=== PATIENT | female | born 1935 | race Caucasian/White ===

== ENCOUNTER 2018-07-12 10:00 | Outpatient (RCR) | payer OTHER, SELFPAY ==
--- NOTE | 2018-06-22 08:02 | IE_ITS ---
Date: 06/22/18 Referring: Dr. Jaclyn Clark Diagnosis: S/P (L) knee arthroscopic, scar tissue debridement on 06/09/18. S/P (L) TKR 1 year prior. P.T. Diagnosis: Same with decreased strength (L) LE. SUBJECTIVE: History of Present Illness: Moira presenting to PT for rehab of (L) knee following arthroscopic surgery as noted above. Pt explains that she had progressive pain 1 year following a total knee replacement, with provocation of pain thought to be scar tissue, growth production based on Jaclyn's assessment on 06/09/18. She went under arthroscopic debridement, and since that time she does appreciate remarkable improvement and articulation and mobility of the (L) knee. Has not yet changed but she realizes that this is due to her acute s/p surgical condition. She has had no PT as of yet. She was compliantly involved in a wellness program here in this clinic prior to this surgery and her main hope is to return to this as soon as possible, which is primarily why she is seeking this evaluation today to see if she is physically capable. She has a follow with Jaclyn in 6 weeks. Pain Rating: Unable to state but she does report moderate pain level Pain Location: Medial knee and lateral joint compartment Prior Level of Function: Difficulty with any movements where she was twisting as well as stairs, and squatting activities. She is ambulating without assistive device only utilizing a cane on uneven terrain or lengthy duration. Involved in our PT wellness program 2x per week with Melvin supervision here at our clinic. Current Level of Function: 1 step at a time with stair climbing, she isn't able to perform any bending or squatting due to pain and she has sleep disruption and discomfort when getting in and out of her tub an din and out of her vehicle. Previous Treatment: None post operatively. Social: Lives (I) Comorbidities: Insomnia, S/P (L) TKR 1 year ago, s/p (L) total shoulder, gluten allergy, Hypolipidemia, Osteoarthritis, Chronic (L) shoulder pain, limited (L) shoulder mobility Falls in the last year: __X__ No ____Yes - How many? ____ - (if over 2, balance SM needs to be completed) Reported hospitalizations in the last year - __X__ No ____ Yes - Dates of admission/reason: Medications: Tramadol, Acetaminophen, Baby Aspirin x 2 weeks Quality of Life: __X__ Good Standardized Measures: LEFS score: __52% Disability__ OBJECTIVE: Posture: Mild genu valgus (R) > (L), mild increase in forward head thoracic kyphosis consistent with age related deficits but no other structural deformities noted aside from (L) shoulder hiking and protrusion greater than the (R) side likely related to her chronic (L) shoulder issues. Observation: Mild swelling along the arthroscopic surgical incision but well healed skin. Mild increase in swelling (L) verus (R) but nothing remarkable. Gait: Minimally antalgic utilizing good heel to toe mechanics and not favoring 1 LE over the other. She can toe and heel walk without holding on and with good form. Palpation: Mild tenderness over surgical incisions but otherwise non tender along the (L) knee. Edema: Mild visual increase in swelling (L) knee versus (R) ROM: (L) knee is 0-150* without pain at end range, both at the (R) side. Joint Accessory Motion: WNL through the patella femoral and tibial femoral joints without discomfort. Strength: 5/5 (L) quad and (L) hamstring Hip flexion, dorsiflexion and plantarflexion Neuro: Intact to light touch (B) LE Balance: Complete a 10 second SLS but requires finger tip hold, (R) 10 seconds but without hold. Demonstrating more instability (L) versus (R). Special Tests: Not applicable. Treatment: IE: [id number] Patient Education: Develop and review HEP please see skin document for details. KX applied to all codes ____ Yes __X__ No Therapeutic procedures (03565e4). _ X_ HEP review Direct treatment time: 45 minutes Total treatment time: 45 minutes ASSESSMENT: Patient is a 83-year-old female, referred for PT services with the diagnosis of s/p (L) knee meniscectomy, scar tissue debridement following TKR 1 year ago. Patient presents with clinical signs and symptoms consistent with post op dx, as demonstrated by the following impairment level findings: poor proprioception of (L) knee, mild degree of swelling, poor endurance with pain exacerbation with weightbearing tasks. Impairments are contributing to the following functional limitations: Poor tolerance to lengthy weightbearing, unable to reciprocally ascend and descend stairs, pain with getting in and out of her tub and in and out of her vehicle, unable to bend or squat. Also unable to carry out her wellness program fully as she did prior to surgery. Patient is assessed as: __X__ Low 84067 ____ Moderate 93435 ____ High 89817 complexity, based on the following: History: X See comorbidities and social history. Examination: X See above for functional limitations and impairments. Presentation: X Stable Decision-Making: X Low complexity 52 % Disability based on LEFS __X__ Patient requires skilled PT intervention to remediate the above functional limitations to return to: __X__ Return to full functional mobility Prognosis: __X__ Excellent G-Codes: Patient's primary functional limitation is in the category of: __X__ Mobility - walking and moving around : [id number] based on LEFS Projected goal: __X__ Mobility - walking and moving around: [id number] STG: __4__ weeks. 1. Ascending and descending stair reciprocally. 2. Reporting no pain and getting into and out of her vehicle or tub. 3. Sleep pattern return to premorbid level. 4. Squatting and bending with 50% improvement. LTG: __8__ weeks. __X__ Return to premorbid level of function. __X__ Return to full, pain-free, functional mobility. __X__ Independent with self-maintenance program. PLAN: Patient to be seen 2 x per week, for 8 weeks, consistently for the first 4 weeks as we transition her back into her wellness program as that is her ultimate goal compared to when she has a good understanding of her therapeutic exercise and I anticipate that she will likely be able to carry out most of her rehabilitation via wellness program within frequent re-checks. Treatment to include: X Therapeutic exercise - [id number]- For (L) LE strengthening and proprioceptive activities. Thank you for this referral. Please do not hesitate to contact me with any questions or concerns regarding this patient's plan of care. Dr. Anaya please sign below if you are in agreement with this patients plan of care,
--- NOTE | 2018-06-24 15:44 | PTTR_ITS ---
DATE: 06/24/18 SUBJECTIVE: Moira reports that her knee was sore yesterday after running a lot of errands. She states that she is still having difficulty descending stairs. OBJECTIVE: Therapeutic procedures ([id number]). * [X] See flow sheet: Patient completed an open and closed-chain LE strengthening and stabilization program, as per flow sheet. Incorporated stair descent training as well as static proprioceptive balance activities, with good tolerance. * [X] Provided skilled instruction in proper exercise performance. * [X] Provided skilled manual cues to facilitate proper muscle recruitment and/or movement pattern. * [X] Other: Patient completes the remainder of her ther ex program, via Wellness Program. Direct treatment time: 45 minutes Total treatment time: 65 minutes
--- NOTE | 2018-06-27 10:39 | PTTR_ITS ---
DATE: 06/27/18 SUBJECTIVE: Moira states that she felt tired after her last PT session, and reports that she continues to have pain in her R knee. OBJECTIVE: Therapeutic procedures ([id number]). * [X] See flow sheet: Patient completed a LE strengthening and stabilization program including proprioceptive balance activities, as per flow sheet. Added lateral walks with light Theraband resistance to program today with good tolerance. Patient tolerated a slight progression in her program today, modifications made to reps are noted on flow sheet. * [X] Provided skilled manual cues to facilitate proper muscle recruitment and/or movement pattern * [X] Other: Patient completed selected exercises from her independent program, via Wellness Program. Direct treatment time: 45 minutes Total treatment time: 65 minutes
--- NOTE | 2018-06-29 10:28 | PTTR_ITS ---
DATE: 06/29/18 OBJECTIVE: Co-treatment with KLEVER Davenport. See her note for specifics. Therapeutic procedures (24013c6). * X See flow sheet: Open and closed chain LE strengthening as noted on flow sheet with some increases in reps and intensity of her program. Less discomfort noted throughout her program and she thinks that this is due to the Rock tape. * X Provided skilled instruction in proper exercise performance: * X Provided skilled manual cues to facilitate proper muscle recruitment and/ or movement pattern: * X Other: Ends with select independent exercises and cardiovascular activity via wellness program. Direct treatment time: 25 minutes Total treatment time: 25 minutes Micki Lewis, ACCOUNTING CLERK
--- NOTE | 2018-06-29 11:18 | PTTR_ITS ---
DATE: 06/29/18 SUBJECTIVE: Moira reports her knee is really unchanged since pre-surgcal status. She is frustrated by her chronic pain. OBJECTIVE: Observation: Visual low grade swelling R knee, well healed arthroscopic incisions. Manual therapy: (49594t9). R TF and PF mobilization for desensitization Extension overpressure in supine and long sitting, grade 4 STM desensitization surrounding R knee Rock tape application for desensitization Flexion end range oscillations in 90/90 position ROM:2-130* She was then seen by Micki Lewis PTA for ther ex per my direction - see her note. Direct treatment time: 30 minutes Total treatment time: 30 minutes Assessment: Moira is frustrated with lack of change in pain, as that was her ultimate goal with surgery. It is early in rehab process, and I remind her of this. Her age, chronic pain, and TKR history are likely to slow the healing process down. Despite her pain, her mobility is great, and extension is gaining. I anticipate with time, she will continue to improve, but slowly when considering above factors. She had report of pain decreased with donning of Rock taping. Plan: Per POC
--- NOTE | 2018-07-04 09:46 | PTTR_ITS ---
DATE: 07/04/18 SUBJECTIVE: Pt reports that she feels as though the Rock Taping was helpful. OBJECTIVE: Manual therapy: (97178o7). Todays session consisted of pt receiving tibiofemoral and patella femoral joint mobilization to the involved LE as well as stretching into knee flexion and extension. Pt was able to achieve 0* of knee extension and approximately looking 120-125* of knee flexion in the seated position. Pt then received Rock Taping as per previous session around the knee and completed a Therapeutic exercise (04665m5) Program consisting of proprioceptive activities on the airex, glute strengthening, LE strengthening activities and then completed a portion (I) with the Wellness program. Direct treatment time: 30 minutes Total treatment time: 30 minutes
--- NOTE | 2018-07-06 10:03 | PTTR_ITS ---
DATE: 07/05/18 SUBJECTIVE: Moira states that she is still having some discomfort in her L knee , although she feels functional tasks like ascending and descending stairs, are getting easier. OBJECTIVE: Therapeutic procedures ([id number]). * [X] See flow sheet: Patient completed a LE strengthening program with proprioceptive activities for improved balance and stability, as per flow sheet. Patient tolerated a slight progression in her program today, modifications made to reps, times, and weights are noted on flow sheet. * [X] Provided skilled manual cues to facilitate proper muscle recruitment and/or movement pattern. * [X] Other: Patient completed NuStep biking x10 minutes via Wellness Program, and several approved exercises, independently, under rehab trainer supervision. Direct treatment time: 40 minutes Total treatment time: 50 minutes (with additional time spent on independent exercise program)
--- NOTE | 2018-07-12 10:00 | PTTR_ITS ---
DATE: 07/12/18 SUBJECTIVE: Moira stating that she is having reduced pain when ascending, descending stairs. Now doing this reciprocally. She continues to suffer from chronic pain in the L knee. Her insomnia has really been bothering her lately which she feels only adds to her L knee discomfort. OBJECTIVE: ROM: L knee 0 to 130 degrees without discomfort. Accessory Motion: WNL patellofemoral and tibiofemoral joint. Strength: Grossly 4+/5, quad,hamstring. Gait: Non-antalgic. Toe and heel walk WNL. Observation: Mild swelling of the L knee, but nothing remarkable. Patient Education: Encourage her to do cardiovascular activity increasing her heart rate to about 130 to 140, 3-4x a week to see if this allows for some central nervous system stimulation in regards to endorphin release and/or serotonin in hopes of reducing her insomnia and managing her chronic L knee pain , otherwise she is appropriate to progress more onto an independent program as I anticipate time itself is going to manage her knee if she has a good oval or circular glass cutter outcome. Therapeutic procedures ([id number]). Direct treatment time: 25 mins Total treatment time: 25 mins A: At this point Moira is plateauing, she has reached good impairment level gains in regards to motion, strength, gait, etc . . . She continues to deal with chronic pain, this is likely related to the amount of pain she had prior to her surgery, her insomnia, and other unknown reasons. Hopefully some of my suggestions above may be of some help, otherwise we are going to have to see how time plays out and she is compliant with her HEP we can only hope that she will get some relief. At this point, I do not think there is any impairment related contribution to her pain. P: Continue MSP for 1 month, follow up with her in one months time to see how she is doing. She understands to contact me sooner if she needs assist or has concerns. KESHAV/dl
--- NOTE | 2018-07-12 10:48 | PTTR_ITS ---
DATE: 07/12/18 OBJECTIVE: Co-treatment with primary therapist, KLEVER Davenport. Please see her note for specifics. Therapeutic procedures (No Charge). Patient to transition to [facility] for ther ex. Per primary therapist, reviewed patient's open and closed chain LE strengthening and stabilization exercise program as well as set up and documentation. Patient demonstrates knowledge and understanding of program, documentation, safety with equipment use and set-up, and appropriate exercise execution. Patient completed the remainder of her program via Wellness Program under [facility].
== END 2018-07-22 23:59 | disposition home or self-care (01) ==
LOC: PT 10:00
PROVIDERS: PCP Family Medicine; Referring Provider Student in an Organized Health Care Education/Training Program; Visit Provider Student in an Organized Health Care Education/Training Program
DX: Z47.89 Encounter for other orthopedic aftercare (principal); M24.662 Ankylosis, left knee
CPT/HCPCS: 97110; 97140; 97161; G8978

== ENCOUNTER → 2018-07-22 02:52 | Outpatient (RCR) | payer OTHER, SELFPAY ==
[2018-07-01 09:17] VITALS: BP 106/55; PULSE 66; RESP 18; TEMP 36.8
[2018-07-01] MEDS: Normal Saline Flush 10 ML SYR IVP (09:27)
[2018-07-01] MEDS: IMMUNE GLOBULIN 20 GM/200 ML BTL IVPB (09:27)
[2018-07-01 10:03] VITALS: BP 120/61; PULSE 60; TEMP 36
[2018-07-01 10:15] VITALS: BP 118/61; PULSE 58; RESP 18; TEMP 36.8
[2018-07-01 10:45] VITALS: BP 118/60; PULSE 60; RESP 17; TEMP 36.5
[2018-07-01 11:19] VITALS: BP 136/63; PULSE 61; RESP 18; TEMP 36.8
[2018-07-22] MEDS: Normal Saline Flush 10 ML SYR IVP ×2 (08:30→11:25)
[2018-07-22] MEDS: IMMUNE GLOBULIN 20 GM/200 ML BTL IVPB (09:33)
[2018-07-22 09:45] VITALS: BP 121/59; PULSE 61; RESP 18; TEMP 36; O2SAT 100
[2018-07-22 10:00] VITALS: BP 120/46; PULSE 62; RESP 18; TEMP 36.2; O2SAT 100
[2018-07-22 10:30] VITALS: BP 131/57; PULSE 61; RESP 18; TEMP 36.6
[2018-07-22 11:24] VITALS: BP 142/61; PULSE 61; RESP 18; TEMP 36.6
== END ==
LOC: INF 07-01 01:19
PROVIDERS: PCP Family Medicine; Visit Provider Family Medicine
DX: D80.1 Nonfamilial hypogammaglobulinemia (principal)
CPT/HCPCS: 96365; 96366; J1459; J1561

== ENCOUNTER → 2018-07-22 08:00 | Outpatient (CLI) | payer OTHER, SELFPAY ==
[2018-07-22 08:12] LABS: Abs Immature Grans 0.01 k/cumm (0.0-0.09); Absolute Basophil Count 0.05 k/cumm (0.0-0.2); Absolute Eosinophil Count 0.31 k/cumm (0.0-0.7); Absolute Lymphocyte Count 1.67 k/cumm (1.2-3.4); Absolute Monocyte Count 0.89 k/cumm (0.11-0.7); Absolute Neutrophil Count 3.38 k/cumm (1.2-6.7); Basophils % 0.8; Eosinophils % 4.9; HCT 40.7 % (36.0-46.0); HGB 13.1 g/dL (12.0-15.5); Immature Grans % 0.2; Lymphocytes % 26.5; Mean Corp. HGB Concentration 32.2 g/dL (32.0-36.0); Mean Corpuscular Hemoglobin 30.5 pg (27.0-33.0); Mean Corpuscular Volume 94.7 fL (80-95); Mean Platelet Volume 10.4 fL (8.0-11.0); Monocytes % 14.1; Neutrophils % 53.5; Platelet Count 308 x1000/uL (130-400); RBC Distribution Width 14.9 % (11.7-14.6); White Blood Cell Count 6.31 k/cumm (4.4-10.8)
[2018-07-22 08:39] LABS: ALT 19 U/L (12-78); AST 23 U/L (15-37); Albumin 3.8 g/dL (3.4-5.0); Alkaline Phosphatase 65 U/L (46-116); Anion Gap 7.8 mmol/L (3-11); BUN 14 mg/dL (7-18); Bilirubin, Total 0.5 mg/dL (0.2-1.0); CO2 27.2 mmol/L (21.0-32.0); CREATININE 0.84 mg/dL (0.55-1.02); Calcium 9.2 mg/dL (8.5-10.1); Chloride 106 mmol/L (98-107); Glucose 100 mg/dL (70-100); Sodium 141 mmol/L (136-145); Total Protein 6.7 g/dL (6.4-8.2)
[2018-07-26 11:03] LABS: IgG 776 mg/dL (610-1616)
== END ==
PROVIDERS: PCP Family Medicine; Visit Provider Internal Medicine
DX: D80.1 Nonfamilial hypogammaglobulinemia (principal); D83.8 Other common variable immunodeficiencies
CPT/HCPCS: 36415; 80053; 82784; 85025

== ENCOUNTER 2018-08-12 00:49 | Outpatient (RCR) | payer OTHER, SELFPAY ==
[2018-08-12 09:12] VITALS: BP 134/58; PULSE 63; RESP 18; TEMP 36.3; O2SAT 99
[2018-08-12] MEDS: IMMUNE GLOBULIN 20 GM/200 ML BTL IVPB (09:38)
[2018-08-12] MEDS: Normal Saline Flush 10 ML SYR IVP (09:39)
[2018-08-12 09:40] VITALS: BP 115/96; PULSE 63; RESP 18; TEMP 36.4
[2018-08-12 09:55] VITALS: BP 125/54; PULSE 64; RESP 18; TEMP 36; O2SAT 99
[2018-08-12 10:09] VITALS: BP 123/48; PULSE 66; RESP 18; TEMP 36.5
== END 2018-08-21 23:59 | disposition home or self-care (01) ==
LOC: INF 00:49
PROVIDERS: PCP Family Medicine; Visit Provider Family Medicine
DX: D80.1 Nonfamilial hypogammaglobulinemia (principal)
CPT/HCPCS: 96365; 96366; J1459

== ENCOUNTER 2018-09-07 10:00 | Outpatient (CLI) | payer OTHER, SELFPAY | END 2018-09-07 10:20 | PROVIDERS: PCP Family Medicine; Visit Provider Student in an Organized Health Care Education/Training Program | DX: T84.84XA Pain due to internal orthopedic prosthetic devices, implants and grafts, initial encounter (principal); Z96.652 Presence of left artificial knee joint ==

== ENCOUNTER → 2018-09-07 10:37 | Outpatient (BNVA) | payer OTHER, SELFPAY | PROVIDERS: PCP Family Medicine; Referring Provider Family Medicine; Visit Provider Student in an Organized Health Care Education/Training Program | DX: Z47.89 Encounter for other orthopedic aftercare (principal); M25.562 Pain in left knee; Z96.652 Presence of left artificial knee joint | CPT/HCPCS: 99213 ==

== ENCOUNTER → 2018-09-19 12:45 | Outpatient (BNVA) | payer OTHER, SELFPAY | PROVIDERS: PCP Family Medicine; Referring Provider Family Medicine; Visit Provider Student in an Organized Health Care Education/Training Program | DX: M70.52 Other bursitis of knee, left knee (principal); M25.562 Pain in left knee; Z96.652 Presence of left artificial knee joint | CPT/HCPCS: 99213 ==

== ENCOUNTER → 2018-10-19 10:34 | Outpatient (BNVA) | payer OTHER, SELFPAY | PROVIDERS: PCP Family Medicine; Referring Provider Family Medicine; Visit Provider Student in an Organized Health Care Education/Training Program | DX: M76.52 Patellar tendinitis, left knee (principal); T84.84XA Pain due to internal orthopedic prosthetic devices, implants and grafts, initial encounter; Z96.652 Presence of left artificial knee joint; R22.9 Localized swelling, mass and lump, unspecified | CPT/HCPCS: 99214 ==

== ENCOUNTER 2018-11-01 01:03 | Outpatient (CLI) | payer OTHER, SELFPAY ==
--- NOTE | 2018-11-01 09:37 | DI.NM_ITS ---
SYMPTOMS/DIAGNOSIS: PAINFUL LEFT TOTAL KNEE REPLACEMENT, T84.84XA, Z96.652, ? LOOSE TKA THREE-PHASE BONE SCAN OF THE KNEES AND WHOLE BODY IMAGES: 24.8 mCi of technetium 99m MDP were administered IV. Comparison is made with plain films dated December, and CT dated April,. The flow images are unremarkable. The immediate images show mildly increased activity around the left knee prosthesis. The delayed images show slightly increased, symmetric activity around the left knee prosthesis, which may be within normal limits. A few tiny foci of increased activity are seen anteriorly in the right knee, likely corresponding to the patella. The remainder of the skeletal labelling is unremarkable. IMPRESSION: No findings to suggest loosening of the left knee prosthesis or infection.
== END 2018-11-01 01:23 ==
PROVIDERS: PCP Family Medicine; Visit Provider Student in an Organized Health Care Education/Training Program
DX: T84.84XA Pain due to internal orthopedic prosthetic devices, implants and grafts, initial encounter (principal); Z96.652 Presence of left artificial knee joint
CPT/HCPCS: 78315

== ENCOUNTER 2018-11-16 11:24 | Day surgery (SDC) | payer OTHER, SELFPAY ==
[2018-11-16 11:34] VITALS: BP 133/65; PULSE 64; RESP 20; TEMP 36.1; O2SAT 100
[2018-11-16 11:53] VITALS: BP 133/65; PULSE 64; RESP 20; TEMP 36.1; O2SAT 100
[2018-11-16] MEDS: Lactated Ringers 1,000 ML 80 ML IV (12:10)
[2018-11-16] MEDS: Bupivacaine 0.25% Pres-Free 30 ML VIAL (12:46)
[2018-11-16] MEDS: Lidocaine 1% Pres-Free 5 ML VIAL (12:46)
--- NOTE | 2018-11-16 12:55 | FORBOD_PTH ---
PATIENT: Moira Copeland LOC: YRN U#:[id number] AGE/SX: 83/F ROOM: RE11/16/[address]: El Anaya MD : [id number] BED: DIS: 11/16/2018 SPEC #: [id number] RECD: 11/16/18 17:05 STATUS: THIERNO REQ #: [id number] JORGE: 11/16/18 12:[address]: El Anaya DEPT: Surgical Specimen RECD BY: Diane Gardner ENTERED: 11/16/18 17:06 SP TYPE: For Body OTHR DR: Jarrod Becerra Tissues: 1 - FOREIGN BODY Procedures: GROSS LEVEL 1 Comments: [id number]
--- NOTE | 2018-11-16 13:05 | PDOC.DSDIS_ITS ---
Discharge Plan Disposition Patient Disposition: HOME Condition: Good Discharge Details Reason For Visit: Left knee foreign body Attending Provider: El Anaya Primary Care Provider: Jarrod Becerra Discharge Instructions Additional Instructions: Activity: You may bear weight as tolerated. No supported devices are required. You may move the knee as tolerated but should avoid any aggressive motions or exercises. Do NOT submerge. Dressings: Keep the dressing clean and dry. You may remove after 3 days. You may get wet after 3 days. Keep covered with a bandaid. Follow-up: 7-10 days. Medications: - You should use Tylenol and Ibuprofen for baseline pain control. Referrals: El Anaya MD [ [facility] STAFF PHYSICIAN] - Activity:: Elevate Remove Dressings/Wound Care:: 72 hours Shower/Bathe:: 72 hours Diet:: As Tolerated Discharge Orders Discharge Orders: Discharge Order (Routine); Ordered 11/16/18 Ordered By: El Anaya DS: Diagnosis Discharge Diagnosis (1) Superficial foreign body, left knee, sequela: Status: Acute
--- NOTE | 2018-11-18 07:01 | ROE_ITS ---
REPORT OF OPERATIVE PROCEDURE DATE OF SURGERY November 16, 2018 PREOPERATIVE DIAGNOSES Left knee foreign body. POSTOPERATIVE DIAGNOSES Left knee foreign body. SURGERY Excisional biopsy of left knee foreign body. SURGEON lE Anaya M.D. ANESTHESIA Local. ESTIMATED BLOOD LOSS Minimal. FINDINGS There as a dense and glossy white mass found just superficial to the anterolateral knee capsule. It was approximately 2 mm in diameter. It was sent to the lab for pathology. COMPLICATIONS None. DISPOSITION The patient was taken back to the Same Day Surgery area in stable condition. INDICATION FOR PROCEDURE Moira is an 83-year-old female who I know quite well from her left knee. She underwent a left knee arthroplasty a little over a year ago and has had some persistent pain and issues with the left knee. She was otherwise mobile and has done well, except for some chronic, low-grade pain. She has also noticed this prominence over the anterolateral aspect of the left knee. She feels like it only came about after surgery. It was unclear exactly what it is, but it presents a problem with any direct pressure where it causes exquisite pain. I discussed the role excisional biopsy. Given its superficial and small nature, I thought this was the best next step. I reviewed the possible risks to include bleeding, infection, pain, stiffness, recurrence, need to repeat procedures. Despite these risks, she elected to proceed. PROCEDURE DESCRIPTION Moira was greeted in the preoperative holding area, her identity was confirmed and the correct site was identified and marked. The consent was reviewed with the patient and signs. The patient was taken back to the Operating Room, placed in supine position. The left knee was identified as the correct site. It was prepped with ChloraPrep and draped in a standard fashion. Prophylactic antibiotics in the form of cefazolin were given. A time-out was performed for safe surgery. The mass was easily palpable. It was marked on the skin. The surgical site was then anesthetized with 1% lidocaine. Once anesthesia had been reached, the skin was incised. A 1-cm incision was made superficially. This was carried slightly deeper until we encountered this hard mass. A tenotomy scissor was used to bluntly debride the tissue around this area and this 2-mm dense object was removed. It was glossy white on its surface and again, it was about 2 millimeters in diameter. It was sent off to Pathology. This appeared to be just lateral to the patellar tendon and over the surface of the anterolateral capsule. There were no other concerning findings in this area. The area was irrigated. This wound was closed with a single #3-0 Nylon stitch. The wound was dressed with a Mepilex dressing. At the end of the case, all counts were correct. She was transferred back to the Same Day Surgery in stable condition.
== END 2018-11-16 13:45 | disposition home or self-care (01) ==
PROVIDERS: PCP Family Medicine; Visit Provider Student in an Organized Health Care Education/Training Program
PROC: (CPT 20525; principal; 2018-11-16 13:15)
DX: M79.5 Residual foreign body in soft tissue (principal); Z96.651 Presence of right artificial knee joint
CPT/HCPCS: 20525; 88300; 99211; J0690

== ENCOUNTER → 2018-11-28 13:54 | Outpatient (BNVA) | payer OTHER, SELFPAY | PROVIDERS: PCP Family Medicine; Referring Provider Family Medicine; Visit Provider Student in an Organized Health Care Education/Training Program | DX: S80.252D Superficial foreign body, left knee, subsequent encounter (principal); X58.XXXD Exposure to other specified factors, subsequent encounter ==

== ENCOUNTER 2018-12-26 00:39 | Outpatient (CLI) | payer OTHER, SELFPAY ==
[2018-12-26] MEDS: Omnipaque 350 MG/ML 100 ML BTL IJ (12:58)
--- NOTE | 2018-12-26 13:00 | DI.CT_ITS ---
SYMPTOM/DIAGNOSIS: ABD PAIN, RECURRENCE OF SOME RT EPIGASTRIC PAIN, H/O RECENT ACUTE PANCREATITIS, R10.[address]: There are no prior comparison exams. Images were performed from the lung bases through the ischial tuberosities after IV and oral contrast. The lung bases are clear. The patient is status post cholecystectomy. The liver, spleen, pancreas and adrenals are unremarkable. There is a mass measuring 3.2 cm. in greatest dimension in the mid portion of the right kidney. It deviates the renal pelvis but does not appear invasive. There is no hydronephrosis. The left kidney is unremarkable. Diverticulosis is noted of the descending and sigmoid colon. There is no evidence of diverticulitis. The appendix appears normal. There is no small bowel dilatation. No adenopathy is seen. There is no free air or free fluid. There is mild compression fracture of the superior endplate of L 2. No underlying mass is identified. The patient is status post hysterectomy. There is a simple appearing cyst on the right ovary measuring 3.2 cm. The left ovary is unremarkable. IMPRESSION: 3.2 cm., circumscribed mass in the mid right kidney. The mass appears homogeneous and does not appear invasive but does not measure water density. An MRI could be considered for further evaluation.
== END 2018-12-26 00:59 ==
PROVIDERS: PCP Family Medicine; Visit Provider Family Medicine
DX: R10.9 Unspecified abdominal pain (principal); R10.13 Epigastric pain; N28.9 Disorder of kidney and ureter, unspecified; K57.90 Diverticulosis of intestine, part unspecified, without perforation or abscess without bleeding; T84.84XA Pain due to internal orthopedic prosthetic devices, implants and grafts, initial encounter; Z96.652 Presence of left artificial knee joint
CPT/HCPCS: 99213; 74177; J3490

== ENCOUNTER 2019-01-03 01:13 | Outpatient (CLI) | payer OTHER, SELFPAY ==
[2019-01-03 13:23] LABS: Abs Immature Grans 0.01 k/cumm (0.0-0.09); Absolute Basophil Count 0.04 k/cumm (0.0-0.2); Absolute Eosinophil Count 0.18 k/cumm (0.0-0.7); Absolute Lymphocyte Count 1.39 k/cumm (1.2-3.4); Absolute Monocyte Count 0.68 k/cumm (0.11-0.7); Absolute Neutrophil Count 3.57 k/cumm (1.2-6.7); Basophils % 0.7; Eosinophils % 3.1; HCT 39.9 % (36.0-46.0); HGB 12.8 g/dL (12.0-15.5); Immature Grans % 0.2; Lymphocytes % 23.7; Mean Corp. HGB Concentration 32.1 g/dL (32.0-36.0); Mean Corpuscular Volume 93.7 fL (80-95); Mean Platelet Volume 10.4 fL (8.0-11.0); Monocytes % 11.6; Neutrophils % 60.7; Platelet Count 305 x1000/uL (130-400); RBC 4.26 m/cumm (4.00-5.20); RBC Distribution Width 14.8 % (11.7-14.6); White Blood Cell Count 5.87 k/cumm (4.4-10.8)
[2019-01-03 13:35] LABS: ALT 19 U/L (12-78); AST 21 U/L (15-37); Albumin 3.5 g/dL (3.4-5.0); Alkaline Phosphatase 66 U/L (46-116); Anion Gap 8.5 mmol/L (3-11); BUN 22 mg/dL (7-18); Bilirubin, Total 0.2 mg/dL (0.2-1.0); CO2 28.5 mmol/L (21.0-32.0); CREATININE 0.91 mg/dL (0.55-1.02); Calcium 9.1 mg/dL (8.5-10.1); Chloride 104 mmol/L (98-107); Estimated GFR 59.33 (mL/min/1.73m2); Glucose 82 mg/dL (70-100); Potassium 4.1 mmol/L (3.5-5.1); Sodium 141 mmol/L (136-145); Total Protein 6.8 g/dL (6.4-8.2)
[2019-01-03 13:37] LABS: Creatine Kinase 67 U/L (26-192)
[2019-01-03] MEDS: Gadoterate meglumine 20 ML VIAL 11 ML IVP (14:34)
--- NOTE | 2019-01-03 14:48 | DI.MRI_ITS ---
SYMPTOMS/DIAGNOSIS: 3.2 CM RENAL MASS, N29.89, H/O PANCREATITIS AND RECURRENCE OF ABDOMINAL PAIN, MORE RIGHT-SIDED MRI OF THE ABDOMEN: Pre and post contrast MRI of the kidneys was performed. Comparison CT scan is 12/26/18. There is again seen a soft tissue mass in the right renal pelvis. The mass measures 3.0 cm transverse x 2.6 cm AP x 3.1 cm craniocaudad. The mass appears to be centered in the renal collecting system. It appears to involve calyces from the mid pole with extension into the renal pelvis. It is similar in size and location compared to the CT scan from 12/26/18. The kidney shows otherwise normal enhancement. There does appear to be mild prominence of the other calyces in the right kidney. The left kidney shows normal and homogenous enhancement. No evidence of a mass is appreciated. There is no evidence of an adrenal mass. The visualized portions of the liver, pancreas and spleen are unremarkable. The patient is status post cholecystectomy. No significant adenopathy is seen in the abdomen. No ascites is present. IMPRESSION: A 3.1 cm mass in the right kidney as described above. Primary diagnostic consideration is for a renal neoplasm. A urothelial neoplasm should be considered. Renal cell carcinoma cannot be excluded. Infection or hemorrhage may also be considered in this patient. Biopsy should be considered for further evaluation.
[2019-01-04 11:27] LABS: IgG 427 mg/dL (610-1616)
== END 2019-01-03 01:33 ==
PROVIDERS: Internal Medicine; PCP Family Medicine; Visit Provider Family Medicine
DX: N28.89 Other specified disorders of kidney and ureter (principal); R10.31 Right lower quadrant pain; D80.1 Nonfamilial hypogammaglobulinemia; D83.8 Other common variable immunodeficiencies
CPT/HCPCS: 36415; 74183; 80053; 82550; 82784; 85025

== ENCOUNTER 2019-01-26 01:18 | Inpatient (IN) | payer OTHER, SELFPAY ==
[2019-01-26] VITALS (22 sets, daily range): BP systolic 114–170; BP diastolic 55–76; PULSE 64–77; RESP 16–20; TEMP 35.7–37.5; O2SAT 94–99
--- NOTE | 2019-01-26 01:20 | W.ED.GENAD ---
Discharge Plan Disposition Patient Disposition: [facility] INPATIENT Condition: Stable Discharge Details Chief Complaint: Urinary Clinical Impression: Acute pancreatitis Primary Care Provider: Jarrod Becerra ED Provider: Daniel Gurrola Home Meds and New Rx's Prescriptions: No Action acetaminophen [Acetaminophen Extra Strength] 500 mg Tablet 1,000 mg PO PRN PRNRF: 0 Medical Decision Making 83 yo female comes in with right sided abdominal pain since yesterday. She had a CT guided core needle biopsy of the right kidney yesterday [place] [facility] [place] and had right sided pain in recovery. They monitored her per the pt and d/c'd her home, continued to have pain so came here for an evaluation. She has not had vomit, fevers or chills. She has pain on palpation to the right oblique, ruq and rlq. She does appear uncomfortable. The site where the needle was insterted is not red or tender and has no drainage. She has also had hematuria since the procedure. Will obtain lab work and imaging to further evaluate cause of her pain and eval for entities such as pancreatitis, appendicitis, kidney stone. labs show mild lucinda, nitrite positive urine but she denies any urinary symptoms so do not feel abx indicated. Lipase is 1800, awaiting imaging imaging shows severe hydro likely from acute on chronic obstruction and also evidence of possible urine extravasation. I spoke with Dr. Hackett who states he can take her to the OR later today for further evaluation of renal collceting system injury. Spoke with Dr. Painting who will admit for pain control and IVF Differential Diagnosis pancreatitis, kidney stone, appendicitis Imaging Data Radiologic Study: Attestation: I personally reviewed and interpreted this imaging study as follows: Imaging: CT Scan Radiologist's impression: Severe right hydronephrosis. 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 There is some perinephric stranding and fluid which is lower density than blood products and could represent some urine extravasation. Patient has a known right renal mass. HPI General Mode of arrival: ambulatory. Date/Time Provider Initiated Documentation: 01/26/19 01:20. Limitations to Documentation: no limitations. Information obtained by: patient. History of Present Illness 83 year old F presents to the emergency department with the chief complaint of abdominal pain, described as moderate, Quality is described as sharp, Patient reports no radiation. Patient started experiencing this hour(s) (5) No relieving factors improve symptom(s), No exacerbating factors reported . Patient did receive the following treatments prior to arrival, none Related Data Home Medications Medication Instructions Recorded Confirmed acetaminophen [Acetaminophen Extra 1,000 mg PO PRN PRN 01/26/19 01/26/19 Strength] Allergies Allergy/AdvReac Type Severity Reaction Status Date / Time ropinirole Allergy Severe blacked out Unverified 01/26/19 01:30 mometasone furoate Allergy Intermediate Swelling/Ed Unverified 01/26/19 01:30 [From Nasonex] cinda gluten AdvReac Intermediate Abdominal Unverified 01/26/19 01:30 pain, diarrhea Review of Systems Review of Systems All systems reviewed & are unremarkable except as noted in HPI and below Constitutional Denies chills and Denies fever(s) Cardiovascular Denies chest pain and Denies dyspnea Respiratory Denies cough and Denies dyspnea Gastrointestinal Denies vomiting Genitourinary Denies dysuria Musculoskeletal Denies joint swelling Integumentary/Breasts Denies rash Endocrine Denies heat intolerance Allergic/Immunologic Denies urticaria PFSH Medical History Hyperlipidemia Osteoarthritis Other chronic pain Overactive bladder Surgical History Abdominal hysterectomy Appendectomy Arthroscopy, Shoulder Cholecystectomy Colonoscopy - IV Sedation Extraction of cataract Open Carpal Tunnel release Tonsillectomy Family History Mother No problems noted. Father No problems noted. Social History Smoking and Tabacco status: Former Tobacco Use Exam Const General: no acute distress Orientation: alert HENMT Head: normal to inspection Ears: external ears normal General nose exam: external nose normal Mouth: moist mucous membranes Eyes General: appearance normal, both eyes and all related structures Neck Neck: normal visual inspection Resp Effort & Inspection: normal respiratory effort and able to speak in complete sentences Cardio Rate: regular rate GI Palpation: soft Skin General skin exam: no rashes or lesions noted Neuro General: alert and oriented x3 Extrem General: normal to inspection Psych Mental Status: mental status grossly normal
[2019-01-26] MEDS: Normal Saline 1,000 ML 1000 ML IV (01:36)
[2019-01-26] MEDS: Ondansetron 4 MG/2 ML VIAL IVP (01:37)
--- NOTE | 2019-01-26 01:39 | ED.GENADUL_ITS ---
Discharge Plan Disposition Patient Disposition: [facility] INPATIENT Condition: Stable Discharge Details Chief Complaint: Urinary Clinical Impression: Acute pancreatitis Primary Care Provider: Jarrod Becerra ED Provider: Daniel Gurrola Home Meds and New Rx's Prescriptions: No Action acetaminophen [Acetaminophen Extra Strength] 500 mg Tablet 1,000 mg PO PRN PRNRF: 0 Medical Decision Making 83 yo female comes in with right sided abdominal pain since yesterday. She had a CT guided core needle biopsy of the right kidney yesterday at [facility] [place] for a [place] and had right sided pain in recovery. They monitored her per the pt and d/c'd her home, continued to have pain so came here for an evaluation. She has not had vomit, fevers or chills. She has pain on palpation to the right oblique, ruq and rlq. She does appear uncomfortable. The site where the needle was insterted is not red or tender and has no drainage. She has also had hematuria since the procedure. Will obtain lab work and imaging to further evaluate cause of her pain and eval for entities such as pancreatitis, appendicitis, kidney stone. labs show mild lucinda, nitrite positive urine but she denies any urinary symptoms so do not feel abx indicated. Lipase is 1800, awaiting imaging imaging shows severe hydro likely from acute on chronic obstruction and also evidence of possible urine extravasation. I spoke with Dr. Hackett who states he can take her to the OR later today for further evaluation of renal collceting system injury. Spoke with Dr. Painting who will admit for pain control and IVF Differential Diagnosis pancreatitis, kidney stone, appendicitis Imaging Data Radiologic Study: Attestation: I personally reviewed and interpreted this imaging study as follows: Imaging: CT Scan Radiologist's impression: Severe right hydronephrosis. 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 There is some perinephric stranding and fluid which is lower density than blood products and could represent some urine extravasation. Patient has a known right renal mass. HPI General Mode of arrival: ambulatory . Date/Time Provider Initiated Documentation: 01/26/19 01:20 . Limitations to Documentation: no limitations . Information obtained by: patient . History of Present Illness 83 year old F presents to the emergency department with the chief complaint of abdominal pain, described as moderate, Quality is described as sharp, Patient reports no radiation. Patient started experiencing this hour(s) (5) No relieving factors improve symptom(s), No exacerbating factors reported . Patient did receive the following treatments prior to arrival, none Related Data Home Medications Medication Instructions Recorded Confirmed acetaminophen [Acetaminophen Extra 1,000 mg PO PRN PRN 01/26/19 01/26/19 Strength] Allergies Allergy/AdvReac Type Severity Reaction Status Date / Time ropinirole Allergy Severe blacked out Unverified 01/26/19 01:30 mometasone furoate Allergy Intermediate Swelling/Ed Unverified 01/26/19 01:30 [From Nasonex] cinda gluten AdvReac Intermediate Abdominal Unverified 01/26/19 01:30 pain, diarrhea Review of Systems Review of Systems All systems reviewed & are unremarkable except as noted in HPI and below Constitutional Denies chills and Denies fever(s) Cardiovascular Denies chest pain and Denies dyspnea Respiratory Denies cough and Denies dyspnea Gastrointestinal Denies vomiting Genitourinary Denies dysuria Musculoskeletal Denies joint swelling Integumentary/Breasts Denies rash Endocrine Denies heat intolerance Allergic/Immunologic Denies urticaria PFSH Medical History Hyperlipidemia Osteoarthritis Other chronic pain Overactive bladder Surgical History Abdominal hysterectomy Appendectomy Arthroscopy, Shoulder Cholecystectomy Colonoscopy - IV Sedation Extraction of cataract Open Carpal Tunnel release Tonsillectomy Family History Mother No problems noted. Father No problems noted. Social History Smoking and Tabacco status: Former Tobacco Use Exam Const General: no acute distress Orientation: alert HENMT Head: normal to inspection Ears: external ears normal General nose exam: external nose normal Mouth: moist mucous membranes Eyes General: appearance normal, both eyes and all related structures Neck Neck: normal visual inspection Resp Effort & Inspection: normal respiratory effort and able to speak in complete sentences Cardio Rate: regular rate GI Palpation: soft Skin General skin exam: no rashes or lesions noted Neuro General: alert and oriented x3 Extrem General: normal to inspection Psych Mental Status: mental status grossly normal
[2019-01-26] MEDS: fentaNYL 100 MCG/2 ML VIAL 50 MCG IVP ×2 (01:40→02:24)
[2019-01-26 01:47] LABS: Bilirubin Moderate (Negative); Blood Large (Negative); Clarity Cloudy; Glucose Negative (Negative); Ketones 80 mg/dL (Negative); Leukocyte Esterase Negative (Negative); Nitrite Positive (Negative); pH 5.5 (5-8)
[2019-01-26 01:52] LABS: Bacteria Few HPF (Negative); C & S Indicated? Yes; Casts Negative LPF (Negative); Crystals Negative HPF (Negative); Epithelial Cells Rare HPF (Negative); Mucus Negative (Negative); Other Cells Moderate Yeast (Negative); RBC >50 (0-2); WBC 0-2 HPF (0-5)
[2019-01-26 01:58] LABS: ETHANOL BLOOD < 3.0 mg/dL (<3)
[2019-01-26 02:01] LABS: ALT 18 U/L (12-78); AST 22 U/L (15-37); Albumin 3.6 g/dL (3.4-5.0); Alkaline Phosphatase 61 U/L (46-116); Anion Gap 13.4 mmol/L (3-11); BUN 19 mg/dL (7-18); Bilirubin, Direct 0.09 mg/dL (0.00-0.20); Bilirubin, Total 0.3 mg/dL (0.2-1.0); CO2 23.6 mmol/L (21.0-32.0); CREATININE 1.25 mg/dL (0.55-1.02); Chloride 101 mmol/L (98-107); Estimated GFR 41.13 (mL/min/1.73m2); Glucose 114 mg/dL (70-100); Lipase 1864 U/L (73-393); Magnesium 1.9 mg/dL (1.8-2.4); Potassium 3.8 mmol/L (3.5-5.1); Sodium 138 mmol/L (136-145); Total Protein 6.5 g/dL (6.4-8.2)
[2019-01-26] MEDS: Omnipaque 350 MG/ML 100 ML BTL IJ (02:14)
--- NOTE | 2019-01-26 02:15 | DI.CT_ITS ---
SYMPTOM/DIAGNOSIS: RT SIDED ABD PAIN, S/P KIDNEY BIOPSY YESTERDAY ABDOMEN AND PELVIC CT: CT scan of the abdomen and pelvis was performed following the uneventful administration of intravenous contrast material. Comparison is made with 12/26/18. Dependent atelectatic changes are seen in the lung bases. The liver is normal in size. No suspicious hepatic mass is seen. The patient is status post cholecystectomy. No biliary ductal dilatation is present. The portal, superior mesenteric and splenic veins are patent. The pancreas, spleen and adrenal glands are unremarkable. The left kidney shows normal enhancement. No solid renal mass or obstruction is identified. The right kidney shows delayed enhancement with marked enlargement of the renal collecting system to the level of the ureteropelvic junction. There is again seen a filling defect in the right renal collecting system measuring approximately 3.5 cm. consistent with the patient's known renal mass. Air is seen within the collecting system likely reflecting the patient's recent biopsy. Dilatation of the collecting system may reflect worsening of the dilatation of the right renal collecting system due to hemorrhage from the patient's recent biopsy. There is fluid seen in the perinephric soft tissues. This is predominantly low attenuation. The possibility of extravasation of urine should be considered. The urinary bladder is intact. There is a 3 cm. right adnexal cystic lesion again seen, likely ovarian in origin. The abdominal aorta is of normal caliber with atherosclerosis. No abdominal or pelvic adenopathy or pneumoperitoneum is present. There is diverticulosis of the colon but no evidence of acute diverticulitis. No findings to suggest an acute appendicitis are present. The bones appear stable. IMPRESSION: 1. Exacerbation and worsening of the right hydronephrosis. 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 Perinephric stranding and fluid is seen around the right kidney. It is of lower density than blood products and may represent urine extravasation. 2. Stable right 2.3 cm. renal mass. 3. Stable 3 cm. cystic lesion in the right adnexa, likely ovarian in origin.
[2019-01-26 02:18] LABS: Triglyceride 109 mg/dL (30-150)
[2019-01-26 02:24] LABS: PTT Activated 22.7 sec (21.0-31.4); Prothrombin Time 9.6 sec (9.3-11.0)
--- NOTE | 2019-01-26 02:49 | DI.VRAD_ITS ---
EXAM: CT Abdomen and Pelvis With Contrast EXAM DATE/TIME: 01/26/2019 1:30 AM CLINICAL HISTORY: 83 years old, female; Pain; Abdominal pain; Localized; Right; Prior surgery; Surgery date: Post-operative (0-2 days); Surgery type: Right renal biopsy TECHNIQUE: Axial computed tomography images of the abdomen and pelvis with intravenous contrast. All CT scans at this facility use at least one of these dose optimization techniques: automated exposure control; mA and/or kV adjustment per patient size (includes targeted exams where dose is matched to clinical indication); or iterative reconstruction. Coronal and sagittal reformatted images were created and reviewed. CONTRAST: Contrast Material: 79 ml of [id number]; Contrast Route: iv COMPARISON: CT Abdomen^ROUTINE ABDOMEN PELVIS WITH CONTRAST (Adult) 12/26/2018 12:42 PM FINDINGS: Lower thorax: Unremarkable. ABDOMEN: Liver: No suspicious lesions. Gallbladder and bile ducts: No acute or concerning findings. Pancreas: Unremarkable. No ductal dilation. Spleen: No suspicious lesions. Adrenals: Unremarkalbe. No suspicious mass. Kidneys and ureters: Severe right hydronephrosis. 3.5 cm right renal mass unchanged in the short-term. Right-sided perinephric stranding and fluid measuring 15-20 Hounsfield units. Stomach and bowel: Unremarkable. No obstruction or inflammatory changes. Appendix: No evidence of appendicitis. PELVIS: Bladder: Unremarkable as visualized. Reproductive: Unremarkable as visualized. ABDOMEN and PELVIS: Intraperitoneal space: No free air. No significant fluid collection. Bones/joints: Old compression deformity superior endplate of L2. Soft tissues: Unremarkable. Vasculature: Unremarkable. No acute findings Lymph nodes: Unremarkable. IMPRESSION: Severe right hydronephrosis. 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 There is some perinephric stranding and fluid which is lower density than blood products and could represent some urine extravasation. Patient has a known right renal mass. Dictated and Authenticated by: Pj Whelan MD. Ordering:PEDRO Sanchez MD
[2019-01-26 03:32] LABS: Abs Immature Grans 0.03 k/cumm (0.0-0.09); Absolute Basophil Count 0.04 k/cumm (0.0-0.2); Absolute Eosinophil Count 0.13 k/cumm (0.0-0.7); Absolute Lymphocyte Count 1.18 k/cumm (1.2-3.4); Absolute Monocyte Count 1.07 k/cumm (0.11-0.7); Absolute Neutrophil Count 10.82 k/cumm (1.2-6.7); Basophils % 0.3; HGB 12.3 g/dL (12.0-15.5); Immature Grans % 0.2; Lymphocytes % 8.9; Mean Corp. HGB Concentration 32.4 g/dL (32.0-36.0); Mean Corpuscular Hemoglobin 29.9 pg (27.0-33.0); Mean Corpuscular Volume 92.2 fL (80-95); Mean Platelet Volume 10.8 fL (8.0-11.0); Monocytes % 8.1; Neutrophils % 81.5; Platelet Count 327 x1000/uL (130-400); RBC 4.12 m/cumm (4.00-5.20); RBC Distribution Width 14.5 % (11.7-14.6); White Blood Cell Count 13.27 k/cumm (4.4-10.8)
--- NOTE | 2019-01-26 04:10 | NUR.NOTE ---
Nursing Note: Patient arrived to unit in stable condition, she is awake, alert and oriented, daughter at the bedside.
[2019-01-26] MEDS: Normal Saline 1,000 ML 150 ML IV ×2 (05:35→17:48)
--- NOTE | 2019-01-26 06:00 | W.PM.HP.N ---
Date of service: 01/26/19 Time of Service: 06:01 Assessment and Plan (1) Pancreatitis: Current visit: Yes Status: Chronic Apparent recurrent bout of pancreatitis, initial occurring in 07/2018. Per review of prior records, the patient was traveling in [facility] when she had onset of abdominal discomfort necessitating a stop at a local gas station. She had a bowel movement there that was loose, and following she became dizzy and weak, feeling unsafe to drive. She was transported by EMS to a local hospital, where she was found to have a elevated lipase. The patient verbally reports that she was hospitalized for 2 days. Current abdominal pain is not epigastric in nature, and the patient denies any nausea at this time. The CT of her abdomen does not show any abnormality within the pancreas. Repeat lipase this morning, continue IV fluids and pain control. The patient is s/p cholecystectomy. Will check a.m. triglycerides. Denies any alcohol use. (2) Right renal mass: Current visit: Yes Status: Acute S/p guided biopsy on 01/25 at [facility] [place]. Imaging with evidence of severe right sided hydronephrosis, with likely acute on chronic UPJ obstruction which she is exacerbated by some blood in the collecting system post biopsy. Also with mention of perinephric stranding and potential urine extravasation around the site of the biopsy. This was discussed with urology by ED attending, and plans for potential OR today with ureteroscopy for further evaluation. 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 (4) DVT prophylaxis: Current visit: Yes Status: Acute Hold off on chemical DVT prophylaxis as patient is potentially heading to the OR today. SCDs and TEDs initiated. (5) Advance directive discussed with patient: Current visit: Yes Status: Acute Full code. History of Present Illness Chief Complaint: Abdominal Pain Narrative: 83 year old woman with a past medical history significant for a right renal mass s/p Biopsy yesterday, and prior history of acute pancreatitis in July of 2018, being admitted from [facility] Emergency Department with a diagnosis of Pancreatitis. Mrs. Copeland has a prior history of OA, POLINA, RLS, and IBS. 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 Of note, she also had an episode of pancreatitis in 07/2018, manifested by abdominal pain and loose stools, for which she was reportedly hospitalized at an outside institution. The patient was noted to have a right sided renal mass on CT Scan obtained in early December due to abdominal pain. She was seen at [facility] [place] yesterday and underwent a CT Guided Biopsy. She reports some degree of RLQ pain prior to the procedure, and this has intensified since then. She also reports hematuria since the biopsy. Work-up in the ED was significant for mild elevation in creatinine, and a mildly elevated Lipase. Imaging was significant for acute on chronic right UPJ Obstruction, post-biopsy blood in the collecting system, and possible fluid (Urine) extravasation and perinephric stranding. The pancrease appeared normal. Patient was referred for admission for further evaluation and management, and Urology was consulted as well. Review of Systems Review of Systems All systems reviewed & are unremarkable except as noted in HPI and below PFSH Medical History Hyperlipidemia Osteoarthritis Other chronic pain Overactive bladder Surgical History Abdominal hysterectomy Appendectomy Arthroscopy, Shoulder Cholecystectomy Colonoscopy - IV Sedation Extraction of cataract Open Carpal Tunnel release Tonsillectomy Family History Mother No problems noted. Father No problems noted. Social History Smoking and Tabacco status: Former Tobacco Use additional social history: . 4 children. No current alcohol use, and remote history of tobacco use. Meds Home Medications Medication Instructions Recorded Confirmed Type acetaminophen [Acetaminophen Extra 1,000 mg PO PRN PRN 01/26/19 01/26/19 History Strength] Allergies Allergy/AdvReac Type Severity Reaction Status Date / Time ropinirole Allergy Severe blacked out Unverified 01/26/19 01:30 mometasone furoate Allergy Intermediate Swelling/Ed Unverified 01/26/19 01:30 [From Nasonex] cinda gluten AdvReac Intermediate Abdominal Unverified 01/26/19 01:30 pain, diarrhea Exam Narrative Exam Narrative: General: Patient appears comfortable, AAOX3, NAD Neck: Supple CV: Regular, nontachycardic, S1S2, No rubs, murmurs, or gallops. Pulmonary: Clear to auscultation bilaterally, no crackles, wheezing, or rhonchi Abdomen: + Bowel Sounds, soft, nondistended. Tenderness to palpation of RLQ, right flank, and right CVA at site of biopsy. No rebound. Vascular: No lower extremity edema Psych: Normal mood and affect. Results Imaging Abdomen CT scan report/results: report reviewed Additional studies: EXAM: CT Abdomen and Pelvis With Contrast EXAM DATE/TIME: 01/26/2019 1:30 AM CLINICAL HISTORY: 83 years old, female; Pain; Abdominal pain; Localized; Right; Prior surgery; Surgery date: Post-operative (0-2 days); Surgery type: Right renal biopsy TECHNIQUE: Axial computed tomography images of the abdomen and pelvis with intravenous contrast. All CT scans at this facility use at least one of these dose optimization techniques: automated exposure control; mA and/or kV adjustment per patient size (includes targeted exams where dose is matched to clinical indication); or iterative reconstruction. Coronal and sagittal reformatted images were created and reviewed. CONTRAST: Contrast Material: 79 ml of [id number]; Contrast Route: iv COMPARISON: CT Abdomen^ROUTINE ABDOMEN PELVIS WITH CONTRAST (Adult) 12/26/2018 12:42 PM FINDINGS: Lower thorax: Unremarkable. ABDOMEN: Liver: No suspicious lesions. Gallbladder and bile ducts: No acute or concerning findings. Pancreas: Unremarkable. No ductal dilation. Spleen: No suspicious lesions. Adrenals: Unremarkalbe. No suspicious mass. Kidneys and ureters: Severe right hydronephrosis. 3.5 cm right renal mass unchanged in the short-term. Right-sided perinephric stranding and fluid measuring 15-20 Hounsfield units. Stomach and bowel: Unremarkable. No obstruction or inflammatory changes. Appendix: No evidence of appendicitis. PELVIS: Bladder: Unremarkable as visualized. Reproductive: Unremarkable as visualized. ABDOMEN and PELVIS: Intraperitoneal space: No free air. No significant fluid collection. Bones/joints: Old compression deformity superior endplate of L2. Soft tissues: Unremarkable. Vasculature: Unremarkable. No acute findings Lymph nodes: Unremarkable. IMPRESSION: Severe right hydronephrosis. 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 There is some perinephric stranding and fluid which is lower density than blood products and could represent some urine extravasation. Patient has a known right renal mass. Dictated and Authenticated by: Pj Whelan MD. Labs : 01/26/19 01:30 01/26/19 01:30 Laboratory Results - last 24 hr 01/26/19 01/26/19 01/26/19 01:30 01:30 01:30 WBC RBC Hgb Hct MCV MCH MCHC RDW Plt Count MPV Immature Gran % Neutrophils % Lymphocytes % Monocytes % Eosinophils % Basophils % Absolute Neutrophils Absolute Lymphocytes Absolute Monocytes Absolute Eosinophils Absolute Basophils PT 9.6 INR 1.0 APTT 22.7 Sodium 138 Potassium 3.8 Chloride 101 Carbon Dioxide 23.6 Anion Gap 13.4 H BUN 19 H Creatinine 1.25 H Estimated GFR/1.73 m2 41.13 Glucose 114 H Calcium 9.0 Magnesium 1.9 Total Bilirubin 0.3 Conjugated Bilirubin 0.09 AST 22 ALT 18 Alkaline Phosphatase 61 Total Protein 6.5 Albumin 3.6 Triglycerides Lipase 1864 H Urine Color Urine Clarity Urine pH Ur Specific [place] Urine Protein Urine Ketones Urine Blood Urine Nitrite Urine Bilirubin Urine Urobilinogen Ur Leukocyte Esterase Urine RBC Urine WBC Ur Epithelial Cells Urine Crystals Urine Bacteria Urine Casts Urine Mucus Urine Other Ur Culture Indicated? Urine Glucose Ethyl Alcohol < 3.0 01/26/19 01/26/19 01/26/19 01:30 01:30 01:35 WBC 13.27 H RBC 4.12 Hgb 12.3 Hct 38.0 MCV 92.2 MCH 29.9 MCHC 32.4 RDW 14.5 Plt Count 327 MPV 10.8 Immature Gran % 0.2 Neutrophils % 81.5 Lymphocytes % 8.9 Monocytes % 8.1 Eosinophils % 1.0 Basophils % 0.3 Absolute Neutrophils 10.82 H Absolute Lymphocytes 1.18 L Absolute Monocytes 1.07 H Absolute Eosinophils 0.13 Absolute Basophils 0.04 PT INR APTT Sodium Potassium Chloride Carbon Dioxide Anion Gap BUN Creatinine Estimated GFR/1.73 m2 Glucose Calcium Magnesium Total Bilirubin Conjugated Bilirubin AST ALT Alkaline Phosphatase Total Protein Albumin Triglycerides 109 Lipase Urine Color Red Urine Clarity Cloudy Urine pH 5.5 Ur Specific [place] 1.020 Urine Protein >=300 H Urine Ketones 80 H Urine Blood Large H Urine Nitrite Positive H Urine Bilirubin Moderate H Urine Urobilinogen 1.0 H Ur Leukocyte Esterase Negative Urine RBC >50 H Urine WBC 0-2 Ur Epithelial Cells Rare Urine Crystals Negative Urine Bacteria Few Urine Casts Negative Urine Mucus Negative Urine Other Moderate yeast Ur Culture Indicated? Yes Urine Glucose Negative Ethyl Alcohol Last Vital Signs Temp 36.8 C 01/26/19 04:18 Pulse 65 01/26/19 04:18 Resp 16 01/26/19 04:18 BP 135/72 01/26/19 04:18 Pulse Ox 96 01/26/19 04:18
[2019-01-26] MEDS: Normal Saline Flush 10 ML SYR IVP (08:00)
--- NOTE | 2019-01-26 09:11 | W.UROLOGYCON ---
Date of service: 01/26/19 Time of Service: 09:11 History of Present Illness Chief Complaint: Right hydronephrosis Narrative: This is an 83 year old woman who was being evaluated for abdominal pain. She had a CT abdomen and pelvis which showed a right renal mass. An MRI was then recommended and accomplished. These films suggested a solid renal mass which seemed to involve the collecting system raising the suspicion for urothelial cell carcinoma. She underwent a percutaneous biopsy of the lesion yesterday at [facility]. She has had gross hematuria, abdominal pain, nausea and vomiting, so she presented to our emergency room this AM. She was evaluated with a CT scan which shows hydronephrosis and a suggestion of perinephric blood and urine. She was admitted for pain control and ureteral stenting. She has a remote history of smoking. She had no gross hematuria prior to her biopsy. She has no previous renal surgery. Review of Systems Review of Systems No fevers or chills No vision change or dysphasia No diabetes or thyroid Hx sleep apnea No chest pain or palpitations Hx pancreatitis and IBS No seizures, strokes or peripheral neuropathy No bleeding disorders or anemia No gout. Hx carpal tunnel disorder PFSH Medical History Hyperlipidemia Osteoarthritis Other chronic pain Overactive bladder Surgical History Abdominal hysterectomy Appendectomy Arthroscopy, Shoulder Cholecystectomy Colonoscopy - IV Sedation Extraction of cataract Open Carpal Tunnel release Tonsillectomy Family History Mother No problems noted. Father No problems noted. Social History Smoking and Tabacco status: Former Tobacco Use additional social history: . 4 children. No current alcohol use, and remote history of tobacco use. Exam Const General: cooperative and comfortable Neck Neck: supple Resp Effort & Inspection: normal respiratory effort Auscultation: clear to auscultation bilaterally Cardio Rate: regular rate Rhythm: regular rhythm GI Palpation: soft and not rigid Neuro General: alert, awake and oriented x3 Results Last Vital Signs Temp 37.5 C 01/26/19 07:30 Pulse 69 01/26/19 07:30 Resp 18 01/26/19 07:30 BP 134/76 01/26/19 07:30 Pulse Ox 99 03/07/19 07:30 Labs : 01/26/19 01:30 01/26/19 01:30 Laboratory Results - last 24 hr 01/26/19 01/26/19 01/26/19 01:30 01:30 01:30 WBC RBC Hgb Hct MCV MCH MCHC RDW Plt Count MPV Immature Gran % Neutrophils % Lymphocytes % Monocytes % Eosinophils % Basophils % Absolute Neutrophils Absolute Lymphocytes Absolute Monocytes Absolute Eosinophils Absolute Basophils PT 9.6 INR 1.0 APTT 22.7 Sodium 138 Potassium 3.8 Chloride 101 Carbon Dioxide 23.6 Anion Gap 13.4 H BUN 19 H Creatinine 1.25 H Estimated GFR/1.73 m2 41.13 Glucose 114 H Calcium 9.0 Magnesium 1.9 Total Bilirubin 0.3 Conjugated Bilirubin 0.09 AST 22 ALT 18 Alkaline Phosphatase 61 Total Protein 6.5 Albumin 3.6 Triglycerides Lipase 1864 H Urine Color Urine Clarity Urine pH Ur Specific [place] Urine Protein Urine Ketones Urine Blood Urine Nitrite Urine Bilirubin Urine Urobilinogen Ur Leukocyte Esterase Urine RBC Urine WBC Ur Epithelial Cells Urine Crystals Urine Bacteria Urine Casts Urine Mucus Urine Other Ur Culture Indicated? Urine Glucose Ethyl Alcohol < 3.0 01/26/19 01/26/19 01/26/19 01:30 01:30 01:35 WBC 13.27 H RBC 4.12 Hgb 12.3 Hct 38.0 MCV 92.2 MCH 29.9 MCHC 32.4 RDW 14.5 Plt Count 327 MPV 10.8 Immature Gran % 0.2 Neutrophils % 81.5 Lymphocytes % 8.9 Monocytes % 8.1 Eosinophils % 1.0 Basophils % 0.3 Absolute Neutrophils 10.82 H Absolute Lymphocytes 1.18 L Absolute Monocytes 1.07 H Absolute Eosinophils 0.13 Absolute Basophils 0.04 PT INR APTT Sodium Potassium Chloride Carbon Dioxide Anion Gap BUN Creatinine Estimated GFR/1.73 m2 Glucose Calcium Magnesium Total Bilirubin Conjugated Bilirubin AST ALT Alkaline Phosphatase Total Protein Albumin Triglycerides 109 Lipase Urine Color Red Urine Clarity Cloudy Urine pH 5.5 Ur Specific [place] 1.020 Urine Protein >=300 H Urine Ketones 80 H Urine Blood Large H Urine Nitrite Positive H Urine Bilirubin Moderate H Urine Urobilinogen 1.0 H Ur Leukocyte Esterase Negative Urine RBC >50 H Urine WBC 0-2 Ur Epithelial Cells Rare Urine Crystals Negative Urine Bacteria Few Urine Casts Negative Urine Mucus Negative Urine Other Moderate yeast Ur Culture Indicated? Yes Urine Glucose Negative Ethyl Alcohol Assessment and Plan (1) Right renal mass: Current visit: Yes Status: Acute Will place right ureteral stent to allow urine to drain to bladder rather than through biopsy site. The hematuria and urine leak are generally self limited and will not need specific repair. Her final treatment recommendations will depend on her biopsy results.
--- NOTE | 2019-01-26 10:06 | PDOC.CMIN ---
- If Service Date Differs Date of service: 01/26/19 Time of Service: 10:06 Care Management Initial Assess REASON FOR HOSPITALIZATION:: Pancreatitis, (R) Renal mass PAST MEDICAL HISTORY/PAST SURGICAL HISTORY:: Hyperlipidemia. Osteoarthritis. Other chronic pain. Overactive bladder. Abdominal hysterectomy. Appendectomy. Arthroscopy, Shoulder. Cholecystectomy. Colonoscopy - IV Sedation. Extraction of cataract. Open Carpal Tunnel release. Tonsillectomy PREVIOUS FUNCTIONAL STATUS/SOCIAL/FAMILY SUPPORTS:: Moira resides alone in [facility]. She is independent at baseline and able to manage ADL's. CURRENT FUNCTIONAL STATUS:: Currently Moira is sitting up in her chair. ADVANCE DIRECTIVES:: None on file Has patient been provided with information about the portal?: Yes Did the patient sign up for the portal?: No (already signed up) CODE STATUS:: Full Code INSURANCE COVERAGE / FINANCIAL ISSUES:: [facility] [employer] CURRENT HOME/COMMUNITY SERVICES/EQUIPMENT:: Currently Moira has no services or medical equipment in the community. PRIMARY CARE PHYSICIAN:: Dr. Becerra POTENTIAL DISCHARGE NEEDS:: F/U appointment with PCP PATIENT/FAMILY EDUCATION NEEDS:: Review DC instructions, any limitations, and ongoing DC planning discussion. Discuss 'Ask Me Three' ANTICIPATED BARRIERS TO DISCHARGE:: None identified at this time. TRANSPORTATION:: Via private vehicle PLAN:: Moira will return home with no anticipated services once medically cleared. She will f/U with PCP, Dr. Hackett, and plan of care as prescribed.
--- NOTE | 2019-01-26 10:12 | INITIAL_ITS ---
- If Service Date Differs Date of service: 01/26/19 Time of Service: 10:06 Care Management Initial Assess REASON FOR HOSPITALIZATION:: Pancreatitis, (R) Renal mass PAST MEDICAL HISTORY/PAST SURGICAL HISTORY:: Hyperlipidemia. Osteoarthritis. Other chronic pain. Overactive bladder. Abdominal hysterectomy. Appendectomy. Arthroscopy, Shoulder. Cholecystectomy. Colonoscopy - IV Sedation. Extraction of cataract. Open Carpal Tunnel release. Tonsillectomy PREVIOUS FUNCTIONAL STATUS/SOCIAL/FAMILY SUPPORTS:: Moira resides alone in [facility]. She is independent at baseline and able to manage ADL's. CURRENT FUNCTIONAL STATUS:: Currently Moira is sitting up in her chair. ADVANCE DIRECTIVES:: None on file Has patient been provided with information about the portal?: Yes Did the patient sign up for the portal?: No (already signed up) CODE STATUS:: Full Code INSURANCE COVERAGE / FINANCIAL ISSUES:: [employer] CURRENT HOME/COMMUNITY SERVICES/EQUIPMENT:: Currently Moira has no services or medical equipment in the community. PRIMARY CARE PHYSICIAN:: Dr. Becerra POTENTIAL DISCHARGE NEEDS:: F/U appointment with PCP PATIENT/FAMILY EDUCATION NEEDS:: Review DC instructions, any limitations, and ongoing DC planning discussion. Discuss 'Ask Me Three' ANTICIPATED BARRIERS TO DISCHARGE:: None identified at this time. TRANSPORTATION:: Via private vehicle PLAN:: Moira will return home with no anticipated services once medically cleared. She will f/U with PCP, Dr. Hackett, and plan of care as prescribed.
--- NOTE | 2019-01-26 10:28 | DI.RAD_ITS ---
SYMPTOMS/DIAGNOSIS: RT RENAL MASS RETROGRADE IN OR: Fluoroscopy Time: 20.55 sec Fluoroscopy was utilized by Dr. Hackett during retrograde evaluation of the right renal collecting system. A filling defect is seen in the right renal pelvis consistent with the patient's known right renal mass. Please refer to the procedure report for complete details.
[2019-01-26] MEDS: Lidocaine 2% Jelly 6 ML SYR (11:00)
--- NOTE | 2019-01-26 11:02 | PAPNONF_PTH ---
PATIENT: Moira Copeland LOC: U#:[id number] AGE/SX: 83/F ROOM: RE01/26/[address]: Bibi Sanchez : 1935 BED: A DIS: 01/27/2019 SPEC #: [id number] RECD: 01/26/19 13:15 STATUS: THIERNO REHoward #: [id number] JORGE: 01/26/19 11:[address]: Bill Painting DEPT: [facility] Cytology RECD BY: Marta Lowe ENTERED: 01/26/19 13:16 SP TYPE: CHRIS GUEVARA DR: MD Hernan Alcantara John Tissues: 1 - BODY FLUID CYTO(SPUTUM/URINE)[facility] Procedures: BODY FLUID CYTO(URINE/SPUTUM) Comments: [id number] (TOTAL VOLUME = 80 ml's) (40 ml's URINE & 40 ml's CYTOLYT ADDED IN 2 CONTAINERS)
[2019-01-26] MEDS: Omnipaque 300 MG/ML 50 ML BTL (11:03)
--- NOTE | 2019-01-26 12:35 | PHARADMIT ---
Admission Pharmacy Clinical Review PANCREATITIS, POSSIBLE RENAL COLLECTING SYSTEM Code Status Full Code Current Weight Wgt-58.7 kg Renally Cleared and Narrow Therapeutic Index Meds CrCl~ 32.7mL/min Meds-OK QTc Value / Action Taken none current BP Control, Fever BP- 170/66 Tmax- 35.7C Electrolytes reviewed Na-138 K+3.8 Mag-1.9 DVT Prophylaxis No, went to OR Opiate Usage / Scheduled Bowel Regimen Ordered Yes Yes Plt/SCr for Heparin / Enoxaparin Plts-327 SCr-1.25 INR for Warfarin inr-1.0 H/H stable, WBC/Bands H&H- 12.3/38.0 WBC- 13.27 Antibiotic appropriateness Levaquin, Ancef pre-Op Cultures and Sensitivities Urine-Pending Surgical ABX d/c within 24 hr na DM control / Insulin Dosing BG- 114 Heart Failure (Check EF%) (KRISTOFER's, B-Block, Diuretics) None IV to PO Switch No Home Meds Reviewed Yes Home Meds Not Ordered NONE Comments Lipase- 186
[2019-01-26 13:19] LABS: Abs Immature Grans 0.02 k/cumm (0.0-0.09); Absolute Basophil Count 0.03 k/cumm (0.0-0.2); Absolute Lymphocyte Count 0.72 k/cumm (1.2-3.4); Absolute Monocyte Count 1.49 k/cumm (0.11-0.7); Absolute Neutrophil Count 10.54 k/cumm (1.2-6.7); Basophils % 0.2; Eosinophils % 0.5; HCT 34.5 % (36.0-46.0); HGB 11.1 g/dL (12.0-15.5); Immature Grans % 0.2; Lymphocytes % 5.6; Mean Corp. HGB Concentration 32.2 g/dL (32.0-36.0); Mean Corpuscular Volume 93.2 fL (80-95); Mean Platelet Volume 10.2 fL (8.0-11.0); Monocytes % 11.6; Neutrophils % 81.9; Platelet Count 258 x1000/uL (130-400); RBC Distribution Width 14.5 % (11.7-14.6); White Blood Cell Count 12.87 k/cumm (4.4-10.8)
[2019-01-26 13:23] LABS: Absolute Eosinophil Count 0.06 k/cumm (0.0-0.7)
[2019-01-26 13:25] LABS: Anion Gap 8.7 mmol/L (3-11); BUN 14 mg/dL (7-18); CO2 25.3 mmol/L (21.0-32.0); CREATININE 1.22 mg/dL (0.55-1.02); Calcium 8.2 mg/dL (8.5-10.1); Chloride 105 mmol/L (98-107); Glucose 111 mg/dL (70-100); Potassium 3.9 mmol/L (3.5-5.1); Sodium 139 mmol/L (136-145)
[2019-01-26 13:27] LABS: Lipase 246 U/L (73-393)
[2019-01-26 13:38] LABS: Triglyceride 103 mg/dL (30-150)
[2019-01-26] MEDS: LEVOFLOXACIN 500 MG/100 ML BAG 100 MG IVPB (13:42)
--- NOTE | 2019-01-26 15:45 | ROE_ITS ---
DATE OF OPERATION: January 26, 2019 PREOPERATIVE DIAGNOSIS: Right hydronephrosis. POSTOPERATIVE DIAGNOSIS: Right hydronephrosis. PROCEDURE: Cystoscopy, right retrograde pyelogram, insert right ureteral stent. SURGEON: Reynaldo Hackett M.D. ANESTHESIA: MAC with local. COMPLICATIONS: None. HISTORY: This is an 83-year-old woman who was identified as having a right renal mass. The mass pascual eared solid and was impinging on the collecting system. She underwent a percutaneous biopsy by [facility] at [facility] yesterday. Following the procedure, she had pain which did not improve with time so she presented to our Emergen cy Room. She was evaluated with a CT scan which showed right hydronephrosis and what appeared to be blood within the collecting system. There was also stranding and fluid around the right kidney which may have suggested a perinephric urinoma. She presents for stent placement to drain her right kidne y. OPERATIVE REPORT: The patient was brought to the Operating Room on 01/26/19. She was given a dose of IV Ancef. After successful induction of monitored anesthesia care, she was placed in the dorsal lithotomy posit ion. Her genitalia was prepped and draped. Two percent xylocaine jelly was instilled into the ureth ra to act as a local anesthetic. A 22 [place] rigid cystoscope was passed through the urethra into the bladder. The bladder was draine d. The urine was collected and sent to Pathology to cytology examination. The cytology exam will be compared to her percutaneous biopsy results. The bladder was then inspected with a 30-degree lens. It was difficult to visualize the entire bladder with the blood products present. The right ureteral orifice was identified and was cannulated with a 6 [place] access catheter. A retrograde film was ob tained by injecting Omnipaque through the access catheter under fluoroscopic guidance. 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 I did not see any extravasation of the contrast from the ureter. A Glidewire was then advanced through the access catheter and maneuvered until the tip of the wire wa s up in the renal pelvis. Once the wire was positioned, a large amount of dark bloody drainage was seen coming from the right u reteral orifice. A 6 [place] variable-length stent was the advanced over the wire. The proximal end of the stent was c urled in the renal pelvis and the distal end was curled within the bladder. The positioning of the s tent was confirmed both fluoroscopically and cystoscopically. Because of the blood that was now draining down into the bladder, I went ahead and placed a [place] cat heter. The catheter balloon was inflated with 10 cc of sterile water and the catheter was hooked to gravity drainage. cc: Jarrod Becerra M.D.
--- NOTE | 2019-01-26 19:26 | PGE_ITS ---
Date of Service Date of service: 01/26/19 Time of Service: 15:00 Subjective Interval history since last seen: Patient is s/p cystoscopy and ureteral stent placement today. Post-operatively, she feels a lot less pain in her R groin and flank. She has a ashley catheter with dark red urine in it. She denies any dizziness, chest pain, shortness of breath, nausea. Case discussed with Dr Hackett - it is felt that the patient should not need a nephrostomy tube. She could benefit from antibiotics, so levofloxacin was initiated. Her pain control is adequate. She might be able to be discharged in the next 24- 48 hours. Objective Objective Clinical Data: Abnormal lab results 01/26/19 01/26/19 01/26/19 Range/Units 01:30 01:30 01:35 WBC 13.27 H (4.4-10.8) k/cumm RBC (4.00-5.20) m/cumm Hgb (12.0-15.5) g/dL Hct (36.0-46.0) % Absolute Neutrophils 10.82 H (1.2-6.7) k/cumm Absolute Lymphocytes 1.18 L (1.2-3.4) k/cumm Absolute Monocytes 1.07 H (0.11-0.7) k/cumm Anion Gap 13.4 H (3-11) mmol/L BUN 19 H (7-18) mg/dL Creatinine 1.25 H (0.55-1.02) mg/dL Glucose 114 H (70-100) mg/dL Calcium (8.5-10.1) mg/dL Lipase 1864 H (73-393) U/L Urine Protein >=300 H (Negative) mg/dL Urine Ketones 80 H (Negative) mg/dL Urine Blood Large H (Negative) Urine Nitrite Positive H (Negative) Urine Bilirubin Moderate H (Negative) Urine Urobilinogen 1.0 H (Up TO 0.2) EU/dL Urine RBC >50 H (0-2) 01/26/19 01/26/19 Range/Units 13:05 13:05 WBC 12.87 H (4.4-10.8) k/cumm RBC 3.70 L (4.00-5.20) m/cumm Hgb 11.1 L (12.0-15.5) g/dL Hct 34.5 L (36.0-46.0) % Absolute Neutrophils 10.54 H (1.2-6.7) k/cumm Absolute Lymphocytes 0.72 L (1.2-3.4) k/cumm Absolute Monocytes 1.49 H (0.11-0.7) k/cumm Anion Gap (3-11) mmol/L BUN (7-18) mg/dL Creatinine 1.22 H (0.55-1.02) mg/dL Glucose 111 H (70-100) mg/dL Calcium 8.2 L (8.5-10.1) mg/dL Lipase (73-393) U/L Urine Protein (Negative) mg/dL Urine Ketones (Negative) mg/dL Urine Blood (Negative) Urine Nitrite (Negative) Urine Bilirubin (Negative) Urine Urobilinogen (Up TO 0.2) EU/dL Urine RBC (0-2) Vital Signs Temperature 36.9 C 01/26/19 15:56 Temperature Source Tympanic 01/26/19 15:56 Pulse 77 01/26/19 15:56 Pulse Rhythm Regular 01/26/19 09:32 Respiratory Rate 18 01/26/19 15:56 Respiratory Effort 01/26/19 09:32 Respiratory Depth Normal 01/26/19 09:32 Respiratory Pattern Normal 01/26/19 09:32 Blood Pressure 114/66 01/26/19 15:56 Blood Pressure Mean 76 01/26/19 03:01 Blood Pressure Position Sitting 01/26/19 01:22 Pulse Oximetry 98 01/26/19 15:56 Oxygen Delivery Method Room Air 01/26/19 15:56 Oxygen Flow Rate 0 01/26/19 15:56 Pain Level 0 01/26/19 11:40 Comment 01/26/19 01:22 Intake & Output 01/25/19 01/26/19 01/26/19 23:59 11:59 23:59 Intake Total 1250.000 / 1490.000 240 / 1490.000 Output Total 1025 / 1025 Balance 225.000 / 465.000 240 / 465.000 Weight 58.7 kg Intake: IV 1250.000 / 1250.000 Oral 240 / 240 Output: Urine 1025 / 1025 Other: Urine Color [place] Urine Appearance Clear Urine Odor Strong Voiding Methods Toilet Laboratory Results WBC 12.87 k/cumm (4.4-10.8) H 01/26/19 13:05 RBC 3.70 m/cumm (4.00-5.20) L 01/26/19 13:05 Hgb 11.1 g/dL (12.0-15.5) L 01/26/19 13:05 Hct 34.5 % (36.0-46.0) L 01/26/19 13:05 MCV 93.2 fL (80-95) 01/26/19 13:05 MCH 30.0 pg (27.0-33.0) 01/26/19 13:05 MCHC 32.2 g/dL (32.0-36.0) 01/26/19 13:05 RDW 14.5 % (11.7-14.6) 01/26/19 13:05 Plt Count 258 x1000/uL (130-400) 01/26/19 13:05 MPV 10.2 fL (8.0-11.0) 01/26/19 13:05 Immature Gran % 0.2 01/26/19 13:05 Neutrophils % 81.9 01/26/19 13:05 Lymphocytes % 5.6 01/26/19 13:05 Monocytes % 11.6 01/26/19 13:05 Eosinophils % 0.5 01/26/19 13:05 Basophils % 0.2 01/26/19 13:05 Absolute Neutrophils 10.54 k/cumm (1.2-6.7) H 01/26/19 13:05 Absolute Lymphocytes 0.72 k/cumm (1.2-3.4) L 01/26/19 13:05 Absolute Monocytes 1.49 k/cumm (0.11-0.7) H 01/26/19 13:05 Absolute Eosinophils 0.06 k/cumm (0.0-0.7) 01/26/19 13:05 Absolute Basophils 0.03 k/cumm (0.0-0.2) 01/26/19 13:05 PT 9.6 sec (9.3-11.0) 01/26/19 01:30 INR 1.0 (0.9-1.1) 01/26/19 01:30 APTT 22.7 sec (21.0-31.4) 01/26/19 01:30 Sodium 139 mmol/L (136-145) 01/26/19 13:05 Potassium 3.9 mmol/L (3.5-5.1) 01/26/19 13:05 Chloride 105 mmol/L (98-107) 01/26/19 13:05 Carbon Dioxide 25.3 mmol/L (21.0-32.0) 01/26/19 13:05 Anion Gap 8.7 mmol/L (3-11) 01/26/19 13:05 BUN 14 mg/dL (7-18) 01/26/19 13:05 Creatinine 1.22 mg/dL (0.55-1.02) H 01/26/19 13:05 Estimated GFR/1.73 m2 42.30 (mL/min/1.73m2) 01/26/19 13:05 Glucose 111 mg/dL (70-100) H 01/26/19 13:05 Calcium 8.2 mg/dL (8.5-10.1) L 01/26/19 13:05 Magnesium 1.9 mg/dL (1.8-2.4) 01/26/19 01:30 Total Bilirubin 0.3 mg/dL (0.2-1.0) 01/26/19 01:30 Conjugated Bilirubin 0.09 mg/dL (0.00-0.20) 01/26/19 01:30 AST 22 U/L (15-37) 01/26/19 01:30 ALT 18 U/L (12-78) 01/26/19 01:30 Alkaline Phosphatase 61 U/L (46-116) 01/26/19 01:30 Total Protein 6.5 g/dL (6.4-8.2) 01/26/19 01:30 Albumin 3.6 g/dL (3.4-5.0) 01/26/19 01:30 Triglycerides 103 mg/dL (30-150) 01/26/19 13:05 Lipase 246 U/L (73-393) 01/26/19 13:05 Urine Color Red (Yellow) 01/26/19 01:35 Urine Clarity Cloudy 01/26/19 01:35 Urine pH 5.5 (5-8) 01/26/19 01:35 Ur Specific [place] 1.020 (1.005-1.025) 01/26/19 01:35 Urine Protein >=300 mg/dL (Negative) H 01/26/19 01:35 Urine Ketones 80 mg/dL (Negative) H 01/26/19 01:35 Urine Blood Large (Negative) H 01/26/19 01:35 Urine Nitrite Positive (Negative) H 01/26/19 01:35 Urine Bilirubin Moderate (Negative) H 01/26/19 01:35 Urine Urobilinogen 1.0 EU/dL (Up TO 0.2) H 01/26/19 01:35 Ur Leukocyte Esterase Negative (Negative) 01/26/19 01:35 Urine RBC >50 (0-2) H 01/26/19 01:35 Urine WBC 0-2 HPF (0-5) 01/26/19 01:35 Ur Epithelial Cells Rare HPF (Negative) 01/26/19 01:35 Urine Crystals Negative HPF (Negative) 01/26/19 01:35 Urine Bacteria Few HPF (Negative) 01/26/19 01:35 Urine Casts Negative LPF (Negative) 01/26/19 01:35 Urine Mucus Negative (Negative) 01/26/19 01:35 Urine Other Moderate yeast (Negative) 01/26/19 01:35 Ur Culture Indicated? Yes 01/26/19 01:35 Urine Glucose Negative mg/dL (Negative) 01/26/19 01:35 Ethyl Alcohol < 3.0 mg/dL (<3) 01/26/19 01:30
[2019-01-27] MEDS: Normal Saline 1,000 ML 150 ML IV ×2 (00:33→06:59)
[2019-01-27 08:38] LABS: Abs Immature Grans 0.02 k/cumm (0.0-0.09); Absolute Basophil Count 0.02 k/cumm (0.0-0.2); Absolute Eosinophil Count 0.11 k/cumm (0.0-0.7); Absolute Lymphocyte Count 0.82 k/cumm (1.2-3.4); Absolute Monocyte Count 1.18 k/cumm (0.11-0.7); Basophils % 0.2; Eosinophils % 1.3; HCT 32.5 % (36.0-46.0); HGB 10.2 g/dL (12.0-15.5); Immature Grans % 0.2; Lymphocytes % 9.4; Mean Corp. HGB Concentration 31.4 g/dL (32.0-36.0); Mean Corpuscular Hemoglobin 29.5 pg (27.0-33.0); Mean Corpuscular Volume 93.9 fL (80-95); Mean Platelet Volume 10.6 fL (8.0-11.0); Monocytes % 13.5; Neutrophils % 75.4; Platelet Count 235 x1000/uL (130-400); RBC 3.46 m/cumm (4.00-5.20); RBC Distribution Width 14.8 % (11.7-14.6); White Blood Cell Count 8.71 k/cumm (4.4-10.8)
[2019-01-27 08:41] LABS: Absolute Neutrophil Count 6.57 k/cumm (1.2-6.7)
--- NOTE | 2019-01-27 08:42 | DI.RAD_ITS ---
SYMPTOM/DIAGNOSIS: ? METS, NEW DIAGNOSIS OF UROTHELIAL CELL CA RT KIDNEY FRONTAL AND LATERAL CHEST: Comparison is made with 05/29/15. Heart size and pulmonary vasculature are within normal limits. There is a scoliotic curvature of the spine again noted. There is a small right pleural effusion and a small left pleural effusion. No pulmonary nodules are identified. There are calcified granulomas seen in the lungs which appear unchanged compared to 2015. Findings of a left shoulder replacement are again noted. Degenerative changes are seen in the spine. IMPRESSION: 1. No evidence of a pulmonary mass or infiltrate. 2. Findings of prior granulomatous disease. 3. Small bilateral pleural effusions.
--- NOTE | 2019-01-27 08:48 | W.PM.PROGNOT ---
Date of Service Date of service: 01/27/19 Time of Service: 06:48 Assessment and Plan (1) Right renal mass: Current visit: Yes Status: Acute I shared the biopsy report with the patient. She has already had a number of abdominal imaging studies, but she has not had a chest x-ray in several years. Since urothelial cell carcinoma can spread to the lungs, I have asked for a PA and lateral chest x-ray. We will remove her Costa catheter today. As long as she is tolerating oral medications and voiding, she certainly could be discharged today. I would need to see her next week to discuss potential treatment options. These options will include a repeat nephro ureterectomy versus endoscopic treatment with biopsy/tumor destruction. Given the size of the tumor (at least based on CT scan) the nephro ureterectomy might be her best option (as long as her left kidney functions normally). Since her tumor is low-grade, the endoscopic approach can at least be considered. When I see her back in the office next week, I would expect to have her urine cytology back. I can then arrange a referral to 1 of the urologic oncology providers at [facility]. Subjective Interval history since last seen: She has some lower abdominal discomfort, but no real flank pain. She has had gross hematuria as expected, but no clots. She has been able to tolerate oral medications. Exam Narrative Exam Narrative: She looks fairly comfortable. She does not appear septic or toxic. Her vital signs are documented elsewhere in the chart. Her abdomen is soft with no peritoneal signs. She does have some mild tenderness on palpation in the right lower quadrant. Her urine is dark tinged, but there are no clots She is awake, alert and oriented. I was able to pull her biopsy results from the [facility] EMR system. 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 Objective Objective Clinical Data: Abnormal lab results 01/26/19 01/26/19 01/27/19 Range/Units 13:05 13:05 07:25 WBC 12.87 H (4.4-10.8) k/cumm RBC 3.70 L 3.46 L (4.00-5.20) m/cumm Hgb 11.1 L 10.2 L (12.0-15.5) g/dL Hct 34.5 L 32.5 L (36.0-46.0) % MCHC 31.4 L (32.0-36.0) g/dL RDW 14.8 H (11.7-14.6) % Absolute Neutrophils 10.54 H (1.2-6.7) k/cumm Absolute Lymphocytes 0.72 L 0.82 L (1.2-3.4) k/cumm Absolute Monocytes 1.49 H 1.18 H (0.11-0.7) k/cumm Creatinine 1.22 H (0.55-1.02) mg/dL Glucose 111 H (70-100) mg/dL Calcium 8.2 L (8.5-10.1) mg/dL Vital Signs Temperature 36.8 C 01/26/19 23:20 Temperature Source Tympanic 01/26/19 23:20 Pulse 71 01/26/19 23:20 Pulse Rhythm Regular 01/26/19 20:46 Respiratory Rate 18 01/26/19 23:20 Respiratory Effort Non-Labored 01/26/19 20:46 Respiratory Depth Normal 01/26/19 20:46 Respiratory Pattern Normal 01/26/19 20:46 Blood Pressure 131/73 01/26/19 23:20 Blood Pressure Mean 76 01/26/19 03:01 Blood Pressure Position Sitting 01/26/19 01:22 Pulse Oximetry 96 01/26/19 23:20 Oxygen Delivery Method Room Air 01/26/19 23:20 Oxygen Flow Rate 0 01/26/19 23:20 Pain Level 0 01/26/19 11:40 Comment 01/26/19 01:22 Intake & Output 01/26/19 01/26/19 01/27/19 11:59 23:59 11:59 Intake Total 1250.000 / 3090.000 1840 / 3090.000 1000 / 1000 Output Total 1025 / 1525 500 / 1525 725 / 725 Balance 225.000 / 7536.263 6746 / 1565.000 275 / 275 Weight 58.7 kg Intake: IV 1250.000 / 2850.000 1600 / 2850.000 1000 / 1000 Oral 240 / 240 Output: Urine 1025 / 1525 500 / 1525 725 / 725 Other: Urine Color Jellico Dark Red Dark Red Urine Appearance Clear Hematuria Hematuria Urine Odor Strong None None Voiding Methods Toilet Indwelling Catheter Indwelling Catheter Laboratory Results WBC 8.71 k/cumm (4.4-10.8) D 01/27/19 07:25 RBC 3.46 m/cumm (4.00-5.20) L 01/27/19 07:25 Hgb 10.2 g/dL (12.0-15.5) L 01/27/19 07:25 Hct 32.5 % (36.0-46.0) L 01/27/19 07:25 MCV 93.9 fL (80-95) 01/27/19 07:25 MCH 29.5 pg (27.0-33.0) 01/27/19 07:25 MCHC 31.4 g/dL (32.0-36.0) L 01/27/19 07:25 RDW 14.8 % (11.7-14.6) H 01/27/19 07:25 Plt Count 235 x1000/uL (130-400) 01/27/19 07:25 MPV 10.6 fL (8.0-11.0) 01/27/19 07:25 Immature Gran % 0.2 01/27/19 07:25 Neutrophils % 75.4 01/27/19 07:25 Lymphocytes % 9.4 01/27/19 07:25 Monocytes % 13.5 01/27/19 07:25 Eosinophils % 1.3 01/27/19 07:25 Basophils % 0.2 01/27/19 07:25 Absolute Neutrophils 6.57 k/cumm (1.2-6.7) 01/27/19 07:25 Absolute Lymphocytes 0.82 k/cumm (1.2-3.4) L 01/27/19 07:25 Absolute Monocytes 1.18 k/cumm (0.11-0.7) H 01/27/19 07:25 Absolute Eosinophils 0.11 k/cumm (0.0-0.7) 01/27/19 07:25 Absolute Basophils 0.02 k/cumm (0.0-0.2) 01/27/19 07:25 PT 9.6 sec (9.3-11.0) 01/26/19 01:30 INR 1.0 (0.9-1.1) 01/26/19 01:30 APTT 22.7 sec (21.0-31.4) 01/26/19 01:30 Sodium 139 mmol/L (136-145) 01/26/19 13:05 Potassium 3.9 mmol/L (3.5-5.1) 01/26/19 13:05 Chloride 105 mmol/L (98-107) 01/26/19 13:05 Carbon Dioxide 25.3 mmol/L (21.0-32.0) 01/26/19 13:05 Anion Gap 8.7 mmol/L (3-11) 01/26/19 13:05 BUN 14 mg/dL (7-18) 01/26/19 13:05 Creatinine 1.22 mg/dL (0.55-1.02) H 01/26/19 13:05 Estimated GFR/1.73 m2 42.30 (mL/min/1.73m2) 01/26/19 13:05 Glucose 111 mg/dL (70-100) H 01/26/19 13:05 Calcium 8.2 mg/dL (8.5-10.1) L 01/26/19 13:05 Magnesium 1.9 mg/dL (1.8-2.4) 01/26/19 01:30 Total Bilirubin 0.3 mg/dL (0.2-1.0) 01/26/19 01:30 Conjugated Bilirubin 0.09 mg/dL (0.00-0.20) 01/26/19 01:30 AST 22 U/L (15-37) 01/26/19 01:30 ALT 18 U/L (12-78) 01/26/19 01:30 Alkaline Phosphatase 61 U/L (46-116) 01/26/19 01:30 Total Protein 6.5 g/dL (6.4-8.2) 01/26/19 01:30 Albumin 3.6 g/dL (3.4-5.0) 01/26/19 01:30 Triglycerides 103 mg/dL (30-150) 01/26/19 13:05 Lipase 246 U/L (73-393) 01/26/19 13:05 Urine Color Red (Yellow) 01/26/19 01:35 Urine Clarity Cloudy 01/26/19 01:35 Urine pH 5.5 (5-8) 01/26/19 01:35 Ur Specific [place]oup 1.020 (1.005-1.025) 01/26/19 01:35 Urine Protein >=300 mg/dL (Negative) H 01/26/19 01:35 Urine Ketones 80 mg/dL (Negative) H 01/26/19 01:35 Urine Blood Large (Negative) H 01/26/19 01:35 Urine Nitrite Positive (Negative) H 01/26/19 01:35 Urine Bilirubin Moderate (Negative) H 01/26/19 01:35 Urine Urobilinogen 1.0 EU/dL (Up TO 0.2) H 01/26/19 01:35 Ur Leukocyte Esterase Negative (Negative) 01/26/19 01:35 Urine RBC >50 (0-2) H 01/26/19 01:35 Urine WBC 0-2 HPF (0-5) 01/26/19 01:35 Ur Epithelial Cells Rare HPF (Negative) 01/26/19 01:35 Urine Crystals Negative HPF (Negative) 01/26/19 01:35 Urine Bacteria Few HPF (Negative) 01/26/19 01:35 Urine Casts Negative LPF (Negative) 01/26/19 01:35 Urine Mucus Negative (Negative) 01/26/19 01:35 Urine Other Moderate yeast (Negative) 01/26/19 01:35 Ur Culture Indicated? Yes 01/26/19 01:35 Urine Glucose Negative mg/dL (Negative) 01/26/19 01:35 Ethyl Alcohol < 3.0 mg/dL (<3) 01/26/19 01:30
[2019-01-27 08:52] VITALS: BP 114/62; PULSE 69; RESP 22; TEMP 37.2; O2SAT 98
[2019-01-27 09:04] LABS: Anion Gap 7.8 mmol/L (3-11); BUN 11 mg/dL (7-18); CO2 25.2 mmol/L (21.0-32.0); CREATININE 0.73 mg/dL (0.55-1.02); Calcium 8.2 mg/dL (8.5-10.1); Chloride 108 mmol/L (98-107); Glucose 89 mg/dL (70-100); Magnesium 1.7 mg/dL (1.8-2.4); Potassium 3.5 mmol/L (3.5-5.1); Sodium 141 mmol/L (136-145)
[2019-01-27] MEDS: Magnesium Oxide 400 MG TAB PO (10:14)
--- NOTE | 2019-01-27 10:50 | NUR.NOTE ---
Nursing Note: Student nurse Olga removed patients ashley catheter under my supervision. This was done using clean technique, patient was advised of what we were going to do, how we were going to do it. Ashley was removed with no difficulty, patient ambulated to the bathroom after. she was given pullups to wear. she was left with call maldonado in reach
--- NOTE | 2019-01-27 12:33 | DSE_ITS ---
Date of service: 01/27/19 Time of Service: 12:31 DS: Diagnosis Discharge Diagnosis (1) Right renal mass: Status: Acute Discharge Plan Disposition Patient Disposition: HOME Condition: Stable Discharge Details Reason For Visit: PANCREATITIS, POSSIBLE RENAL COLLECTING SYSTEM Admit Date/Time: 01/26/19 03:05 Admit Provider: Bill Painting Attending Provider: Bill Painting Primary Care Provider: Jarrod Becerra [facility] Hospital Course: Eran Copeland is a very pleasant 83-year-old female with a past medical history significant for osteoarthritis, obstructive sleep apnea, restless leg syndrome and irritable bowel syndrome as well as 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 She presented to the emergency department on 01/26/2019 with reports of abdominal pain. She does have a right renal mass and was [address]- guided biopsy at [facility] when she presented to the emergency department. 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 Perinephric stranding and fluid was seen around the right kidney, it was of lower density than blood products and may represent urine extravasation. There was also a stable right 2.3 cm. renal mass and a stable 3 cm. cystic lesion in the right adnexa, likely ovarian in origin. She was also found to have mild elevation in creatinine, and a mildly elevated Lipase. There was concern that the elevated lipase may represent pancreatitis in a patient with an apparent history of pancreatitis. She was admitted to [facility] floor for further evaluation and management. A urology consult was placed. Dr. Hackett saw her and took her to the operating room on 01/26/2019 for cystoscopy and stent placement. By the following morning, her pain was tolerable. Ashley catheter was discontinued, she was able to void. Dr. Hackett discussed the biopsy results which show urothelial cell carcinoma. Urine cytology pending. Dr. Hackett will see her in follow-up in 1 week's time. Due to the instrumentation and concern for infection, she was started on Levaquin. She will be discharged home to complete a full 7-day course of Levaquin. Her pain is tolerable at this time, she will receive a prescription for tramadol to ensure she has proper pain control as an outpatient. Her mageniesum was low, she received supplementation. She will remain on Magnesium after discharge with follow up Mag level next week. She has a history of anemia, she was mildly anemic while hospitalized, exacerbated by IV fluids. She will have follow up blood counts next week. She will follow-up with her primary care provider as scheduled. She will follow-up with Dr. Hackett in 1 week. Home Meds and New Rx's Prescriptions: New magnesium oxide 400 mg (241.3 mg magnesium) Tablet 400 mg PO DAILY Qty: 7 RF: 0 levofloxacin [Levaquin] 500 mg tablet 500 mg PO DAILY Qty: 6 RF: 0 tramadol 50 mg tablet 25 mg PO Q6H PRN (Reason: pain) Qty: 5 RF: 0 Continued acetaminophen [Acetaminophen Extra Strength] 500 mg Tablet 1,000 mg PO PRN PRNRF: 0 Discharge Instructions Instructions: Pancreatitis (DC) Additional Instructions: Take the antibiotics until they are gone. Your magnesium was mildly low. You will need to take supplements (or increase magnesium in your diet). You will have blood work to reassess your magnesium ne xt week. You are mildly anemic (not new), you will have blood counts drawn at the same time. You may take tylenol/ibuprofen for pain. Tramadol for more intense pain (take 1/2-1 tablet as needed). Follow up with Dr. Hackett as scheduled. Follow up with your PCP as scheduled. Stand Alone Forms: Nursing Discharge Form Referrals: Reynaldo Hackett MD [ [facility]] - 02/14/19 10:00 am Jarrod Becerra [Primary Care Provider] - 02/10/19 1:30 pm Activity:: Activity as Tolerated Equipment/Supplies:: No Equipment Needed Diet:: As Tolerated Discharge Orders Discharge Orders: Discharge Order (Routine); Ordered 01/27/19 Ordered By: Risa Deluna Other Ambulatory Orders: Complete Blood Count No Diff (Routine) Timeframe: 20190201 Facility: [facility] - Location: Laboratory Outpatient Ordered By: Risa Deluna Magnesium (Routine) Timeframe: 20190201 Location: Determined by Patient Ordered By: Risa Deluna Exam Narrative Exam Narrative: General: Patient appears comfortable, sitting up in bed, AAOX3, NAD Neck: Supple, no JVD. Pulmonary: Respirations even and unlabored. Abdomen: + Bowel Sounds, soft, nondistended. Mild discomfort on palpation. Vascular: No lower extremity edema Psych: Normal mood and affect. DS: Data Vitals/I&O Vitals and I&O: Vital Signs Temperature 37.2 C 01/27/19 08:52 Temperature Source Tympanic 01/27/19 08:52 Pulse 69 01/27/19 08:52 Pulse Rhythm Regular 01/27/19 10:54 Respiratory Rate 22 01/27/19 08:52 Respiratory Effort 01/27/19 10:54 Respiratory Depth Normal 01/27/19 10:54 Respiratory Pattern Normal 01/27/19 10:54 Blood Pressure 114/62 01/27/19 08:52 Blood Pressure Mean 76 01/26/19 03:01 Blood Pressure Position Sitting 01/26/19 01:22 Pulse Oximetry 98 01/27/19 08:52 Oxygen Delivery Method Room Air 01/27/19 08:52 Oxygen Flow Rate 0 01/27/19 08:52 Pain Level 0 01/26/19 11:40 Comment 01/26/19 01:22 Intake & Output 01/26/19 01/27/19 01/27/19 23:59 11:59 23:59 Intake Total 1840 / 3090.000 1427.5 / 1427.5 Output Total 500 / 1525 1725 / 1725 Balance 1340 / 1565.000 -297.5 / -297.5 Weight 59.4 kg Intake: IV 1600 / 2850.000 1427.5 / 1427.5 Oral 240 / 240 Output: Urine 500 / 1525 1725 / 1725 Other: Urine Color Dark Red Dark Red Urine Appearance Hematuria Hematuria Urine Odor None Strong Comment this was the amount in the bag post ashley removal Voiding Methods Indwelling Catheter Indwelling Catheter Completed studies during hospitalization [Text1]: 01/26/19: ABDOMEN AND PELVIC CT: CT scan of the abdomen and pelvis was performed following the uneventful administration of intravenous contrast material. Comparison is made with 12/26/18. Dependent atelectatic changes are seen in the lung bases. The liver is normal in size. No suspicious hepatic mass is seen. The patient is status post cholecystectomy. No biliary ductal dilatation is present. The portal, superior mesenteric and splenic veins are patent. The pancreas, spleen and adrenal glands are unremarkable. The left kidney shows normal enhancement. No solid renal mass or obstruction is identified. The right kidney shows delayed enhancement with marked enlargement of the renal collecting system to the level of the ureteropelvic junction. There is again seen a filling defect in the right renal collecting system measuring approximately 3.5 cm. consistent with the patient's known renal mass. Air is seen within the collecting system likely reflecting the patient's recent biopsy. Dilatation of the collecting system may reflect worsening of the dilatation of the right renal collecting system due to hemorrhage from the patient's recent biopsy. There is fluid seen in the perinephric soft tissues. This is predominantly low attenuation. The possibility of extravasation of urine should be considered. The urinary bladder is intact. There is a 3 cm. right adnexal cystic lesion again seen, likely ovarian in origin. The abdominal aorta is of normal caliber with atherosclerosis. No abdominal or pelvic adenopathy or pneumoperitoneum is present. There is diverticulosis of the colon but no evidence of acute diverticulitis. No findings to suggest an acute appendicitis are present. The bones appear stable. IMPRESSION: 1. Exacerbation and worsening of the right hydronephrosis. 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 Perinephric stranding and fluid is seen around the right kidney. It is of lower density than blood products and may represent urine extravasation. 2. Stable right 2.3 cm. renal mass. 3. Stable 3 cm. cystic lesion in the right adnexa, likely ovarian in origin. 01/27/19: FRONTAL AND LATERAL CHEST: Comparison is made with 05/29/15. Heart size and pulmonary vasculature are within normal limits. There is a scoliotic curvature of the spine again noted. There is a small right pleural effusion and a small left pleural effusion. No pulmonary nodules are identified. There are calcified granulomas seen in the lungs which appear unchanged compared to 2015. Findings of a left shoulder replacement are again noted. Degenerative changes are seen in the spine. IMPRESSION: 1. No evidence of a pulmonary mass or infiltrate. 2. Findings of prior granulomatous disease. 3. Small bilateral pleural effusions. Labs on day of discharge: Labs from last 24 hours 01/27/19 01/27/19 01/26/19 07:25 07:25 13:05 WBC 8.71 D 12.87 H RBC 3.46 L 3.70 L Hgb 10.2 L 11.1 L Hct 32.5 L 34.5 L MCV 93.9 93.2 MCH 29.5 30.0 MCHC 31.4 L 32.2 RDW 14.8 H 14.5 Plt Count 235 258 MPV 10.6 10.2 Immature Gran % 0.2 0.2 Neutrophils % 75.4 81.9 Lymphocytes % 9.4 5.6 Monocytes % 13.5 11.6 Eosinophils % 1.3 0.5 Basophils % 0.2 0.2 Absolute Neutrophils 6.57 10.54 H Absolute Lymphocytes 0.82 L 0.72 L Absolute Monocytes 1.18 H 1.49 H Absolute Eosinophils 0.11 0.06 Absolute Basophils 0.02 0.03 Sodium 141 Potassium 3.5 Chloride 108 H Carbon Dioxide 25.2 Anion Gap 7.8 BUN 11 Creatinine 0.73 Estimated GFR/1.73 m2 >= 60.00 Glucose 89 Calcium 8.2 L Magnesium 1.7 L Triglycerides Lipase 01/26/19 01/26/19 13:05 13:05 WBC RBC Hgb Hct MCV MCH MCHC RDW Plt Count MPV Immature Gran % Neutrophils % Lymphocytes % Monocytes % Eosinophils % Basophils % Absolute Neutrophils Absolute Lymphocytes Absolute Monocytes Absolute Eosinophils Absolute Basophils Sodium 139 Potassium 3.9 Chloride 105 Carbon Dioxide 25.3 Anion Gap 8.7 BUN 14 Creatinine 1.22 H Estimated GFR/1.73 m2 42.30 Glucose 111 H Calcium 8.2 L Magnesium Triglycerides 103 Lipase 246 Preliminary micro results at discharge 01/26/19 01:35 Urine Culture - Preliminary Urine - Reflex from Ua Gram Positive [facility] Medical History Hyperlipidemia Osteoarthritis Other chronic pain Overactive bladder Surgical History Abdominal hysterectomy Appendectomy Arthroscopy, Shoulder Cholecystectomy Colonoscopy - IV Sedation Extraction of cataract Open Carpal Tunnel release Tonsillectomy Family History Mother No problems noted. Father No problems noted. Social History Smoking and Tabacco status: Former Tobacco Use additional social history: . 4 children. No current alcohol use, and remote history of tobacco use.
[2019-01-27] MEDS: LEVOFLOXACIN 500 MG/100 ML BAG 100 MG IVPB (12:51)
--- NOTE | 2019-01-27 14:13 | PDOC.CMDIS ---
- If Service Date Differs Date of service: 01/27/19 Time of Service: 14:13 LACE Index Scoring Tool - Questions: Length of Stay (in days): 2 Acuity (Admit via E.D.?): Yes E.D. Visits: 1 - Answers: Total Score: 6 Risk of Readmission: Low Risk Care Management Discharge Reason for Hospitalization: Pancreatitis, (R) Renal mass Discharge Plan: Moira will return home today with no services. SHe will F/U with PCP, Dr. Hackett, and plan of care as prescirbed. Moira's family to transport her home. Patient/Family Education Needs: Review DC instructions, any limitations, and discuss 'Ask ME Three'
== END 2019-01-27 15:02 | disposition home or self-care (01) | DRG 656 ==
LOC: ER 03:12 → MS 03:38
PROVIDERS: Urology; Admitting Provider Internal Medicine; Emergency Provider Emergency Medicine; PCP Family Medicine; Visit Provider Internal Medicine
PROC: 0T768DZ Dilation of Right Ureter with Intraluminal Device, Via Natural or Artificial Opening Endoscopic (ICD-10-PCS; CPT 52332; principal; 2019-01-26 10:30)
DX: C64.1 Malignant neoplasm of right kidney, except renal pelvis (principal); K85.90 Acute pancreatitis without necrosis or infection, unspecified; N13.0 Hydronephrosis with ureteropelvic junction obstruction; K86.1 Other chronic pancreatitis; D83.9 Common variable immunodeficiency, unspecified; D64.9 Anemia, unspecified; E83.42 Hypomagnesemia; Z98.890 Other specified postprocedural states; N32.81 Overactive bladder
CPT/HCPCS: 52332; 52005; 36415; 80048; 80053; 80076; 83690; 96361; 96374; 96375; 96376; 99222; 99232; 99239; 99252; 99285; NC; 71046; 74177; 74420; 80320; 81003; 81015; 83735; 84478; 85025; 85610; 85730; 87086; 88104; J1956; J2405; J3010; J3490; Q9967

== ENCOUNTER → 2019-01-31 12:20 | Outpatient (BNVA) | payer OTHER, SELFPAY | PROVIDERS: PCP Family Medicine; Visit Provider Urology | DX: C64.1 Malignant neoplasm of right kidney, except renal pelvis (principal) | CPT/HCPCS: 99213 ==

== ENCOUNTER 2019-02-01 03:01 | Outpatient (CLI) | payer OTHER, SELFPAY ==
[2019-02-01 11:35] LABS: HCT 36.2 % (36.0-46.0); HGB 11.5 g/dL (12.0-15.5); Mean Corp. HGB Concentration 31.8 g/dL (32.0-36.0); Mean Corpuscular Hemoglobin 29.9 pg (27.0-33.0); Mean Corpuscular Volume 94.3 fL (80-95); Mean Platelet Volume 9.6 fL (8.0-11.0); Platelet Count 373 x1000/uL (130-400); RBC 3.84 m/cumm (4.00-5.20); RBC Distribution Width 14.2 % (11.7-14.6); White Blood Cell Count 5.43 k/cumm (4.4-10.8)
[2019-02-01 11:42] LABS: Magnesium 2.1 mg/dL (1.8-2.4)
== END 2019-02-01 03:21 ==
PROVIDERS: Nurse Practitioner; PCP Family Medicine; Visit Provider Urology
DX: D64.9 Anemia, unspecified (principal); E83.42 Hypomagnesemia
CPT/HCPCS: 36415; 85027; 83735

== ENCOUNTER → 2019-02-02 10:29 | Outpatient (BNVA) | payer OTHER, SELFPAY | PROVIDERS: PCP Family Medicine; Visit Provider Urology | DX: N28.89 Other specified disorders of kidney and ureter (principal) | CPT/HCPCS: 51798; 81003; 99213 ==

== ENCOUNTER 2019-03-16 11:50 | Outpatient (CLI) | payer OTHER, SELFPAY ==
[2019-03-16 12:41] LABS: Abs Immature Grans 0.01 k/cumm (0.0-0.09); Absolute Basophil Count 0.11 k/cumm (0.0-0.2); Absolute Eosinophil Count 1.14 k/cumm (0.0-0.7); Absolute Lymphocyte Count 1.25 k/cumm (1.2-3.4); Absolute Monocyte Count 0.71 k/cumm (0.11-0.7); Absolute Neutrophil Count 6.61 k/cumm (1.2-6.7); Basophils % 1.1; Eosinophils % 11.6; HCT 36.2 % (36.0-46.0); HGB 11.3 g/dL (12.0-15.5); Immature Grans % 0.1; Lymphocytes % 12.7; Mean Corp. HGB Concentration 31.2 g/dL (32.0-36.0); Mean Corpuscular Hemoglobin 29.4 pg (27.0-33.0); Mean Corpuscular Volume 94.3 fL (80-95); Mean Platelet Volume 9.4 fL (8.0-11.0); Monocytes % 7.2; Neutrophils % 67.3; Platelet Count 692 x1000/uL (130-400); RBC 3.84 m/cumm (4.00-5.20); RBC Distribution Width 13.9 % (11.7-14.6); White Blood Cell Count 9.83 k/cumm (4.4-10.8)
[2019-03-16 13:01] LABS: Diff Comment Diff Reviewed; RBC Morphology Normal
[2019-03-16 13:26] LABS: ALT 33 U/L (12-78); AST 21 U/L (15-37); Albumin 3.3 g/dL (3.4-5.0); Alkaline Phosphatase 80 U/L (46-116); Anion Gap 10.1 mmol/L (3-11); BUN 28 mg/dL (7-18); Bilirubin, Total 0.3 mg/dL (0.2-1.0); CO2 26.9 mmol/L (21.0-32.0); CREATININE 1.33 mg/dL (0.55-1.02); Calcium 9.5 mg/dL (8.5-10.1); Chloride 104 mmol/L (98-107); Glucose 98 mg/dL (70-100); Potassium 5.1 mmol/L (3.5-5.1); Sodium 141 mmol/L (136-145); Total Protein 6.8 g/dL (6.4-8.2)
[2019-03-17 11:10] LABS: IgG 593 mg/dL (610-1616)
== END 2019-03-16 12:10 ==
PROVIDERS: PCP Family Medicine; Visit Provider Internal Medicine
DX: D83.9 Common variable immunodeficiency, unspecified (principal); Z51.81 Encounter for therapeutic drug level monitoring
CPT/HCPCS: 36415; 80053; 82784; 85025

== ENCOUNTER 2019-03-20 01:48 | Outpatient (RCR) | payer OTHER, SELFPAY ==
[2019-03-20] MEDS: Normal Saline 1,000 ML 150 ML IV (08:50)
[2019-03-20] MEDS: Normal Saline Flush 10 ML SYR IVP (09:17)
[2019-03-20] MEDS: IMMUNE GLOBULIN 20 GM/200 ML BTL IVPB (09:19)
[2019-03-20] MEDS: Acetaminophen 500 MG TAB 1000 MG PO (09:37)
[2019-03-20 10:16] VITALS: BP 124/59; PULSE 62; RESP 16; TEMP 36.6; O2SAT 100
[2019-03-20 10:33] VITALS: BP 109/67; PULSE 60; RESP 16; TEMP 36.3; O2SAT 100
[2019-03-20 11:30] VITALS: BP 117/74; PULSE 65; RESP 18; TEMP 36.5
== END 2019-03-21 23:59 | disposition home or self-care (01) ==
LOC: INF 01:48
PROVIDERS: PCP Family Medicine; Visit Provider Internal Medicine
DX: D80.1 Nonfamilial hypogammaglobulinemia (principal)
CPT/HCPCS: 96365; 96366; 99212; J1561

== ENCOUNTER 2019-03-20 14:00 | Outpatient (CLI) | payer OTHER, SELFPAY ==
--- NOTE | 2019-03-20 13:30 | DI.RAD_ITS ---
SYMPTOMS/DIAGNOSIS: UROTHELIAL CARCINOMA OF KIDNEY, C64.9, ? EXTRAVASATION POSTOPERATIVELY CYSTOGRAM: Fluoroscopy Time: 1 min 55 sec Fluoroscopy was utilized during the performance of a cystogram. Isovue 300 was placed in the urinary bladder via the patient's Costa catheter. There is some deformity involving the posterior and lateral aspect of the urinary bladder, likely reflecting the patient's recent surgery. No evidence of extravasation of contrast is seen. No filling defects are seen in the urinary bladder. The post evacuation films show no extravasation of contrast material. IMPRESSION: Postsurgical changes involving the urinary bladder. No evidence of contrast extravasation. The findings were discussed with Dr. Hackett on the date of the examination.
== END 2019-03-20 14:20 ==
PROVIDERS: PCP Family Medicine; Visit Provider Urology
DX: C64.9 Malignant neoplasm of unspecified kidney, except renal pelvis (principal); Z98.890 Other specified postprocedural states
CPT/HCPCS: 99213; 74430

== ENCOUNTER 2019-03-24 02:02 | Outpatient (CLI) | payer OTHER, SELFPAY ==
[2019-03-24 13:00] LABS: Absolute Eosinophil Count 1.03 k/cumm (0.0-0.7); Absolute Monocyte Count 0.51 k/cumm (0.11-0.7); Absolute Neutrophil Count 2.58 k/cumm (1.2-6.7); Basophils % 1.9; Eosinophils % 19.4; HCT 35.5 % (36.0-46.0); HGB 11.1 g/dL (12.0-15.5); Lymphocytes % 20.7; Mean Corp. HGB Concentration 31.3 g/dL (32.0-36.0); Mean Corpuscular Hemoglobin 29.2 pg (27.0-33.0); Mean Corpuscular Volume 93.4 fL (80-95); Mean Platelet Volume 9.9 fL (8.0-11.0); Monocytes % 9.6; Neutrophils % 48.4; Platelet Count 578 x1000/uL (130-400); RBC Distribution Width 14.1 % (11.7-14.6); White Blood Cell Count 5.32 k/cumm (4.4-10.8)
[2019-03-24 13:23] LABS: Diff Comment Agrees w/ Instrument
[2019-03-24 13:34] LABS: ALT 26 U/L (12-78); AST 19 U/L (15-37); Albumin 3.4 g/dL (3.4-5.0); Alkaline Phosphatase 67 U/L (46-116); Anion Gap 9.9 mmol/L (3-11); BUN 28 mg/dL (7-18); Bilirubin, Total 0.2 mg/dL (0.2-1.0); CO2 25.1 mmol/L (21.0-32.0); CREATININE 1.26 mg/dL (0.55-1.02); Calcium 9.5 mg/dL (8.5-10.1); Chloride 107 mmol/L (98-107); Estimated GFR 40.66 (mL/min/1.73m2); Glucose 94 mg/dL (70-100); Potassium 5.4 mmol/L (3.5-5.1); Sodium 142 mmol/L (136-145); Total Protein 6.9 g/dL (6.4-8.2)
[2019-03-27 09:54] LABS: IgG 920 mg/dL (610-1616)
== END 2019-03-24 02:22 ==
PROVIDERS: PCP Family Medicine; Visit Provider Internal Medicine
DX: D80.1 Nonfamilial hypogammaglobulinemia (principal); D83.8 Other common variable immunodeficiencies
CPT/HCPCS: 36415; 80053; 82784; 85025

== ENCOUNTER 2019-04-06 18:29 | Emergency (ER) | payer OTHER, SELFPAY ==
[2019-04-06] VITALS (18 sets, daily range): BP systolic 121–161; BP diastolic 53–121; PULSE 61–102; RESP 11–28; TEMP 36.4–37.1; O2SAT 98–100
--- NOTE | 2019-04-06 19:03 | W.ED.GENAD ---
Discharge Plan Disposition Patient Disposition: HOME Condition: Improving Discharge Details Chief Complaint: Chest Pain Clinical Impression: Gastritis Primary Care Provider: Jarrod Becerra ED Provider: Chad Rausch Home Meds and New Rx's Prescriptions: New Prilosec OTC 20 mg tablet,delayed release (DR/EC) 20 mg PO DAILY Qty: 14 RF: 0 Continued ascorbic acid (vitamin C) 500 mg capsule, extended release 500 mg PO DAILY RF: 0 acetaminophen [Acetaminophen Extra Strength] 500 mg Tablet 1,000 mg PO PRN PRNRF: 0 magnesium oxide 400 mg (241.3 mg magnesium) Tablet 400 mg PO DAILY Qty: 7 RF: 0 Discharge Instructions Instructions: Gastritis (ED) Additional Instructions: Home to rest this evening. As we discussed, we will place you on 2 weeks of omeprazole. Avoids fatty, spicy, fried foods. May resume bland diet as tolerated. Return if you have recurrent discomfort, develop shortness of breath, fever, or any other acute concerns. Medical Decision Making 84-year-old female is approximately 5-1/2 weeks status post right nephrectomy at the [facility]. She presents with hours of epigastric burning discomfort that is associated with some anorexia today. She does have a history of pancreatitis. She has not had a fever or vomiting, notes that she had a normal bowel movement today. She arrives and is afebrile with unremarkable pulse and blood pressure. She is tender in epigastrium. Differential diagnosis must include ACS, but also gastritis or pancreatitis. IV access established, screening EKG obtained, patient referred for laboratory testing, chest x-ray, given antiemetic and GI cocktail. Diagnostics reveal unremarkable CBC with white count 8, hemoglobin 30.6, platelets 286. Sodium 136, potassium 4.7, chloride 102, bicarb 22, BUN 27, creatinine 1.1, LFTs unremarkable. Troponin negative, lipase 335 Chest x-ray without acute findings. Patient improved following above medications. I do feel she is high risk for stress induced gastritis given her recent hospitalizations and surgery and will trial omeprazole 20 mg daily for 2 weeks time. She is stable and improved, appropriate for discharge to home Lab Data Lab results reviewed: Yes I reviewed the patient's lab results. Laboratory Results - last 24 hr 04/06/19 04/06/19 19:35 19:35 WBC 8.26 RBC 3.89 L Hgb 11.6 L Hct 35.8 L MCV 92.0 MCH 29.8 MCHC 32.4 RDW 14.0 Plt Count 286 D MPV 10.2 Immature Gran % 0.1 Neutrophils % 68.3 Lymphocytes % 15.7 Monocytes % 7.5 Eosinophils % 7.3 Basophils % 1.1 Absolute Neutrophils 5.64 Absolute Lymphocytes 1.30 Absolute Monocytes 0.62 Absolute Eosinophils 0.60 Absolute Basophils 0.09 Sodium 136 Potassium 4.7 Chloride 102 Carbon Dioxide 22.6 Anion Gap 11.4 H BUN 27 H Creatinine 1.14 H Estimated GFR/1.73 m2 45.63 Glucose 93 Calcium 9.5 Magnesium 2.4 Total Bilirubin 0.3 AST 34 ALT 23 Alkaline Phosphatase 76 Troponin I < 0.02 Total Protein 7.5 Albumin 3.9 ECG Data Attestation: I personally reviewed and interpreted this ECG (s) as follows: Interpretation: Normal sinus rhythm with a rate of 66, the QRS is narrow, there is no ST segment elevation HPI General Mode of arrival: ambulatory. Date/Time Provider Initiated Documentation: 04/06/19 18:42. Limitations to Documentation: no limitations. Information obtained by: patient and family. History of Present Illness 84 year old F presents to the emergency department with the chief complaint of Epigastric pain for hours time, described as moderate and similar to prior episodes, Quality is described as dull and constant, and is localized to the abdomen. Patient proximal and distal. Patient started experiencing this hour(s) and it has been intermittent. No relieving factors improve symptom(s), No exacerbating factors reported . Patient notes other (Nauseated, no emesis ); denies cough, shortness of breath and syncope. Patient did receive the following treatments prior to arrival, none Related Data Home Medications Medication Instructions Recorded Confirmed acetaminophen [Acetaminophen Extra 1,000 mg PO PRN PRN 01/26/19 04/06/19 Strength] magnesium oxide 400 mg PO DAILY #7 tab 01/27/19 04/06/19 ascorbic acid (vitamin C) ER 500 500 mg PO DAILY 03/20/19 04/06/19 mg capsule,extended release omeprazole magnesium [Prilosec OTC] 20 mg PO DAILY #14 tab 04/06/19 Previous Rx's Medication Instructions Recorded magnesium oxide 400 mg PO DAILY #7 tab 01/27/19 omeprazole magnesium [Prilosec OTC] 20 mg PO DAILY #14 tab 04/06/19 Allergies Allergy/AdvReac Type Severity Reaction Status Date / Time ropinirole Allergy Severe blacked out Unverified 04/06/19 19:10 mometasone furoate Allergy Intermediate Swelling/Ed Unverified 04/06/19 19:10 [From Nasonex] cinda gluten AdvReac Intermediate Abdominal Unverified 04/06/19 19:10 pain, diarrhea General JONA: 3 Review of Systems Review of Systems 6 systems reviewed and otherwise negative [facility] Medical History Hyperlipidemia Osteoarthritis Other chronic pain Overactive bladder Surgical History Abdominal hysterectomy Appendectomy Arthroscopy, Shoulder Cholecystectomy Colonoscopy - IV Sedation Extraction of cataract Open Carpal Tunnel release Tonsillectomy Family History Mother No problems noted. Father No problems noted. Social History Smoking/Tobacco Use Status: Former Tobacco Use Drug use: Never Do you feel safe at home: Yes Do you feel safe in your relationship?: Yes Additional Social history: . 4 children. No current alcohol use, and remote history of tobacco use. Exam Narrative Exam Narrative: GEN: awake, alert, oriented 3. Pleasant, well groomed, interactive. HEAD: Normocephalic, atraumatic ENT: Mucous membranes moist, oropharynx unremarkable, External ear exam unremarkable EYES: PERRL, EOMI NECK: Full ROM, no REESE, no menigismus CHEST/RESP: Nontender, clear to auscultation bilateral, no wheeze/rhonchi/rales CARDIOVASCULAR: RRR, no murmur, rub fabian. 2+ Rad pulse bilateral ABDOMEN: Soft, epigastric tenderness to palpation without rebound or guarding, no mass. +Bowel sounds EXT: Full ROM, no edema, no rash Neuro: Grossly normal neurologic exam, conversant, interactive. Psych: Speech fluent, thoughts congruent, affect normal
[2019-04-06 19:41] LABS: Abs Immature Grans 0.01 k/cumm (0.0-0.09); Absolute Basophil Count 0.09 k/cumm (0.0-0.2); Absolute Monocyte Count 0.62 k/cumm (0.11-0.7); Absolute Neutrophil Count 5.64 k/cumm (1.2-6.7); Basophils % 1.1; Eosinophils % 7.3; HCT 35.8 % (36.0-46.0); HGB 11.6 g/dL (12.0-15.5); Immature Grans % 0.1; Lymphocytes % 15.7; Mean Corp. HGB Concentration 32.4 g/dL (32.0-36.0); Mean Corpuscular Hemoglobin 29.8 pg (27.0-33.0); Mean Platelet Volume 10.2 fL (8.0-11.0); Monocytes % 7.5; Neutrophils % 68.3; Platelet Count 286 x1000/uL (130-400); RBC 3.89 m/cumm (4.00-5.20); White Blood Cell Count 8.26 k/cumm (4.4-10.8)
[2019-04-06] MEDS: Normal Saline 1,000 ML 125 ML IV (19:45)
[2019-04-06] MEDS: Ondansetron 4 MG/2 ML VIAL IVP (19:47)
[2019-04-06 20:00] LABS: ALT 23 U/L (12-78); AST 34 U/L (15-37); Albumin 3.9 g/dL (3.4-5.0); Alkaline Phosphatase 76 U/L (46-116); Anion Gap 11.4 mmol/L (3-11); BUN 27 mg/dL (7-18); Bilirubin, Total 0.3 mg/dL (0.2-1.0); CO2 22.6 mmol/L (21.0-32.0); CREATININE 1.14 mg/dL (0.55-1.02); Calcium 9.5 mg/dL (8.5-10.1); Chloride 102 mmol/L (98-107); Estimated GFR 45.63 (mL/min/1.73m2); Glucose 93 mg/dL (70-100); Magnesium 2.4 mg/dL (1.8-2.4); Potassium 4.7 mmol/L (3.5-5.1); Sodium 136 mmol/L (136-145); Total Protein 7.5 g/dL (6.4-8.2)
--- NOTE | 2019-04-06 20:06 | DI.RAD_ITS ---
SYMPTOM/DIAGNOSIS: EPIGASTRIC PAIN PA AND LATERAL CHEST: Comparison is made with 01/27/19. The heart size is normal. The aorta is mildly tortuous. The lungs appear clear. There are old right rib fractures seen laterally. A left shoulder prosthesis is noted. There is mild compression of a mid thoracic vertebral body which appears stable. IMPRESSION: No acute abnormality.
[2019-04-06 20:08] LABS: Troponin I < 0.02 ng/mL (0.00-0.06)
[2019-04-06 20:24] LABS: Lipase 335 U/L (73-393)
--- NOTE | 2019-04-06 20:37 | DI.VRAD_ITS ---
EXAM: XR Chest, 2 Views EXAM DATE/TIME: 04/06/2019 7:23 PM CLINICAL HISTORY: 84 years old, female; Prior surgery; Surgery date: 1-6 months; Surgery type: RT kidney, ureter, and partial bladder removal approx 5 weeks ago; Patient HX: Feeling faint and short of breath today, epigastric pain/discomfort TECHNIQUE: Imaging protocol: XR of the chest, 2 views. COMPARISON: CR XR CHEST 2V PA LATERAL 01/27/2019 8:42 AM FINDINGS: Lungs: Unremarkable. No consolidation. Pleural space: Unremarkable. No pleural effusion. No pneumothorax. Heart/Mediastinum: Unremarkable. No cardiomegaly. Bones/joints: No acute skeletal abnormality. Old/healed right sixth rib fracture. Patient status post prior left shoulder arthroplasty. IMPRESSION: Negative for acute thoracic pathology. Dictated and Authenticated by: Sea Gonzalez MD. Ordering:PATRICIA Bonilla MD
[2019-04-06] MEDS: Omeprazole 20 MG CAPCR PO (20:46)
== END 2019-04-06 21:44 | disposition home or self-care (01) ==
PROVIDERS: Emergency Provider Emergency Medicine; PCP Family Medicine
DX: K29.70 Gastritis, unspecified, without bleeding (principal); Z90.5 Acquired absence of kidney
CPT/HCPCS: 36415; 80053; 83690; 93005; 96361; 96374; 99285; 71046; 83735; 84484; 85025; 93010; J2405

== ENCOUNTER 2019-04-11 00:59 | Outpatient (RCR) | payer OTHER, SELFPAY ==
[2019-04-11] MEDS: Acetaminophen 500 MG TAB 1000 MG PO (09:04)
[2019-04-11] MEDS: Normal Saline Flush 10 ML SYR IVP (09:18)
[2019-04-11] MEDS: Normal Saline 1,000 ML 150 ML IV (09:26)
[2019-04-11 09:27] VITALS: BP 126/74; PULSE 63; RESP 18; TEMP 36.2; O2SAT 100
[2019-04-11 10:13] VITALS: BP 109/63; PULSE 59; RESP 18; TEMP 36.1; O2SAT 100
[2019-04-11] MEDS: IMMUNE GLOBULIN 20 GM/200 ML BTL IVPB (10:28)
[2019-04-11 10:37] VITALS: BP 110/64; PULSE 65; RESP 18; TEMP 36.1; O2SAT 99
== END 2019-04-21 23:59 | disposition home or self-care (01) ==
LOC: INF 00:59
PROVIDERS: PCP Family Medicine; Visit Provider Internal Medicine
DX: D80.1 Nonfamilial hypogammaglobulinemia (principal)
CPT/HCPCS: 96365; 96366; J1561

== ENCOUNTER 2019-05-02 01:36 | Outpatient (RCR) | payer OTHER, SELFPAY ==
[2019-05-02 09:35] VITALS: BP 109/60; PULSE 82; RESP 18; TEMP 36.3; O2SAT 98
[2019-05-02] MEDS: Normal Saline Flush 10 ML SYR IVP (09:48)
[2019-05-02] MEDS: Acetaminophen 500 MG TAB 1000 MG PO (09:50)
[2019-05-02 09:51] LABS: Abs Immature Grans 0.01 k/cumm (0.0-0.09); Absolute Basophil Count 0.06 k/cumm (0.0-0.2); Absolute Eosinophil Count 0.46 k/cumm (0.0-0.7); Absolute Lymphocyte Count 1.39 k/cumm (1.2-3.4); Absolute Monocyte Count 0.66 k/cumm (0.11-0.7); Absolute Neutrophil Count 2.84 k/cumm (1.2-6.7); Basophils % 1.1; Eosinophils % 8.5; HCT 35.3 % (36.0-46.0); Immature Grans % 0.2; Lymphocytes % 25.6; Mean Corp. HGB Concentration 31.2 g/dL (32.0-36.0); Mean Corpuscular Hemoglobin 28.5 pg (27.0-33.0); Mean Corpuscular Volume 91.5 fL (80-95); Mean Platelet Volume 10.3 fL (8.0-11.0); Monocytes % 12.2; Neutrophils % 52.4; Platelet Count 376 x1000/uL (130-400); RBC 3.86 m/cumm (4.00-5.20); RBC Distribution Width 14.2 % (11.7-14.6); White Blood Cell Count 5.42 k/cumm (4.4-10.8)
[2019-05-02 09:59] LABS: ALT 22 U/L (12-78); AST 22 U/L (15-37); Albumin 3.4 g/dL (3.4-5.0); Alkaline Phosphatase 70 U/L (46-116); Anion Gap 10.3 mmol/L (3-11); BUN 29 mg/dL (7-18); Bilirubin, Total 0.2 mg/dL (0.2-1.0); CO2 25.7 mmol/L (21.0-32.0); CREATININE 1.26 mg/dL (0.55-1.02); Calcium 9.2 mg/dL (8.5-10.1); Chloride 106 mmol/L (98-107); Estimated GFR 40.66 (mL/min/1.73m2); Glucose 90 mg/dL (70-100); Potassium 4.2 mmol/L (3.5-5.1); Sodium 142 mmol/L (136-145); Total Protein 6.8 g/dL (6.4-8.2)
[2019-05-02] MEDS: IMMUNE GLOBULIN 20 GM/200 ML BTL IVPB (10:51)
[2019-05-02 11:02] VITALS: BP 103/63; PULSE 64; RESP 18; TEMP 36.4; O2SAT 99
[2019-05-02 11:26] VITALS: BP 109/65; PULSE 61; RESP 18; TEMP 36; O2SAT 100
[2019-05-02 11:53] VITALS: BP 111/71; PULSE 61; RESP 18; TEMP 36.2; O2SAT 99
== END 2019-05-21 23:59 | disposition home or self-care (01) ==
LOC: INF 01:36
PROVIDERS: Internal Medicine; PCP Family Medicine; Visit Provider Internal Medicine
DX: D80.1 Nonfamilial hypogammaglobulinemia (principal)
CPT/HCPCS: 36415; 80053; 96365; 96366; 85025; J1561

== ENCOUNTER → 2019-06-05 13:09 | Outpatient (BNVA) | payer OTHER, SELFPAY | PROVIDERS: PCP Family Medicine; Referring Provider Family Medicine; Visit Provider Student in an Organized Health Care Education/Training Program | DX: M76.31 Iliotibial band syndrome, right leg (principal); M25.561 Pain in right knee | CPT/HCPCS: 99213; 99214; L1820 ==

== ENCOUNTER 2019-06-13 01:09 | Outpatient (RCR) | payer OTHER, SELFPAY ==
[2019-05-23] MEDS: Normal Saline 1,000 ML 150 ML IV (09:00)
[2019-05-23 09:18] VITALS: BP 119/74; PULSE 69; RESP 18; TEMP 36; O2SAT 100
[2019-05-23] MEDS: Acetaminophen 500 MG TAB 1000 MG PO (09:23)
[2019-05-23] MEDS: Normal Saline Flush 10 ML SYR IVP (09:25)
[2019-05-23 10:30] VITALS: BP 121/61; PULSE 63; RESP 18; TEMP 36.3; O2SAT 90
[2019-05-23] MEDS: IMMUNE GLOBULIN 20 GM/200 ML BTL IVPB (10:37)
[2019-05-23 10:49] VITALS: BP 120/61; PULSE 60; RESP 18; TEMP 36.5; O2SAT 98
[2019-05-23 11:25] VITALS: BP 117/71; PULSE 56; RESP 18; TEMP 36; O2SAT 98
[2019-06-13] MEDS: Acetaminophen 500 MG TAB 1000 MG PO (09:06)
[2019-06-13] MEDS: Normal Saline 1,000 ML 250 ML IV (09:20)
[2019-06-13 09:33] VITALS: BP 116/68; PULSE 66; RESP 18; TEMP 36.3; O2SAT 98
[2019-06-13] MEDS: IMMUNE GLOBULIN 20 GM/200 ML BTL IVPB (09:56)
[2019-06-13] MEDS: Normal Saline Flush 10 ML SYR IVP (10:14)
[2019-06-13 10:15] VITALS: BP 111/62; PULSE 58; RESP 18; TEMP 36.6; O2SAT 98
[2019-06-13 10:40] VITALS: BP 110/60; PULSE 57; RESP 18; TEMP 36.6; O2SAT 98
[2019-06-13 11:10] VITALS: BP 120/67; PULSE 56; RESP 18; TEMP 36; O2SAT 100
[2019-06-13 11:40] VITALS: BP 122/68; PULSE 58; RESP 18; TEMP 36; O2SAT 100
== END 2019-06-21 23:59 | disposition home or self-care (01) ==
LOC: INF 01:09
PROVIDERS: PCP Family Medicine; Visit Provider Internal Medicine
DX: D80.1 Nonfamilial hypogammaglobulinemia (principal)
CPT/HCPCS: 96365; 96366; J1561

== ENCOUNTER 2019-07-04 02:00 | Outpatient (RCR) | payer OTHER, SELFPAY ==
[2019-07-04] MEDS: Normal Saline 1,000 ML 250 ML IV (09:15)
[2019-07-04] MEDS: Acetaminophen 500 MG TAB 1000 MG PO (09:21)
[2019-07-04] MEDS: Normal Saline Flush 10 ML SYR IVP (09:22)
[2019-07-04 09:50] VITALS: BP 109/57; PULSE 58; RESP 18; TEMP 36.4; O2SAT 98
[2019-07-04] MEDS: IMMUNE GLOBULIN 20 GM/200 ML BTL IVPB (10:35)
[2019-07-04 10:36] VITALS: BP 126/58; PULSE 64; RESP 18; TEMP 36; O2SAT 99
[2019-07-04 10:48] VITALS: BP 111/60; PULSE 63; RESP 18; TEMP 36.1; O2SAT 99
[2019-07-04 11:16] VITALS: BP 104/55; PULSE 64; RESP 18; TEMP 36.5; O2SAT 99
[2019-07-05 09:32] LABS: IgG 767 mg/dL (610-1616)
== END 2019-07-22 23:59 | disposition home or self-care (01) ==
LOC: INF 02:00
PROVIDERS: PCP Family Medicine; Visit Provider Internal Medicine
DX: D80.1 Nonfamilial hypogammaglobulinemia (principal); D83.9 Common variable immunodeficiency, unspecified
CPT/HCPCS: 36415; 82784; 96365; 96366; J1561

== ENCOUNTER 2019-08-02 00:24 | Outpatient (CLI) | payer OTHER, SELFPAY ==
--- NOTE | 2019-08-02 08:30 | ETT_ITS ---
*[facility]* *[facility]* [address] [place] [address] Stress Electrocardiography Nilton protocol Date of study: 08/02/2019 *PATIENT PRESENTATION* Height: 167.6cm (66in) Blood Pressure: Weight: 56.8kg (125lb) BSA: 1.62m^2 Ordering physician: Jarrod Becerra Impressions: Negative stress test after maximal exercise with reproduction of symptoms. Summary: 1. Stress ECG conclusions: The stress ECG is negative. Perez treadmill score: -4. This score predicts a moderate risk of cardiac events. 2. Stress: The target heart rate was achieved. The heart rate response to stress is normal. There is a normal resting blood pressure with an appropriate response to stress. Stress-induced chest pain. Exercise capacity is normal for age. 3. Treadmill exercise testing was performed using the Nilton protocol. The patient exercised for 4 min 25 sec, to protocol stage 2, to a maximal work rate of 6.3mets. Exercise was terminated due to chest pain and fatigue. Recommendations: Stress myocardial perfusion imaging should be performed for further risk assessment. Indication: R07.89, Appropriate Use Criteria: A (Appropriate). History: REASON FOR TESTING: FOR APPROXIMATELY 5 MONTHS NOW PATIENT HAS BEEN EXPERIENCING MODERATE SUBSTERNAL/EPIGASTRIC CHEST PAIN WITH ACTIVITY, ALSO ASSOCIATED WITH SOB, THAT IS RELEIVED WITH REST. PATIENT DENIES CHEST PAIN UPON ARRIVAL TO TESTING TODAY. SIGNIFICANT PAST MEDICAL HISTORY: APPROXIMATELY 5 MONTHS AGO PATIENT HAD RIGHT NEPHRECTOMY AT THE [facility]. SMOKING STATUS: QUIT 1963. SMOKED FOR 5 YEARS 1 PPD. EXERCISE ROUTINE: DAILY ADL'S Risk factors: Dyslipidemia. Cholesterol: 241mg/dl. HDL: 93mg/dl. LDL: 123mg/dl. Triglycerides: 103mg/dl. ALLERGIES: ROPINIROLE, NASONEX, GLUTEN, BROCCOLI FAMILY, HONEY. MEDICATIONS: ACETAMINOPHEN 1000 MG PRN, MAGNESIUM OXIDE 400 MG DAILY, VITAMIN C 500 MG DAILY, OMEPRAZOLE 20 MG RARELY. Protocol: Nilton protocol. Baseline ECG: SINUS RHYTHM. HR 71 BPM. Normal ECG. Stress protocol: + +---+ + !Stage !HR !BP (mmHg) ! + +---+ + !Baseline supine !71 !128/62 (84)! + +---+ + !Baseline standing !79 !114/62 (79)! + +---+ + !Stage I; 1.7mph, 10degrees; 3 min!119!124/68 (87)! + +---+ + !Peak stress !130! ! + +---+ + !Recovery; 1 min !111!146/58 (87)! + +---+ + !Recovery; 3 min !78 !122/60 (81)! + +---+ + !Recovery; 6 min !73 !112/62 (79)! + +---+ + * Stress results: STRESS TEST ENDED IN 4 MINUTES 25 SECONDS DUE TO FATIGUE AND CHEST PAIN. NORMAL HEART RATE AND BLOOD PRESSURE RESPONSE TO EXERCISE. MAX HEART RATE: 130. 94 % OF TARGET HEART RATE ACHIEVED. MET'S: 6.33 RARE PVC'S. EPIGASTRIC MODERATE CHEST PAIN AT 1 MINUTE 51 SECONDS OF EXERCISE. EPIGASTRIC CHEST PAIN IS LESSENED AT 2 MINUTES 55 SECONDS OF RECOVERY. EPIGASTRIC CHEST PAIN SUBSIDED AT 4 MINUTES 5 SECONDS OF RECOVERY. NO SIGNIFICANCT ST SEGMENT CHANGES. AVERAGE FUNCTIONAL CAPACITY. The target heart rate was achieved. The heart rate response to stress is normal. There is a normal resting blood pressure with an appropriate response to stress. The rate-pressure product for the peak heart rate and blood pressure was 16937ar Hg/min. Stress-induced chest pain. Exercise capacity is normal for age. Stress ECG: The stress ECG is negative. Perez treadmill score: -4. This score predicts a moderate risk of cardiac events. Study data: Zaid Wiggins MD supervised and was readily available during the procedure. This study was interpreted by [facility]. Study status: Routine. Consent: The risks, benefits, and alternatives to the procedure were explained to the patient and informed consent was obtained. Procedure: Initial setup. A baseline ECG was recorded. Surface ECG leads and manual cuff blood pressure measurements were monitored. Heart sounds: Normal. Lung sounds: Normal. Treadmill exercise testing was performed using the Nilton protocol. The patient exercised for 4 min 25 sec, to protocol stage 2, to a maximal work rate of 6.3mets. Exercise was terminated due to chest pain and fatigue. Study completion: The patient tolerated the procedure well and was discharged from the lab. Discharge: The patient left the laboratory in stable condition. Birthdate: Patient birthdate: 1935. Sex: Gender: female. Study date: Study date: 08/02/2019. Study time: 00:01 AM. Signature Documentation: The Stress ECG portion of this study was interpreted by Zaid Wiggins MD. Electronically signed by Zaid Wiggins 08/02/2019 10:13
== END 2019-08-02 00:44 ==
PROVIDERS: PCP Family Medicine; Visit Provider Family Medicine
DX: R07.89 Other chest pain (principal); R10.13 Epigastric pain; R06.02 Shortness of breath; E78.5 Hyperlipidemia, unspecified; Z87.891 Personal history of nicotine dependence
CPT/HCPCS: 93016; 93018; 93017

== ENCOUNTER 2019-08-15 01:44 | Outpatient (RCR) | payer OTHER, SELFPAY ==
[2019-07-25] MEDS: Normal Saline 1,000 ML 250 ML IV (09:20)
[2019-07-25 09:32] VITALS: BP 119/75; PULSE 67; RESP 18; TEMP 36.1; O2SAT 100
[2019-07-25 09:39] LABS: Abs Immature Grans 0.01 k/cumm (0.0-0.09); Absolute Basophil Count 0.08 k/cumm (0.0-0.2); Absolute Eosinophil Count 0.32 k/cumm (0.0-0.7); Absolute Lymphocyte Count 1.55 k/cumm (1.2-3.4); Absolute Monocyte Count 0.56 k/cumm (0.11-0.7); Absolute Neutrophil Count 2.94 k/cumm (1.2-6.7); Basophils % 1.5; Eosinophils % 5.9; HCT 39.8 % (36.0-46.0); HGB 12.5 g/dL (12.0-15.5); Immature Grans % 0.2; Lymphocytes % 28.4; Mean Corp. HGB Concentration 31.4 g/dL (32.0-36.0); Mean Corpuscular Hemoglobin 28.5 pg (27.0-33.0); Mean Corpuscular Volume 90.9 fL (80-95); Mean Platelet Volume 10.4 fL (8.0-11.0); Monocytes % 10.3; Neutrophils % 53.7; Platelet Count 369 x1000/uL (130-400); RBC 4.38 m/cumm (4.00-5.20); RBC Distribution Width 15.1 % (11.7-14.6); White Blood Cell Count 5.46 k/cumm (4.4-10.8)
[2019-07-25 10:13] LABS: ALT 19 U/L (14-59); AST 19 U/L (15-37); Albumin 3.6 g/dL (3.4-5.0); Alkaline Phosphatase 67 U/L (46-116); Anion Gap 9.8 mmol/L (3-11); BUN 26 mg/dL (7-18); Bilirubin, Total 0.3 mg/dL (0.2-1.0); CO2 26.2 mmol/L (21.0-32.0); CREATININE 1.23 mg/dL (0.55-1.02); Chloride 107 mmol/L (98-107); Glucose 91 mg/dL (70-100); Potassium 3.9 mmol/L (3.5-5.1); Sodium 143 mmol/L (136-145); Total Protein 7.4 g/dL (6.4-8.2)
[2019-07-25] MEDS: IMMUNE GLOBULIN 20 GM/200 ML BTL IVPB (10:43)
[2019-07-25] MEDS: Normal Saline Flush 10 ML SYR IVP (10:44)
[2019-07-25 10:45] VITALS: BP 126/58; PULSE 58; RESP 18; TEMP 36.4; O2SAT 100
[2019-07-25 11:05] VITALS: BP 115/68; PULSE 67; RESP 18; TEMP 35.9; O2SAT 99
[2019-07-25 11:40] VITALS: BP 138/60; PULSE 60; RESP 18; TEMP 35.9; O2SAT 100
[2019-07-26 09:26] LABS: IgG 777 mg/dL (610-1616)
[2019-08-15 09:00] VITALS: BP 126/71; PULSE 82; RESP 19; TEMP 37.1; O2SAT 97
[2019-08-15] MEDS: Normal Saline Flush 10 ML SYR IVP (09:18)
[2019-08-15] MEDS: Normal Saline 1,000 ML 450 ML IV (09:18)
[2019-08-15] MEDS: Acetaminophen 500 MG TAB 1000 MG PO (10:28)
[2019-08-15] MEDS: IMMUNE GLOBULIN 20 GM/200 ML BTL IVPB (10:29)
[2019-08-15 10:39] VITALS: BP 114/71; PULSE 62; RESP 18; TEMP 37; O2SAT 100
[2019-08-15 10:54] VITALS: BP 109/67; PULSE 64; RESP 19; TEMP 36.7; O2SAT 100
[2019-08-15 11:24] VITALS: BP 106/67; PULSE 63; RESP 18; TEMP 36.8; O2SAT 99
[2019-08-15 11:54] VITALS: BP 103/65; PULSE 63; RESP 18; TEMP 37.1; O2SAT 100
== END 2019-08-21 23:59 | disposition home or self-care (01) ==
LOC: INF 01:44
PROVIDERS: PCP Family Medicine; Visit Provider Internal Medicine
DX: D80.1 Nonfamilial hypogammaglobulinemia (principal); D83.9 Common variable immunodeficiency, unspecified
CPT/HCPCS: 36415; 80053; 82784; 96365; 96366; 85025; J1561

== ENCOUNTER 2019-08-21 00:40 | Outpatient (CLI) | payer OTHER, SELFPAY ==
--- NOTE | 2019-08-21 08:15 | MERGEMPI_ITS ---
*[facility]* *[facility]* [address] [place] [address] Myocardial Perfusion Imaging - SPECT Nilton protocol Date of study: 08/21/2019 *PATIENT PRESENTATION* Height: 167.6cm (66in) Blood Pressure: Weight: 55.5kg (122lb) BSA: 1.6m^2 Referring physician: Daniel Voss MD Ordering physician: Jarrod Becerra Impressions: Normal perfusion by Tc99m Sestamibi Imaging. Summary: 1. Myocardial perfusion imaging: No myocardial perfusion defects noted. 2. The calculated left ventricular ejection fraction after stress: 65%. Indication: ++++. History: REASON FOR TESTING: PREVIOUS ETT ON 08/02/19- SEE REPORT. PT HAS BEEN EXPERIENCING MODERATE SUBSTERNAL/EPIGASTRIC CHEST PAIN WITH ACTIVITY ALONG WITH ASSOCIATED SHORTNESS OF BREATH. THESE SYMPTOMS ARE RELIEVED WITH REST. PMH: RIGHT NEPHRECTOMY IN FEBRUARY 2019. IMMUNE DEFICIENCY . FAMILY HX:NON-CONTRIBITORY. SMOKING: SMOKED FOR 5 YEARS 1PPD, QUIT 1963. EXCERCISE: WORKS OUT AT [employer], BUT NOT IN THE PAST SEVERAL MONTHS DUE TO CHEST PAIN. Risk factors: Dyslipidemia. Cholesterol: 241mg/dl. HDL: 93mg/dl. LDL: 123mg/dl. Triglycerides: 103mg/dl. ALLERGIES: ROPINROLE, MOMETASONE FUROATE, GLUTEN. MEDICATIONS: MAGNESIUM OXIDE 400 MG DAILY, ASCORBIC ACID 500 MG DAILY, ACEATMINOPHEN 1000 MG PRN. EYE DROPS FOR ITCHY EYES( UNKNOWN NAME) Imaging Technique: Protocol: Nilton protocol. Acquisition: Gated SPECT; 1 day - rest/stress. The patient was imaged in the supine position. Attenuation correction used. Isotope administration: - Rest. Tc[99m]-sestamibi. Dose: 10.5mCi. Injection time: 08:15 AM. Injection to stress time: 00:45. - Stress. Tc[99m]-sestamibi. Dose: 32mCi. Injection time: 10:00 AM. 1-2 min before end of exercise Baseline ECG: LAST EKG1- SINUS RHYTHM, HR 67. TODAY'S EKG-SINUS RHYTHM, LAFB. HR 62. Stress protocol: + +---+ +----+ !Stage !HR !BP (mmHg) !Sat ! + +---+ +----+ !Baseline supine !62 !140/64 (89) !----! + +---+ +----+ !Baseline standing !77 !134/86 (102)!100%! + +---+ +----+ !Stage I; 1.7mph, 10degrees; 3 min!112!144/78 (100)!----! + +---+ +----+ !Recovery; 1 min !107!168/60 (96) !----! + +---+ +----+ !Recovery; 3 min !71 !142/60 (87) !----! + +---+ +----+ !Recovery; 6 min !65 !134/58 (83) !----! + +---+ +----+ * Stress results: The rate-pressure product for the peak heart rate and blood pressure was 68421hs Hg/min. Stress ECG: EXCERCISE TESTING ENDED IN 5 MINS, 08 SECS DUE TO FATIGUE. MAX HR WAS 125, 90% OF TARGET. SLIGHTLY HYPERTENSIVE BLOOD PRESSURE RESPONSE. METS: 7.05. ECTOPY: RARE PVC SEEN IN RECOVERY. ANGINA: CHEST PAIN REPORTED 2/10 IN STAGE 1, AND 4/10 IN STAGE 2. THIS WAS MIDSTERNAL, WITHOUT ANY RADIATION, DIAPHORESIS, OR NAUSEA. NO CHEST PAIN REPORTED AT THE END OF TESTING. PT DID REPORT BEING QUITE ANXIOUS ABOUT THE TESTING PROCEDURES. ISCHEMIA: NO ISCHEMIC CHANGES NOTED. FUNCTIONAL CAPACITY: ABOVE AVERAGE CAPCITY. Myocardial perfusion: Imaging information: gated. No myocardial perfusion defects noted. Ventricular Function (Wall Motion): The calculated left ventricular ejection fraction after stress: 65%. Study data: Daniel Voss MD supervised and was readily available during the procedure. This study was interpreted by [facility]. Study status: Routine. Consent: The risks, benefits, and alternatives to the procedure were explained to the patient and informed consent was obtained. Procedure: Initial setup. A baseline ECG was recorded. Surface ECG leads and manual cuff blood pressure measurements were monitored. Heart sounds: Normal. Lung sounds: Normal. Treadmill exercise testing was performed using the Nilton protocol. Study completion: All catheters inserted during the procedure were removed. The patient tolerated the procedure well and was discharged from the lab. Discharge: The patient left the laboratory in stable condition. Birthdate: Patient birthdate: 1935. Sex: Gender: female. Study date: Study date: 08/21/2019. Study time: 00:01 AM. Electronically signed by Daniel Voss MD 08/21/2019 17:03
== END 2019-08-21 01:00 ==
PROVIDERS: PCP Family Medicine; Visit Provider Family Medicine
DX: R07.89 Other chest pain (principal); R10.13 Epigastric pain; R06.02 Shortness of breath; E78.5 Hyperlipidemia, unspecified; Z87.891 Personal history of nicotine dependence
CPT/HCPCS: 78452; 93016; 93018; 93017

== ENCOUNTER 2019-09-05 01:55 | Outpatient (RCR) | payer OTHER, SELFPAY ==
[2019-09-05] MEDS: Normal Saline Flush 10 ML SYR IVP (09:20)
[2019-09-05 09:30] VITALS: BP 114/60; PULSE 60; RESP 18; TEMP 37; O2SAT 96
[2019-09-05] MEDS: Normal Saline 1,000 ML 999 ML IV (09:30)
[2019-09-05] MEDS: IMMUNE GLOBULIN 20 GM/200 ML BTL IVPB (10:53)
[2019-09-05 10:58] VITALS: BP 122/71; PULSE 58; RESP 18; TEMP 36.7; O2SAT 100
[2019-09-05 11:12] VITALS: BP 102/63; PULSE 58; RESP 18; TEMP 36.7; O2SAT 100
[2019-09-05 11:42] VITALS: BP 134/62; PULSE 60; RESP 19; TEMP 36.6; O2SAT 99
[2019-09-05 12:07] VITALS: BP 127/65; PULSE 55; RESP 19; TEMP 36.5; O2SAT 100
[2019-09-05 12:37] VITALS: BP 127/65; PULSE 55; RESP 19; TEMP 36.4; O2SAT 100
== END 2019-09-21 23:59 | disposition home or self-care (01) ==
LOC: INF 01:55
PROVIDERS: PCP Family Medicine; Visit Provider Internal Medicine
DX: D50.1 Sideropenic dysphagia (principal); D83.9 Common variable immunodeficiency, unspecified
CPT/HCPCS: 96360; 96365; 96366; J1561

== ENCOUNTER → 2019-09-14 10:50 | Outpatient (BNVA) | payer OTHER, SELFPAY | PROVIDERS: PCP Family Medicine; Referring Provider Family Medicine; Visit Provider Urology | DX: C68.9 Malignant neoplasm of urinary organ, unspecified (principal); N28.89 Other specified disorders of kidney and ureter | CPT/HCPCS: 52000; 81003; 99213 ==

== ENCOUNTER 2019-09-14 12:26 | Outpatient (REF) | payer OTHER, SELFPAY ==
--- NOTE | 2019-09-14 11:00 | PAPNONF_PTH ---
PATIENT: Moira Copeland LOC: [facility] U#:[id number] AGE/SX: 84/F ROOM: RE09/14/[address]: Reynaldo Hackett MD : 1935 BED: DIS: 09/14/2019 SPEC #: [id number] RECD: 09/14/19 13:18 STATUS: THIERNO REQ #: [id number] JORGE: 09/14/19 11:[address]: Reynaldo Hackett DEPT: [facility] Cytology RECD BY: Marta Lowe ENTERED: 09/14/19 13:19 SP TYPE: CHRIS GUEVARA DR: Jarrod Becerra Tissues: 1 - BODY FLUID CYTO(SPUTUM/URINE)[facility] Procedures: BODY FLUID CYTO(URINE/SPUTUM) Comments: [id number] (TOTAL VOLUME = 20 Ml's) (20 ml's URINE & 20 ml's CYTOLYT ADDED)
== END 2019-09-14 12:46 ==
LOC: LBN 12:26
PROVIDERS: PCP Family Medicine; Visit Provider Urology
DX: C64.1 Malignant neoplasm of right kidney, except renal pelvis (principal)
CPT/HCPCS: 88104

== ENCOUNTER 2019-10-16 02:52 | Outpatient (RCR) | payer OTHER, SELFPAY ==
[2019-09-26] MEDS: Normal Saline Flush 10 ML SYR IVP (09:36)
[2019-09-26] MEDS: Normal Saline 1,000 ML 250 ML IV (09:37)
[2019-09-26 10:44] VITALS: BP 123/70; PULSE 59; RESP 18; TEMP 36.5; O2SAT 100
[2019-09-26] MEDS: IMMUNE GLOBULIN 20 GM/200 ML BTL IVPB (10:47)
[2019-09-26 10:53] VITALS: BP 122/68; PULSE 61; RESP 18; TEMP 36.6; O2SAT 99
[2019-09-26 11:08] VITALS: BP 124/63; PULSE 58; RESP 17; TEMP 36.7; O2SAT 100
[2019-09-26 11:24] VITALS: BP 128/69; PULSE 59; RESP 19; TEMP 36.7; O2SAT 100
[2019-09-26 11:46] LABS: TSH (W/Ref FT4) 1.66 uIU/mL (0.36-3.74); Vitamin B12 394 pg/mL (193-986)
[2019-09-26 12:14] LABS: Vitamin D 25 Total 30.5 ng/ml (30-100)
[2019-09-26 12:24] VITALS: BP 131/71; PULSE 58; RESP 19; TEMP 36.7; O2SAT 100
[2019-10-16] MEDS: Normal Saline 1,000 ML 999 ML IV (09:07)
[2019-10-16] MEDS: Normal Saline Flush 10 ML SYR IVP (09:08)
[2019-10-16] MEDS: Acetaminophen 500 MG TAB 1000 MG PO (09:14)
[2019-10-16] MEDS: IMMUNE GLOBULIN 20 GM/200 ML BTL IVPB (10:25)
[2019-10-16 10:29] VITALS: BP 113/64; PULSE 63; RESP 18; TEMP 37.2; O2SAT 100
[2019-10-16 10:44] VITALS: BP 105/63; PULSE 76; RESP 19; TEMP 37.1; O2SAT 99
[2019-10-16 11:14] VITALS: BP 117/67; PULSE 65; RESP 18; TEMP 37.1; O2SAT 98
== END 2019-10-21 23:59 | disposition home or self-care (01) ==
LOC: INF 02:52
PROVIDERS: PCP Family Medicine; Visit Provider Internal Medicine
DX: D80.1 Nonfamilial hypogammaglobulinemia (principal); D83.9 Common variable immunodeficiency, unspecified; R41.3 Other amnesia; R21 Rash and other nonspecific skin eruption; R29.898 Other symptoms and signs involving the musculoskeletal system; M19.90 Unspecified osteoarthritis, unspecified site; E83.50 Unspecified disorder of calcium metabolism
CPT/HCPCS: 36415; 82306; 96360; 96365; 96366; 82607; 84443; J1561

== ENCOUNTER 2019-10-24 13:44 | Emergency (ER) | payer OTHER, SELFPAY ==
[2019-10-24 13:51] VITALS: BP 176/65; PULSE 75; RESP 18; TEMP 37.2; O2SAT 100
--- NOTE | 2019-10-24 13:51 | ED.GENADUL_ITS ---
Discharge Plan Disposition Patient Disposition: HOME Condition: Stable Discharge Details Chief Complaint: Laceration Clinical Impression: Laceration of left hand, Contusion of left hand, Fall at home Primary Care Provider: Jarrod Becerra ED Provider: Ping Alves Home Meds and New Rx's Prescriptions: Continued ascorbic acid (vitamin C) 500 mg capsule, extended release 500 mg PO DAILY RF: 0 acetaminophen [Acetaminophen Extra Strength] 500 mg Tablet 1,000 mg PO PRN PRNRF: 0 magnesium oxide 400 mg (241.3 mg magnesium) Tablet 400 mg PO DAILY Qty: 7 RF: 0 Discharge Instructions Instructions: Laceration (ED), Contusion in Adults (ED) Additional Instructions: Keep wound clean and dry. Do not remove the Steri-Strips. Let them fall off naturally as the wound heals underneath. If your outer dressing becomes wet or dirty, you can replace it. If you notice any redness, worsening pain or swelling, apply topical antibiotic ointment. Follow-up with the primary care doctor within the next week for reevaluation. Return to the emergency department if you develop any worsening or new nancy rning symptoms. Discharge Data Discharge Physician: Ping Alves Medical Decision Making 84-year-old female presents with left hand lacerations after mechanical fall at home prior to arrival. Tetanus up-to-date. There is a 3 cm flap laceration as well as 1 cm skin avulsion to the left hand. No obvious deformities noted. Neurovascular intact. Full range of motion of remainder of extremities without pain or deformity. Left hand x-ray obtained and negative. Wounds were irrigated. Flap laceration closed with Steri-Strips and Tegaderm. Antibiotic ointment placed. Patient was advised on the importance of rest, ice, elevation, alternate Tylenol and Motrin. She was advised to follow-up with the primary care doctor for reevaluation and to return here with any concerns. Medical Records Medical records reviewed: Yes I reviewed the patient's medical records. Imaging Data Radiologic Study: Radiologist's impression: XR HAND LT COMPLETE INDICATION: s/p fall onto L hand, r/o acute fracture. COMPARISON: No exams were available for comparison TECHNIQUE: 2D digital imaging was performed. FINDINGS: No acute fracture or dislocation is present. Mild to moderate degenerative changes are seen in the hand and wrist. The findings are most marked at the 1st carpometacarpal joint. Bones appear mildly osteopenic. The soft tissues are unremarkable. IMPRESSION: No acute fracture or dislocation. HPI General Mode of arrival: ambulatory . Date/Time Provider Initiated Documentation: 10/24/19 13:51 . Limitations to Documentation: no limitations . Information obtained by: patient . HPI Narrative: Patient is an 84-year-old female who presents with left hand laceration after she fell in the garage when she tripped on a garden tool. She denies head injury, neck pain, chest pain, abdominal pain, back pain or other extremity injury. She has not taken any medication for pain. She states her tetanus is up-to-date. Related Data Home Medications Medication Instructions Recorded Confirmed acetaminophen [Acetaminophen Extra 1,000 mg PO PRN PRN 01/26/19 10/24/19 Strength] magnesium oxide 400 mg PO DAILY #7 tab 01/27/19 10/24/19 ascorbic acid (vitamin C) 500 mg 500 mg PO DAILY 03/20/19 10/24/19 capsule,extended release Previous Rx's Medication Instructions Recorded magnesium oxide 400 mg PO DAILY #7 tab 01/27/19 Allergies Allergy/AdvReac Type Severity Reaction Status Date / Time ropinirole Allergy Severe blacked out Unverified 10/24/19 13:57 mometasone furoate Allergy Intermediate Swelling/Ed Unverified 10/24/19 13:57 [From Nasonex] cinda gluten AdvReac Intermediate Abdominal Unverified 10/24/19 13:57 pain, diarrhea General JONA: 2 Review of Systems All systems reviewed & are unremarkable except as noted in HPI and below Constitutional Constitutional: Reports as per HPI, Denies chills and Denies fever(s) Eyes Eyes: Denies blurry vision ENT Ears, Nose, Mouth, and Throat: Denies dizziness, Denies sore throat and Denies throat swelling Cardiovascular Cardiovascular: Denies chest pain and Denies dyspnea Respiratory Respiratory: Denies cough and Denies dyspnea Gastrointestinal Gastrointestinal: Denies abdominal pain, Denies diarrhea and Denies vomiting Genitourinary Genitourinary: Denies hematuria and Denies dysuria Musculoskeletal Musculoskeletal: Denies back pain and Denies numbness Integumentary/Breasts Skin/Breast: Denies lesions and Denies rash Neurologic Neurologic: Denies dizziness, Denies focal weakness and Denies numbness Allergic/Immunologic Allergic/Immunologic: Denies throat swelling COUNT INCLUDES THE [facility] Medical History Hyperlipidemia Osteoarthritis Other chronic pain Left shoulder Overactive bladder Urothelial carcinoma (Acute) Surgical History Abdominal hysterectomy Appendectomy Arthroscopy, Shoulder Cholecystectomy Colonoscopy - IV Sedation Extraction of cataract Bilateral Open Carpal Tunnel release Tonsillectomy Family History Mother No problems noted. Father No problems noted. Social History Smoking/Tobacco Use Status: Former Tobacco Use Alcohol Intake: former Drug use: Never Do you feel safe at home: Yes Do you feel safe in your relationship?: Yes Additional Social history: . 4 children. No current alcohol use, and remote history of tobacco use. Exam Const General: cooperative, healthy appearing and no acute distress HENMT Head: normal to inspection Mouth: oral mucosae normal Eyes General: appearance normal, both eyes and all related structures Neck Neck: normal visual inspection Resp Effort & Inspection: normal respiratory effort and able to speak in complete sentences Cardio Rate: regular rate Skin General skin exam: no rashes or lesions noted Neuro General: alert, awake and oriented x3 Motor: muscle tone normal throughout Extrem Hand/finger images: 1. 3cm C-shaped flap laceration/skin tear located on dorsal L hand. No active bleeding. 2. 1cm x 3mm skin avulsion located overlying L 3rd MCP joint. No bony deformity. Other: Full range of motion of left shoulder, elbow without pain with range of motion or tenderness. No evidence of trauma to left shoulder extending down to left forearm. Left radial and ulnar pulses intact. No L snuff box tenderness. No pain in left wrist with range of motion. Psych Appearance: grossly normal Affect: normal affect
[2019-10-24] MEDS: Acetaminophen 500 MG TAB 1000 MG PO (14:19)
--- NOTE | 2019-10-24 14:34 | DI.RAD_ITS ---
EXAM: XR HAND LT COMPLETE INDICATION: s/p fall onto L hand, r/o acute fracture. COMPARISON: No exams were available for comparison TECHNIQUE: 2D digital imaging was performed. FINDINGS: No acute fracture or dislocation is present. Mild to moderate degenerative changes are seen in the h and and wrist. The findings are most marked at the 1st carpometacarpal joint. Bones appear mildly o steopenic. The soft tissues are unremarkable. IMPRESSION: No acute fracture or dislocation.
== END 2019-10-24 15:35 | disposition home or self-care (01) ==
PROVIDERS: Emergency Provider Physician Assistant; PCP Family Medicine
DX: S61.412A Laceration without foreign body of left hand, initial encounter (principal); W18.09XA Striking against other object with subsequent fall, initial encounter
CPT/HCPCS: 99283; 73130

== ENCOUNTER 2019-11-02 10:12 | Emergency (ER) | payer OTHER, SELFPAY ==
[2019-11-02 10:14] VITALS: BP 126/58; PULSE 79; RESP 16; TEMP 36.7; O2SAT 100
--- NOTE | 2019-11-02 10:19 | ED.GENADUL_ITS ---
Discharge Plan Disposition Patient Disposition: HOME Condition: Good Discharge Details Chief Complaint: Laceration Clinical Impression: Skin tear of left upper extremity, Cellulitis Primary Care Provider: Jarrod Becerra ED Provider: Suzi Acevedo Home Meds and New Rx's Prescriptions: New cephalexin [Keflex] 500 mg capsule 500 mg PO BID Qty: 10 RF: 0 Continued ascorbic acid (vitamin C) 500 mg capsule, extended release 500 mg PO DAILY RF: 0 acetaminophen [Acetaminophen Extra Strength] 500 mg Tablet 1,000 mg PO PRN PRNRF: 0 magnesium oxide 400 mg (241.3 mg magnesium) Tablet 400 mg PO DAILY Qty: 7 RF: 0 Discharge Instructions Instructions: Cellulitis (ED) Additional Instructions: Encourage hydration. Tylenol and/or ibuprofen as needed for discomfort. Please allow the bandages to come off naturally. Please begin the Keflex as pres cribed, even if symptoms improve please take the entire course. Please follow- up with primary care beginning of next week for reevaluation. If you develop fever/chills, increased pain, swelling or other new/worsening symptoms please seek care urgently once again. Referrals: Jarrod Becerra [Primary Care Provider] - Medical Decision Making Patient is an 84-year-old [id number] female presents today for evaluation of left hand wound. Patient was seen here 9 days ago at which time she was diagnosed with left hand skin tear after fall. Wound was cleansed and closed with Steri-Strips and Tegaderm. Patient has been caring for wound as was advised by physician at that time. States that over the past 2 days she has noted increased pain and yesterday noted a foul odor to the wound after she removed the Tegaderm. She has not gotten the wound wet. Denies any fevers or chills. Pain does not radiate. Has not noted any pain with movement of the digits but does have pain with palpation or pressure applied over the wound. On exam, the patient has ecchymosis surrounding the dressing. Dressing appears in place with the edges still firmly tacked down. No fluctuance. No erythema. No notable warmth. No active drainage. Full range of all of her digits with no pain, both passively and actively. Has good extension against resistance. I do not see any evidence of flexor or extensor tendon involvement. She did have imaging last time which revealed no fracture. I did discuss this case briefly with Dr. Smith who also looked at the wound. The question was whether to remove the Steri-Strips. However, as they seem well adhered still, I am concerned that removing these may cause recurrence of her skin tear or the new skin injury. Patient prefers to leave these in place at this time. I did encourage close follow-up with primary care. Patient will be begun on Keflex for presumed infection. She will allow the adhesives strips to come off naturally. She was given strict return precautions. All of her questions and concerns were addressed and she is in agreement this plan. HPI General Mode of arrival: ambulatory . Date/Time Provider Initiated Documentation: 11/02/19 10:18 . Limitations to Documentation: no limitations . Information obtained by: patient, family (daughter) and RN notes reviewed . History of Present Illness 84 year old F presents to the emergency department with the chief complaint of painful left hand laceration, described as moderate, Quality is described as burning, and is localized to the left and upper extremity. Patient reports no radiation. Patient started experiencing this day(s) and it has been constant. Immobilization improves symptom(s), Movement worsens symptoms . Patient notes no other symptoms.; denies diaphoresis, fever/chills and rash. Patient did receive the following treatments prior to arrival, none Related Data Home Medications Medication Instructions Recorded Confirmed acetaminophen [Acetaminophen Extra 1,000 mg PO PRN PRN 01/26/19 11/02/19 Strength] magnesium oxide 400 mg PO DAILY #7 tab 01/27/19 11/02/19 ascorbic acid (vitamin C) 500 mg 500 mg PO DAILY 03/20/19 11/02/19 capsule,extended release cephalexin [Keflex] 500 mg PO BID #10 cap 11/02/19 Previous Rx's Medication Instructions Recorded magnesium oxide 400 mg PO DAILY #7 tab 01/27/19 cephalexin [Keflex] 500 mg PO BID #10 cap 11/02/19 Allergies Allergy/AdvReac Type Severity Reaction Status Date / Time ropinirole Allergy Severe blacked out Unverified 11/02/19 10:18 mometasone furoate Allergy Intermediate Swelling/Ed Unverified 11/02/19 10:18 [From Nasonex] cinda gluten AdvReac Intermediate Abdominal Unverified 11/02/19 10:18 pain, diarrhea General JONA: 4 Review of Systems Constitutional Constitutional: Reports as per HPI, Denies chills and Denies fever(s) Musculoskeletal Musculoskeletal: Reports as per HPI Integumentary/Breasts Skin/Breast: Reports as per HPI Neurologic Neurologic: Reports as per HPI, Denies sensory deficit and Denies paresthesias [facility] Medical History Hyperlipidemia Osteoarthritis Other chronic pain Left shoulder Overactive bladder Urothelial carcinoma (Acute) Social History Smoking/Tobacco Use Status: Former Tobacco Use Alcohol Intake: former Drug use: Never Do you feel safe at home: Yes Do you feel safe in your relationship?: Yes Additional Social history: . 4 children. No current alcohol use, and remote history of tobacco use. Exam Const General: cooperative, healthy appearing, comfortable, no acute distress and well developed Nutritional Appearance: average body habitus and well nourished Orientation: alert and awake Resp Effort & Inspection: normal respiratory effort, able to speak in complete sentences and no respiratory distress Cardio Rate: regular rate Rhythm: regular rhythm Skin General skin exam: ecchymosis (surrounding steri strips) Trauma: laceration (patient has a steristrip covered wound to left dorsal hand) Neuro General: alert and awake Cognition: normal cognition Speech: speech normal Gait: normal gait Sensory Exam: no sensory deficits noted Extrem Hand/finger images: 1. area covered in steri strips. No palpable area of fluctuance. No notable discharge. Pain with palpation over this area. Full, painless ROM both actively and passively of all digits, full painless ROM of wrist 2. surrounding ecchymosis. Psych Appearance: grossly normal and well kempt Mental Status: mental status grossly normal Speech and Movement: speech and movement normal
== END 2019-11-02 10:48 | disposition home or self-care (01) ==
LOC: ER 10:45
PROVIDERS: Emergency Provider Physician Assistant; PCP Family Medicine
DX: S61.419A Laceration without foreign body of unspecified hand, initial encounter (principal); L03.114 Cellulitis of left upper limb
CPT/HCPCS: 99283

== ENCOUNTER 2019-11-07 02:54 | Outpatient (RCR) | payer OTHER, SELFPAY ==
[2019-11-07 09:57] LABS: Abs Immature Grans 0.01 k/cumm (0.0-0.09); Absolute Basophil Count 0.06 k/cumm (0.0-0.2); Absolute Eosinophil Count 0.18 k/cumm (0.0-0.7); Absolute Lymphocyte Count 1.18 k/cumm (1.2-3.4); Absolute Monocyte Count 0.58 k/cumm (0.11-0.7); Absolute Neutrophil Count 2.62 k/cumm (1.2-6.7); Basophils % 1.3; Eosinophils % 3.9; HCT 36.3 % (36.0-46.0); HGB 11.3 g/dL (12.0-15.5); Immature Grans % 0.2; Lymphocytes % 25.5; Mean Corp. HGB Concentration 31.1 g/dL (32.0-36.0); Mean Corpuscular Hemoglobin 28.3 pg (27.0-33.0); Mean Platelet Volume 9.9 fL (8.0-11.0); Monocytes % 12.5; Neutrophils % 56.6; Platelet Count 376 x1000/uL (130-400); RBC 3.99 m/cumm (4.00-5.20); RBC Distribution Width 14.8 % (11.7-14.6); White Blood Cell Count 4.63 k/cumm (4.4-10.8)
[2019-11-07 10:16] LABS: ALT 14 U/L (14-59); AST 20 U/L (15-37); Albumin 3.4 g/dL (3.4-5.0); Alkaline Phosphatase 56 U/L (46-116); Anion Gap 8.2 mmol/L (3-11); BUN 20 mg/dL (7-18); Bilirubin, Total 0.2 mg/dL (0.2-1.0); CO2 25.8 mmol/L (21.0-32.0); Chloride 109 mmol/L (98-107); Estimated GFR 39.21 (mL/min/1.73m2); Glucose 86 mg/dL (74-106); Potassium 4.2 mmol/L (3.5-5.1); Sodium 143 mmol/L (136-145); Total Protein 6.9 g/dL (6.4-8.2)
[2019-11-07] MEDS: Acetaminophen 500 MG TAB 1000 MG PO (10:40)
[2019-11-07] MEDS: Normal Saline Flush 10 ML SYR IVP (10:42)
[2019-11-07] MEDS: Normal Saline 1,000 ML 200 ML IV (10:43)
[2019-11-07 10:50] VITALS: BP 125/72; PULSE 66; RESP 18; TEMP 36.7; O2SAT 95
[2019-11-07] MEDS: IMMUNE GLOBULIN 20 GM/200 ML BTL IVPB (10:50)
[2019-11-07 10:57] VITALS: BP 131/60; PULSE 63; RESP 18; TEMP 36.7; O2SAT 100
[2019-11-07 11:12] VITALS: BP 136/74; PULSE 64; RESP 18; TEMP 36.5; O2SAT 100
[2019-11-07 11:27] VITALS: BP 123/71; PULSE 65; RESP 18; TEMP 36.6; O2SAT 100
[2019-11-07 11:57] VITALS: BP 114/82; PULSE 36; RESP 18; TEMP 36.6; O2SAT 100
[2019-11-07 12:27] VITALS: BP 123/74; PULSE 69; RESP 19; TEMP 36.6; O2SAT 100
[2019-11-08 11:30] LABS: IgG 785 mg/dL (610-1,616)
== END 2019-11-21 23:59 | disposition home or self-care (01) ==
LOC: INF 02:54
PROVIDERS: PCP Family Medicine; Visit Provider Internal Medicine
DX: D80.1 Nonfamilial hypogammaglobulinemia (principal); D83.9 Common variable immunodeficiency, unspecified
CPT/HCPCS: 36415; 80053; 82784; 96360; 96365; 96366; 85025; J1561

== ENCOUNTER 2019-11-10 02:16 | Outpatient (CLI) | payer OTHER, SELFPAY ==
[2019-11-10] MEDS: Omnipaque 350 MG/ML 50 ML BTL PO (07:05)
--- NOTE | 2019-11-10 08:23 | DI.CT_ITS ---
EXAM: CT ABDOMEN PELVIS WO CLINICAL HISTORY: RT FLANK AND ABD PAIN,R10.9,RT UROTHELIAL CA,C66.1 TECHNIQUE: CT examination of the abdomen and pelvis was performed with oral contrast administration only. COMPARISON: CT ABDOMEN PELVIS W from 01/26/2019 FINDINGS: Note is made of a prior cholecystectomy and right nephrectomy. Images obtained through the lung ba ses show some tiny calcified nodules and nonspecific reticular changes. Liver and spleen are unremar kable by noncontrast criteria as is the pancreas. No biliary dilatation. Abdominal aorta is of norm al diameter. No abdominal or pelvic adenopathy. No significant abdominal wall hernia. Appendix is normal. No evidence of diverticulitis or bowel obstruction. Adrenals and left kidney appear normal. No evidence of urinary tract calcification or obstruction. There is a fairly low attenuation right ovarian mass measuring about 3.2 cm in diameter. This is unc hanged in size from examination of 01/26/2019. No other focal pediatrician abnormality seen. IMPRESSION: No evidence of acute intra-abdominal process. Prior right nephrectomy and cholecystectomy.
== END 2019-11-10 02:36 ==
PROVIDERS: PCP Family Medicine; Visit Provider Family Medicine
DX: R10.31 Right lower quadrant pain (principal); C66.1 Malignant neoplasm of right ureter; Z90.5 Acquired absence of kidney; Z90.49 Acquired absence of other specified parts of digestive tract; J98.4 Other disorders of lung
CPT/HCPCS: 74176; Q9967

== ENCOUNTER → 2019-12-01 11:26 | Outpatient (BNVA) | payer OTHER, SELFPAY | PROVIDERS: PCP Family Medicine; Referring Provider Family Medicine; Visit Provider Urology | DX: C68.9 Malignant neoplasm of urinary organ, unspecified (principal); Z90.5 Acquired absence of kidney | CPT/HCPCS: 52000; 81003; 99213 ==

== ENCOUNTER 2019-12-01 12:18 | Outpatient (REF) | payer OTHER, SELFPAY ==
--- NOTE | 2019-12-01 11:45 | PAPNONF_PTH ---
PATIENT: Moira Copeland LOC: [facility] U#:[id number] AGE/SX: 84/F ROOM: RE12/01/[address]: Reynaldo Hackett MD : 1935 BED: DIS: 12/01/2019 SPEC #: [id number] RECD: 12/01/19 13:18 STATUS: THIERNO REQ #: [id number] JORGE: 12/01/19 11:[address]: Reynaldo Hackett DEPT: [facility] Cytology RECD BY: Marta Lowe ENTERED: 12/01/19 13:18 SP TYPE: PAPGENO GUEVARA DR: Jarrod Becerra Tissues: 1 - BODY FLUID CYTO(SPUTUM/URINE)[facility] Procedures: BODY FLUID CYTO(URINE/SPUTUM) Comments: [id number] (TOTAL VOLUME = 30 ml's) (30 ml's URINE & 30 ml's CYTOLYT ADDED)
== END 2019-12-01 12:38 ==
LOC: LBN 12:18
PROVIDERS: PCP Family Medicine; Visit Provider Urology
DX: C66.1 Malignant neoplasm of right ureter (principal)
CPT/HCPCS: 88104

== ENCOUNTER 2019-12-19 01:06 | Outpatient (RCR) | payer OTHER, SELFPAY ==
[2019-11-28] MEDS: Normal Saline 1,000 ML 999 ML IV (09:08)
[2019-11-28] MEDS: Normal Saline Flush 10 ML SYR IVP (09:08)
[2019-11-28 10:20] VITALS: BP 127/76; PULSE 63; RESP 18; TEMP 36.4; O2SAT 99
[2019-11-28 10:28] VITALS: BP 131/64; PULSE 66; RESP 19; TEMP 36.6; O2SAT 100
[2019-11-28] MEDS: IMMUNE GLOBULIN 20 GM/200 ML BTL IVPB (10:28)
[2019-11-28 10:43] VITALS: BP 118/60; PULSE 64; RESP 18; TEMP 36.6; O2SAT 99
[2019-11-28 11:13] VITALS: BP 126/62; PULSE 58; RESP 19; TEMP 36.2; O2SAT 100
[2019-11-28 11:43] VITALS: BP 131/64; PULSE 58; RESP 18; TEMP 36.2; O2SAT 100
[2019-11-28 12:10] VITALS: BP 129/77; PULSE 71; RESP 18; TEMP 36.6; O2SAT 100
[2019-12-19] MEDS: Normal Saline 1,000 ML 500 ML IV (09:05)
[2019-12-19] MEDS: Normal Saline Flush 10 ML SYR IVP (09:15)
[2019-12-19 10:40] VITALS: BP 121/68; PULSE 62; RESP 18; TEMP 36; O2SAT 98
[2019-12-19] MEDS: IMMUNE GLOBULIN 20 GM/200 ML BTL IVPB (10:43)
[2019-12-19 11:00] VITALS: BP 102/64; PULSE 61; RESP 18; TEMP 36.2; O2SAT 100
[2019-12-19 11:15] VITALS: BP 117/61; PULSE 61; RESP 18; TEMP 36.6; O2SAT 100
[2019-12-19 11:45] VITALS: BP 116/70; PULSE 63; RESP 18; TEMP 36.6; O2SAT 100
[2019-12-19 12:20] VITALS: BP 127/73; PULSE 63; RESP 18; TEMP 36.4; O2SAT 100
== END 2019-12-22 23:59 | disposition home or self-care (01) ==
LOC: INF 01:06
PROVIDERS: PCP Family Medicine; Visit Provider Internal Medicine
DX: D80.1 Nonfamilial hypogammaglobulinemia (principal); D83.9 Common variable immunodeficiency, unspecified
CPT/HCPCS: 96360; 96361; 96365; 96366; J1561

== ENCOUNTER 2020-01-09 02:17 | Outpatient (RCR) | payer OTHER, SELFPAY ==
[2020-01-09] MEDS: Normal Saline 1,000 ML 999 ML IV (09:10)
[2020-01-09 10:13] VITALS: BP 122/69; PULSE 65; RESP 19; TEMP 36.6; O2SAT 99
[2020-01-09 10:32] VITALS: BP 137/71; PULSE 62; RESP 18; TEMP 36.5; O2SAT 100
[2020-01-09] MEDS: Normal Saline Flush 10 ML SYR IVP (10:33)
[2020-01-09] MEDS: IMMUNE GLOBULIN 20 GM/200 ML BTL IVPB (10:33)
[2020-01-09 10:47] VITALS: BP 132/71; PULSE 62; RESP 19; TEMP 36.7; O2SAT 100
[2020-01-09 11:02] VITALS: BP 122/74; PULSE 63; RESP 18; TEMP 37.5; O2SAT 100
[2020-01-09 11:32] VITALS: BP 127/75; PULSE 65; RESP 18; TEMP 36.7; O2SAT 100
[2020-01-09 12:02] VITALS: BP 126/65; PULSE 62; RESP 18; TEMP 36.5; O2SAT 100
== END 2020-01-20 23:59 | disposition home or self-care (01) ==
LOC: INF 02:17
PROVIDERS: PCP Family Medicine; Visit Provider Internal Medicine
DX: D80.1 Nonfamilial hypogammaglobulinemia (principal); D83.9 Common variable immunodeficiency, unspecified
CPT/HCPCS: 96360; 96361; 96365; 96366; J1561

== ENCOUNTER 2020-02-20 04:02 | Outpatient (RCR) | payer OTHER, SELFPAY ==
[2020-01-30 09:07] VITALS: BP 130/81; PULSE 80; RESP 18; TEMP 36.7; O2SAT 100
[2020-01-30 09:44] LABS: Abs Immature Grans 0.01 k/cumm (0.0-0.09); Absolute Basophil Count 0.06 k/cumm (0.0-0.2); Absolute Eosinophil Count 0.07 k/cumm (0.0-0.7); Absolute Lymphocyte Count 1.59 k/cumm (1.2-3.4); Absolute Monocyte Count 0.56 k/cumm (0.11-0.7); Absolute Neutrophil Count 2.88 k/cumm (1.2-6.7); Basophils % 1.2; Eosinophils % 1.4; HCT 36.6 % (36.0-46.0); HGB 11.5 g/dL (12.0-15.5); Immature Grans % 0.2 %; Lymphocytes % 30.8; Mean Corp. HGB Concentration 31.4 g/dL (32.0-36.0); Mean Corpuscular Hemoglobin 28.5 pg (27.0-33.0); Mean Corpuscular Volume 90.6 fL (80-95); Mean Platelet Volume 10.2 fL (8.0-11.0); Monocytes % 10.8; Neutrophils % 55.6; Platelet Count 346 x1000/uL (130-400); RBC 4.04 m/cumm (4.00-5.20); RBC Distribution Width 14.5 % (11.7-14.6); White Blood Cell Count 5.17 k/cumm (4.4-10.8)
[2020-01-30 10:03] LABS: ALT 16 U/L (14-59); AST 23 U/L (15-37); Albumin 3.6 g/dL (3.4-5.0); Alkaline Phosphatase 55 U/L (46-116); Anion Gap 8.5 mmol/L (3-11); BUN 22 mg/dL (7-18); Bilirubin, Total 0.3 mg/dL (0.2-1.0); CO2 28.5 mmol/L (21.0-32.0); CREATININE 1.31 mg/dL (0.55-1.02); Chloride 106 mmol/L (98-107); Estimated GFR 38.87 (mL/min/1.73m2); Glucose 88 mg/dL (74-106); Potassium 4.1 mmol/L (3.5-5.1); Sodium 143 mmol/L (136-145); Total Protein 6.9 g/dL (6.4-8.2)
[2020-01-30] MEDS: IMMUNE GLOBULIN 20 GM/200 ML BTL IVPB (10:40)
[2020-01-30 10:43] VITALS: BP 127/73; PULSE 63; RESP 18; TEMP 37; O2SAT 100
[2020-01-30] MEDS: Normal Saline Flush 10 ML SYR IVP (10:48)
[2020-01-30 10:58] VITALS: BP 119/63; PULSE 62; RESP 19; TEMP 37; O2SAT 100
[2020-01-30 11:13] VITALS: BP 120/70; PULSE 60; RESP 18; TEMP 37.1; O2SAT 100
[2020-01-30 11:43] VITALS: BP 125/8; PULSE 65; RESP 19; TEMP 37; O2SAT 100
[2020-01-31 10:52] LABS: IgG 811 mg/dL (610-1,616)
[2020-02-20] MEDS: Normal Saline 1,000 ML 250 ML IV (09:25)
[2020-02-20] MEDS: Normal Saline Flush 10 ML SYR IVP (09:30)
[2020-02-20] MEDS: IMMUNE GLOBULIN 20 GM/200 ML BTL IVPB (09:31)
[2020-02-20 10:23] VITALS: BP 124/60; PULSE 59; RESP 18; TEMP 36.3; O2SAT 100
[2020-02-20 10:30] VITALS: BP 122/69; PULSE 55; RESP 16; TEMP 35.2; O2SAT 100
[2020-02-20 10:45] VITALS: BP 124/73; PULSE 53; RESP 16; TEMP 35.3; O2SAT 95
[2020-02-20 11:15] VITALS: BP 127/61; PULSE 55; RESP 16; TEMP 35.4; O2SAT 99
== END 2020-02-20 23:59 | disposition home or self-care (01) ==
LOC: INF 04:02
PROVIDERS: PCP Family Medicine; Visit Provider Internal Medicine
DX: D83.9 Common variable immunodeficiency, unspecified (principal)
CPT/HCPCS: 36415; 36430; 80053; 82784; 96360; 96361; 96365; 96366; 85025; J1561

== ENCOUNTER 2020-03-12 00:55 | Outpatient (RCR) | payer OTHER, SELFPAY ==
[2020-03-12 09:15] VITALS: BP 149/84; PULSE 84; RESP 19; TEMP 36.5; O2SAT 100
[2020-03-12] MEDS: Normal Saline 1,000 ML 999 ML IV (09:15)
[2020-03-12] MEDS: Normal Saline Flush 10 ML SYR IVP (09:24)
[2020-03-12 10:35] VITALS: BP 133/55; PULSE 61; RESP 14; TEMP 36.4; O2SAT 100
[2020-03-12] MEDS: IMMUNE GLOBULIN 20 GM/200 ML BTL IVPB (10:37)
[2020-03-12 10:50] VITALS: BP 107/67; PULSE 63; RESP 18; TEMP 36.8; O2SAT 99
[2020-03-12 11:20] VITALS: BP 105/64; PULSE 60; RESP 18; TEMP 37; O2SAT 100
== END 2020-03-21 23:59 | disposition home or self-care (01) ==
LOC: INF 00:55
PROVIDERS: PCP Family Medicine; Visit Provider Internal Medicine
DX: D80.1 Nonfamilial hypogammaglobulinemia (principal); D83.9 Common variable immunodeficiency, unspecified
CPT/HCPCS: 52000; 96360; 96361; 96365; 96366; 99213; J1561

== ENCOUNTER 2020-03-12 13:24 | Outpatient (REF) | payer OTHER, SELFPAY ==
--- NOTE | 2020-03-12 13:00 | PAPNONF_PTH ---
PATIENT: Moira Copeland LOC: [facility] U#:[id number] AGE/SX: 85/F ROOM: RE03/12/[address]: Reynaldo Hackett MD : 1935 BED: DIS: 03/12/2020 SPEC #: [id number] RECD: 03/12/20 15:01 STATUS: THIERNO REHoward #: [id number] JORGE: 03/12/20 13:[address]: Reynaldo Hackett DEPT: [facility] Cytology RECD BY: Martín Huerta ENTERED: 03/12/20 15:02 SP TYPE: CHRIS GUEVARA DR: Jarrod Becerra Tissues: 1 - BODY FLUID CYTO(SPUTUM/URINE)[facility] Procedures: BODY FLUID CYTO(URINE/SPUTUM) Comments: [id number] (Total Volume = 55mls)
== END 2020-03-12 13:44 ==
LOC: LBN 13:24
PROVIDERS: PCP Family Medicine; Visit Provider Urology
DX: C66.1 Malignant neoplasm of right ureter (principal)
CPT/HCPCS: 88104

== ENCOUNTER 2020-04-02 00:56 | Outpatient (RCR) | payer OTHER, SELFPAY ==
[2020-04-02] MEDS: Normal Saline 1,000 ML 250 ML IV (09:30)
[2020-04-02] MEDS: Normal Saline Flush 10 ML SYR IVP (09:31)
[2020-04-02] MEDS: Acetaminophen 500 MG TAB 1000 MG PO (10:44)
[2020-04-02] MEDS: IMMUNE GLOBULIN 20 GM/200 ML BTL IVPB (10:46)
[2020-04-02 10:51] VITALS: BP 122/71; PULSE 60; RESP 19; TEMP 36.5; O2SAT 100
[2020-04-02 11:06] VITALS: BP 114/62; PULSE 62; RESP 18; TEMP 36; O2SAT 96
[2020-04-02 11:21] VITALS: BP 113/63; PULSE 66; RESP 19; TEMP 36; O2SAT 98
[2020-04-02 11:51] VITALS: BP 113/67; PULSE 65; RESP 18; TEMP 36; O2SAT 98
[2020-04-02 12:21] VITALS: BP 121/59; PULSE 61; RESP 19; TEMP 36; O2SAT 98
[2020-06-04] MEDS: Normal Saline 1,000 ML 250 ML IV (09:20)
[2020-06-04] MEDS: Acetaminophen 500 MG TAB 1000 MG PO (09:27)
[2020-06-04] MEDS: Normal Saline Flush 10 ML SYR IVP (09:53)
[2020-06-04] MEDS: IMMUNE GLOBULIN 20 GM/200 ML BTL IVPB (11:24)
== END 2020-04-20 23:00 | disposition home or self-care (01) ==
LOC: INF 00:56
PROVIDERS: PCP Family Medicine; Visit Provider Internal Medicine
DX: D80.1 Nonfamilial hypogammaglobulinemia (principal); D83.9 Common variable immunodeficiency, unspecified
CPT/HCPCS: 96360; 96361; 96365; 96366; J1561

== ENCOUNTER 2020-05-14 00:47 | Outpatient (RCR) | payer OTHER, SELFPAY ==
[2020-04-23] MEDS: Normal Saline 1,000 ML 250 ML IV (09:12)
[2020-04-23] MEDS: Normal Saline Flush 10 ML SYR IVP (09:25)
[2020-04-23 09:39] LABS: Abs Immature Grans 0.01 k/cumm (0.0-0.09); Absolute Basophil Count 0.04 k/cumm (0.0-0.2); Absolute Lymphocyte Count 1.44 k/cumm (1.2-3.4); Absolute Monocyte Count 0.58 k/cumm (0.11-0.7); Absolute Neutrophil Count 2.93 k/cumm (1.2-6.7); Basophils % 0.8; Eosinophils % 3.8; HCT 37.1 % (36.0-46.0); HGB 11.7 g/dL (12.0-15.5); Immature Grans % 0.2 %; Lymphocytes % 27.7; Mean Corp. HGB Concentration 31.5 g/dL (32.0-36.0); Mean Corpuscular Hemoglobin 28.7 pg (27.0-33.0); Mean Corpuscular Volume 90.9 fL (80-95); Mean Platelet Volume 10.1 fL (8.0-11.0); Monocytes % 11.2; Neutrophils % 56.3; Platelet Count 303 x1000/uL (130-400); RBC 4.08 m/cumm (4.00-5.20); RBC Distribution Width 14.9 % (11.7-14.6)
[2020-04-23 09:53] LABS: ALT 21 U/L (14-59); AST 21 U/L (15-37); Albumin 3.4 g/dL (3.4-5.0); Alkaline Phosphatase 50 U/L (46-116); Anion Gap 2.3 mmol/L (3-11); BUN 21 mg/dL (7-18); Bilirubin, Total 0.3 mg/dL (0.2-1.0); CO2 28.7 mmol/L (21.0-32.0); CREATININE 1.35 mg/dL (0.55-1.02); Calcium 8.9 mg/dL (8.5-10.1); Chloride 107 mmol/L (98-107); Estimated GFR 37.45 (mL/min/1.73m2); Glucose 87 mg/dL (74-106); Potassium 4.1 mmol/L (3.5-5.1); Sodium 138 mmol/L (136-145); Total Protein 6.8 g/dL (6.4-8.2)
[2020-04-23 10:12] VITALS: BP 119/65; PULSE 57; RESP 18; TEMP 36; O2SAT 99
[2020-04-23] MEDS: IMMUNE GLOBULIN 20 GM/200 ML BTL IVPB (10:53)
[2020-04-23 10:57] VITALS: BP 125/69; PULSE 61; RESP 18; TEMP 36; O2SAT 100
[2020-04-23 11:12] VITALS: BP 127/71; PULSE 58; RESP 18; TEMP 36; O2SAT 100
[2020-04-23 11:27] VITALS: BP 122/69; PULSE 58; RESP 18; TEMP 36.3; O2SAT 100
[2020-04-23 11:57] VITALS: BP 123/63; PULSE 58; RESP 18; TEMP 36.3; O2SAT 100
[2020-04-23 12:27] VITALS: BP 147/73; PULSE 58; RESP 18; TEMP 36; O2SAT 100
[2020-04-24 09:46] LABS: IgG 793 mg/dL (610-1,616)
[2020-05-14] MEDS: Normal Saline 1,000 ML 250 ML IV (09:14)
[2020-05-14] MEDS: IMMUNE GLOBULIN 20 GM/200 ML BTL IVPB (11:20)
[2020-05-14 12:06] VITALS: BP 113/67; PULSE 63; RESP 16; O2SAT 100
[2020-05-14 12:36] VITALS: BP 122/60; PULSE 59; RESP 18; TEMP 36.3; O2SAT 92
== END 2020-05-21 23:59 | disposition home or self-care (01) ==
LOC: INF 00:47
PROVIDERS: Internal Medicine; PCP Family Medicine; Visit Provider Internal Medicine
DX: D83.9 Common variable immunodeficiency, unspecified (principal)
CPT/HCPCS: 36415; 80053; 82784; 96360; 96361; 96365; 96366; 85025; J1561

== ENCOUNTER 2020-06-03 11:14 | Emergency (ER) | payer OTHER, SELFPAY ==
[2020-06-03] VITALS (35 sets, daily range): BP systolic 142–184; BP diastolic 48–67; PULSE 56–83; RESP 10–19; TEMP 36.6; O2SAT 97–100
--- NOTE | 2020-06-03 11:15 | RT.EKG_ITS ---
APPROVED REPORT Exam: Resting ECG Patient Location: E HR:73 bpm ECG Measurements Heart Rate 73 AXIS NE 152 P 51 QRSd 95 QRS -66 QT 360 T 53 QTc 398 <Conclusion> Sinus rhythm...normal P axis, V-rate 60- 99 Left anterior fascicular block...axis(240,-40), init forces inf I have reviewed and interpreted ECG and agree with software generated interpretation.
--- NOTE | 2020-06-03 11:30 | DI.CT_ITS ---
EXAM: CT THORAX ABDOMEN CTA CLINICAL HISTORY: pain in central chest radiating to back. TECHNIQUE: Imaging Protocol: Axial CT angiography was performed with multi-slice acquisition and m ulti-planar and/or 3D reconstructions. CONTRAST MATERIAL: Intravenous: Omnipaque 350 Contrast volume:100 mL Oral: No COMPARISON: CR XR CHEST 2V PA LATERAL from 04/06/[address] ABDOMEN PELVIS WO from 11/10/2019 FINDINGS: CHEST: Pulmonary Arteries: No evidence of filling defect to suggest pulmonary emboli. Tracheobronchial tree: Patent where visualized. Mediastinum and Ashley: No dominant adenopathy or fluid collection. Pulmonary parenchyma: No consolidation or dominant measurable mass. No architectural distortion. Calc ified granuloma are seen in the lungs. Dependent atelectasis is seen in the lung bases. Pleura: No effusion or pneumothorax. Heart: The heart is not dilated. No coronary artery calcifications are seen. No pericardial effusion. Aorta: Thoracic aorta non-dilated. Atherosclerosis. No dissection or aneurysm. Bones: Degenerative changes in the spine. There is a stable compression deformity of the T9 vertebra l body. No acute fracture or subluxation is seen in the thoracic spine. Patient has a left shoulder replacement. ABDOMEN AND PELVIS: Abdomen: Celiac axis/mesenteric arteries: No evidence of occlusion or significant stenosis. Renal Arteries: No evidence of occlusion or significant stenosis. There is a single renal artery per fusing the left kidney. The patient is status post right nephrectomy. Aorta: No evidence of occlusion or significant stenosis. No aneurysm or dissection. Atherosclerosi s. ABDOMEN: Liver: Normal density. No measurable mass. Portal, Superior Mesenteric, and Splenic Veins: Unremarkable. Gallbladder and Biliary Tract: Status post cholecystectomy. Pancreas: Normal density, no abnormal calcifications or inflammatory process. Spleen: Normal. Adrenals: No masses seen. Kidneys: Normal size, contour and axis of the left kidney. The patient is status post right nephrect ngoc. No radiodense stones or obstructive uropathy. No masses seen. Bowel: No obstruction or bowel wall thickening. Peritoneal Cavity: No ascites, collection or mesenteric inflammatory response. Lymph Nodes: Within normal limits. Bones: There is an old compression deformity of L2. Degenerative changes are seen in the lumbar spin e. Soft Tissues: Unremarkable. IMPRESSION: 1. No evidence of aneurysm or dissection in the chest or abdomen. 2. No acute pulmonary process. 3. Status post right nephrectomy. 4. Old compression deformities of the T9 and L2 vertebral bodies. No acute fracture. 5. The findings were discussed with the emergency department on the date of the examination. RADIATION DOSE DELIVERED: Total DLP DATA REPOSITORY: All CT scans at this facility are submitted to the National Radiology Data Registry (NRDR) Dose Index Registry (DIR) with the [employer] (ACR). RADIATION OPTIMIZATION: All CT scans at this facility use at least one of these dose optimization te chniques: automated exposure control; mA and/or kV adjustment per patient size (includes targeted exa ms where dose is matched to clinical indication); or iterative reconstruction.
[2020-06-03 11:51] LABS: Abs Immature Grans 0.01 k/cumm (0.0-0.09); Absolute Basophil Count 0.08 k/cumm (0.0-0.2); Absolute Eosinophil Count 0.19 k/cumm (0.0-0.7); Absolute Lymphocyte Count 2.08 k/cumm (1.2-3.4); Absolute Monocyte Count 0.69 k/cumm (0.11-0.7); Absolute Neutrophil Count 2.86 k/cumm (1.2-6.7); Basophils % 1.4; Eosinophils % 3.2; HCT 40.6 % (36.0-46.0); Immature Grans % 0.2 %; Lymphocytes % 35.2; Mean Corpuscular Hemoglobin 29.1 pg (27.0-33.0); Mean Corpuscular Volume 90.8 fL (80-95); Mean Platelet Volume 10.3 fL (8.0-11.0); Monocytes % 11.7; Neutrophils % 48.3; Platelet Count 373 x1000/uL (130-400); RBC 4.47 m/cumm (4.00-5.20); RBC Distribution Width 15.1 % (11.7-14.6); White Blood Cell Count 5.91 k/cumm (4.4-10.8)
[2020-06-03] MEDS: Lactated Ringers 1,000 ML 125 ML IV (11:56)
--- NOTE | 2020-06-03 11:57 | ED.GENADUL_ITS ---
Discharge Plan Disposition Patient Disposition: HOME Condition: Stable Discharge Details Chief Complaint: Chest Pain Clinical Impression: Chest pain Primary Care Provider: Jarrod Becerra ED Provider: Shubham Bolivar Home Meds and New Rx's Prescriptions: New aspirin 81 mg tablet,delayed release (DR/EC) 81 mg PO DAILY Qty: 30 RF: 0 Continued ascorbic acid (vitamin C) 500 mg capsule, extended release 500 mg PO DAILY RF: 0 acetaminophen [Acetaminophen Extra Strength] 500 mg Tablet 1,000 mg PO PRN PRNRF: 0 magnesium oxide 400 mg (241.3 mg magnesium) Tablet 400 mg PO DAILY Qty: 7 RF: 0 No Action ketoconazole 2 % cream 1 applic TP BID RF: 0 Discharge Instructions Instructions: Chest Pain (ED) Additional Instructions: Please follow-up with your primary care physician. You should have a stress test performed within the next 72 hours. Please arrange this with diagnostic imaging department. You had a CAT scan today with IV contrast. Please have your creatinine checked in the next couple days. Discuss this with your doctor. Please contact your primary care physician to arrange follow-up. Return to the ER for any worsening or new concerning symptoms. Referrals: Jarrod Becerra [Primary Care Provider] - Discharge Data Discharge Date/Time-TO BE ENTERED AT DEPARTURE: 06/03/20 15:18 Medical Decision Making 12:00??85-year-old female with history of urothelial carcinoma, status post nephrectomy, here with sharp central chest pain radiating to her back since 1030 this morning. Patient is hypertensive. Saturating well in no respiratory distress. I am concerned about potential aortic dissection. Discussed risk benefits of advanced imaging CTA given single kidney and potential contrast related injury. Patient has decisional making capacity, verbalized understanding of risk benefit, and provided informed consent to proceed with CTA. I did speak with this plan with the patient's daughter at the patient's request as well. Patient does have a history of pancreatitis. Abdominal exam is benign. Lipase is only mildly elevated at 432. --CTA of the chest was interpreted by radiology: No dissection, no acute pathology noted. Labs reviewed and normal initial troponin. Creatinine is 1.33 with a GFR of 38. I will give a 500 mL bolus of crystalloid and continue maintenance fluids. I spoke with the patient and her daughter about results. Patient notes now pain very positional and also worse with deep inspiration. She feels possibly musculoskeletal etiology. I will give a dose of Tylenol. Plan will be for delta troponin with repeat ECG. --Repeat ECG nondiagnostic, no change from prior. Second troponin at 3 hours negative and unchanged from prior. Disposition decision was made weighing the risks and benefits of hospitalization versus outpatient treatment, the risk for further decompensation, and the patient's wishes. The patient was stable and requested discharge. Prior to discharge, my usual and customary return precautions were reviewed with the patient - this included follow-up instructions and reason to return to the emergency department if condition worsens, does not improve as expected, or other new concerns arise. HPI General Mode of arrival: ambulatory . Date/Time Provider Initiated Documentation: 06/03/20 11:34 . Limitations to Documentation: no limitations . Information obtained by: patient and family . HPI Narrative: 85-year-old female with prior history of urothelial carcinoma, status post nephrectomy, here with chief complaint of chest pain. Patient notes pain started around 1030 this morning. Pain started when she was walking upstairs. Pain feels sharp and radiates to her back. Pain is currently moderate to severe. Pain worse with certain positions. No associated leg swelling. No associated shortness of breath. Related Data Home Medications Medication Instructions Recorded Confirmed acetaminophen [Acetaminophen Extra 1,000 mg PO PRN PRN 01/26/19 06/17/20 Strength] magnesium oxide 400 mg PO DAILY #7 tab 01/27/19 06/17/20 ascorbic acid (vitamin C) 500 mg 500 mg PO DAILY 03/20/19 06/17/20 capsule,extended release aspirin 81 mg PO DAILY #30 tab 06/03/20 06/17/20 ketoconazole 2 % topical cream 1 applic TP BID 06/12/20 06/12/20 Previous Rx's Medication Instructions Recorded magnesium oxide 400 mg PO DAILY #7 tab 01/27/19 aspirin 81 mg PO DAILY #30 tab 06/03/20 Allergies Allergy/AdvReac Type Severity Reaction Status Date / Time ropinirole Allergy Severe blacked out Verified 06/17/20 10:23 mometasone furoate Allergy Intermediate Swelling/Ed Verified 06/17/20 10:23 [From Nasonex] cinda gluten AdvReac Intermediate Abdominal Verified 06/17/20 10:23 pain, diarrhea General Stated Complaint: Chest Pain JONA: 3 Review of Systems All systems reviewed & are unremarkable except as noted in HPI and below Cardiovascular Cardiovascular: Reports chest pain and Denies lightheadedness Respiratory Respiratory: Denies cough [facility] Medical History Hyperlipidemia Osteoarthritis Other chronic pain Left shoulder Overactive bladder Urothelial carcinoma (Acute) Surgical History Abdominal hysterectomy Appendectomy Arthroscopy, Shoulder Cholecystectomy Colonoscopy - IV Sedation Extraction of cataract Bilateral Open Carpal Tunnel release Tonsillectomy Family History Mother No problems noted. Father No problems noted. Social History Smoking/Tobacco Use Status: Former Tobacco Use Alcohol Intake: former Drug use: Never Substance use type: does not use Current gender identity: female Do you feel safe at home: Yes Do you feel safe in your relationship?: Yes Additional Social history: . 4 children. No current alcohol use, and remote history of tobacco use. Exam Const General: cooperative, no acute distress and well groomed HENMT Head: atraumatic Mouth: moist mucous membranes Eyes Sclera: normal sclerae Neck Neck: trachea midline and supple Resp Auscultation: clear to auscultation bilaterally, no rales, no rhonchi and no wheezes Cardio Jugular venous pressure: no JVD Rate: regular rate and not tachycardic Rhythm: regular rhythm GI Palpation: soft, not firm, no guarding, no masses, not rigid and nontender Skin General skin exam: no rashes or lesions noted Neuro General: patient alert, patient awake, patient oriented x3 and tone normal Extrem General: no calf tenderness and no edema Psych Appearance: grossly normal Mental Status: mental status grossly normal Speech and Movement: speech and movement normal Course Vital Signs Vital signs: Vital Signs Temperature 36.6 C 06/03/20 11:18 Pulse 83 06/03/20 11:18 Respiratory Rate 18 06/03/20 11:18 Blood Pressure 184/67 H 06/03/20 11:18 Pulse Oximetry 97 06/03/20 11:18 Temperature 36.6 C 06/03/20 11:18 Temperature Source Temporal Artery Scan 06/03/20 11:18 Pulse 83 06/03/20 11:18 Respiratory Rate 18 06/03/20 11:25 Respiratory Effort Non-Labored 06/03/20 11:25 Respiratory Depth Normal 06/03/20 11:25 Respiratory Pattern Normal 06/03/20 11:25 Blood Pressure 184/67 H 06/03/20 11:18 Blood Pressure Position Sitting 06/03/20 11:18 Pulse Oximetry 97 06/03/20 11:18 Oxygen Delivery Method Room Air 06/03/20 11:18 Oxygen Flow Rate 0 06/03/20 11:18 Pain Level 7 06/03/20 11:18 Lab/Test Results Lab/Test Results: Laboratory Tests Range/Units 06/03/20 11:24 WBC (4.4-10.8) k/cumm 5.91 RBC (4.00-5.20) m/cumm 4.47 Hgb (12.0-15.5) g/dL 13.0 Hct (36.0-46.0) % 40.6 MCV (80-95) fL 90.8 MCH (27.0-33.0) pg 29.1 MCHC (32.0-36.0) g/dL 32.0 RDW (11.7-14.6) % 15.1 H Plt Count (130-400) x1000/uL 373 MPV (8.0-11.0) fL 10.3 Immature Gran % % 0.2 Neutrophils % 48.3 Lymphocytes % 35.2 Monocytes % 11.7 Eosinophils % 3.2 Basophils % 1.4 Absolute Neutrophils (1.2-6.7) k/cumm 2.86 Absolute Lymphocytes (1.2-3.4) k/cumm 2.08 Absolute Monocytes (0.11-0.7) k/cumm 0.69 Absolute Eosinophils (0.0-0.7) k/cumm 0.19 Absolute Basophils (0.0-0.2) k/cumm 0.08
[2020-06-03 12:00] LABS: Lipase 432 U/L (73-393)
[2020-06-03 12:08] LABS: ALT 19 U/L (14-59); AST 23 U/L (15-37); Albumin 3.8 g/dL (3.4-5.0); Alkaline Phosphatase 57 U/L (46-116); Anion Gap 10.3 mmol/L (3-11); BUN 23 mg/dL (7-18); Bilirubin, Total 0.4 mg/dL (0.2-1.0); CO2 26.7 mmol/L (21.0-32.0); CREATININE 1.33 mg/dL (0.55-1.02); Calcium 9.3 mg/dL (8.5-10.1); Chloride 104 mmol/L (98-107); Glucose 98 mg/dL (74-106); Magnesium 2.3 mg/dL (1.8-2.4); Sodium 141 mmol/L (136-145); Total Protein 7.7 g/dL (6.4-8.2); Troponin I < 0.05 ng/mL (<0.06)
[2020-06-03] MEDS: Omnipaque 350 MG/ML 100 ML BTL IJ (12:45)
[2020-06-03] MEDS: Normal Saline - Diluent 50 ML VIAL IV (12:45)
[2020-06-03] MEDS: Normal Saline Flush 10 ML SYR IVP (12:46)
[2020-06-03] MEDS: Lactated Ringers 500 ML IV (13:09)
--- NOTE | 2020-06-03 13:45 | RT.EKG_ITS ---
APPROVED REPORT Exam: Resting ECG Patient Location: E HR:55 bpm ECG Measurements Heart Rate 55 AXIS KS 185 P 44 QRSd 93 QRS -56 QT 420 T 46 QTc 402 <Conclusion> Sinus bradycardia...rate< 60 Left anterior fascicular block...axis(240,-40), init forces inf Low voltage, precordial leads...precordial leads <1.0mV
[2020-06-03] MEDS: Acetaminophen 325 MG TAB 650 MG PO (13:48)
[2020-06-03 14:42] LABS: Troponin I < 0.05 ng/mL (<0.06)
[2020-06-03] MEDS: Aspirin 81 MG CHEW PO (15:03)
== END 2020-06-03 15:18 | disposition home or self-care (01) ==
PROVIDERS: Emergency Provider Student in an Organized Health Care Education/Training Program; PCP Family Medicine
DX: R07.89 Other chest pain (principal); R03.0 Elevated blood-pressure reading, without diagnosis of hypertension; C68.9 Malignant neoplasm of urinary organ, unspecified; Z90.5 Acquired absence of kidney
CPT/HCPCS: 71275; 74175; 80053; 83690; 93005; 96360; 99285; 83735; 84484; 85025; 93010; 99284; J3490

== ENCOUNTER 2020-06-04 12:00 | Outpatient (RCR) | payer OTHER, SELFPAY ==
[2020-06-04 12:00] VITALS: BP 114/75; PULSE 85; RESP 19; TEMP 36.4; O2SAT 98
[2020-06-04] MEDS: IMMUNE GLOBULIN 20 GM/200 ML BTL IVPB (12:00)
[2020-06-04] MEDS: Normal Saline 1,000 ML 250 ML IV ×2 (12:00)
[2020-06-04] MEDS: Acetaminophen 500 MG TAB 1000 MG PO (12:00)
[2020-06-04] MEDS: Normal Saline Flush 10 ML SYR IVP (12:00)
[2020-06-04 12:15] VITALS: BP 149/68; PULSE 61; RESP 19; TEMP 36.2; O2SAT 100
[2020-06-04 12:28] VITALS: BP 127/67; PULSE 63; RESP 18; RESP 19; TEMP 36.7; O2SAT 100
[2020-06-04 12:30] VITALS: BP 129/68; PULSE 59; RESP 18; TEMP 36.5; O2SAT 100
[2020-06-04 12:45] VITALS: BP 132/66; PULSE 59; RESP 18; TEMP 36.5; O2SAT 100
[2020-06-04 12:58] VITALS: BP 155/69; PULSE 60; RESP 18; TEMP 36.8; O2SAT 100
== END 2020-06-19 16:18 ==
LOC: INF 12:00
PROVIDERS: PCP Family Medicine; Visit Provider Family Medicine
DX: D80.1 Nonfamilial hypogammaglobulinemia (principal); D83.9 Common variable immunodeficiency, unspecified
CPT/HCPCS: 96361; 96365; 96366; J1561

== ENCOUNTER 2020-06-05 13:57 | Outpatient (REF) | payer OTHER, SELFPAY ==
[2020-06-05 19:35] LABS: CREATININE 1.24 mg/dL (0.55-1.02); Estimated GFR 41.31 (mL/min/1.73m2)
== END 2020-06-05 14:17 ==
LOC: NCHCN 13:57
PROVIDERS: PCP Family Medicine; Visit Provider Family Medicine
DX: N18.3 Chronic kidney disease, stage 3 (moderate) (principal)
CPT/HCPCS: 82565

== ENCOUNTER 2020-06-17 10:49 | Outpatient (CLI) | payer OTHER, SELFPAY ==
--- NOTE | 2020-06-17 10:15 | DI.RAD_ITS ---
EXAM: XR SHOULDER LT COMPLETE 2+V CLINICAL HISTORY: eval L shoulder pain. TECHNIQUE: 2D digital imaging was performed. COMPARISON: None FINDINGS: There is a left shoulder prosthesis. The alignment appears satisfactory. There is mild spurring at the AC joint. No suspicious bony lucencies are seen. IMPRESSION: Left shoulder prosthesis. DATA REPOSITORY: RADIATION DOSE DELIVERED:
== END 2020-06-17 11:09 ==
PROVIDERS: PCP Family Medicine; Referring Provider Family Medicine; Visit Provider Student in an Organized Health Care Education/Training Program
DX: M25.512 Pain in left shoulder (principal); Z96.612 Presence of left artificial shoulder joint; M77.9 Enthesopathy, unspecified
CPT/HCPCS: 99203; 99214; 73030

== ENCOUNTER 2020-07-16 01:13 | Outpatient (RCR) | payer OTHER, SELFPAY ==
[2020-06-27 09:06] VITALS: BP 148/74; PULSE 69; RESP 18; TEMP 36.3; O2SAT 100
[2020-06-27] MEDS: Normal Saline Flush 10 ML SYR IVP (09:33)
[2020-06-27] MEDS: Normal Saline 1,000 ML 250 ML IV (09:33)
[2020-06-27] MEDS: IMMUNE GLOBULIN 20 GM/200 ML BTL IVPB (11:30)
[2020-06-27 11:35] VITALS: BP 112/54; PULSE 59; RESP 19; TEMP 36.2; O2SAT 98
[2020-06-27 11:50] VITALS: BP 113/59; PULSE 65; RESP 18; TEMP 36.3; O2SAT 99
[2020-06-27 12:19] VITALS: BP 121/57; PULSE 61; RESP 20; TEMP 36.6; O2SAT 96
[2020-07-16] MEDS: Normal Saline 1,000 ML 250 ML IV (09:15)
[2020-07-16] MEDS: Normal Saline Flush 10 ML SYR IVP (09:23)
[2020-07-16 09:53] VITALS: BP 114/65; PULSE 66; RESP 19; TEMP 36.6; O2SAT 99
[2020-07-16] MEDS: IMMUNE GLOBULIN 20 GM/200 ML BTL IVPB (11:20)
[2020-07-16 11:26] VITALS: BP 116/64; PULSE 62; RESP 18; TEMP 36.5; O2SAT 100
[2020-07-16 11:41] VITALS: BP 108/62; PULSE 67; RESP 18; TEMP 36.5; O2SAT 99
[2020-07-16 12:11] VITALS: BP 135/76; PULSE 69; RESP 18; TEMP 36.5; O2SAT 99
[2020-07-16 12:41] VITALS: BP 116/68; PULSE 64; RESP 19; TEMP 36.9; O2SAT 100
== END 2020-07-22 23:59 | disposition home or self-care (01) ==
LOC: INF 01:13
PROVIDERS: PCP Family Medicine; Visit Provider Internal Medicine
DX: D80.1 Nonfamilial hypogammaglobulinemia (principal); D83.9 Common variable immunodeficiency, unspecified
CPT/HCPCS: 96360; 96361; 96365; 96366; J1561

== ENCOUNTER 2020-08-06 09:00 | Outpatient (RCR) | payer OTHER, SELFPAY ==
[2020-08-06 08:55] VITALS: BP 133/67; PULSE 70; RESP 18; TEMP 36.5; O2SAT 100
[2020-08-06] MEDS: Normal Saline 1,000 ML 500 ML IV (09:10)
[2020-08-06] MEDS: Normal Saline Flush 10 ML SYR IVP (09:10)
[2020-08-06 09:25] LABS: Abs Immature Grans 0.01 10^3/uL (0.0-0.06); Absolute Basophil Count 0.08 10^3/uL (0.0-0.2); Absolute Eosinophil Count 0.45 10^3/uL (0.0-0.7); Absolute Lymphocyte Count 1.66 10^3/uL (1.2-3.4); Absolute Monocyte Count 0.57 10^3/uL (0.1-0.8); Basophils % 1.3; Eosinophils % 7.5; HCT 37.2 % (36.0-46.0); HGB 12.1 g/dL (11.2-15.7); Immature Grans % 0.2; Lymphocytes % 27.8; MCH 29.8 pg (27.0-33.0); MCHC 32.5 % (32.0-36.0); MCV 91.6 fL (80-95); MPV 10.1 fL (8.0-11.0); Monocytes % 9.5; Neutrophils % 53.7; Nucleated RBC 0 %; Platelet Count 315 10^3/uL (130-400); RBC 4.06 10^6/uL (3.93-5.22); RDW 14.6 % (11.7-14.6); RDW-SD 49.1 fL; WBC 5.97 10^3/uL (4.4-10.8)
[2020-08-06 09:38] LABS: ALT 18 U/L (14-59); AST 23 U/L (15-37); Albumin 3.5 g/dL (3.4-5.0); Alkaline Phosphatase 51 U/L (46-116); Anion Gap 7.5 mmol/L (3-11); BUN 21 mg/dL (7-18); Bilirubin, Total 0.4 mg/dL (0.2-1.0); CO2 27.5 mmol/L (21.0-32.0); CREATININE 1.44 mg/dL (0.55-1.02); Calcium 9.2 mg/dL (8.5-10.1); Chloride 105 mmol/L (98-107); Estimated GFR 34.76 (mL/min/1.73m2); Glucose 83 mg/dL (74-106); Sodium 140 mmol/L (136-145); Total Protein 6.9 g/dL (6.4-8.2)
[2020-08-06] MEDS: IMMUNE GLOBULIN 20 GM/200 ML BTL 2.28 GM IVPB (11:08)
[2020-08-06 11:11] VITALS: BP 124/64; PULSE 58; RESP 18; TEMP 36.1; O2SAT 100
[2020-08-06 11:26] VITALS: BP 129/70; PULSE 60; RESP 18; TEMP 36; O2SAT 99
[2020-08-06 11:56] VITALS: BP 127/69; PULSE 59; RESP 18; TEMP 36; O2SAT 99
[2020-08-06 12:26] VITALS: BP 127/68; PULSE 58; RESP 18; TEMP 36; O2SAT 99
[2020-08-07 10:02] LABS: IgG 845 mg/dL (610-1,616)
== END 2020-08-21 23:59 | disposition home or self-care (01) ==
LOC: INF 09:00
PROVIDERS: Internal Medicine; PCP Family Medicine; Visit Provider Internal Medicine
DX: D80.1 Nonfamilial hypogammaglobulinemia (principal); D83.9 Common variable immunodeficiency, unspecified; Z51.81 Encounter for therapeutic drug level monitoring; Z90.5 Acquired absence of kidney
CPT/HCPCS: 36415; 80053; 82784; 96360; 96361; 96365; 96366; 85025; J1561

== ENCOUNTER 2020-09-05 11:46 | Outpatient (REF) | payer OTHER, SELFPAY | END 2020-09-05 12:06 | LOC: LBN 11:46 | PROVIDERS: PCP Family Medicine; Visit Provider Internal Medicine | DX: D83.9 Common variable immunodeficiency, unspecified (principal); R19.7 Diarrhea, unspecified | CPT/HCPCS: 87177 ==

== ENCOUNTER 2020-09-10 13:55 | Outpatient (REF) | payer OTHER, SELFPAY ==
--- NOTE | 2020-09-10 14:30 | PAPNONF_PTH ---
PATIENT: Moira Copeland LOC: [facility] U#:[id number] AGE/SX: 85/F ROOM: RE09/10/[address]: Jarrod Becerra : 1935 BED: DIS: 09/10/2020 SPEC #: [id number] RECD: 09/10/20 18:07 STATUS: THIERNO REQ #: [id number] JORGE: 09/10/20 14:[address]: Pattie Ryan DEPT: [facility] Cytology RECD BY: Marta Lowe ENTERED: 09/10/20 18:07 SP TYPE: PAPNONF PAOLA DR: Jarrod Becerra Tissues: 1 - BODY FLUID CYTO(SPUTUM/URINE)[facility] Procedures: BODY FLUID CYTO(URINE/SPUTUM) Comments: [id number] (TOTAL VOLUME = 60 ml's) (30 ml's URINE & 30 ml's CYTOLYT ADDED IN 2 CONTAINERS)
== END 2020-09-10 14:15 ==
LOC: LBN 13:55
PROVIDERS: Internal Medicine; PCP Family Medicine; Visit Provider Family Medicine
DX: D83.9 Common variable immunodeficiency, unspecified (principal); R19.7 Diarrhea, unspecified; C66.1 Malignant neoplasm of right ureter
CPT/HCPCS: 87177; 88104

== ENCOUNTER 2020-09-17 01:23 | Outpatient (RCR) | payer OTHER, SELFPAY ==
[2020-08-27] MEDS: Normal Saline 1,000 ML 500 ML IV (09:15)
[2020-08-27] MEDS: Acetaminophen 500 MG TAB 1000 MG PO (09:18)
[2020-08-27] MEDS: Normal Saline Flush 10 ML SYR IVP (09:19)
[2020-08-27 09:39] VITALS: BP 107/65; PULSE 64; RESP 18; TEMP 36; O2SAT 100
[2020-08-27 10:11] VITALS: BP 122/72; PULSE 63; RESP 18; TEMP 36; O2SAT 100
[2020-08-27] MEDS: IMMUNE GLOBULIN 20 GM/200 ML BTL 2.28 GM IVPB (10:11)
[2020-08-27 10:26] VITALS: BP 101/55; PULSE 56; RESP 18; TEMP 36; O2SAT 100
[2020-08-27 10:56] VITALS: BP 112/67; PULSE 61; RESP 18; TEMP 36; O2SAT 99
[2020-08-27 11:26] VITALS: BP 103/63; PULSE 63; RESP 18; TEMP 36; O2SAT 100
[2020-09-17] MEDS: Acetaminophen 500 MG TAB 1000 MG PO (09:16)
[2020-09-17] MEDS: Normal Saline 1,000 ML 500 ML IV (09:17)
[2020-09-17 09:27] VITALS: BP 128/63; PULSE 63; RESP 18; TEMP 36.5; O2SAT 100
[2020-09-17] MEDS: Normal Saline Flush 10 ML SYR IVP (10:24)
[2020-09-17] MEDS: IMMUNE GLOBULIN 20 GM/200 ML BTL 2.28 GM IVPB (10:24)
[2020-09-17 10:29] VITALS: BP 127/54; PULSE 69; RESP 18; TEMP 36.2; O2SAT 100
[2020-09-17 10:44] VITALS: BP 114/67; PULSE 79; RESP 17; TEMP 36; O2SAT 99
[2020-09-17 11:14] VITALS: BP 109/67; PULSE 76; RESP 18; TEMP 36; O2SAT 99
[2020-09-17 11:44] VITALS: BP 126/63; PULSE 73; RESP 18; TEMP 36; O2SAT 99
== END 2020-09-21 23:59 | disposition home or self-care (01) ==
LOC: INF 01:23
PROVIDERS: PCP Family Medicine; Visit Provider Internal Medicine
DX: D80.1 Nonfamilial hypogammaglobulinemia (principal); D83.9 Common variable immunodeficiency, unspecified
CPT/HCPCS: 96360; 96365; 96366; J1561

== ENCOUNTER → 2020-09-19 12:31 | Outpatient (BNVA) | payer OTHER, SELFPAY | PROVIDERS: PCP Family Medicine; Referring Provider Family Medicine; Visit Provider Internal Medicine Cardiovascular Disease | DX: C68.9 Malignant neoplasm of urinary organ, unspecified; R07.89 Other chest pain; Z01.810 Encounter for preprocedural cardiovascular examination | CPT/HCPCS: 99203; 99214 ==

== ENCOUNTER 2020-10-08 09:00 | Outpatient (RCR) | payer OTHER, SELFPAY ==
[2020-10-08] MEDS: Normal Saline 1,000 ML 500 ML IV (09:15)
[2020-10-08] MEDS: Acetaminophen 500 MG TAB 1000 MG PO (09:23)
[2020-10-08 10:20] VITALS: BP 145/68; PULSE 75; RESP 18; TEMP 36.6; O2SAT 100
[2020-10-08] MEDS: IMMUNE GLOBULIN 20 GM/200 ML BTL 2.36 GM IVPB (10:21)
[2020-10-08] MEDS: Normal Saline Flush 10 ML SYR IVP (10:22)
[2020-10-08 10:35] VITALS: BP 120/70; PULSE 65; RESP 18; TEMP 36.6; O2SAT 100
[2020-10-08 11:05] VITALS: BP 106/66; PULSE 63; RESP 18; TEMP 36.6; O2SAT 100
[2020-10-08 11:35] VITALS: BP 126/73; PULSE 60; RESP 18; TEMP 36.6; O2SAT 100
[2020-10-08 12:02] VITALS: BP 114/63; PULSE 63; RESP 19; TEMP 36.6; O2SAT 100
== END 2020-10-21 23:59 | disposition home or self-care (01) ==
LOC: INF 09:00
PROVIDERS: PCP Family Medicine; Visit Provider Internal Medicine
DX: D83.9 Common variable immunodeficiency, unspecified (principal); D80.1 Nonfamilial hypogammaglobulinemia
CPT/HCPCS: 96360; 96361; 96365; 96366; J1561

== ENCOUNTER → 2020-10-11 08:16 | Outpatient (BNVA) | payer OTHER, SELFPAY | PROVIDERS: PCP Family Medicine; Referring Provider Family Medicine; Visit Provider Urology | DX: C66.1 Malignant neoplasm of right ureter (principal); Z90.5 Acquired absence of kidney | CPT/HCPCS: 52000; 99213 ==

== ENCOUNTER 2020-11-19 02:47 | Outpatient (RCR) | payer OTHER, SELFPAY ==
[2020-10-29 08:59] VITALS: BP 130/79; PULSE 75; RESP 18; TEMP 36.1; O2SAT 100
[2020-10-29] MEDS: Normal Saline 1,000 ML 500 ML IV (09:15)
[2020-10-29 10:25] VITALS: BP 145/56; PULSE 74; RESP 18; TEMP 36.1; O2SAT 99
[2020-10-29] MEDS: IMMUNE GLOBULIN 20 GM/200 ML BTL 2.28 GM IVPB (10:26)
[2020-10-29] MEDS: Normal Saline Flush 10 ML SYR IVP (10:27)
[2020-10-29 10:30] LABS: Abs Immature Grans 0.01 10^3/uL (0.0-0.06); Absolute Basophil Count 0.04 10^3/uL (0.0-0.2); Absolute Eosinophil Count 0.32 10^3/uL (0.0-0.7); Absolute Lymphocyte Count 1.15 10^3/uL (1.2-3.4); Absolute Monocyte Count 0.62 10^3/uL (0.1-0.8); Absolute Neutrophil Count 2.47 10^3/uL (1.2-6.7); Basophils % 0.9; Eosinophils % 6.9; HGB 11.2 g/dL (11.2-15.7); Immature Grans % 0.2; Lymphocytes % 24.9; MCH 28.9 pg (27.0-33.0); MCHC 31.1 % (32.0-36.0); MPV 10.3 fL (8.0-11.0); Monocytes % 13.4; Neutrophils % 53.7; Nucleated RBC 0 %; Platelet Count 289 10^3/uL (130-400); RBC 3.87 10^6/uL (3.93-5.22); RDW 14.3 % (11.7-14.6); RDW-SD 48.9 fL; WBC 4.61 10^3/uL (4.4-10.8)
[2020-10-29 10:40] VITALS: BP 129/73; PULSE 60; RESP 18; TEMP 36; O2SAT 99
[2020-10-29 10:42] LABS: ALT 15 U/L (14-59); AST 15 U/L (15-37); Albumin 3.3 g/dL (3.4-5.0); Alkaline Phosphatase 49 U/L (46-116); Anion Gap 5.3 mmol/L (3-11); BUN 21 mg/dL (7-18); Bilirubin, Total 0.3 mg/dL (0.2-1.0); CO2 26.7 mmol/L (21.0-32.0); CREATININE 1.19 mg/dL (0.55-1.02); Calcium 8.4 mg/dL (8.5-10.1); Chloride 107 mmol/L (98-107); Estimated GFR 43.32 (mL/min/1.73m2); Glucose 87 mg/dL (74-106); Sodium 139 mmol/L (136-145); Total Protein 6.3 g/dL (6.4-8.2)
[2020-10-29 11:10] VITALS: BP 123/70; PULSE 60; RESP 18; TEMP 36; O2SAT 100
[2020-10-29 11:40] VITALS: BP 123/72; PULSE 66; RESP 18; TEMP 36; O2SAT 100
[2020-10-30 10:37] LABS: IgG 716 mg/dL (610-1,616)
[2020-11-19] MEDS: Normal Saline 1,000 ML 500 ML IV (09:24)
[2020-11-19] MEDS: Normal Saline Flush 10 ML SYR IVP (09:25)
[2020-11-19 10:30] VITALS: BP 128/65; PULSE 66; RESP 18; TEMP 36.1; O2SAT 98
[2020-11-19] MEDS: IMMUNE GLOBULIN 20 GM/200 ML BTL 2.28 GM IVPB (10:30)
[2020-11-19 10:45] VITALS: BP 112/68; PULSE 60; RESP 18; TEMP 36.3; O2SAT 100
[2020-11-19 11:15] VITALS: BP 128/73; PULSE 66; RESP 18; TEMP 36.1; O2SAT 99
== END 2020-11-21 23:59 | disposition home or self-care (01) ==
LOC: INF 02:47
PROVIDERS: Internal Medicine; PCP Family Medicine; Visit Provider Internal Medicine
DX: D83.9 Common variable immunodeficiency, unspecified (principal); Z90.5 Acquired absence of kidney
CPT/HCPCS: 36415; 80053; 82784; 96360; 96361; 96365; 96366; 85025; J1561

== ENCOUNTER 2020-11-27 03:26 | Outpatient (CLI) | payer OTHER, SELFPAY ==
--- NOTE | 2020-11-27 | DI.CT_ITS ---
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 TECHNIQUE: Imaging Protocol: Axial computed tomography images with coronal and sagittal reformatted images were created and reviewed CONTRAST MATERIAL: Intravenous: Omnipaque 70cc Oral: None COMPARISON: CT CT ABDOMEN PELVIS WO from 11/10/[address] ABDOMEN PELVIS WO from 11/10/[address] THORAX ABDOMEN CTA from 06/03/2020 FINDINGS: VISUALIZED LUNG BASES: No nodules nor pleural effusions evident. ABDOMEN: There is no ascites. LIVER: There are no obvious focal hepatic lesions evident . GALLBLADDER/BILIARY: Gallbladder surgically absent. Mild prominence of intrahepatic ducts consistent with post cholecystectomy status and advanced age. CBD diameter is upper normal. PANCREAS: No evidence of pancreatic mass nor dilatation of the pancreatic duct. SPLEEN: Spleen is not enlarged. No obvious intrasplenic lesions. Splenic and portal veins are paten t. ADRENALS: There are no significant adrenal masses. KIDNEYS:The right kidney is surgically absent. Is no abnormal tissue evident in the right renal aurora a. The left kidney appears unremarkable. There is a solitary left ureter which exhibits normal diam eter. No significant filling defect therein.. No evidence of mass in the renal pelvis. No masses i n the infundibulum and calices. Urinary bladder unremarkable. ABDOMINAL AORTA: Abdominal aorta is not enlarged and there is no oyzqsitndhfitcu-pcfs-xefhyn adenopat hy. ABDOMINAL WALL/GI: No evidence of significant anterior abdominal wall hernia. No bowel obstruction. PELVIS: GI: No evidence of appendicitis.Sigmoid diverticulosis but no evidence of acute diverticulitis. LYMPH NODES: There is no intrapelvic nor inguinal adenopathy. REPRODUCTIVE: The uterus is atrophic or surgically absent. No abnormal findings in the left adnexa. There is a cyst in the right adnexa which measures 2.7 by 2.3 centimetres. Possibly ovarian. No fr ee fluid in the pelvis URINARY BLADDER: No calculi nor obvious masses evident OSSEOUS: No significant osseous lesions. IMPRESSION: 1. Again noted is evidence of previous right nephrectomy. There is no new abnormal tissue in the rig ht renal fossa. The right adrenal gland is present and unremarkable (left adrenal gland also unremar kable). 2. The remaining left kidney appears unremarkable with no evidence of cyst or mass nor calculi therei n. Solitary left ureter with no filling defect within the left collecting system nor within the urin seferino bladder. 3. There is a 2.7 x 2.3 centimeter cyst in the right adnexa, possibly ovarian. This has not increase d in size from CT scan of October 2019. There is no surrounding fluid at this level. Uterus is aga in noted be surgically absent. Correlation with surgical note from prior hysterectomy is recommended . 4. The gallbladder is again noted be surgically absent. Mildly dilated intrahepatic ducts which are consistent with post cholecystectomy status and advanced age of this patient. The CBD is not signifi cantly dilated. RADIATION DOSE DELIVERED: 1,869.56mGy.cm Total DLP DATA REPOSITORY: All CT scans at this facility are submitted to the National Radiology Data Registry (NRDR) Dose Index Registry (DIR) with the [employer] (ACR). RADIATION OPTIMIZATION: All CT scans at this facility use at least one of these dose optimization te chniques: automated exposure control; mA and/or kV adjustment per patient size (includes targeted exa ms where dose is matched to clinical indication); or iterative reconstruction.
[2020-11-27 09:02] LABS: CREATININE 1.21 mg/dL (0.55-1.02); Estimated GFR 42.49 (mL/min/1.73m2)
[2020-11-27] MEDS: Omnipaque 350 MG/ML 100 ML BTL 70 ML IJ (10:34)
== END 2020-11-27 03:46 ==
PROVIDERS: PCP Family Medicine; Visit Provider Family Medicine
DX: C66.1 Malignant neoplasm of right ureter (principal); R10.31 Right lower quadrant pain; Z90.5 Acquired absence of kidney; N83.8 Other noninflammatory disorders of ovary, fallopian tube and broad ligament; R19.5 Other fecal abnormalities; R79.89 Other specified abnormal findings of blood chemistry
CPT/HCPCS: 80053; 74178; 82565; J3490

== ENCOUNTER 2020-12-03 01:34 | Outpatient (CLI) | payer OTHER, SELFPAY ==
--- NOTE | 2020-12-03 | DI.US_ITS ---
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 Patient refused transvaginal imagi ng. COMPARISON: CT CT ABDOMEN PELVIS WO/W from 11/27/2020 FINDINGS: KIDNEYS: Status post right nephrectomy. No evidence of renal calculi. No evidence of hydronephrosis. No renal mass or cyst identified. UTERUS: Status post hysterectomy OVARIES: Right: Cyst or mass: 2.6 centimeter simple appearing cyst. Left: Not seen. DOPPLER: Color: Symmetric and uniform flow to the right. No hyperemia. Duplex: Normal ovarian arterial waveforms visualized. CUL-DE-SAC: Free fluid: None. IMPRESSION: 1. Status post hysterectomy. 2. 2.6 centimeter simple appearing cyst in the right adnexa. The left ovary was not seen. DATA REPOSITORY:
== END 2020-12-03 01:54 ==
PROVIDERS: PCP Family Medicine; Visit Provider Family Medicine
DX: N83.291 Other ovarian cyst, right side (principal); Z90.710 Acquired absence of both cervix and uterus
CPT/HCPCS: 76856

== ENCOUNTER 2020-12-10 09:00 | Outpatient (RCR) | payer OTHER, SELFPAY ==
[2020-11-22 00:13] VITALS: BP 128/73; PULSE 66; RESP 18; TEMP 36.1
[2020-12-10] MEDS: Acetaminophen 500 MG TAB 1000 MG PO (09:12)
[2020-12-10] MEDS: Normal Saline Flush 10 ML SYR IVP (09:12)
[2020-12-10] MEDS: Normal Saline 1,000 ML 500 ML IV (09:13)
[2020-12-10 09:35] VITALS: BP 133/78; PULSE 69; RESP 19; TEMP 37; O2SAT 100
[2020-12-10] MEDS: IMMUNE GLOBULIN 20 GM/200 ML BTL IVPB (10:25)
[2020-12-10 10:32] VITALS: BP 140/68; PULSE 61; RESP 18; TEMP 37; O2SAT 100
[2020-12-10 10:47] VITALS: BP 123/77; PULSE 62; RESP 18; TEMP 37; O2SAT 100
[2020-12-10 11:17] VITALS: BP 125/78; PULSE 57; RESP 18; TEMP 37; O2SAT 100
[2020-12-10 11:50] VITALS: BP 144/80; PULSE 62; RESP 16; TEMP 36; O2SAT 92
== END 2020-12-22 23:59 | disposition home or self-care (01) ==
LOC: INF 09:00
PROVIDERS: PCP Family Medicine; Visit Provider Internal Medicine
DX: D80.1 Nonfamilial hypogammaglobulinemia (principal); D83.9 Common variable immunodeficiency, unspecified; Z90.5 Acquired absence of kidney
CPT/HCPCS: 96360; 96361; 96365; 96366; J1561

== ENCOUNTER 2020-12-31 09:00 | Outpatient (RCR) | payer OTHER, SELFPAY ==
[2020-12-23 00:14] VITALS: BP 144/80; PULSE 62; RESP 16; TEMP 36
[2020-12-31 08:58] VITALS: BP 162/84; PULSE 98; RESP 19; TEMP 35.9; O2SAT 99
[2020-12-31] MEDS: Normal Saline 1,000 ML 500 ML IV (09:10)
[2020-12-31 10:10] VITALS: BP 127/75; PULSE 62; RESP 18; TEMP 36; O2SAT 100
[2020-12-31] MEDS: Normal Saline Flush 10 ML SYR IVP (10:11)
[2020-12-31] MEDS: IMMUNE GLOBULIN 20 GM/200 ML BTL 2.28 GM IVPB (10:11)
[2020-12-31 10:28] VITALS: BP 124/74; PULSE 62; RESP 18; TEMP 36; O2SAT 98
[2020-12-31 10:59] VITALS: BP 110/69; PULSE 66; RESP 18; TEMP 36; O2SAT 98
[2020-12-31 11:26] VITALS: BP 118/64; PULSE 61; RESP 18; TEMP 36; O2SAT 100
== END 2021-01-19 23:59 | disposition home or self-care (01) ==
LOC: INF 09:00
PROVIDERS: PCP Family Medicine; Visit Provider Internal Medicine
DX: D83.9 Common variable immunodeficiency, unspecified (principal); Z90.5 Acquired absence of kidney
CPT/HCPCS: 96360; 96361; 96365; 96366; J1561

== ENCOUNTER 2021-02-11 02:18 | Outpatient (RCR) | payer OTHER, SELFPAY ==
[2021-01-20 00:08] VITALS: BP 118/64; PULSE 61; RESP 18; TEMP 36
[2021-01-22] MEDS: Acetaminophen 500 MG TAB (08:59)
[2021-01-22] MEDS: Normal Saline Flush 10 ML SYR IVP (09:00)
[2021-01-22] MEDS: Normal Saline 1,000 ML 500 ML IV (09:00)
[2021-01-22 09:10] VITALS: BP 111/61; PULSE 69; RESP 18; TEMP 36; O2SAT 100
[2021-01-22 10:15] VITALS: BP 112/68; PULSE 60; RESP 19; TEMP 36.1; O2SAT 100
[2021-01-22] MEDS: IMMUNE GLOBULIN 20 GM/200 ML BTL 2.71 GM IVPB (10:16)
[2021-01-22 10:30] VITALS: BP 106/60; PULSE 63; RESP 18; TEMP 36; O2SAT 100
[2021-01-22 11:00] VITALS: BP 106/56; PULSE 59; RESP 16; TEMP 36.8; O2SAT 100
[2021-01-22 11:30] VITALS: BP 125/69; PULSE 61; RESP 16; TEMP 36.8; O2SAT 99
[2021-02-11] MEDS: Normal Saline 1,000 ML 500 ML IV (09:13)
[2021-02-11] MEDS: Normal Saline Flush 10 ML SYR IVP (09:13)
[2021-02-11 09:35] LABS: Abs Immature Grans 0.01 10^3/uL (0.0-0.06); Absolute Basophil Count 0.08 10^3/uL (0.0-0.2); Absolute Eosinophil Count 0.26 10^3/uL (0.0-0.7); Absolute Lymphocyte Count 1.88 10^3/uL (1.2-3.4); Absolute Neutrophil Count 2.91 10^3/uL (1.2-6.7); Basophils % 1.4; Eosinophils % 4.5; HCT 37.3 % (36.0-46.0); HGB 11.9 g/dL (11.2-15.7); Immature Grans % 0.2; Lymphocytes % 32.8; MCHC 31.9 % (32.0-36.0); MCV 90.8 fL (80-95); MPV 10.6 fL (8.0-11.0); Monocytes % 10.5; Neutrophils % 50.6; Nucleated RBC 0 %; Platelet Count 347 10^3/uL (130-400); RBC 4.11 10^6/uL (3.93-5.22); RDW 14.4 % (11.7-14.6); RDW-SD 48.1 fL; WBC 5.74 10^3/uL (4.4-10.8)
[2021-02-11 09:37] LABS: ALT 20 U/L (14-59); AST 21 U/L (15-37); Albumin 3.8 g/dL (3.4-5.0); Alkaline Phosphatase 63 U/L (46-116); Anion Gap 9.8 mmol/L (3-11); BUN 21 mg/dL (7-18); Bilirubin, Total 0.3 mg/dL (0.2-1.0); CO2 26.2 mmol/L (21.0-32.0); CREATININE 1.3 mg/dL (0.55-1.02); Calcium 9.2 mg/dL (8.5-10.1); Chloride 107 mmol/L (98-107); Estimated GFR 39.02 (mL/min/1.73m2); Glucose 87 mg/dL (74-106); Potassium 3.9 mmol/L (3.5-5.1); Sodium 143 mmol/L (136-145); Total Protein 7.6 g/dL (6.4-8.2)
[2021-02-11 10:15] VITALS: BP 117/53; PULSE 67; RESP 16; TEMP 35.9; O2SAT 96
[2021-02-11] MEDS: IMMUNE GLOBULIN 20 GM/200 ML BTL 2.28 GM IVPB (10:17)
[2021-02-11 10:30] VITALS: BP 124/55; PULSE 67; RESP 16; TEMP 36.8; O2SAT 98
[2021-02-11 11:00] VITALS: BP 115/61; PULSE 63; RESP 16; TEMP 35.9; O2SAT 100
[2021-02-11 11:30] VITALS: BP 115/62; PULSE 64; RESP 16; TEMP 36.7; O2SAT 99
[2021-02-11 12:00] VITALS: BP 131/57; PULSE 68; RESP 16; TEMP 36.9; O2SAT 98
[2021-02-12 11:10] LABS: IgG 928 mg/dL (610-1,616)
== END 2021-02-19 23:59 | disposition home or self-care (01) ==
LOC: INF 02:18
PROVIDERS: Internal Medicine; PCP Family Medicine; Visit Provider Internal Medicine
DX: D80.1 Nonfamilial hypogammaglobulinemia (principal); D83.9 Common variable immunodeficiency, unspecified; Z90.5 Acquired absence of kidney; Z51.81 Encounter for therapeutic drug level monitoring
CPT/HCPCS: 36415; 80053; 82784; 96360; 96361; 96365; 96366; 85025; J1561

== ENCOUNTER 2021-03-04 09:00 | Outpatient (RCR) | payer OTHER, SELFPAY ==
[2021-02-20 00:14] VITALS: BP 131/57; PULSE 68; RESP 16; TEMP 36.9
[2021-03-04] MEDS: Normal Saline Flush 10 ML SYR IVP (09:20)
[2021-03-04] MEDS: Normal Saline 1,000 ML 500 ML IV (09:20)
[2021-03-04 10:20] VITALS: BP 133/71; PULSE 58; RESP 16; TEMP 36.3; O2SAT 99
[2021-03-04] MEDS: IMMUNE GLOBULIN 20 GM/200 ML BTL 2.27 GM IVPB (10:23)
[2021-03-04 10:35] VITALS: BP 117/59; PULSE 58; RESP 16; TEMP 36.1; O2SAT 100
[2021-03-04 10:50] VITALS: BP 117/70; PULSE 56; RESP 16; TEMP 36.2; O2SAT 100
[2021-03-04 11:20] VITALS: BP 125/72; PULSE 59; RESP 16; TEMP 36.2; O2SAT 100
[2021-03-04 11:50] VITALS: BP 125/70; PULSE 60; RESP 16; TEMP 36.3; O2SAT 100
== END 2021-03-21 23:59 | disposition home or self-care (01) ==
LOC: INF 09:00
PROVIDERS: PCP Family Medicine; Visit Provider Internal Medicine
DX: D83.9 Common variable immunodeficiency, unspecified (principal); Z51.81 Encounter for therapeutic drug level monitoring; Z90.5 Acquired absence of kidney
CPT/HCPCS: 96361; 96365; 96366; J1561

== ENCOUNTER 2021-04-10 20:52 | Outpatient (REF) | payer OTHER, SELFPAY ==
[2021-04-10 15:49] LABS: CREATININE 1.3 mg/dL (0.55-1.02); Estimated GFR 39.02 (mL/min/1.73m2)
== END 2021-04-10 20:53 | disposition home or self-care (01) ==
LOC: NCHCN 20:52
PROVIDERS: PCP Family Medicine; Visit Provider Family Medicine
DX: N39.0 Urinary tract infection, site not specified (principal); N18.30 Chronic kidney disease, stage 3 unspecified
CPT/HCPCS: 87077; 82565; 87086; 87186

== ENCOUNTER 2021-04-14 01:17 | Outpatient (CLI) | payer OTHER, SELFPAY ==
[2021-04-14 10:34] LABS: Abs Immature Grans 0.01 10^3/uL (0.0-0.06); Absolute Basophil Count 0.06 10^3/uL (0.0-0.2); Absolute Monocyte Count 0.45 10^3/uL (0.1-0.8); Absolute Neutrophil Count 2.66 10^3/uL (1.2-6.7); Basophils % 1.3; Eosinophils % 6.7; HCT 36.8 % (36.0-46.0); HGB 11.7 g/dL (11.2-15.7); Immature Grans % 0.2; Lymphocytes % 22.3; MCH 28.7 pg (27.0-33.0); MCHC 31.8 % (32.0-36.0); MCV 90.2 fL (80-95); MPV 10.4 fL (8.0-11.0); Neutrophils % 59.5; Nucleated RBC 0 %; Platelet Count 331 10^3/uL (130-400); RBC 4.08 10^6/uL (3.93-5.22); RDW 14.2 % (11.7-14.6); RDW-SD 47.4 fL; WBC 4.48 10^3/uL (4.4-10.8)
[2021-04-14 10:50] LABS: ALT 17 U/L (14-59); AST 23 U/L (15-37); Albumin 3.4 g/dL (3.4-5.0); Alkaline Phosphatase 60 U/L (46-116); Anion Gap 10.1 mmol/L (3-11); BUN 29 mg/dL (7-18); Bilirubin, Total 0.3 mg/dL (0.2-1.0); CO2 25.9 mmol/L (21.0-32.0); CREATININE 1.3 mg/dL (0.55-1.02); Chloride 109 mmol/L (98-107); Estimated GFR 39.02 (mL/min/1.73m2); Glucose 92 mg/dL (74-106); Potassium 4.3 mmol/L (3.5-5.1); Sodium 145 mmol/L (136-145); Total Protein 7.1 g/dL (6.4-8.2)
--- NOTE | 2021-04-14 11:45 | DI.CT_ITS ---
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 TECHNIQUE: Imaging Protocol: Axial computed tomography images with coronal and sagittal reformatted images were created and reviewed CONTRAST MATERIAL: Intravenous: Omnipaque 50cc Oral: None COMPARISON: CT CT ABDOMEN PELVIS WO from 11/10/[address] ABDOMEN PELVIS WO/W from 11/27/2020 FINDINGS: VISUALIZED LUNG BASES: Tiny 2 millimeter nodule lateral basal segment left lower lobe is noted. This is unchanged from CT scan of October 2019 and probably a small granuloma. Also unchanged is a smal l pleural base nodular density in the lateral basal segment of the right lower lobe, also unchanged f rom October 2019. There are no pleural effusions ABDOMEN: There is no ascites. LIVER: There are no focal hepatic lesions evident . GALLBLADDER/BILIARY: Gallbladder is again noted be surgically absent. CBD is not dilated. Very mild prominence of intrahepatic ducts is unchanged. PANCREAS: No evidence of pancreatic mass nor dilatation of the pancreatic duct. SPLEEN: Spleen is not enlarged. No obvious intrasplenic lesions. Splenic and portal veins are paten t. ADRENALS: There are no significant adrenal masses. KIDNEYS:Right kidney is again noted be surgically absent. There is no new significant abnormal tissu e in the right renal fossa. The remaining left kidney appears unremarkable.. It exhibits an extrare nal pelvis but with no evidence of mass therein. ABDOMINAL AORTA: Calcified. Upper normal diameter. LYMPH NODES:There is no retroperitineal nor paraaortic adenopathy. ABDOMINAL WALL: No evidence of significant anterior abdominal wall hernia. GI: There is no evidence of bowel obstruction, free air, nor abscess. PELVIS: GI: No evidence of appendicitis.Sigmoid diverticulosis but no acute diverticulitis evident LYMPH NODES: There is no intrapelvic nor inguinal adenopathy. REPRODUCTIVE: Uterus is again noted be surgically absent. The previously described cystic cyst struc ture-probably ovarian in the right adnexal region presently measures 2.8 by 2.3 cm, slightly smaller than previous. This probably ovarian. No findings in the opposite-left adnexa. No free fluid. URINARY BLADDER: No calculi nor obvious masses evident OSSEOUS: No significant osseous lesions. IMPRESSION: 1. Right kidney is again noted be surgically absent and there is no new abnormal tissue in the right renal fossa. 2. The remaining left kidney remains unremarkable. It exhibits an extrarenal pelvis no evidence of i ntraluminal filling defect therein. 3. Right adnexal cyst is again noted, probably ovarian and has not increased in size. Indeed it pascual ears slightly smaller than on the previous study. There is no free fluid in the pelvis. 4. Gallbladder is again noted be surgically absent. No significant dilatation of the biliary tree ev ident. There are no significant osseous lesions evident RADIATION DOSE DELIVERED: 1,988.86mGy.cm Total DLP DATA REPOSITORY: All CT scans at this facility are submitted to the National Radiology Data Registry (NRDR) Dose Index Registry (DIR) with the [employer] (ACR). RADIATION OPTIMIZATION: All CT scans at this facility use at least one of these dose optimization te chniques: automated exposure control; mA and/or kV adjustment per patient size (includes targeted exa ms where dose is matched to clinical indication); or iterative reconstruction.
[2021-04-14] MEDS: Omnipaque 350 MG/ML 100 ML BTL 50 ML IJ (12:22)
[2021-04-14] MEDS: Normal Saline - Diluent 50 ML VIAL IV ×2 (12:24)
[2021-04-15 10:21] LABS: IgG 1105 mg/dL (610-1,616)
== END 2021-04-14 01:37 ==
PROVIDERS: Internal Medicine; PCP Family Medicine; Visit Provider Family Medicine
DX: C66.1 Malignant neoplasm of right ureter (principal); N83.8 Other noninflammatory disorders of ovary, fallopian tube and broad ligament; Z90.49 Acquired absence of other specified parts of digestive tract; Z90.5 Acquired absence of kidney; R91.1 Solitary pulmonary nodule
CPT/HCPCS: 80053; 82784; 74178; 85025; J3490

== ENCOUNTER 2021-04-15 02:47 | Outpatient (RCR) | payer OTHER, SELFPAY ==
[2021-03-22 00:23] VITALS: BP 125/70; PULSE 60; RESP 16; TEMP 36.3
[2021-03-28] MEDS: Normal Saline 1,000 ML 500 ML IV (09:22)
[2021-03-28] MEDS: Normal Saline Flush 10 ML SYR IVP (09:23)
[2021-03-28] MEDS: Acetaminophen 500 MG TAB 1000 MG PO (09:26)
[2021-03-28] MEDS: IMMUNE GLOBULIN 20 GM/200 ML BTL 2.27 GM IVPB (10:22)
[2021-03-28 10:23] VITALS: BP 126/61; PULSE 58; RESP 16; TEMP 36.1; O2SAT 100
[2021-03-28 10:35] VITALS: BP 114/64; PULSE 58; RESP 16; TEMP 36.1; O2SAT 100
[2021-03-28 10:50] VITALS: BP 107/64; PULSE 60; RESP 16; TEMP 36.1; O2SAT 100
[2021-03-28 11:25] VITALS: BP 119/74; PULSE 59; RESP 16; TEMP 36.1; O2SAT 100
[2021-03-28 11:55] VITALS: BP 129/53; PULSE 60; RESP 16; TEMP 35.9; O2SAT 100
[2021-04-15] MEDS: Normal Saline 1,000 ML 500 ML IV (10:59)
[2021-04-15] MEDS: Acetaminophen 500 MG TAB 1000 MG PO (11:02)
[2021-04-15] MEDS: Normal Saline Flush 10 ML SYR IVP (11:05)
[2021-04-15] MEDS: IMMUNE GLOBULIN 20 GM/200 ML BTL IVPB (12:03)
[2021-04-15 12:11] VITALS: BP 132/65; PULSE 69; RESP 16; TEMP 36.8; O2SAT 99
[2021-04-15 12:27] VITALS: BP 107/46; PULSE 64; RESP 16; TEMP 36.8; O2SAT 100
[2021-04-15 12:58] VITALS: BP 96/56; PULSE 63; RESP 16; TEMP 36.6; O2SAT 99
[2021-04-15 13:28] VITALS: BP 100/63; PULSE 64; RESP 16; TEMP 36.6; O2SAT 98
[2021-04-15 13:55] VITALS: BP 113/72; PULSE 64; RESP 16; TEMP 36.4; O2SAT 99
== END 2021-04-21 23:59 | disposition home or self-care (01) ==
LOC: INF 02:47
PROVIDERS: PCP Family Medicine; Visit Provider Internal Medicine
DX: D83.9 Common variable immunodeficiency, unspecified (principal); Z51.81 Encounter for therapeutic drug level monitoring; Z90.5 Acquired absence of kidney
CPT/HCPCS: 96360; 96361; 96365; 96366; J1561

== ENCOUNTER → 2021-04-18 10:46 | Outpatient (BNVA) | payer OTHER, SELFPAY | PROVIDERS: PCP Family Medicine; Referring Provider Family Medicine; Visit Provider Urology | DX: C64.1 Malignant neoplasm of right kidney, except renal pelvis (principal); Z90.5 Acquired absence of kidney | CPT/HCPCS: 52000; 81003; 99213 ==

== ENCOUNTER 2021-04-18 12:40 | Outpatient (REF) | payer OTHER, SELFPAY ==
--- NOTE | 2021-04-18 11:20 | PAPNONF_PTH ---
PATIENT: Moira Copeland LOC: [facility] U#:[id number] AGE/SX: 86/F ROOM: RE04/18/[address]: Reynaldo Hackett MD : 1935 BED: DIS: 04/18/2021 SPEC #: [id number] RECD: 04/18/21 13:05 STATUS: THIERNO REQ #: [id number] JORGE: 04/18/21 11:[address]: Live Hackett DEPT: [facility] Cytology RECD BY: Marta Lowe ENTERED: 04/18/21 13:06 SP TYPE: CHRIS GUEVARA DR: Jarrod Becerra Tissues: 1 - BODY FLUID CYTO(SPUTUM/URINE)[facility] Procedures: BODY FLUID CYTO(URINE/SPUTUM) Comments: (TOTAL VOLUME = 40 ml's) (40 ml's URINE & 40 ml's CYTOLYT ADDED)
== END 2021-04-18 12:41 | disposition home or self-care (01) ==
LOC: LBN 12:40
PROVIDERS: PCP Family Medicine; Visit Provider Urology
DX: R82.998 Other abnormal findings in urine (principal); Z85.528 Personal history of other malignant neoplasm of kidney; R82.89 Other abnormal findings on cytological and histological examination of urine
CPT/HCPCS: 88104

== ENCOUNTER 2021-05-07 09:00 | Outpatient (RCR) | payer OTHER, SELFPAY ==
[2021-04-22 00:19] VITALS: BP 113/72; PULSE 64; RESP 16; TEMP 36.4
[2021-05-07] MEDS: Normal Saline 1,000 ML 500 ML IV (09:21)
[2021-05-07] MEDS: Normal Saline Flush 10 ML SYR IVP (09:22)
[2021-05-07 09:31] LABS: Abs Immature Grans 0.01 10^3/uL (0.0-0.06); Absolute Basophil Count 0.08 10^3/uL (0.0-0.2); Absolute Eosinophil Count 0.36 10^3/uL (0.0-0.7); Absolute Lymphocyte Count 1.48 10^3/uL (1.2-3.4); Absolute Monocyte Count 0.59 10^3/uL (0.1-0.8); Absolute Neutrophil Count 2.85 10^3/uL (1.2-6.7); Basophils % 1.5; Eosinophils % 6.7; HCT 35.4 % (36.0-46.0); HGB 11.1 g/dL (11.2-15.7); Immature Grans % 0.2; Lymphocytes % 27.6; MCH 28.6 pg (27.0-33.0); MCHC 31.4 % (32.0-36.0); MCV 91.2 fL (80-95); MPV 10.4 fL (8.0-11.0); Nucleated RBC 0 %; Platelet Count 308 10^3/uL (130-400); RBC 3.88 10^6/uL (3.93-5.22); RDW 14.4 % (11.7-14.6); RDW-SD 47.9 fL; WBC 5.37 10^3/uL (4.4-10.8)
[2021-05-07] MEDS: IMMUNE GLOBULIN 20 GM/200 ML BTL IVPB (10:32)
[2021-05-07 10:39] VITALS: BP 128/73; PULSE 58; RESP 16; TEMP 36.7; O2SAT 100
[2021-05-07 10:55] VITALS: BP 112/73; PULSE 58; RESP 16; TEMP 37.2; O2SAT 98
[2021-05-07 11:01] LABS: ALT 19 U/L (14-59); AST 20 U/L (15-37); Albumin 2.9 g/dL (3.4-5.0); Alkaline Phosphatase 59 U/L (46-116); Anion Gap 9.5 mmol/L (3-11); BUN 28 mg/dL (7-18); Bilirubin, Total 0.2 mg/dL (0.2-1.0); CO2 23.5 mmol/L (21.0-32.0); CREATININE 1.1 mg/dL (0.55-1.02); Calcium 8.4 mg/dL (8.5-10.1); Chloride 107 mmol/L (98-107); Estimated GFR 47.32 (mL/min/1.73m2); Glucose 98 mg/dL (74-106); Potassium 4.3 mmol/L (3.5-5.1); Sodium 140 mmol/L (136-145)
[2021-05-07 11:24] VITALS: BP 123/73; PULSE 63; RESP 16; TEMP 36.9; O2SAT 100
[2021-05-07 11:55] VITALS: BP 111/69; PULSE 57; RESP 16; TEMP 37.3; O2SAT 95
[2021-05-08 09:27] LABS: IgG 803 mg/dL (610-1,616)
== END 2021-05-21 23:59 | disposition home or self-care (01) ==
LOC: INF 09:00
PROVIDERS: Internal Medicine; PCP Family Medicine; Visit Provider Internal Medicine
DX: D83.9 Common variable immunodeficiency, unspecified (principal); Z51.81 Encounter for therapeutic drug level monitoring; Z90.5 Acquired absence of kidney; D80.1 Nonfamilial hypogammaglobulinemia
CPT/HCPCS: 36415; 80053; 82784; 96360; 96361; 96365; 96366; 85025; J1561

== ENCOUNTER 2021-06-18 02:58 | Outpatient (RCR) | payer OTHER, SELFPAY ==
[2021-05-22 00:09] VITALS: BP 111/69; PULSE 57; RESP 16; TEMP 37.3
[2021-05-28] MEDS: Normal Saline 1,000 ML 500 ML IV (09:02)
[2021-05-28] MEDS: Normal Saline Flush 10 ML SYR IVP (09:02)
[2021-05-28] MEDS: IMMUNE GLOBULIN 20 GM/200 ML BTL IVPB (10:05)
[2021-05-28 10:31] VITALS: BP 134/68; PULSE 60; RESP 17; TEMP 37; O2SAT 100
[2021-05-28 11:01] VITALS: BP 124/69; PULSE 63; RESP 16; TEMP 37; O2SAT 99
[2021-05-28 11:30] VITALS: BP 128/54; PULSE 57; RESP 16; TEMP 37.2; O2SAT 99
[2021-06-18] MEDS: Normal Saline Flush 10 ML SYR IVP (09:12)
[2021-06-18] MEDS: Normal Saline 1,000 ML 500 ML IV (09:12)
[2021-06-18] MEDS: Acetaminophen 500 MG TAB 1000 MG PO (09:40)
[2021-06-18 10:05] VITALS: BP 136/74; PULSE 58; RESP 18; TEMP 36.4; O2SAT 99
[2021-06-18] MEDS: IMMUNE GLOBULIN 20 GM/200 ML BTL IVPB (10:14)
[2021-06-18 10:21] VITALS: BP 134/74; PULSE 54; RESP 18; TEMP 36.3; O2SAT 98
[2021-06-18 10:35] VITALS: BP 136/83; PULSE 58; RESP 18; TEMP 36.2; O2SAT 100
[2021-06-18 10:50] VITALS: BP 128/72; PULSE 57; RESP 18; TEMP 36.3; O2SAT 100
[2021-06-18 11:18] VITALS: BP 121/72; PULSE 56; RESP 18; TEMP 36.4; O2SAT 100
[2021-06-18 11:50] VITALS: BP 131/63; PULSE 63; RESP 18; TEMP 36.4; O2SAT 100
== END 2021-06-21 23:59 | disposition home or self-care (01) ==
LOC: INF 02:58
PROVIDERS: PCP Family Medicine; Visit Provider Internal Medicine
DX: D80.1 Nonfamilial hypogammaglobulinemia (principal); D83.9 Common variable immunodeficiency, unspecified
CPT/HCPCS: 96360; 96361; 96365; 96366; J1561

== ENCOUNTER 2021-07-09 09:00 | Outpatient (RCR) | payer OTHER, SELFPAY ==
[2021-06-22 00:06] VITALS: BP 131/63; PULSE 63; RESP 18; TEMP 36.4
[2021-07-09] MEDS: Normal Saline Flush 10 ML SYR IVP (09:09)
[2021-07-09] MEDS: Normal Saline 1,000 ML 500 ML IV (09:09)
[2021-07-09 10:20] VITALS: BP 136/52; PULSE 57; RESP 18; TEMP 37.6; O2SAT 100
[2021-07-09] MEDS: IMMUNE GLOBULIN 20 GM/200 ML BTL IVPB (10:22)
[2021-07-09 10:40] VITALS: BP 123/60; PULSE 58; RESP 18; TEMP 36.8; O2SAT 99
[2021-07-09 10:55] VITALS: BP 128/58; PULSE 59; RESP 18; TEMP 36.6; O2SAT 99
[2021-07-09 11:25] VITALS: BP 132/54; PULSE 58; RESP 18; TEMP 36.8; O2SAT 99
== END 2021-07-22 23:59 | disposition home or self-care (01) ==
LOC: INF 09:00
PROVIDERS: PCP Family Medicine; Visit Provider Internal Medicine
DX: D80.1 Nonfamilial hypogammaglobulinemia (principal); D83.8 Other common variable immunodeficiencies
CPT/HCPCS: 96360; 96365; 96366; J1561

== ENCOUNTER 2021-07-30 09:00 | Outpatient (RCR) | payer OTHER, SELFPAY ==
[2021-07-23 00:05] VITALS: BP 132/54; PULSE 58; RESP 18; TEMP 36.8
[2021-07-30] MEDS: Normal Saline 1,000 ML 500 ML IV (09:18)
[2021-07-30] MEDS: IMMUNE GLOBULIN 20 GM/200 ML BTL IVPB (10:17)
[2021-07-30 10:25] VITALS: BP 124/69; PULSE 62; RESP 17; TEMP 35.7; O2SAT 100
[2021-07-30 10:40] VITALS: BP 134/58; PULSE 60; RESP 16; TEMP 35.8; O2SAT 100
[2021-07-30 11:00] VITALS: BP 123/66; PULSE 56; RESP 17; TEMP 35.9; O2SAT 100
[2021-07-30 11:30] VITALS: BP 121/71; PULSE 56; RESP 17; TEMP 36.4; O2SAT 99
[2021-07-30 12:03] VITALS: BP 146/72; PULSE 65; RESP 16; TEMP 36.5; O2SAT 100
== END 2021-08-21 23:59 | disposition home or self-care (01) ==
LOC: INF 09:00
PROVIDERS: PCP Family Medicine; Visit Provider Internal Medicine
DX: D80.1 Nonfamilial hypogammaglobulinemia (principal); D83.9 Common variable immunodeficiency, unspecified
CPT/HCPCS: 96360; 96361; 96365; 96366; J1561

== ENCOUNTER 2021-08-29 04:04 | Outpatient (CLI) | payer OTHER, SELFPAY ==
--- NOTE | 2021-08-29 | DI.MRI_ITS ---
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 CVA,I63.50 TECHNIQUE: Multiplanar multisequence MRI of the brain was performed. COMPARISON: No exams were available for comparison FINDINGS: There is moderate generalized cerebral atrophy. There are multiple areas of abnormal signal seen in periventricular and subcortical white matter on T 2 and FLAIR weighted images consistent with microvascular ischemic changes. There are probable small bilateral lacunar infarcts. The orbital and temporal bone structures appear intact as does the pituitary. Diffusion weighted imaging shows no evidence of acute or subacute infarction. Susceptibility weighted imaging shows no evidence of intracranial hemorrhage. There is normal flow void in the grand traverse of Krishnan vasculature. IMPRESSION: No evidence of acute intracranial process. DATA REPOSITORY:
== END 2021-08-29 04:24 ==
PROVIDERS: PCP Family Medicine; Visit Provider Family Medicine
DX: I63.50 Cerebral infarction due to unspecified occlusion or stenosis of unspecified cerebral artery (principal); F44.89 Other dissociative and conversion disorders
CPT/HCPCS: 70551

== ENCOUNTER 2021-09-17 03:43 | Outpatient (RCR) | payer OTHER, SELFPAY ==
[2021-08-22 00:04] VITALS: BP 146/72; PULSE 65; RESP 16; TEMP 36.5
[2021-08-27] MEDS: Normal Saline 500 ML IV (09:05)
[2021-08-27 09:22] VITALS: BP 110/68; PULSE 65; RESP 18; TEMP 36.2; O2SAT 100
[2021-08-27 09:23] LABS: Abs Immature Grans 0.02 10^3/uL (0.0-0.06); Absolute Basophil Count 0.08 10^3/uL (0.0-0.2); Absolute Eosinophil Count 0.22 10^3/uL (0.0-0.7); Absolute Lymphocyte Count 2.05 10^3/uL (1.2-3.4); Absolute Neutrophil Count 4.01 10^3/uL (1.2-6.7); Basophils % 1.2; Eosinophils % 3.2; HCT 37.9 % (36.0-46.0); HGB 11.7 g/dL (11.2-15.7); Immature Grans % 0.3; Lymphocytes % 29.8; MCH 28.3 pg (27.0-33.0); MCHC 30.9 % (32.0-36.0); MCV 91.5 fL (80-95); MPV 9.9 fL (8.0-11.0); Monocytes % 7.3; Neutrophils % 58.2; Nucleated RBC 0 %; Platelet Count 368 10^3/uL (130-400); RBC 4.14 10^6/uL (3.93-5.22); RDW 14.8 % (11.7-14.6); RDW-SD 50.3 fL; WBC 6.88 10^3/uL (4.4-10.8)
[2021-08-27 09:46] LABS: ALT 21 U/L (14-59); AST 23 U/L (15-37); Albumin 3.7 g/dL (3.4-5.0); Alkaline Phosphatase 56 U/L (46-116); Anion Gap 10.3 mmol/L (3-11); BUN 18 mg/dL (7-18); Bilirubin, Total 0.3 mg/dL (0.2-1.0); CO2 24.7 mmol/L (21.0-32.0); CREATININE 1.4 mg/dL (0.55-1.02); Calcium 8.9 mg/dL (8.5-10.1); Chloride 106 mmol/L (98-107); Estimated GFR 35.82 (mL/min/1.73m2); Glucose 157 mg/dL (74-106); Sodium 141 mmol/L (136-145); Total Protein 7.3 g/dL (6.4-8.2)
[2021-08-27] MEDS: Normal Saline Flush 10 ML SYR IVP (09:52)
[2021-08-27] MEDS: IMMUNE GLOBULIN 20 GM/200 ML BTL IVPB (10:15)
[2021-08-27 10:30] VITALS: BP 148/65; PULSE 60; RESP 16; TEMP 36.3; O2SAT 99
[2021-08-27 10:45] VITALS: BP 114/71; PULSE 63; RESP 17; TEMP 36.3; O2SAT 100
[2021-08-27 11:15] VITALS: BP 115/69; PULSE 61; RESP 17; TEMP 36.8; O2SAT 100
[2021-08-27 11:45] VITALS: BP 123/72; PULSE 66; RESP 17; TEMP 36.1; O2SAT 100
[2021-08-28 09:35] LABS: IgG 743 mg/dL (610-1,616)
[2021-09-17] MEDS: Normal Saline 500 ML IV (09:06)
[2021-09-17] MEDS: Normal Saline Flush 10 ML SYR IVP (09:07)
[2021-09-17 09:23] VITALS: BP 132/45; PULSE 65; RESP 16; TEMP 36.2; O2SAT 100
[2021-09-17] MEDS: IMMUNE GLOBULIN 20 GM/200 ML BTL IVPB (10:11)
[2021-09-17 10:30] VITALS: BP 136/51; PULSE 6; RESP 16; TEMP 36.2; O2SAT 100
[2021-09-17 10:47] VITALS: BP 122/45; PULSE 59; RESP 16; TEMP 36.1; O2SAT 100
[2021-09-17 11:17] VITALS: BP 127/51; PULSE 56; RESP 17; TEMP 36.1; O2SAT 98
== END 2021-09-21 23:59 | disposition home or self-care (01) ==
LOC: INF 03:43
PROVIDERS: PCP Family Medicine; Visit Provider Internal Medicine
DX: D83.9 Common variable immunodeficiency, unspecified (principal); Z51.81 Encounter for therapeutic drug level monitoring; D80.1 Nonfamilial hypogammaglobulinemia
CPT/HCPCS: 36415; 80053; 82784; 96360; 96361; 96365; 96366; 96375; 85025; J1561

== ENCOUNTER 2021-10-08 09:00 | Outpatient (RCR) | payer OTHER, SELFPAY ==
[2021-09-22 00:05] VITALS: BP 127/51; PULSE 56; RESP 17; TEMP 36.1
[2021-10-08 09:05] VITALS: BP 145/80; PULSE 66; RESP 16; O2SAT 100
[2021-10-08] MEDS: Normal Saline 500 ML IV (09:05)
[2021-10-08] MEDS: IMMUNE GLOBULIN 20 GM/200 ML BTL IVPB (10:09)
[2021-10-08] MEDS: Normal Saline Flush 10 ML SYR IVP (10:09)
[2021-10-08 10:25] VITALS: BP 142/79; PULSE 57; RESP 18; TEMP 35.7; O2SAT 100
[2021-10-08 10:40] VITALS: BP 126/71; PULSE 56; RESP 18; TEMP 35.4; O2SAT 99
[2021-10-08 11:13] VITALS: BP 132/78; PULSE 61; RESP 18; TEMP 34.6; O2SAT 100
[2021-10-08 11:40] VITALS: BP 135/83; PULSE 63; RESP 18; TEMP 37; O2SAT 100
== END 2021-10-21 23:59 | disposition home or self-care (01) ==
LOC: INF 09:00
PROVIDERS: PCP Family Medicine; Visit Provider Internal Medicine
DX: D83.9 Common variable immunodeficiency, unspecified (principal); D80.1 Nonfamilial hypogammaglobulinemia; Z79.899 Other long term (current) drug therapy
CPT/HCPCS: 96360; 96361; 96365; 96366; J1561

== ENCOUNTER → 2021-11-10 10:09 | Outpatient (BNVA) | payer OTHER, SELFPAY | PROVIDERS: PCP Family Medicine; Referring Provider Family Medicine; Visit Provider Student in an Organized Health Care Education/Training Program | DX: M70.51 Other bursitis of knee, right knee (principal); M70.61 Trochanteric bursitis, right hip; R53.81 Other malaise | CPT/HCPCS: 99213 ==

== ENCOUNTER 2021-11-19 00:36 | Outpatient (RCR) | payer MEDICARE, SELFPAY ==
[2021-10-22 00:15] VITALS: BP 135/83; PULSE 63; RESP 18; TEMP 37
[2021-10-29] MEDS: Acetaminophen 500 MG TAB 1000 MG PO (09:02)
[2021-10-29] MEDS: Normal Saline Flush 10 ML SYR IVP (09:17)
[2021-10-29] MEDS: Normal Saline 1,000 ML 500 ML IV (09:17)
[2021-10-29 09:53] LABS: Abs Immature Grans 0.01 10^3/uL (0.0-0.06); Absolute Basophil Count 0.06 10^3/uL (0.0-0.2); Absolute Eosinophil Count 0.18 10^3/uL (0.0-0.7); Absolute Lymphocyte Count 1.38 10^3/uL (1.2-3.4); Absolute Neutrophil Count 2.94 10^3/uL (1.2-6.7); Basophils % 1.2; Eosinophils % 3.6; HCT 36.4 % (36.0-46.0); HGB 11.2 g/dL (11.2-15.7); Immature Grans % 0.2; Lymphocytes % 27.2; MCHC 30.8 % (32.0-36.0); MPV 10.6 fL (8.0-11.0); Monocytes % 9.9; Neutrophils % 57.9; Nucleated RBC 0 %; Platelet Count 312 10^3/uL (130-400); RDW 14.1 % (11.7-14.6); RDW-SD 47.3 fL; WBC 5.07 10^3/uL (4.4-10.8)
[2021-10-29 10:11] LABS: ALT 19 U/L (14-59); AST 26 U/L (15-37); Albumin 3.7 g/dL (3.4-5.0); Alkaline Phosphatase 58 U/L (46-116); Anion Gap 8.5 mmol/L (3-11); BUN 23 mg/dL (7-18); Bilirubin, Total 0.4 mg/dL (0.2-1.0); CO2 27.5 mmol/L (21.0-32.0); CREATININE 1.3 mg/dL (0.55-1.02); Chloride 106 mmol/L (98-107); Estimated GFR 39.02 (mL/min/1.73m2); Glucose 88 mg/dL (74-106); Potassium 4.3 mmol/L (3.5-5.1); Sodium 142 mmol/L (136-145); Total Protein 6.7 g/dL (6.4-8.2)
[2021-10-29 10:25] VITALS: BP 131/77; PULSE 67; RESP 17; TEMP 36.3; O2SAT 100
[2021-10-29] MEDS: IMMUNE GLOBULIN 20 GM/200 ML BTL IVPB (10:26)
[2021-10-29 10:40] VITALS: BP 129/75; PULSE 55; RESP 16; TEMP 36.4; O2SAT 100
[2021-10-29 10:55] VITALS: BP 140/81; PULSE 57; RESP 17; TEMP 35.9; O2SAT 100
[2021-10-29 11:25] VITALS: BP 128/77; PULSE 57; RESP 17; TEMP 35.9; O2SAT 99
[2021-10-29 12:02] VITALS: BP 134/72; PULSE 66; RESP 17; TEMP 35.9; O2SAT 100
[2021-10-30 09:20] LABS: IgG 843 mg/dL (610-1,616)
[2021-11-19] MEDS: Normal Saline 1,000 ML 500 ML IV (09:10)
[2021-11-19] MEDS: Normal Saline Flush 10 ML SYR IVP (09:11)
[2021-11-19 09:17] VITALS: BP 115/68; PULSE 72; RESP 16; TEMP 36.6; O2SAT 99
[2021-11-19] MEDS: IMMUNE GLOBULIN 20 GM/200 ML BTL IVPB (10:15)
[2021-11-19 10:35] VITALS: BP 110/64; PULSE 60; RESP 16; TEMP 36.5; O2SAT 99
[2021-11-19 10:50] VITALS: BP 124/70; PULSE 63; RESP 16; TEMP 36.4; O2SAT 100
[2021-11-19 11:20] VITALS: BP 111/68; PULSE 60; RESP 16; TEMP 36.4; O2SAT 100
== END 2021-11-21 23:59 | disposition home or self-care (01) ==
LOC: INF 00:36
PROVIDERS: PCP Family Medicine; Visit Provider Internal Medicine
DX: D83.9 Common variable immunodeficiency, unspecified (principal); D80.1 Nonfamilial hypogammaglobulinemia; Z51.81 Encounter for therapeutic drug level monitoring
CPT/HCPCS: 36415; 80053; 82784; 96360; 96361; 96365; 96366; 85025; J1561

== ENCOUNTER 2021-12-10 10:00 | Outpatient (RCR) | payer OTHER, SELFPAY ==
[2021-11-22 00:06] VITALS: BP 111/68; PULSE 60; RESP 16; TEMP 36.4
[2021-12-10] MEDS: Normal Saline 1,000 ML 500 ML IV (09:08)
[2021-12-10] MEDS: Normal Saline Flush 10 ML SYR IVP (09:09)
[2021-12-10 10:05] VITALS: BP 168/81; PULSE 67; RESP 17; TEMP 36.4; O2SAT 100
[2021-12-10] MEDS: IMMUNE GLOBULIN 20 GM/200 ML BTL IVPB (10:10)
[2021-12-10 10:25] VITALS: BP 131/75; PULSE 61; RESP 17; TEMP 36; O2SAT 100
[2021-12-10 10:40] VITALS: BP 121/76; PULSE 58; RESP 16; TEMP 35.7; O2SAT 100
[2021-12-10 11:10] VITALS: BP 119/60; PULSE 61; RESP 17; TEMP 36.1; O2SAT 100
[2021-12-10 11:40] VITALS: BP 132/67; PULSE 60; RESP 17; TEMP 36; O2SAT 100
== END 2021-12-22 23:59 | disposition home or self-care (01) ==
LOC: INF 10:00
PROVIDERS: PCP Family Medicine; Visit Provider Internal Medicine
DX: D83.9 Common variable immunodeficiency, unspecified (principal); D80.1 Nonfamilial hypogammaglobulinemia; Z51.81 Encounter for therapeutic drug level monitoring
CPT/HCPCS: 96360; 96365; 96366; J1561

== ENCOUNTER 2021-12-31 10:00 | Outpatient (RCR) | payer OTHER, SELFPAY ==
[2021-12-23 00:15] VITALS: BP 132/67; PULSE 60; RESP 17; TEMP 36
[2021-12-31] MEDS: Normal Saline 1,000 ML 500 ML IV (09:02)
[2021-12-31] MEDS: Normal Saline Flush 10 ML SYR IVP (09:02)
[2021-12-31 10:10] VITALS: BP 118/69; PULSE 61; RESP 17; TEMP 35.2; O2SAT 100
[2021-12-31] MEDS: IMMUNE GLOBULIN 20 GM/200 ML BTL IVPB (10:16)
[2021-12-31 10:31] VITALS: BP 127/70; PULSE 66; RESP 16; TEMP 36.2; O2SAT 99
[2021-12-31 10:47] VITALS: BP 115/68; PULSE 61; RESP 16; TEMP 36.6; O2SAT 100
[2021-12-31 11:18] VITALS: BP 108/63; PULSE 62; RESP 16; TEMP 35.7; O2SAT 100
[2021-12-31 11:40] VITALS: BP 134/75; PULSE 67; RESP 16; TEMP 35.8; O2SAT 99
== END 2022-01-19 23:59 | disposition home or self-care (01) ==
LOC: INF 10:00
PROVIDERS: PCP Family Medicine; Visit Provider Internal Medicine
DX: D83.9 Common variable immunodeficiency, unspecified (principal); D80.1 Nonfamilial hypogammaglobulinemia; Z51.81 Encounter for therapeutic drug level monitoring
CPT/HCPCS: 96360; 96365; 96366; J1561

== ENCOUNTER 2022-02-09 15:19 | Outpatient (CLI) | payer MEDICARE, SELFPAY ==
--- NOTE | 2022-02-09 14:15 | DI.RAD_ITS ---
Exam(s) XR KNEE LT 2V AP,LAT EXAM: XR KNEE LT 2V AP,LAT CLINICAL HISTORY: pain in left knee. TECHNIQUE: 2D digital imaging was performed. COMPARISON: CR LEFT KNEE LIMITED 1 OR 2 VIEWS from 06/21/2017 FINDINGS: Views, compared 06/21/2017 Position alignment of the components of the prosthesis stable. Fracture nor loosening. IMPRESSION: DATA REPOSITORY: RADIATION DOSE DELIVERED:
== END 2022-02-09 15:20 | disposition home or self-care (01) ==
LOC: DIORS 15:19
PROVIDERS: PCP Family Medicine; Referring Provider Family Medicine; Visit Provider Student in an Organized Health Care Education/Training Program
DX: T84.84XA Pain due to internal orthopedic prosthetic devices, implants and grafts, initial encounter (principal); Z96.652 Presence of left artificial knee joint; M70.61 Trochanteric bursitis, right hip; M70.51 Other bursitis of knee, right knee; M25.551 Pain in right hip
CPT/HCPCS: 99214; 73560

== ENCOUNTER 2022-02-11 01:24 | Outpatient (RCR) | payer MEDICARE, SELFPAY ==
[2022-01-20 00:13] VITALS: BP 134/75; PULSE 67; RESP 16; TEMP 35.8
[2022-01-21] MEDS: Normal Saline 500 ML IV (09:10)
[2022-01-21 09:28] LABS: Abs Immature Grans 0.02 10^3/uL (0.0-0.06); Absolute Eosinophil Count 0.44 10^3/uL (0.0-0.7); Absolute Lymphocyte Count 1.68 10^3/uL (1.2-3.4); Absolute Monocyte Count 0.64 10^3/uL (0.1-0.8); Basophils % 1.5; Eosinophils % 6.8; HCT 38.1 % (36.0-46.0); HGB 11.8 g/dL (11.2-15.7); Immature Grans % 0.3; Lymphocytes % 25.9; MCH 28.4 pg (27.0-33.0); MCV 91.8 fL (80-95); MPV 10.3 fL (8.0-11.0); Monocytes % 9.9; Neutrophils % 55.6; Nucleated RBC 0 %; Platelet Count 334 10^3/uL (130-400); RBC 4.15 10^6/uL (3.93-5.22); RDW 14.9 % (11.7-14.6); RDW-SD 50.2 fL; WBC 6.48 10^3/uL (4.4-10.8)
[2022-01-21 09:41] LABS: ALT 38 U/L (14-59); AST 43 U/L (15-37); Albumin 3.8 g/dL (3.4-5.0); Alkaline Phosphatase 72 U/L (46-116); Anion Gap 9.6 mmol/L (3-11); BUN 25 mg/dL (7-18); Bilirubin, Total 0.5 mg/dL (0.2-1.0); CO2 27.4 mmol/L (21.0-32.0); CREATININE 1.3 mg/dL (0.55-1.02); Calcium 9.1 mg/dL (8.5-10.1); Chloride 104 mmol/L (98-107); Estimated GFR 39.02 (mL/min/1.73m2); Glucose 84 mg/dL (74-106); Potassium 4.6 mmol/L (3.5-5.1); Sodium 141 mmol/L (136-145)
[2022-01-21 10:15] VITALS: BP 112/67; PULSE 60; RESP 16; TEMP 36.5; O2SAT 98
[2022-01-21] MEDS: Normal Saline Flush 10 ML SYR IVP (10:16)
[2022-01-21] MEDS: IMMUNE GLOBULIN 20 GM/200 ML BTL IVPB (10:16)
[2022-01-21 10:35] VITALS: BP 118/73; PULSE 63; RESP 16; TEMP 36.6; O2SAT 99
[2022-01-21 11:05] VITALS: BP 119/71; PULSE 59; RESP 16; TEMP 36.2; O2SAT 100
[2022-01-21 11:40] VITALS: BP 114/61; PULSE 61; RESP 16; TEMP 36; O2SAT 100
[2022-01-22 08:23] LABS: IgG 929 mg/dL (610-1,616)
[2022-02-11] MEDS: Normal Saline 1,000 ML 500 ML IV (09:03)
[2022-02-11] MEDS: Normal Saline Flush 10 ML SYR IVP (09:06)
[2022-02-11 09:13] VITALS: BP 108/64; PULSE 69; RESP 17; TEMP 35.9; O2SAT 99
[2022-02-11] MEDS: IMMUNE GLOBULIN 20 GM/200 ML BTL IVPB (10:10)
[2022-02-11 10:30] VITALS: BP 115/72; PULSE 57; RESP 16; TEMP 35.8; O2SAT 100
[2022-02-11 10:51] VITALS: BP 105/68; PULSE 59; RESP 16; TEMP 36.6; O2SAT 100
[2022-02-11 11:20] VITALS: BP 122/75; PULSE 61; RESP 16; TEMP 36.7; O2SAT 100
== END 2022-02-19 23:59 | disposition home or self-care (01) ==
LOC: INF 01:24
PROVIDERS: Internal Medicine; PCP Family Medicine; Visit Provider Internal Medicine
DX: Z51.81 Encounter for therapeutic drug level monitoring (principal); D83.9 Common variable immunodeficiency, unspecified; D80.1 Nonfamilial hypogammaglobulinemia
CPT/HCPCS: 36415; 80053; 82784; 96360; 96361; 96365; 96366; 85025; J1561

== ENCOUNTER → 2022-03-03 12:39 | Outpatient (BNVA) | payer MEDICARE, SELFPAY | PROVIDERS: PCP Family Medicine; Referring Provider Family Medicine; Visit Provider Urology | DX: C68.9 Malignant neoplasm of urinary organ, unspecified (principal) | CPT/HCPCS: 52000; 81003 ==

== ENCOUNTER 2022-03-03 15:31 | Outpatient (REF) | payer MEDICARE, SELFPAY ==
--- NOTE | 2022-03-03 13:30 | PAPNONF_PTH ---
PATIENT: Moira Copeland LOC: [facility] U#:[id number] AGE/SX: 87/F ROOM: RE03/03/[address]: Reynaldo Hackett MD : 1935 BED: DIS: 03/03/2022 SPEC #: [id number] RECD: 03/03/22 18:13 STATUS: THIERNO REQ #: [id number] JORGE: 03/03/22 13:[address]: Reynaldo Hackett DEPT: [facility] Cytology RECD BY: aMrta Lowe ENTERED: 03/03/22 18:13 SP TYPE: CHRIS GUEVARA DR: Jarrod Becerra Tissues: 1 - BODY FLUID CYTO(SPUTUM/URINE)[facility] Procedures: BODY FLUID CYTO(URINE/SPUTUM) Comments: [id number] (TOTAL VOLUME = 60 ml) (30 ml URINE & 30 ml CYTOLYTE ADDED IN 2 CONTAINERS)
== END 2022-03-03 15:32 | disposition home or self-care (01) ==
LOC: LBN 15:31
PROVIDERS: PCP Family Medicine; Visit Provider Urology
DX: Z85.528 Personal history of other malignant neoplasm of kidney (principal)
CPT/HCPCS: 88104

== ENCOUNTER 2022-03-04 02:17 | Outpatient (RCR) | payer MEDICARE, SELFPAY ==
[2022-02-20 00:15] VITALS: BP 122/75; PULSE 61; RESP 16; TEMP 36.7
[2022-03-04] MEDS: Normal Saline 1,000 ML 500 ML IV (09:14)
[2022-03-04] MEDS: Normal Saline Flush 10 ML SYR IVP (09:14)
[2022-03-04] MEDS: IMMUNE GLOBULIN 20 GM/200 ML BTL IVPB (10:24)
[2022-03-04 10:30] VITALS: BP 129/58; PULSE 60; RESP 17; TEMP 35.8; O2SAT 99
[2022-03-04 10:45] VITALS: BP 121/72; PULSE 66; RESP 17; TEMP 35.8; O2SAT 99
[2022-03-04 11:00] VITALS: BP 119/69; PULSE 66; RESP 17; TEMP 35; O2SAT 100
[2022-03-04 11:15] VITALS: BP 133/65; PULSE 66; RESP 18; TEMP 35.8; O2SAT 99
[2022-03-04 11:45] VITALS: BP 127/61; PULSE 61; RESP 17; TEMP 36; O2SAT 100
== END 2022-03-21 23:59 | disposition home or self-care (01) ==
LOC: INF 02:17
PROVIDERS: PCP Family Medicine; Visit Provider Internal Medicine
DX: D83.9 Common variable immunodeficiency, unspecified (principal); D80.1 Nonfamilial hypogammaglobulinemia
CPT/HCPCS: 96360; 96361; 96365; 96366; J1561

== ENCOUNTER → 2022-04-13 13:29 | Outpatient (BNVA) | payer MEDICARE, SELFPAY | PROVIDERS: PCP Family Medicine; Referring Provider Family Medicine; Visit Provider Student in an Organized Health Care Education/Training Program | DX: M70.61 Trochanteric bursitis, right hip (principal) | CPT/HCPCS: 99212 ==

== ENCOUNTER 2022-04-15 04:08 | Outpatient (RCR) | payer MEDICARE, SELFPAY ==
[2022-03-22 00:07] VITALS: BP 127/61; PULSE 61; RESP 17; TEMP 36
[2022-03-25] MEDS: Acetaminophen 500 MG TAB 1000 MG PO (09:05)
[2022-03-25] MEDS: Normal Saline Flush 10 ML SYR IVP (09:06)
[2022-03-25] MEDS: Normal Saline 1,000 ML 500 ML IV (09:27)
[2022-03-25] MEDS: IMMUNE GLOBULIN 20 GM/200 ML BTL IVPB (10:32)
[2022-03-25 10:40] VITALS: BP 113/75; PULSE 63; RESP 16; TEMP 36.5; O2SAT 100
[2022-03-25 10:55] VITALS: BP 117/64; PULSE 63; RESP 16; TEMP 36.2; O2SAT 100
[2022-03-25 11:11] VITALS: BP 120/71; PULSE 71; RESP 16; TEMP 36.6; O2SAT 98
[2022-03-25 11:40] VITALS: BP 132/76; PULSE 68; RESP 16; TEMP 36.7; O2SAT 100
[2022-03-25 12:10] VITALS: BP 123/77; PULSE 71; RESP 16; TEMP 36.6; O2SAT 98
[2022-04-15] MEDS: Normal Saline 1,000 ML 500 ML IV (09:20)
[2022-04-15 09:30] VITALS: BP 148/82; PULSE 63; RESP 17; TEMP 35.4; O2SAT 100
[2022-04-15] MEDS: Normal Saline Flush 10 ML SYR IVP (09:33)
[2022-04-15] MEDS: IMMUNE GLOBULIN 20 GM/200 ML BTL IVPB (10:29)
[2022-04-15 10:44] VITALS: BP 146/70; PULSE 58; RESP 17; TEMP 35.2; O2SAT 100
[2022-04-15 11:00] VITALS: BP 127/72; PULSE 56; RESP 17; TEMP 35.9; O2SAT 100
[2022-04-15 11:30] VITALS: BP 133/56; PULSE 61; RESP 16; TEMP 36.2; O2SAT 100
[2022-04-15 12:00] VITALS: BP 130/71; PULSE 59; RESP 17; TEMP 36.1; O2SAT 100
== END 2022-04-21 23:59 | disposition home or self-care (01) ==
LOC: INF 04:08
PROVIDERS: PCP Family Medicine; Visit Provider Internal Medicine
DX: D83.9 Common variable immunodeficiency, unspecified (principal); D80.1 Nonfamilial hypogammaglobulinemia; Z51.81 Encounter for therapeutic drug level monitoring
CPT/HCPCS: 96360; 96361; 96365; 96366; J1561

== ENCOUNTER 2022-05-06 02:00 | Outpatient (RCR) | payer MEDICARE, SELFPAY ==
[2022-04-22 00:13] VITALS: BP 130/71; PULSE 59; RESP 17; TEMP 36.1
[2022-05-06] MEDS: Normal Saline 1,000 ML 500 ML IV (09:26)
[2022-05-06] MEDS: Normal Saline Flush 10 ML SYR IVP (09:26)
[2022-05-06 09:44] LABS: Abs Immature Grans 0.01 10^3/uL (0.0-0.06); Absolute Basophil Count 0.07 10^3/uL (0.0-0.2); Absolute Eosinophil Count 0.28 10^3/uL (0.0-0.7); Absolute Lymphocyte Count 1.16 10^3/uL (1.2-3.4); Absolute Monocyte Count 0.57 10^3/uL (0.1-0.8); Absolute Neutrophil Count 3.34 10^3/uL (1.2-6.7); Basophils % 1.3; Eosinophils % 5.2; HCT 36.5 % (36.0-46.0); HGB 11.5 g/dL (11.2-15.7); Immature Grans % 0.2; Lymphocytes % 21.4; MCH 27.8 pg (27.0-33.0); MCHC 31.5 % (32.0-36.0); MCV 88 fL (80-95); MPV 10.6 fL (8.0-11.0); Monocytes % 10.5; Neutrophils % 61.4; Platelet Count 306 10^3/uL (130-400); RBC 4.13 10^6/uL (3.93-5.22); RDW 14.5 % (11.7-14.6); RDW-SD 47.5 fL; WBC 5.43 10^3/uL (4.4-10.8)
[2022-05-06 09:57] LABS: ALT 19 U/L (14-59); AST 22 U/L (15-37); Albumin 3.8 g/dL (3.4-5.0); Alkaline Phosphatase 90 U/L (46-116); Anion Gap 9.3 mmol/L (3-11); BUN 25 mg/dL (7-18); Bilirubin, Total 0.3 mg/dL (0.2-1.0); CO2 25.7 mmol/L (21.0-32.0); CREATININE 1.4 mg/dL (0.55-1.02); Calcium 8.8 mg/dL (8.5-10.1); Chloride 105 mmol/L (98-107); Estimated GFR 35.74 (mL/min/1.73m2); Glucose 94 mg/dL (74-106); Potassium 4.1 mmol/L (3.5-5.1); Sodium 140 mmol/L (136-145); Total Protein 7.2 g/dL (6.4-8.2)
[2022-05-06 10:35] VITALS: BP 129/74; PULSE 55; RESP 17; TEMP 35.9; O2SAT 100
[2022-05-06] MEDS: IMMUNE GLOBULIN 20 GM/200 ML BTL IVPB (10:35)
[2022-05-06 10:59] VITALS: BP 112/54; PULSE 60; RESP 7; TEMP 35.9; O2SAT 100
[2022-05-06 11:13] VITALS: BP 114/71; PULSE 62; RESP 17; TEMP 36.3; O2SAT 100
[2022-05-06 11:42] VITALS: BP 117/70; PULSE 60; RESP 17; TEMP 35.8; O2SAT 100
[2022-05-06 12:12] VITALS: BP 139/70; PULSE 63; RESP 16; TEMP 36.2; O2SAT 99
[2022-05-07 08:17] LABS: Hepatitis B Surface Ag Negative (Negative)
[2022-05-07 08:59] LABS: Hepatitis C Ab w Rflx HCV PCR Negative (Negative)
[2022-05-07 09:11] LABS: IgG 859 mg/dL (610-1,616)
== END 2022-05-21 23:59 | disposition home or self-care (01) ==
LOC: INF 02:00
PROVIDERS: Internal Medicine; PCP Family Medicine; Visit Provider Internal Medicine
DX: R74.8 Abnormal levels of other serum enzymes (principal); D83.9 Common variable immunodeficiency, unspecified; Z51.81 Encounter for therapeutic drug level monitoring; Z13.9 Encounter for screening, unspecified
CPT/HCPCS: 36415; 80053; 82784; 86803; 87340; 96360; 96361; 96365; 96366; 85025; J1561

== ENCOUNTER → 2022-06-10 00:48 | Outpatient (CLI) | payer MEDICARE, SELFPAY ==
[2022-06-10 09:31] LABS: CREATININE 1.4 mg/dL (0.55-1.02); Estimated GFR 35.74 (mL/min/1.73m2)
--- NOTE | 2022-06-10 10:00 | DI.CT_ITS ---
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 TECHNIQUE: Imaging Protocol: Axial computed tomography images with coronal and sagittal reformatted images were created and reviewed. No IV contrast was administered due to decreased GFR and signal left kidney.. COMPARISON: CT CT ABDOMEN PELVIS WO/W from 04/14/2021 FINDINGS: ABDOMEN: Lung Bases: Normal where visualized. Liver: Normal density. No measurable mass. Gallbladder and biliary tract: Status post cholecystectomy. No radiodense calculus or biliary ductal dilation. Pancreas: Normal density, no abnormal calcifications or inflammatory process. Spleen: Normal. Kidneys: Status post right nephrectomy. The surgical clips. No recurrence mass in the right renal f bravo.. Left kidney : Normal size, contour and axis.No radiodense stones or obstructive uropathy. No masses seen. Adrenal glands: No mass is seen. Lymph nodes: Within normal limits. Abdominal Aorta: Abdominal portion non-dilated. Atherosclerotic changes. PELVIS: Bladder:Symmetric distention, no gross wall thickening. Bowel: There is a right sided hub Nursing Assistant hernia containing a small loop of small bowel which appears nonobstructed. Diverticulosis lower descending and sigmoid colon. No diverticulitis. Appendix norm al. No obstruction or bowel wall thickening. Peritoneal cavity: No ascites, collection or mesenteric inflammatory response Reproductive organs: Status post hysterectomy. Stable small right ovarian cyst. Left ovary unremark able. Bones: Stable mild central compression at the superior endplate of the L2 vertebral body. Degenerati ve disc changes and facet degenerative changes. No lytic or blastic lesions. Soft Tissues: Within normal limits. IMPRESSION: Status post right nephrectomy. Left kidney and bladder has a normal appearance. New right obturator hernia containing a small loop of nonobstructed small bowel. RADIATION DOSE DELIVERED: 633.7mGy.cm Total DLP 633.7mGy.cm Total DLP 633.7mGy.cm Total DLP DATA REPOSITORY: All CT scans at this facility are submitted to the National Radiology Data Registry (NRDR) Dose Index Registry (DIR) with the [employer] (ACR). RADIATION OPTIMIZATION: All CT scans at this facility use at least one of these dose optimization te chniques: automated exposure control; mA and/or kV adjustment per patient size (includes targeted exa ms where dose is matched to clinical indication); or iterative reconstruction.
== END ==
PROVIDERS: PCP Family Medicine; Visit Provider Family Medicine
DX: C66.1 Malignant neoplasm of right ureter (principal); K45.8 Other specified abdominal hernia without obstruction or gangrene; Z90.5 Acquired absence of kidney
CPT/HCPCS: 74176; 82565

== ENCOUNTER 2022-06-17 02:30 | Outpatient (RCR) | payer MEDICARE, SELFPAY ==
[2022-05-22 00:18] VITALS: BP 139/70; PULSE 63; RESP 16; TEMP 36.2
[2022-05-27] MEDS: Normal Saline 1,000 ML 500 ML IV (09:06)
[2022-05-27] MEDS: Normal Saline Flush 10 ML SYR IVP (09:06)
[2022-05-27] MEDS: IMMUNE GLOBULIN 20 GM/200 ML BTL IVPB (10:11)
[2022-05-27 10:15] VITALS: BP 132/71; PULSE 58; RESP 16; TEMP 35.7; O2SAT 100
[2022-05-27 10:35] VITALS: BP 109/68; PULSE 57; RESP 16; TEMP 35.7; O2SAT 100
[2022-05-27 10:50] VITALS: BP 124/71; PULSE 60; RESP 16; TEMP 35.5; O2SAT 99
[2022-05-27 11:20] VITALS: BP 124/72; PULSE 54; RESP 14; TEMP 35.9; O2SAT 100
[2022-05-27 11:49] VITALS: BP 128/69; PULSE 58; RESP 16; TEMP 35.1; O2SAT 99
[2022-06-17] MEDS: Normal Saline Flush 10 ML SYR IVP (09:08)
[2022-06-17] MEDS: Normal Saline 1,000 ML 500 ML IV (09:08)
[2022-06-17 09:23] VITALS: BP 123/62; PULSE 66; RESP 18; TEMP 36.4; O2SAT 98
[2022-06-17] MEDS: IMMUNE GLOBULIN 20 GM/200 ML BTL IVPB (10:13)
[2022-06-17 10:28] VITALS: BP 116/64; PULSE 58; RESP 17; TEMP 35.9; O2SAT 99
[2022-06-17 10:43] VITALS: BP 110/64; PULSE 55; RESP 18; TEMP 36.4; O2SAT 100
[2022-06-17 11:13] VITALS: BP 113/67; PULSE 55; RESP 18; TEMP 35.6; O2SAT 100
[2022-06-17 11:43] VITALS: BP 126/69; PULSE 61; RESP 17; TEMP 36.4; O2SAT 98
== END 2022-06-21 23:59 | disposition home or self-care (01) ==
LOC: INF 02:30
PROVIDERS: PCP Family Medicine; Visit Provider Internal Medicine
DX: D83.9 Common variable immunodeficiency, unspecified (principal); D80.1 Nonfamilial hypogammaglobulinemia
CPT/HCPCS: 96360; 96361; 96365; 96366; J1561

== ENCOUNTER 2022-07-08 02:04 | Outpatient (RCR) | payer MEDICARE, SELFPAY ==
[2022-06-22 00:09] VITALS: BP 126/69; PULSE 61; RESP 17; TEMP 36.4
[2022-07-08] MEDS: Normal Saline 1,000 ML 500 ML IV (09:00)
[2022-07-08] MEDS: Normal Saline Flush 10 ML SYR IVP (09:00)
[2022-07-08 09:10] VITALS: BP 130/72; PULSE 64; RESP 16; TEMP 35.7; O2SAT 98
[2022-07-08] MEDS: IMMUNE GLOBULIN 20 GM/200 ML BTL IVPB (10:03)
[2022-07-08 10:05] VITALS: BP 122/56; PULSE 61; RESP 17; TEMP 36; O2SAT 100
[2022-07-08 10:20] VITALS: BP 115/71; PULSE 54; RESP 16; TEMP 35.9; O2SAT 100
[2022-07-08 10:51] VITALS: BP 119/70; PULSE 55; RESP 16; TEMP 35.8; O2SAT 100
[2022-07-08 11:21] VITALS: BP 123/69; PULSE 55; RESP 16; TEMP 36.2; O2SAT 100
== END 2022-07-22 23:59 | disposition home or self-care (01) ==
LOC: INF 02:04
PROVIDERS: PCP Family Medicine; Visit Provider Internal Medicine
DX: D80.1 Nonfamilial hypogammaglobulinemia (principal); D83.9 Common variable immunodeficiency, unspecified
CPT/HCPCS: 96360; 96361; 96365; 96366; J1561

== ENCOUNTER 2022-08-19 02:52 | Outpatient (RCR) | payer MEDICARE, SELFPAY ==
[2022-07-23 00:17] VITALS: BP 123/69; PULSE 55; RESP 16; TEMP 36.2
[2022-07-29] MEDS: Normal Saline 1,000 ML 500 ML IV (09:21)
[2022-07-29] MEDS: Normal Saline Flush 10 ML SYR IVP (09:21)
[2022-07-29 09:30] VITALS: BP 116/61; PULSE 69; RESP 16; TEMP 36.4; O2SAT 98
[2022-07-29 09:37] LABS: Abs Immature Grans 0.01 10^3/uL (0.0-0.06); Absolute Basophil Count 0.09 10^3/uL (0.0-0.2); Absolute Eosinophil Count 0.21 10^3/uL (0.0-0.7); Absolute Lymphocyte Count 1.31 10^3/uL (1.2-3.4); Absolute Monocyte Count 0.62 10^3/uL (0.1-0.8); Absolute Neutrophil Count 3.27 10^3/uL (1.2-6.7); Basophils % 1.6; Eosinophils % 3.8; HGB 11.1 g/dL (11.2-15.7); Immature Grans % 0.2; Lymphocytes % 23.8; MCH 27.3 pg (27.0-33.0); MCHC 30.8 % (32.0-36.0); MCV 89 fL (80-95); MPV 10.2 fL (8.0-11.0); Monocytes % 11.3; Neutrophils % 59.3; Platelet Count 336 10^3/uL (130-400); RBC 4.07 10^6/uL (3.93-5.22); RDW 14.9 % (11.7-14.6); RDW-SD 48.8 fL; WBC 5.51 10^3/uL (4.4-10.8)
[2022-07-29 09:54] LABS: ALT 26 U/L (14-59); AST 22 U/L (15-37); Albumin 3.6 g/dL (3.4-5.0); Alkaline Phosphatase 71 U/L (46-116); Anion Gap 8.7 mmol/L (3-11); BUN 24 mg/dL (7-18); Bilirubin, Total 0.4 mg/dL (0.2-1.0); CO2 24.3 mmol/L (21.0-32.0); CREATININE 1.4 mg/dL (0.55-1.02); Calcium 9.2 mg/dL (8.5-10.1); Chloride 109 mmol/L (98-107); Estimated GFR 36.87 (mL/min/1.73m2); Glucose 96 mg/dL (74-106); Potassium 3.8 mmol/L (3.5-5.1); Sodium 142 mmol/L (136-145); Total Protein 7.2 g/dL (6.4-8.2)
[2022-07-29] MEDS: IMMUNE GLOBULIN 20 GM/200 ML BTL IVPB (10:25)
[2022-07-29 10:45] VITALS: BP 120/74; PULSE 63; RESP 16; TEMP 36.3; O2SAT 100
[2022-07-29 11:00] VITALS: BP 134/57; PULSE 66; RESP 16; TEMP 36.3; O2SAT 99
[2022-07-29 11:31] VITALS: BP 129/74; PULSE 60; RESP 16; TEMP 36.3; O2SAT 100
[2022-07-29 12:02] VITALS: BP 126/69; PULSE 63; RESP 16; TEMP 35.8; O2SAT 99
[2022-07-30 10:26] LABS: IgG 892 mg/dL (610-1,616)
[2022-08-19] MEDS: Normal Saline 1,000 ML 500 ML IV (09:12)
[2022-08-19] MEDS: Normal Saline Flush 10 ML SYR IVP (09:12)
[2022-08-19] MEDS: Acetaminophen 500 MG TAB 1000 MG PO (09:17)
[2022-08-19] MEDS: IMMUNE GLOBULIN 20 GM/200 ML BTL IVPB (10:12)
[2022-08-19 10:15] VITALS: BP 134/68; PULSE 60; RESP 18; TEMP 36.3; O2SAT 100
[2022-08-19 10:30] VITALS: BP 144/68; PULSE 60; RESP 17; TEMP 36.6; O2SAT 99
[2022-08-19 10:47] VITALS: BP 151/79; PULSE 61; RESP 17; TEMP 36.5; O2SAT 100
[2022-08-19 11:15] VITALS: BP 150/79; PULSE 66; RESP 18; TEMP 36.3; O2SAT 99
[2022-08-19 11:45] VITALS: BP 126/65; PULSE 60; RESP 17; TEMP 36.4; O2SAT 100
== END 2022-08-21 23:59 | disposition home or self-care (01) ==
LOC: INF 02:52
PROVIDERS: Internal Medicine; PCP Family Medicine; Visit Provider Internal Medicine
DX: D83.9 Common variable immunodeficiency, unspecified (principal)
CPT/HCPCS: 36415; 80053; 82784; 96360; 96361; 96365; 96366; 85025; J1561

== ENCOUNTER 2022-09-14 02:29 | Outpatient (RCR) | payer MEDICARE, SELFPAY ==
[2022-08-22 00:11] VITALS: BP 126/65; PULSE 60; RESP 17; TEMP 36.4
[2022-09-14] MEDS: Normal Saline 1,000 ML 500 ML IV (09:18)
[2022-09-14] MEDS: Normal Saline Flush 10 ML SYR IVP (09:18)
[2022-09-14] MEDS: IMMUNE GLOBULIN 20 GM/200 ML BTL IVPB (10:17)
[2022-09-14 10:25] VITALS: BP 114/54; PULSE 60; RESP 16; TEMP 37.1; O2SAT 100
[2022-09-14 10:40] VITALS: BP 109/70; PULSE 65; RESP 16; TEMP 36.6; O2SAT 99
[2022-09-14 10:55] VITALS: BP 114/61; PULSE 61; RESP 16; TEMP 36.9; O2SAT 100
[2022-09-14 11:25] VITALS: BP 116/70; PULSE 64; RESP 16; TEMP 37.1; O2SAT 100
[2022-09-14 11:55] VITALS: BP 112/68; PULSE 64; RESP 16; TEMP 36.4; O2SAT 98
== END 2022-09-21 23:59 | disposition home or self-care (01) ==
LOC: INF 02:29
PROVIDERS: PCP Family Medicine; Visit Provider Internal Medicine
DX: D83.9 Common variable immunodeficiency, unspecified (principal)
CPT/HCPCS: 96365; 96366; J1561

== ENCOUNTER 2022-10-14 02:18 | Outpatient (RCR) | payer MEDICARE, SELFPAY ==
[2022-09-22 00:17] VITALS: BP 112/68; PULSE 64; RESP 16; TEMP 36.4
[2022-10-14] MEDS: Normal Saline Flush 10 ML SYR IVP (09:12)
[2022-10-14] MEDS: Normal Saline 1,000 ML 500 ML IV (09:12)
[2022-10-14] MEDS: IMMUNE GLOBULIN 20 GM/200 ML BTL IVPB (10:16)
[2022-10-14 10:25] VITALS: BP 119/68; PULSE 63; RESP 17; TEMP 36.8; O2SAT 99
[2022-10-14 10:40] VITALS: BP 119/59; PULSE 67; RESP 16; TEMP 36.9; O2SAT 99
[2022-10-14 11:10] VITALS: BP 149/68; PULSE 67; RESP 16; TEMP 36.7; O2SAT 96
[2022-10-14 11:40] VITALS: BP 119/57; PULSE 59; RESP 16; TEMP 36.9; O2SAT 100
[2022-10-14 12:05] VITALS: BP 148/71; PULSE 69; RESP 16; TEMP 36.7; O2SAT 99
== END 2022-10-21 23:59 | disposition home or self-care (01) ==
LOC: INF 02:18
PROVIDERS: PCP Family Medicine; Visit Provider Internal Medicine
DX: D83.9 Common variable immunodeficiency, unspecified (principal)
CPT/HCPCS: 96360; 96361; 96365; 96366; J1561

== ENCOUNTER 2022-11-04 02:33 | Outpatient (RCR) | payer MEDICARE, SELFPAY ==
[2022-10-22 00:18] VITALS: BP 148/71; PULSE 69; RESP 16; TEMP 36.7
[2022-11-04] MEDS: Normal Saline 1,000 ML 500 ML IV (09:00)
[2022-11-04 09:06] VITALS: BP 145/76; PULSE 71; RESP 16; TEMP 36.2; O2SAT 100
[2022-11-04] MEDS: Normal Saline Flush 10 ML SYR IVP (09:12)
[2022-11-04] MEDS: IMMUNE GLOBULIN 20 GM/200 ML BTL IV (10:05)
[2022-11-04 10:25] VITALS: BP 138/75; PULSE 60; RESP 16; TEMP 36.2; O2SAT 100
[2022-11-04 10:40] VITALS: BP 139/85; PULSE 63; RESP 16; TEMP 36.2; O2SAT 100
[2022-11-04 11:10] VITALS: BP 134/77; PULSE 60; RESP 16; TEMP 36.2; O2SAT 100
[2022-11-04 11:40] VITALS: BP 134/77; PULSE 62; RESP 16; TEMP 36.2; O2SAT 100
== END 2022-11-21 23:59 | disposition home or self-care (01) ==
LOC: INF 02:33
PROVIDERS: PCP Family Medicine; Visit Provider Internal Medicine
DX: D80.1 Nonfamilial hypogammaglobulinemia (principal); D83.9 Common variable immunodeficiency, unspecified
CPT/HCPCS: 96360; 96361; 96365; 96366; J1561

== ENCOUNTER 2022-12-02 02:43 | Outpatient (RCR) | payer MEDICARE, SELFPAY ==
[2022-11-22 00:10] VITALS: BP 134/77; PULSE 62; RESP 16; TEMP 36.2
[2022-12-02] MEDS: Normal Saline 500 ML IV (09:25)
[2022-12-02] MEDS: IMMUNE GLOBULIN 20 GM/200 ML BTL IVPB (10:30)
[2022-12-02 10:31] VITALS: BP 151/81; PULSE 78; RESP 18; TEMP 36.4; O2SAT 99
[2022-12-02 10:45] VITALS: BP 117/76; PULSE 60; RESP 18; TEMP 36.4; O2SAT 99
[2022-12-02 10:59] VITALS: BP 124/72; PULSE 74; RESP 18; TEMP 36.7; O2SAT 99
[2022-12-02 11:10] VITALS: BP 130/73; PULSE 59; RESP 18; TEMP 37.1; O2SAT 99
[2022-12-02 11:42] VITALS: BP 132/65; PULSE 72; RESP 16; TEMP 36.6; O2SAT 99
== END 2022-12-22 23:59 | disposition home or self-care (01) ==
LOC: INF 02:43
PROVIDERS: PCP Family Medicine; Visit Provider Internal Medicine
DX: D83.9 Common variable immunodeficiency, unspecified (principal)
CPT/HCPCS: 96360; 96361; 96365; 96366; J1561

== ENCOUNTER 2022-12-11 16:27 | Outpatient (REF) | payer MEDICARE, SELFPAY ==
[2022-12-11 19:08] LABS: HCT 34.4 % (36.0-46.0); HGB 10.6 g/dL (11.2-15.7); MCHC 30.8 % (32.0-36.0); MCV 88 fL (80-95); MPV 11.8 fL (8.0-11.0); Platelet Count 263 10^3/uL (130-400); RBC 3.92 10^6/uL (3.93-5.22); RDW 15.5 % (11.7-14.6); RDW-SD 49.8 fL; WBC 6.49 10^3/uL (4.4-10.8)
[2022-12-11 19:26] LABS: Iron 58 ug/dL (50-170); Total Iron Binding Capacity 439 ug/dL (250-450); Transferrin Sat 13 % (15-50)
[2022-12-11 19:51] LABS: Anion Gap 10.5 mmol/L (3-11); BUN 35 mg/dL (7-18); CO2 26.5 mmol/L (21.0-32.0); CREATININE 1.4 mg/dL (0.55-1.02); Calcium 9.4 mg/dL (8.5-10.1); Chloride 106 mmol/L (98-107); Estimated GFR 36.87 (mL/min/1.73m2); Ferritin 27 ng/mL (8-252); Glucose 95 mg/dL (74-106); Potassium 4.8 mmol/L (3.5-5.1); Sodium 143 mmol/L (136-145); Vitamin B12 288 pg/mL (193-986)
== END 2022-12-11 16:28 | disposition home or self-care (01) ==
LOC: NCHCN 16:27
PROVIDERS: PCP Family Medicine; Visit Provider Family Medicine
DX: N18.30 Chronic kidney disease, stage 3 unspecified (principal); D64.9 Anemia, unspecified; Z79.899 Other long term (current) drug therapy
CPT/HCPCS: 80048; 85027; 82607; 82728; 83540; 83550

== ENCOUNTER 2023-01-05 01:38 | Outpatient (RCR) | payer MEDICARE, SELFPAY ==
[2022-12-23 00:06] VITALS: BP 132/65; PULSE 72; RESP 16; TEMP 36.6
[2023-01-05] MEDS: Normal Saline Flush 10 ML SYR IVP (09:03)
[2023-01-05] MEDS: Acetaminophen 500 MG TAB 1000 MG PO (09:03)
[2023-01-05] MEDS: Normal Saline 500 ML IV (09:04)
[2023-01-05 09:23] LABS: Abs Immature Grans 0.03 10^3/uL (0.0-0.06); Absolute Basophil Count 0.09 10^3/uL (0.0-0.2); Absolute Eosinophil Count 0.39 10^3/uL (0.0-0.7); Absolute Lymphocyte Count 1.98 10^3/uL (1.2-3.4); Absolute Monocyte Count 0.83 10^3/uL (0.1-0.8); Absolute Neutrophil Count 6.86 10^3/uL (1.2-6.7); Basophils % 0.9; Eosinophils % 3.8; HCT 39.6 % (36.0-46.0); HGB 12.2 g/dL (11.2-15.7); Immature Grans % 0.3; Lymphocytes % 19.4; MCH 26.9 pg (27.0-33.0); MCHC 30.8 % (32.0-36.0); MCV 87 fL (80-95); MPV 10.4 fL (8.0-11.0); Monocytes % 8.2; Neutrophils % 67.4; Platelet Count 394 10^3/uL (130-400); RBC 4.53 10^6/uL (3.93-5.22); RDW 15.9 % (11.7-14.6); WBC 10.18 10^3/uL (4.4-10.8)
[2023-01-05 09:41] LABS: ALT 28 U/L (14-59); AST 32 U/L (15-37); Albumin 4.1 g/dL (3.4-5.0); Alkaline Phosphatase 75 U/L (46-116); Anion Gap 8.7 mmol/L (3-11); BUN 25 mg/dL (7-18); Bilirubin, Total 0.4 mg/dL (0.2-1.0); CO2 27.3 mmol/L (21.0-32.0); CREATININE 1.4 mg/dL (0.55-1.02); Calcium 9.7 mg/dL (8.5-10.1); Chloride 105 mmol/L (98-107); Estimated GFR 36.87 (mL/min/1.73m2); Glucose 100 mg/dL (74-106); Potassium 3.9 mmol/L (3.5-5.1); Sodium 141 mmol/L (136-145); Total Protein 7.7 g/dL (6.4-8.2)
[2023-01-05 10:09] VITALS: BP 131/55; PULSE 62; RESP 17; TEMP 35.5; O2SAT 100
[2023-01-05] MEDS: IMMUNE GLOBULIN 20 GM/200 ML BTL IVPB (10:19)
[2023-01-05 10:40] VITALS: BP 122/73; PULSE 55; RESP 17; TEMP 35.5; O2SAT 100
[2023-01-05 10:55] VITALS: BP 117/62; PULSE 58; RESP 17; TEMP 36; O2SAT 100
[2023-01-05 11:25] VITALS: BP 135/76; PULSE 64; RESP 17; TEMP 36.1; O2SAT 100
[2023-01-05 11:54] VITALS: BP 134/62; PULSE 70; RESP 17; TEMP 35.8; O2SAT 100
[2023-01-06 09:35] LABS: IgG 687 mg/dL (610-1616)
== END 2023-01-19 23:59 | disposition home or self-care (01) ==
LOC: INF 01:38
PROVIDERS: Internal Medicine; PCP Family Medicine; Visit Provider Internal Medicine
DX: Z51.81 Encounter for therapeutic drug level monitoring (principal); D83.9 Common variable immunodeficiency, unspecified
CPT/HCPCS: 36415; 80053; 82784; 96360; 96361; 96365; 96366; 85025; J1040; J1561

== ENCOUNTER 2023-01-11 17:47 | Outpatient (REF) | payer MEDICARE, SELFPAY ==
[2023-01-11 18:26] LABS: Bilirubin Negative (Negative); Blood Moderate (Negative); Clarity Sl Cloudy (Clear); Glucose Negative (Negative); Ketones Negative (Negative); Leukocyte Esterase Moderate (Negative); Nitrite Negative (Negative); Specific Gravity >= 1.030 (1.005-1.025); Urobilinogen 0.2 mg/dL (Up to 0.2); pH 5.5 (5-8)
[2023-01-11 18:33] LABS: Bacteria Few HPF (Negative); C & S Indicated? Yes; Casts Negative LPF (Negative); Crystals Negative HPF (Negative); Epithelial Cells Few HPF (Negative); Mucus Negative (Negative); Other Cells Negative (Negative); RBC >50 HPF (0-2); WBC >50 HPF (0-5)
== END 2023-01-11 17:48 | disposition home or self-care (01) ==
LOC: NCHCN 17:47
PROVIDERS: PCP Family Medicine; Visit Provider Family Medicine
DX: R31.0 Gross hematuria (principal)
CPT/HCPCS: 87077; 81003; 81015; 87086; 87186

== ENCOUNTER 2023-01-14 01:16 | Outpatient (CLI) | payer MEDICARE, SELFPAY ==
--- NOTE | 2023-01-14 | DI.CT_ITS ---
Exam(s) CT ABDOMEN PELVIS WO/W EXAM: CT ABDOMEN PELVIS WO/W CLINICAL HISTORY: HEMATURIA,R31.0,H/O URETHELIAL CA,ACUTE PAIN, ? STONE TECHNIQUE: Imaging Protocol: Axial computed tomography images with coronal and sagittal reformatted images were created and reviewed CONTRAST MATERIAL: Intravenous: Omnipaque 350 Contrast volume:100 mL Oral: No CT CT ABDOMEN PELVIS WO from 06/10/2022 FINDINGS: ABDOMEN: Lung Bases: There are calcified granuloma in the lung bases. There is a stable 3 mm nodule in the la teral aspect of the right lower lobe. This is unchanged dating back to 2019. Liver: Normal density. No measurable mass. Portal, Superior Mesenteric, and Splenic Veins: Unremarkable. Gallbladder and Biliary Tract: Status post cholecystectomy. No biliary ductal dilatation. Pancreas: Normal density, no abnormal calcifications or inflammatory process. Spleen: Normal. Adrenals: No masses seen. Kidneys: The right kidney is again seen to be surgically absent. No radiodense stones or obstructive uropathy. No masses seen. Abdominal Aorta: Abdominal portion non-dilated. Atherosclerosis is present. Bowel: There is diverticulosis of the colon but no evidence of acute diverticulitis. There is no radha dence of bowel obstruction or bowel wall thickening. There is no evidence of appendicitis. Peritoneal Cavity: No ascites, collection or mesenteric inflammatory response. No free air. Lymph Nodes: Within normal limits. Bones: Within normal limits for the patient's age. There is an unchanged superior compression deform ity of the L2 vertebral body. The bones are osteopenic. Soft Tissues: Unremarkable. PELVIS: Bladder: There is diffuse thickening of the wall of the urinary bladder. Reproductive Organs: The patient is status post hysterectomy. There is again seen a right adnexal cy st. The cyst now measures 2.4 x 2.2 cm. This is unchanged compared to the examination from 2. Lymph Nodes: Within normal limits. Bones: Within normal limits for the patient's age. IMPRESSION: 1. Status post right nephrectomy. 2. No evidence of nephrolithiasis or hydronephrosis. 3. Diffuse thickening of the wall of the urinary bladder. Differential considerations include underd istention, infectious or inflammatory process, chronic bladder outlet obstruction or neurogenic bladd er. Neoplasm cannot be entirely excluded. Please correlate clinically. RADIATION DOSE DELIVERED: 2,030.49mGy.cm Total DLP 2,030.49mGy.cm Total DLP DATA REPOSITORY: All CT scans at this facility are submitted to the National Radiology Data Registry (NRDR) Dose Index Registry (DIR) with the [employer] (ACR). RADIATION OPTIMIZATION: All CT scans at this facility use at least one of these dose optimization te chniques: automated exposure control; mA and/or kV adjustment per patient size (includes targeted exa ms where dose is matched to clinical indication); or iterative reconstruction.
[2023-01-14] MEDS: Normal Saline - Diluent 50 ML VIAL IJ (08:31)
[2023-01-14] MEDS: Omnipaque 350 MG/ML 500 ML BTL-Imaging package IJ (08:31)
== END 2023-01-14 01:36 ==
LOC: DI 01:17
PROVIDERS: PCP Family Medicine; Visit Provider Family Medicine
DX: R31.0 Gross hematuria (principal); R10.9 Unspecified abdominal pain; R91.1 Solitary pulmonary nodule; Z90.49 Acquired absence of other specified parts of digestive tract; Z90.5 Acquired absence of kidney; N32.89 Other specified disorders of bladder; Z85.54 Personal history of malignant neoplasm of ureter
CPT/HCPCS: 74178

== ENCOUNTER 2023-01-29 14:16 | Outpatient (REF) | payer MEDICARE, SELFPAY | END 2023-01-29 14:17 | disposition home or self-care (01) | LOC: LBN 14:16 | PROVIDERS: PCP Family Medicine; Visit Provider Nurse Practitioner Family | DX: R31.0 Gross hematuria (principal); R30.0 Dysuria | CPT/HCPCS: 87086 ==

== ENCOUNTER 2023-02-02 01:59 | Outpatient (RCR) | payer MEDICARE, SELFPAY ==
[2023-01-20 00:04] VITALS: BP 134/62; PULSE 70; RESP 17; TEMP 35.8
[2023-02-02] MEDS: Normal Saline 1,000 ML 500 ML IV (09:10)
[2023-02-02] MEDS: Normal Saline Flush 10 ML SYR IVP (09:14)
[2023-02-02 10:25] VITALS: BP 136/80; PULSE 68; RESP 17; TEMP 36.2; O2SAT 100
[2023-02-02] MEDS: IMMUNE GLOBULIN 20 GM/200 ML BTL IVPB (10:25)
[2023-02-02 10:37] VITALS: BP 121/75; PULSE 62; RESP 18; TEMP 36.4; O2SAT 99
[2023-02-02 10:52] VITALS: BP 117/71; PULSE 61; TEMP 36.5; O2SAT 100
[2023-02-02 11:23] VITALS: BP 110/67; PULSE 64; TEMP 36.5; O2SAT 100
[2023-02-02 11:50] VITALS: BP 122/74; PULSE 63; RESP 17; TEMP 36.5; O2SAT 100
== END 2023-02-19 23:59 | disposition home or self-care (01) ==
LOC: INF 01:59
PROVIDERS: PCP Family Medicine; Visit Provider Internal Medicine
DX: D83.9 Common variable immunodeficiency, unspecified (principal)
CPT/HCPCS: 96360; 96361; 96365; 96366; J1561

== ENCOUNTER 2023-02-03 01:41 | Outpatient (CLI) | payer MEDICARE, SELFPAY ==
--- NOTE | 2023-02-03 10:51 | DI.US_ITS ---
APPROVED REPORT EXAM: Comprehensive 2D, Doppler, and color-flow Echocardiogram Patient Location: Out-Patient Dairy Grazer: Reyna Inman RDCS (AE) Indications: REYNA Other Information Study Quality: Fair. Technically limited study due to body habitus. Conclusion Technically difficult and suboptimal study Normal left ventricular wall thickness and chamber size. Estimated ejection fraction is 60%. Wall m otion is normal Right ventricle and right atrium are not well visualized Left atrial size is normal Aortic valve is trileaflet and sclerotic with trace regurgitation Mildly thickened mitral leaflets, mild mitral annular calcification, mild regurgitation Tricuspid valve is not well visualized. There is trace tricuspid regurgitation Estimated right ventricular systolic pressure is 31 mmHg Wall motion Left Ventricle The left ventricle is normal size. The left ventricular systolic function is normal. The left ventric ular ejection fraction is within the normal range. There is normal left ventricular wall thickness. T here is normal LV segmental wall motion. There is no ventricular septal defect visualized. LVEF is 60 %. Right Ventricle Right ventricle is not well visualized. Right ventricular systolic function could not be assessed. Th e RVSP is 30.9 mmHg. Atria The left atrium size is normal. Right atrium is not well visualized. The interatrial septum is intact with no evidence for an atrial septal defect. Aortic Valve The Aortic valve is sclerotic. Valve is trileaflet There is no aortic valvular stenosis. Trace aortic regurgitation. Mitral Valve Mildly thickened mitral leaflets Mild mitral annular calcification No evidence of mitral valve stenos is. Mild mitral regurgitation. Tricuspid Valve The tricuspid valve is not well visualized There is no tricuspid valve stenosis. Trace tricuspid regu rgitation. Pulmonic Valve The pulmonary valve is normal in structure. There is no pulmonic valvular stenosis. Trace to mild pul jerome regurgitation. Great Vessels The aortic root is normal in size. Ascending aorta is not well visualized. Aortic arch is not well vi sualized. IVC is normal in size and collapses >50% with inspiration. Pericardium There is no pericardial effusion. 2D Dimensions IVSD d PLAX 0.84 cm F: 0.6-1.0 LV Vol A2C d MOD 78.9 mL LVPW d PLAX 0.81 cm F: 0.6 - 1.0 LV Vol A4C d MOD 74.0 mL LVID d PLAX 3.78 cm F: 3.8 - 5.2 LA vol/ BSA A2C s A-L 34.2 mL/m2 LVDs 2.65 cm F: 2.2 - 3.5 LA vol/ BSA A4C s A-L 22.8 mL/m2 Ao Root d 2.97 cm F: 2.7 - 3.3 LA Vol/ BSA Biplane s A-L 31.0 mL/m2 LV EF Teichholz 56.6 % LA Area A4C s MOD 13.98 cm2 LVEF (Razo's) 58.88 % F: 54 - 74 LA Area A2C s MOD 19.05 cm2 LV Volume 62.06 mL F: 46 - 106 LV EF A4C MOD 57.7 % LV Volume Index 37.84 mL/m2 F: 29 - 61 LV EF A2C MOD 59.3 % LV Vol Biplane MOD 77.1 mL LV EF Biplane MOD 58.9 % FS 29.10 % SV 45.38 mL SV Index 27.70 mL/m2 LV Diastology MV E' medial 0.083 (>0.07 m/s) E/A Ratio 0.6 LV E/e MED 7.00 (<14) MV E Vmax 0.58 (0.4-1.3 m/s) MV E' lateral 0.087 (>0.1 m/s) MV A Vmax 1.00 (0.4-1.3 m/s) LV E/e LAT 6.70 (<14) MV E/A Ratio 0.58 MV E/E' medial 7.02 MV E/E' lateral 6.70 Aortic Valve LVOT Area 3.76 cm2 AoV Area Vmax 1.69 cm2 LVOT Vmax 0.77 m/s AoV Area/ BSA (Vmax) 1.03 cm2/m2 LVOT Mean Michael. 0.51 m/s STEFANY Mean Michael. 1.52 cm2 LVOT Peak Grad 2.4 mmHg STEFANY Mean Michael. Index 0.93 cm2/m2 LVOT Mean Grad 1.2 mmHg LVOT VTI 0.149 m LVOT Diam s 2.15 cm AoV Vmax 1.72 m/s Velocity Ratio 0.45 AoV Mean Michael. 1.26 m/s AoV Peak Grad 11.8 mmHg LVOT SV 56.24 mL AoV Mean Grad 7.0 mmHg AoV VTI 0.324 m AoV Area VTI 1.74 cm2 AoV Area/ BSA (VTI) 1.06 cm/m2 Mitral Valve MV DT 314 (160-240 msec) MV PHT 91 msec MV Area PHT 2.42 cm2 MV VTI 0.256 m MV Area VTI 2.19 (4.0-6.0 cm2) Pulmonary Valve PV Vmax 0.87 (0.5-1.5 m/s) RVOT Peak Gr. 2.32 mmHg PV Peak Grad 3.0 mmHg RVOT Mean Gr. 1.25 mmHg PV Mean Grad 1.7 mmHg RVOT VTI 0.137 m PV VTI 0.149 m RVOT Vmax 0.76 m/s Tricuspid Valve TR Peak Grad 27.8 mmHg TR Vmax 2.64 m/s RA Pressure 3.00 mmHg RVSP (TR) 30.9 mmHg
== END 2023-02-03 02:01 ==
LOC: DI 01:41
PROVIDERS: PCP Family Medicine; Visit Provider Family Medicine
DX: R06.09 Other forms of dyspnea (principal)
CPT/HCPCS: 93306

== ENCOUNTER 2023-02-09 14:23 | Outpatient (REF) | payer MEDICARE, SELFPAY ==
[2023-02-09 17:32] LABS: Anion Gap 8.1 mmol/L (3-11); BUN 31 mg/dL (7-18); CO2 23.9 mmol/L (21.0-32.0); CREATININE 1.3 mg/dL (0.55-1.02); Calcium 9.5 mg/dL (8.5-10.1); Chloride 106 mmol/L (98-107); Glucose 94 mg/dL (74-106); Potassium 4.9 mmol/L (3.5-5.1); Sodium 138 mmol/L (136-145)
== END 2023-02-09 14:24 | disposition home or self-care (01) ==
LOC: NCHCN 14:23
PROVIDERS: PCP Family Medicine; Visit Provider Family Medicine
DX: N18.30 Chronic kidney disease, stage 3 unspecified (principal)
CPT/HCPCS: 80048

== ENCOUNTER → 2023-03-01 11:52 | Outpatient (BNVA) | payer MEDICARE, SELFPAY | PROVIDERS: PCP Family Medicine; Visit Provider Urology | DX: Z08 Encounter for follow-up examination after completed treatment for malignant neoplasm (principal); Z85.528 Personal history of other malignant neoplasm of kidney | CPT/HCPCS: 52000; 81003 ==

== ENCOUNTER 2023-03-01 13:09 | Outpatient (REF) | payer MEDICARE, SELFPAY ==
--- NOTE | 2023-03-01 12:20 | PAPNONF_PTH ---
PATIENT: Moira Copeland LOC: [facility] U#:[id number] AGE/SX: 88/F ROOM: RE03/01/[address]: Reynaldo Hackett MD : 1935 BED: DIS: 03/01/2023 SPEC #: [id number] RECD: 03/01/23 14:58 STATUS: THIERNO REHoward #: [id number] JORGE: 03/01/23 12:[address]: Reynaldo Hackett DEPT: [facility] Cytology RECD BY: Marta Lowe ENTERED: 03/01/23 14:59 SP TYPE: CHRIS GUEVARA DR: Jarrod Becerra Tissues: 1 - BODY FLUID CYTO(SPUTUM/URINE)[facility] Procedures: BODY FLUID CYTO(URINE/SPUTUM) Comments: [id number] (TV = 70 ml, 30 ml CYTOLYT ADDED) (REFRIGERATED)
== END 2023-03-01 13:10 | disposition home or self-care (01) ==
LOC: LBN 13:09
PROVIDERS: PCP Family Medicine; Visit Provider Urology
DX: C68.9 Malignant neoplasm of urinary organ, unspecified (principal)
CPT/HCPCS: 88104

== ENCOUNTER 2023-03-03 02:45 | Outpatient (RCR) | payer MEDICARE, SELFPAY ==
[2023-02-20 00:04] VITALS: BP 122/74; PULSE 63; RESP 17; TEMP 36.5
[2023-03-03] MEDS: Normal Saline 1,000 ML 500 ML IV (09:17)
[2023-03-03] MEDS: Normal Saline Flush 10 ML SYR IVP (09:17)
[2023-03-03 10:22] VITALS: BP 125/75; PULSE 61; RESP 15; TEMP 36.5; O2SAT 100
[2023-03-03] MEDS: IMMUNE GLOBULIN 20 GM/200 ML BTL IVPB (10:25)
[2023-03-03 10:40] VITALS: BP 113/74; PULSE 63; RESP 16; TEMP 35.8; O2SAT 97
[2023-03-03 11:10] VITALS: BP 119/74; PULSE 60; RESP 16; TEMP 35.5; O2SAT 100
[2023-03-03 11:40] VITALS: BP 118/76; PULSE 66; RESP 16; TEMP 36.5; O2SAT 100
[2023-03-03 12:05] VITALS: BP 132/77; PULSE 68; RESP 16; TEMP 36.6; O2SAT 100
== END 2023-03-21 23:59 | disposition home or self-care (01) ==
LOC: INF 02:45
PROVIDERS: PCP Family Medicine; Visit Provider Internal Medicine
DX: D83.9 Common variable immunodeficiency, unspecified (principal)
CPT/HCPCS: 96360; 96365; 96366; 96375; J1561

== ENCOUNTER 2023-03-11 13:13 | Outpatient (REF) | payer MEDICARE, SELFPAY ==
[2023-03-11 16:16] LABS: Iron 74 ug/dL (50-170); Total Iron Binding Capacity 401 ug/dL (250-450); Transferrin Sat 18 % (15-50)
[2023-03-11 17:33] LABS: Calculated LDL 98 mg/dL (<100); Cholesterol 235 mg/dL (<200); Ferritin 44 ng/mL (8-252); HDL Cholesterol 119 mg/dL (40-60); Magnesium 2.6 mg/dL (1.8-2.4); Triglyceride 92 mg/dL (<150)
[2023-03-16 09:27] LABS: Methylmalonic Acid 0.38 nmol/mL (<=0.40)
== END 2023-03-11 13:14 | disposition home or self-care (01) ==
LOC: NCHCN 13:13
PROVIDERS: PCP Family Medicine; Visit Provider Family Medicine
DX: D64.9 Anemia, unspecified (principal); E78.5 Hyperlipidemia, unspecified; E61.2 Magnesium deficiency
CPT/HCPCS: 80061; 80186; 82728; 83540; 83550; 83735

== ENCOUNTER 2023-03-31 01:53 | Outpatient (RCR) | payer MEDICARE, SELFPAY ==
[2023-03-22 00:02] VITALS: BP 132/77; PULSE 68; RESP 16; TEMP 36.6
[2023-03-31] MEDS: Normal Saline 1,000 ML 500 ML IV (08:59)
[2023-03-31] MEDS: Normal Saline Flush 10 ML SYR IVP (09:00)
[2023-03-31 10:00] VITALS: BP 127/77; PULSE 63; RESP 17; TEMP 36; O2SAT 100
[2023-03-31] MEDS: IMMUNE GLOBULIN 20 GM/200 ML BTL IVPB (10:05)
[2023-03-31 10:20] VITALS: BP 122/59; PULSE 57; RESP 17; TEMP 35.7; O2SAT 99
[2023-03-31 10:35] VITALS: BP 122/76; PULSE 60; RESP 17; TEMP 35.3; O2SAT 100
[2023-03-31 11:05] VITALS: BP 131/82; PULSE 56; RESP 17; TEMP 35.8; O2SAT 99
[2023-03-31 11:35] VITALS: BP 125/80; PULSE 61; RESP 17; TEMP 35.9; O2SAT 100
== END 2023-04-21 23:59 | disposition home or self-care (01) ==
LOC: INF 01:53
PROVIDERS: PCP Family Medicine; Visit Provider Internal Medicine
DX: D83.9 Common variable immunodeficiency, unspecified (principal)
CPT/HCPCS: 96360; 96365; 96366; J1561

== ENCOUNTER 2023-04-28 03:40 | Outpatient (RCR) | payer MEDICARE, SELFPAY ==
[2023-04-22 00:03] VITALS: BP 125/80; PULSE 61; RESP 17; TEMP 35.9
[2023-04-28 09:05] VITALS: BP 138/76; PULSE 73; RESP 17; TEMP 36.2; O2SAT 98
[2023-04-28] MEDS: Normal Saline 1,000 ML 500 ML IV (09:19)
[2023-04-28] MEDS: Normal Saline Flush 10 ML SYR IVP (09:19)
[2023-04-28] MEDS: IMMUNE GLOBULIN 20 GM/200 ML BTL IVPB (10:25)
[2023-04-28 10:40] VITALS: BP 126/77; PULSE 56; RESP 17; TEMP 35.5; O2SAT 94
[2023-04-28 10:55] VITALS: BP 112/71; PULSE 56; RESP 17; TEMP 35.6; O2SAT 100
[2023-04-28 11:30] VITALS: BP 112/70; PULSE 59; RESP 16; TEMP 36.1; O2SAT 100
[2023-04-28 12:01] VITALS: BP 118/71; PULSE 62; RESP 16; TEMP 36; O2SAT 95
== END 2023-05-21 23:59 | disposition home or self-care (01) ==
LOC: INF 03:40
PROVIDERS: PCP Family Medicine; Visit Provider Internal Medicine
DX: D83.9 Common variable immunodeficiency, unspecified (principal)
CPT/HCPCS: 96360; 96365; 96366; J1561

== ENCOUNTER 2023-05-02 10:49 | Emergency (ER) | payer MEDICARE, SELFPAY ==
[2023-05-02 10:59] VITALS: BP 175/73; PULSE 91; RESP 20; TEMP 36.4; O2SAT 99
--- NOTE | 2023-05-02 11:17 | ED.GENADUL_ITS ---
Discharge Plan Disposition Patient Disposition: Home Discharge Details Clinical Impression: Acute constipation Primary Care Provider: Jarrod Becerra ED Provider: Dc Whitehead Home Meds and New Rx's Prescriptions: No Action atorvastatin [Lipitor] 20 mg tablet 20 mg PO DAILY ascorbic acid (vitamin C) 500 mg capsule, extended release 500 mg PO DAILY acetaminophen [Acetaminophen Extra Strength] 500 mg Tablet 1,000 mg PO PRN PRN magnesium oxide 400 mg (241.3 mg magnesium) Tablet 400 mg PO DAILY Qty: 7 0RF Discharge Instructions Instructions: Constipation (ED) Additional Instructions: It is very poor that you hydrate yourself well. You may continue taking the stool softener. Please regular doctor this week. Medical Decision Making 88-year-old lady presented to the emergency room with acute constipation. Her CAT scan was concerning for some rectal inflammatory changes. She was given 2 enemas with great result in the emergency department She is due for colonoscopy. she will reach out to her primary care doctor for referral. HPI General Date/Time Provider Initiated Documentation: 05/02/23 10:51 . HPI Narrative: 88-year-old lady presented to the emergency room for evaluation constipation x3 days. She states she has been unable to have a bowel movement for 3 days. Nothing is changed in her ADLs other than mild decrease in appetite. No weight change. No fevers no chills no nausea no vomiting. She states she is barely passing any gas. She is also concerned because seen that she is not urinating as much as she should and she has had some mild incontinence. She is concerned because she only has 1 kidney. She had a nephrectomy several years ago. No fevers no chills. No back pain. Related Data Home Medications Medication Instructions Recorded Confirmed acetaminophen 500 mg tablet 1,000 mg PO PRN PRN 01/26/19 05/02/23 (Acetaminophen Extra Strength) magnesium oxide 400 mg (241.3 mg 400 mg PO DAILY #7 tabs 01/27/19 05/02/23 magnesium) tablet ascorbic acid (vitamin C) 500 mg 500 mg PO DAILY 03/20/19 05/02/23 capsule,extended release atorvastatin 20 mg tablet (Lipitor) 20 mg PO DAILY 11/10/21 05/02/23 Previous Rx's Medication Instructions Recorded magnesium oxide 400 mg (241.3 mg 400 mg PO DAILY #7 tabs 01/27/19 magnesium) tablet Allergies Allergy/AdvReac Type Severity Reaction Status Date / Time ropinirole Allergy Severe blacked out Verified 05/02/23 12:41 mometasone furoate Allergy Intermediate Swelling/Ed Verified 05/02/23 12:41 [From Nasonex] cinda gluten AdvReac Intermediate Abdominal Verified 05/02/23 12:41 pain, diarrhea General Stated Complaint: Abd Prob JONA: 3 Review of Systems Narrative: 10 point review of system is negative unless otherwise stipulated in the HPI PFSH All Active Problems (Updated 05/02/23 @ 13:47 by Dc Whitehead MD) Acute constipation (Acute) Localized osteoarthritis of right knee (Acute) Trochanteric bursitis, right hip (Acute) Pes anserinus bursitis of right knee (Acute) Chest pain (Acute) Rotator cuff insufficiency of left shoulder (Acute) Left shoulder pain (Acute) Urothelial carcinoma (Acute) Iliotibial band syndrome affecting right lower leg (Acute) knee Advance directive discussed with patient (Acute) DVT prophylaxis (Acute) Pancreatitis (Chronic) Osteoarthritis (Chronic) POLINA (obstructive sleep apnea) (Chronic) RLS (restless legs syndrome) (Acute) History of cholecystectomy (Chronic) IBS (irritable bowel syndrome) (Chronic) CVID (common variable immunodeficiency) (Acute) Superficial foreign body, left knee, sequela (Acute) Removal of foreign body DOS: 11/16/18 Dr. Anaya Painful total knee replacement, left (Acute) Transient global amnesia (Acute 12/10/14) Pes anserinus bursitis of left knee (Acute 02/16/18) Patellar tendinitis, left knee (Acute 01/19/18) Medical History Hyperlipidemia Osteoarthritis Other chronic pain Left shoulder Overactive bladder Surgical History Abdominal hysterectomy Appendectomy Arthroscopy, Shoulder Cholecystectomy Colonoscopy - IV Sedation Extraction of cataract Bilateral History of nephroureterectomy Open Carpal Tunnel release Tonsillectomy Family History Mother No problems noted. Father No problems noted. Social History Smoking/Tobacco Use Status: Former Tobacco Use Smoking risk assessment performed?: Yes Alcohol Intake: former Drug use: Never Substance use type: does not use Current gender identity: female Do you feel safe at home: Yes Do you feel safe in your relationship?: Yes Additional Social history: . 4 children. No current alcohol use, and remote history of tobacco use. Exam Narrative Exam Narrative: General: A,A Ox3, Calm, no apparent distress, well developed, pleasant and cooperative Head Size/Shape: normocephalic, atraumatic Eyes Pupils: PERRLA Extraocular Mobility: intact and symmetrical Conjunctiva: non-injected, anicteric, no discharge Ears, Nose, Throat Nares: patent bilaterally Oral Cavity: moist Neck: no masses, no crepitus Lymph Nodes: no cervical lymphadenopathy Respiratory Respiratory Effort: no dyspnea Auscultation: clear to auscultation bilaterally, normal breath sounds, no wheezing, no rales/crackles Cardiovascular Heart Auscultation: regular rate and rhythm, normal S1, normal S2, no murmurs, no rubs, no gallops, Pulse Quality: +2 equal bilaterally, location(s) Abdomen Inspection and Palpation: soft, right lower quadrant discomfort non-distended, no hepatosplenomegaly Musculoskeletal System Joints, Bones, and Muscles: no deformities Extremities: warm and well-perfused, no cyanosis, capillary refill <2 seconds Skin Skin Inspection: no rash, no lesions, no bruising Neurological Motor: normal tone, normal strength, moving all extremities equally Psychiatric: good insight, good judgement, normal mood and affect Course Vital Signs Vital signs: Vital Signs Temperature 36.4 C L 05/02/23 10:59 Pulse 91 H 05/02/23 10:59 Respiratory Rate 20 05/02/23 10:59 Blood Pressure 175/73 H 05/02/23 10:59 Pulse Oximetry 99 05/02/23 10:59 Temperature 36.4 C L 05/02/23 10:59 Temperature Source Oral 05/02/23 10:59 Pulse 91 H 05/02/23 10:59 Respiratory Rate 20 05/02/23 10:59 Respiratory Effort Normal, Non-Labored 05/02/23 11:16 Blood Pressure 175/73 H 05/02/23 10:59 Blood Pressure Position Sitting 05/02/23 10:59 Pulse Oximetry 99 05/02/23 10:59 Oxygen Delivery Method Room Air 05/02/23 10:59 Oxygen Flow Rate 0 05/02/23 10:59 Pain Level 5 05/02/23 10:59
[2023-05-02 11:30] LABS: Abs Immature Grans 0.01 10^3/uL (0.0-0.06); Absolute Basophil Count 0.07 10^3/uL (0.0-0.2); Absolute Eosinophil Count 0.09 10^3/uL (0.0-0.7); Absolute Lymphocyte Count 1.45 10^3/uL (1.2-3.4); Absolute Monocyte Count 0.51 10^3/uL (0.1-0.8); Absolute Neutrophil Count 3.89 10^3/uL (1.2-6.7); Basophils % 1.2; Eosinophils % 1.5; HGB 13.1 g/dL (11.2-15.7); Immature Grans % 0.2; Lymphocytes % 24.1; MCH 29.4 pg (27.0-33.0); MCV 92 fL (80-95); MPV 10.2 fL (8.0-11.0); Monocytes % 8.5; Neutrophils % 64.5; Platelet Count 322 10^3/uL (130-400); RBC 4.46 10^6/uL (3.93-5.22); RDW 15.4 % (11.7-14.6); WBC 6.02 10^3/uL (4.4-10.8)
[2023-05-02] MEDS: Normal Saline 1,000 ML 125 ML IV (11:40)
[2023-05-02 11:42] LABS: Bilirubin Small (Negative); Blood Negative (Negative); Clarity Clear (Clear); Glucose Negative (Negative); Ketones Trace mg/dL (Negative); Leukocyte Esterase Negative (Negative); Nitrite Negative (Negative); Urobilinogen 0.2 mg/dL (Up to 0.2)
[2023-05-02 11:44] LABS: ALT 31 U/L (14-59); AST 34 U/L (15-37); Albumin 3.9 g/dL (3.4-5.0); Alkaline Phosphatase 74 U/L (46-116); Anion Gap 10.2 mmol/L (3-11); BUN 29 mg/dL (7-18); Bilirubin, Direct 0.1 mg/dL (0.0-0.2); Bilirubin, Total 0.4 mg/dL (0.2-1.0); CO2 25.8 mmol/L (21.0-32.0); CREATININE 1.4 mg/dL (0.55-1.02); Calcium 9.4 mg/dL (8.5-10.1); Chloride 104 mmol/L (98-107); Estimated GFR 36.64 (mL/min/1.73m2); Glucose 105 mg/dL (74-106); Lipase 128 U/L (16-77); Magnesium 2.3 mg/dL (1.8-2.4); Sodium 140 mmol/L (136-145); Total Protein 8.1 g/dL (6.4-8.2)
--- NOTE | 2023-05-02 11:45 | DI.CT_ITS ---
Exam(s) CT ABDOMEN PELVIS WO EXAM: CT ABDOMEN PELVIS WO CLINICAL HISTORY: rlq pain. TECHNIQUE: Imaging Protocol: Axial computed tomography images with coronal and sagittal reformatted images were created and reviewed. COMPARISON: CT CT ABDOMEN PELVIS WO/W from 01/14/2023 FINDINGS: ABDOMEN: Lung Bases: Calcified granuloma are seen in the lung bases. There is a stable 4 mm nodule in the per iphery of the right lower lobe. Liver: Normal density. No measurable mass. Gallbladder and biliary tract: Status post cholecystectomy. No significant biliary ductal dilatation . Pancreas: Normal density, no abnormal calcifications or inflammatory process. Spleen: Normal. Kidneys: Status post right nephrectomy. The left kidney is unremarkable.No radiodense stones or obst ructive uropathy. No masses seen. Adrenal glands: No mass is seen. Lymph nodes: Within normal limits. Abdominal Aorta: Abdominal portion non-dilated. Atherosclerosis. PELVIS: Bladder:Symmetric distention, no gross wall thickening. Bowel: There is diverticulosis of the colon, but no evidence of acute diverticulitis. There is no ev idence of bowel obstruction. There is a large amount of stool seen in the rectosigmoid colon with di stention of the rectum. There is thickening of the wall of the rectum with infiltration of the perir ectal fat. Appendix is unremarkable. Peritoneal cavity: No ascites, collection or mesenteric inflammatory response. No free air. Reproductive organs: Status post hysterectomy. There is a stable 2.8 cm right adnexal cyst. Bones: Within normal limits. There is a stable superior compression deformity of L2. Soft Tissues: Within normal limits. IMPRESSION: 1. Findings consistent with stercoral colitis. 2. Constipation. RADIATION DOSE DELIVERED: 731.3mGy.cm Total DLP DATA REPOSITORY: All CT scans at this facility are submitted to the National Radiology Data Registry (NRDR) Dose Index Registry (DIR) with the [employer] (A[employer]). RADIATION OPTIMIZATION: All CT scans at this facility use at least one of these dose optimization te chniques: automated exposure control; mA and/or kV adjustment per patient size (includes targeted exa ms where dose is matched to clinical indication); or iterative reconstruction.
[2023-05-02 11:50] LABS: Bacteria Few HPF (Negative); C & S Indicated? Yes; Casts 3-5 Hyaline LPF (Negative); Crystals Negative HPF (Negative); Epithelial Cells Few HPF (Negative); Mucus Moderate (Negative); RBC 0-2 HPF (0-2); WBC 0-2 HPF (0-5)
--- NOTE | 2023-05-02 12:37 | DI.VRAD_ITS ---
Addendum created by Catrachita Headley MD on 05/02/2023 12:37:32 PM EDT: THIS REPORT CONTAINS FINDINGS THAT MAY BE CRITICAL TO PATIENT CARE. The findings were verbally communicated via telephone conference with CLARISSA MURILLO at 12:37 PM EDT on 05/02/2023. The findings were acknowledged and understood. Initial report created on 05/02/2023 12:37:15 PM EDT: PROCEDURE INFORMATION: Exam: CT Abdomen And Pelvis Without Contrast Exam date and time: 05/02/2023 12:15 PM Age: 88 years old Clinical indication: Other: Rlq pain TECHNIQUE: Imaging protocol: Computed tomography of the abdomen and pelvis without contrast. COMPARISON: CT ABDOMEN PELVIS WO/W 14/01/2023 08:11 FINDINGS: Lungs: Calcified lung granulomas. Pleural spaces: Stable 0.3 cm right lower lobe lateral pleural based nodule compared with prior study. Coronary arteries: Calcified coronary arteries. Diaphragm: Small hiatal hernia. Liver: Normal. No mass. Gallbladder and bile ducts: Cholecystectomy. Pancreas: Normal. No ductal dilation. Spleen: Normal. No splenomegaly. Adrenal glands: Normal. No mass. Kidneys and ureters: Surgically absent right kidney. The left kidney is unremarkable. Stomach and bowel: Large solid stool volume. Large solid stool volume. Circumferentially thickening of the rectum with perirectal fat and presacral fat infiltration seen with stercoral colitis. The rectum and distended to 8 cm. Appendix: No evidence of appendicitis. Intraperitoneal space: Unremarkable. No free air. No significant fluid collection. Vasculature: Atherosclerotic disease. Lymph nodes: Unremarkable. No enlarged lymph nodes. Urinary bladder: Contracted urinary bladder. Reproductive: Hysterectomy. Bones/joints: Multilevel degenerative changes of the spine. Decreased bone mineralization. Soft tissues: Unremarkable. IMPRESSION: 1. Stercoral colitis. 2. Constipation. 3. Additional findings as discussed above. THIS REPORT CONTAINS FINDINGS THAT MAY BE CRITICAL TO PATIENT CARE. The findings were verbally communicated via telephone conference with CLARISSA MURILLO at 12:37 PM EDT on 05/02/2023. The findings were acknowledged and understood. Dictated and Authenticated by: Catrachita Headley MD. Ordering:DOLLY Irwin MD
[2023-05-02 13:53] VITALS: BP 152/77; PULSE 74; RESP 16; O2SAT 99
--- NOTE | 2023-05-04 09:43 | NUR.NOTE ---
Nursing Note:in chart to look up antibiotics
== END 2023-05-02 14:04 | disposition home or self-care (01) ==
PROVIDERS: Emergency Provider Emergency Medicine; PCP Family Medicine
DX: K59.00 Constipation, unspecified (principal)
CPT/HCPCS: 36415; 80053; 80076; 83690; 96360; 96361; 99284; 74176; 81003; 81015; 83735; 85025; 87086

== ENCOUNTER 2023-05-26 02:19 | Outpatient (RCR) | payer MEDICARE, SELFPAY ==
[2023-05-22 00:13] VITALS: BP 118/71; PULSE 62; RESP 16; TEMP 36
[2023-05-26] MEDS: Normal Saline Flush 10 ML SYR IVP (09:09)
[2023-05-26] MEDS: Normal Saline 500 ML IV (09:09)
[2023-05-26] MEDS: IMMUNE GLOBULIN 20 GM/200 ML BTL IVPB (10:13)
[2023-05-26 10:18] VITALS: BP 124/63; PULSE 53; RESP 17; TEMP 35.1; O2SAT 100
[2023-05-26 10:35] VITALS: BP 135/74; PULSE 56; RESP 17; TEMP 36.2; O2SAT 99
[2023-05-26 10:50] VITALS: BP 132/68; PULSE 51; RESP 17; TEMP 36.3; O2SAT 100
[2023-05-26 11:20] VITALS: BP 122/59; PULSE 53; RESP 17; TEMP 36; O2SAT 100
[2023-05-26 11:50] VITALS: BP 133/67; PULSE 56; RESP 17; TEMP 36; O2SAT 100
== END 2023-06-21 23:59 | disposition home or self-care (01) ==
LOC: INF 02:19
PROVIDERS: PCP Family Medicine; Visit Provider Internal Medicine
DX: D83.9 Common variable immunodeficiency, unspecified (principal)
CPT/HCPCS: 96360; 96365; 96366; J1561

== ENCOUNTER 2023-06-08 11:52 | Outpatient (REF) | payer MEDICARE, SELFPAY ==
[2023-06-08 16:31] LABS: ALT 32 U/L (14-59); AST 33 U/L (15-37); Albumin 4.1 g/dL (3.4-5.0); Alkaline Phosphatase 75 U/L (46-116); Anion Gap 10.5 mmol/L (3-11); BUN 30 mg/dL (7-18); Bilirubin, Total 0.5 mg/dL (0.2-1.0); CO2 26.5 mmol/L (21.0-32.0); CREATININE 1.4 mg/dL (0.55-1.02); Calcium 9.7 mg/dL (8.5-10.1); Chloride 104 mmol/L (98-107); Estimated GFR 36.64 (mL/min/1.73m2); Glucose 90 mg/dL (74-106); Lipase 173 U/L (16-77); Potassium 4.7 mmol/L (3.5-5.1); Sodium 141 mmol/L (136-145); Total Protein 7.8 g/dL (6.4-8.2)
[2023-06-08 16:58] LABS: Bilirubin Negative (Negative); Blood Negative (Negative); Clarity Clear (Clear); Glucose Negative (Negative); Ketones Negative (Negative); Leukocyte Esterase Negative (Negative); Nitrite Negative (Negative); Specific Gravity <= 1.005 (1.005-1.025); Urobilinogen 0.2 mg/dL (Up to 0.2)
== END 2023-06-08 11:53 | disposition home or self-care (01) ==
LOC: NCHCN 11:52
PROVIDERS: PCP Family Medicine; Visit Provider Family Medicine
DX: N18.30 Chronic kidney disease, stage 3 unspecified (principal); R10.9 Unspecified abdominal pain
CPT/HCPCS: 80053; 83690; 81003

== ENCOUNTER 2023-07-21 01:32 | Outpatient (RCR) | payer MEDICARE, SELFPAY ==
[2023-06-22 00:13] VITALS: BP 133/67; PULSE 56; RESP 17; TEMP 36
[2023-06-23] MEDS: Normal Saline Flush 10 ML SYR IVP (09:14)
[2023-06-23] MEDS: Normal Saline 500 ML IV (09:14)
[2023-06-23] MEDS: IMMUNE GLOBULIN 20 GM/200 ML BTL IVPB (10:19)
[2023-06-23 10:25] VITALS: BP 132/52; PULSE 61; RESP 17; TEMP 35.9; O2SAT 100
[2023-06-23 10:42] VITALS: BP 120/75; PULSE 54; RESP 16; TEMP 36.1; O2SAT 100
[2023-06-23 10:55] VITALS: BP 115/72; PULSE 54; RESP 17; TEMP 35.9; O2SAT 100
[2023-06-23 11:25] VITALS: BP 116/68; PULSE 59; RESP 16; TEMP 36; O2SAT 100
[2023-06-23 11:55] VITALS: BP 114/72; PULSE 58; RESP 16; TEMP 36; O2SAT 99
[2023-07-21] MEDS: Normal Saline 500 ML IV (09:12)
[2023-07-21] MEDS: Normal Saline Flush 10 ML SYR IVP (09:12)
[2023-07-21] MEDS: IMMUNE GLOBULIN 20 GM/200 ML BTL IVPB (10:24)
[2023-07-21 10:29] VITALS: BP 119/67; PULSE 56; RESP 17; TEMP 35.6; O2SAT 100
[2023-07-21 10:45] VITALS: BP 108/68; PULSE 56; RESP 17; TEMP 35; O2SAT 100
[2023-07-21 11:00] VITALS: BP 109/66; PULSE 57; RESP 17; TEMP 35.2; O2SAT 99
[2023-07-21 11:29] VITALS: BP 114/70; PULSE 59; RESP 17; TEMP 35.6; O2SAT 99
[2023-07-21 11:59] VITALS: BP 132/68; PULSE 60; RESP 17; TEMP 35.6; O2SAT 99
== END 2023-07-22 23:59 | disposition home or self-care (01) ==
LOC: INF 01:32
PROVIDERS: PCP Family Medicine; Visit Provider Internal Medicine
DX: D83.9 Common variable immunodeficiency, unspecified (principal)
CPT/HCPCS: 96360; 96365; 96366; J1561

== ENCOUNTER 2023-08-18 02:32 | Outpatient (RCR) | payer MEDICARE, SELFPAY ==
[2023-07-23 00:19] VITALS: BP 132/68; PULSE 60; RESP 17; TEMP 35.6
[2023-08-18] MEDS: Normal Saline Flush 10 ML SYR IVP (09:13)
[2023-08-18] MEDS: Normal Saline 500 ML IV (09:15)
[2023-08-18 10:25] VITALS: BP 121/71; PULSE 56; RESP 17; TEMP 34.9; O2SAT 99
[2023-08-18] MEDS: IMMUNE GLOBULIN 20 GM/200 ML BTL IVPB (10:25)
[2023-08-18 10:40] VITALS: BP 115/71; PULSE 58; RESP 17; TEMP 35; O2SAT 100
[2023-08-18 10:55] VITALS: BP 116/74; PULSE 61; RESP 16; TEMP 35.8; O2SAT 100
[2023-08-18 11:25] VITALS: BP 132/76; PULSE 58; RESP 16; TEMP 35.8; O2SAT 100
[2023-08-18 11:55] VITALS: BP 121/76; PULSE 62; RESP 16; TEMP 34.9; O2SAT 99
== END 2023-08-21 23:59 | disposition home or self-care (01) ==
LOC: INF 02:32
PROVIDERS: PCP Family Medicine; Visit Provider Internal Medicine
DX: D83.9 Common variable immunodeficiency, unspecified (principal)
CPT/HCPCS: 96360; 96365; 96366; J1561

== ENCOUNTER 2023-09-15 03:15 | Outpatient (RCR) | payer MEDICARE, SELFPAY ==
[2023-08-22 00:07] VITALS: BP 121/76; PULSE 62; RESP 16; TEMP 34.9
[2023-09-15] MEDS: Normal Saline Flush 10 ML SYR IVP (09:18)
[2023-09-15] MEDS: Normal Saline 500 ML IV (09:20)
[2023-09-15 10:20] VITALS: BP 141/59; PULSE 65; RESP 16; TEMP 36.7; O2SAT 99
[2023-09-15] MEDS: IMMUNE GLOBULIN 20 GM/200 ML BTL IVPB (10:24)
[2023-09-15 10:40] VITALS: BP 134/62; PULSE 58; RESP 17; TEMP 36.7; O2SAT 100
[2023-09-15 10:55] VITALS: BP 119/73; PULSE 55; RESP 16; TEMP 36.6; O2SAT 100
[2023-09-15 11:25] VITALS: BP 122/58; PULSE 56; RESP 16; TEMP 36.4; O2SAT 99
[2023-09-15 11:55] VITALS: BP 145/55; PULSE 62; RESP 17; TEMP 36.3; O2SAT 100
== END 2023-09-21 23:59 | disposition home or self-care (01) ==
LOC: INF 03:15
PROVIDERS: PCP Family Medicine; Visit Provider Internal Medicine
DX: D83.9 Common variable immunodeficiency, unspecified (principal)
CPT/HCPCS: 96360; 96365; 96366; J1561

== ENCOUNTER 2023-10-13 03:11 | Outpatient (RCR) | payer MEDICARE, SELFPAY ==
[2023-09-22 00:06] VITALS: BP 121/76; PULSE 62; RESP 16; TEMP 34.9
[2023-10-13] MEDS: Normal Saline Flush 10 ML SYR IVP (09:28)
[2023-10-13] MEDS: Normal Saline 1,000 ML 500 ML IV (09:29)
[2023-10-13 09:44] VITALS: BP 118/71; PULSE 68; RESP 16; TEMP 35.6; O2SAT 99
[2023-10-13] MEDS: IMMUNE GLOBULIN 20 GM/200 ML BTL IVPB (10:44)
[2023-10-13 10:53] VITALS: BP 133/70; PULSE 55; RESP 18; TEMP 36.2; O2SAT 98
[2023-10-13 11:10] VITALS: BP 137/75; PULSE 66; RESP 16; TEMP 36.5; O2SAT 99
[2023-10-13 11:25] VITALS: BP 115/64; PULSE 66; RESP 16; TEMP 35.4; O2SAT 100
[2023-10-13 11:58] VITALS: BP 118/71; PULSE 60; RESP 16; TEMP 35.7; O2SAT 99
[2023-10-13 12:30] VITALS: BP 130/75; PULSE 63; RESP 16; TEMP 35.6; O2SAT 99
== END 2023-10-21 23:59 | disposition home or self-care (01) ==
LOC: INF 03:11
PROVIDERS: PCP Family Medicine; Visit Provider Internal Medicine
DX: D83.9 Common variable immunodeficiency, unspecified (principal)
CPT/HCPCS: 96360; 96365; J1561

== ENCOUNTER → 2023-10-26 15:21 | Outpatient (CLI) | payer MEDICARE, SELFPAY ==
--- NOTE | 2023-10-26 | DI.RAD_ITS ---
Exam(s) XR LUMBAR SPINE COMPLETE EXAM: XR LUMBAR SPINE COMPLETE CLINICAL HISTORY: LOW BACK PAIN-M54.50. TECHNIQUE: 2D digital imaging was performed. Five views. COMPARISON: CT CT ABDOMEN PELVIS WO from 05/02/2023 FINDINGS: The exam is limited by overlying bowel gas. BONES: No fracture or destructive lesion. Stable mild compression fractures superior endplate of L2. Bones are osteopenic. Facet degenerative changes are present. No spondylolysis or spondylolisthesis . DISKS: Stable narrowing of the L4-5 disc space. ALIGNMENT: Lumbar spinal alignment is within normal limits. SOFT TISSUE: Aorta calcified. Status post cholecystectomy. IMPRESSION: Stable mild L2 compression fracture. Stable degenerative changes. DATA REPOSITORY: RADIATION DOSE DELIVERED:
== END ==
PROVIDERS: PCP Family Medicine; Visit Provider Nurse Practitioner Family
DX: M48.56XA Collapsed vertebra, not elsewhere classified, lumbar region, initial encounter for fracture (principal)
CPT/HCPCS: 72110

== ENCOUNTER 2023-11-10 03:48 | Outpatient (RCR) | payer MEDICARE, SELFPAY ==
[2023-10-22 00:04] VITALS: BP 121/76; PULSE 62; RESP 16; TEMP 34.9
[2023-11-10] MEDS: Normal Saline 500 ML IV (09:13)
[2023-11-10] MEDS: Normal Saline Flush 10 ML SYR IVP (09:15)
[2023-11-10 10:25] VITALS: BP 146/69; PULSE 62; RESP 16; TEMP 36.8; O2SAT 100
[2023-11-10] MEDS: IMMUNE GLOBULIN 10 GM/100 ML BTL IVPB ×2 (10:25→11:28)
[2023-11-10 10:40] VITALS: BP 117/72; PULSE 60; RESP 16; TEMP 37.1; O2SAT 100
[2023-11-10 10:55] VITALS: BP 107/64; PULSE 58; RESP 16; TEMP 36.1; O2SAT 100
[2023-11-10 11:25] VITALS: BP 107/64; PULSE 58; RESP 16; TEMP 36.2; O2SAT 100
[2023-11-10 11:55] VITALS: BP 109/54; PULSE 58; RESP 16; TEMP 36; O2SAT 98
== END 2023-11-21 23:59 | disposition home or self-care (01) ==
LOC: INF 03:48
PROVIDERS: PCP Family Medicine; Visit Provider Internal Medicine
DX: D83.9 Common variable immunodeficiency, unspecified (principal)
CPT/HCPCS: 36430; 96365; 96366; J1561

== ENCOUNTER 2023-11-23 15:15 | Outpatient (CLI) | payer MEDICARE, SELFPAY ==
--- NOTE | 2023-11-23 10:30 | DI.RAD_ITS ---
Exam(s) XR SHOULDER LT COMPLETE 2+V EXAM: XR SHOULDER LT COMPLETE 2+V CLINICAL HISTORY: LEFT SHOULDER PAIN. TECHNIQUE: 2D digital imaging was performed. Three images were obtained. Axillary, Grashey and Y vi ews were obtained. COMPARISON: CR XR SHOULDER LT COMPLETE 2+V from 06/17/2020 FINDINGS: BONES: There are stable post operative changes of a left total shoulder replacement present. No frac ture or dislocation. JOINTS: The orthopedic hardware is in stable position. No evidence of hardware loosening. Degenerat brian changes are seen at the acromioclavicular joint. SOFT TISSUE: The visualized lungs are clear. IMPRESSION: Stable postoperative changes. DATA REPOSITORY: RADIATION DOSE DELIVERED:
== END 2023-11-23 15:16 | disposition home or self-care (01) ==
LOC: DIORS 15:15
PROVIDERS: PCP Family Medicine; Referring Provider Family Medicine; Visit Provider Student in an Organized Health Care Education/Training Program
DX: M25.312 Other instability, left shoulder
CPT/HCPCS: 99213; 73030

== ENCOUNTER → 2023-11-24 03:51 | Outpatient (CLI) | payer MEDICARE, SELFPAY ==
--- NOTE | 2023-11-24 | DI.US_ITS ---
Exam(s) MG MAMMO DIAGNOSTIC BI US BREAST LT LIMITED EXAM: MG MAMMO DIAGNOSTIC BI CLINICAL HISTORY: MASTODYNIA N64.4. COMPARISON: MG Screening Bilat Mammo from 08/27/2015 US US BREAST LT LIMITED from 11/24/2023 TECHNIQUE: Craniocaudal and mediolateral oblique Full Field Digital Mammography views of both breast s with Computer Aided Diagnosis followed by Tomosynthesis and left breast ultrasound. FINDINGS: Mammography/Tomosynthesis: Masses/Architectural Distortion: None seen. Microcalcifications: No suspicious pleomorphic-type are seen. Skin Thickening/Nipple Retraction: None. Left breast US: Echotexture: Normal appearance of the glandular tissue. Shadowing: No suspicious foci. Cyst: None. Solid lesions: None seen. Ductal dilation: None. IMPRESSION: 1. No evidence of malignancy is noted. BI-RADS Category 1 - Negative Breast Density - Category B - Scattered areas of fibroglandular density A negative radiographic report should not delay biopsy if a dominant or clinically suspicious mass is present. Up to ten percent of cancers are not identified on mammography. A negative report may reinforce clinical impression. Adenosis and dense breasts may obscure an underlying neoplasm. False positive reports average 6 to 10%. Patient will receive a letter notifying them of these results.
== END ==
PROVIDERS: PCP Family Medicine; Visit Provider Family Medicine
DX: R92.8 Other abnormal and inconclusive findings on diagnostic imaging of breast (principal); Z12.31 Encounter for screening mammogram for malignant neoplasm of breast
CPT/HCPCS: 76642; 77062; 77066; G0279

== ENCOUNTER 2023-11-29 16:13 | Outpatient (REF) | payer MEDICARE, SELFPAY ==
[2023-11-29 17:37] LABS: Source Nasal/Nares
[2023-11-29 18:41] LABS: COVID-19 PCR Negative (Negative)
== END 2023-11-29 16:14 | disposition home or self-care (01) ==
LOC: NCHCN 16:13
PROVIDERS: PCP Family Medicine; Visit Provider Nurse Practitioner Family
DX: J02.9 Acute pharyngitis, unspecified (principal)
CPT/HCPCS: 87635; 87070

== ENCOUNTER 2023-12-08 02:31 | Outpatient (RCR) | payer MEDICARE, SELFPAY ==
[2023-11-22 00:16] VITALS: BP 121/76; PULSE 62; RESP 16; TEMP 34.9
[2023-12-08] MEDS: Normal Saline 1,000 ML 500 ML IV (09:15)
[2023-12-08] MEDS: Normal Saline Flush 10 ML SYR IVP (09:26)
[2023-12-08] MEDS: Acetaminophen 500 MG TAB 1000 MG PO (09:32)
[2023-12-08 10:20] VITALS: BP 111/69; PULSE 66; RESP 16; TEMP 36.6; O2SAT 100
[2023-12-08] MEDS: IMMUNE GLOBULIN 20 GM/200 ML BTL IVPB (10:26)
[2023-12-08 10:40] VITALS: BP 114/68; PULSE 64; RESP 16; TEMP 36.4; O2SAT 98
[2023-12-08 10:55] VITALS: BP 115/70; PULSE 66; RESP 16; TEMP 36.2; O2SAT 99
[2023-12-08 11:25] VITALS: BP 119/73; PULSE 66; RESP 16; TEMP 36; O2SAT 99
[2023-12-08 11:55] VITALS: BP 140/61; PULSE 69; RESP 16; TEMP 35.9; O2SAT 100
== END 2023-12-22 23:59 | disposition home or self-care (01) ==
LOC: INF 02:31
PROVIDERS: PCP Family Medicine; Visit Provider Internal Medicine
DX: D83.9 Common variable immunodeficiency, unspecified (principal)
CPT/HCPCS: 96360; 96365; 96366; J1561

== ENCOUNTER 2024-01-05 02:26 | Outpatient (RCR) | payer MEDICARE, SELFPAY ==
[2023-12-23 00:22] VITALS: BP 121/76; PULSE 62; RESP 16; TEMP 34.9
[2024-01-05] MEDS: Normal Saline Flush 10 ML SYR IVP ×2 (09:35→12:51)
[2024-01-05] MEDS: Normal Saline 1,000 ML 500 ML IV (09:35)
[2024-01-05] MEDS: IMMUNE GLOBULIN 20 GM/200 ML BTL IVPB (10:57)
[2024-01-05 11:00] VITALS: BP 150/74; PULSE 63; RESP 16; TEMP 36.7; O2SAT 100
[2024-01-05 11:20] VITALS: BP 135/76; PULSE 60; RESP 16; TEMP 36.6; O2SAT 100
[2024-01-05 11:35] VITALS: BP 138/71; PULSE 60; RESP 16; TEMP 36.2; O2SAT 100
[2024-01-05 12:05] VITALS: BP 124/75; PULSE 61; TEMP 36; O2SAT 100
[2024-01-05 12:35] VITALS: BP 151/74; PULSE 58; RESP 17; TEMP 36.1; O2SAT 100
== END 2024-01-20 23:59 | disposition home or self-care (01) ==
LOC: INF 02:26
PROVIDERS: PCP Family Medicine; Visit Provider Internal Medicine
DX: D83.9 Common variable immunodeficiency, unspecified (principal)
CPT/HCPCS: 96360; 96365; 96366; J1561

== ENCOUNTER 2024-01-26 16:49 | Outpatient (REF) | payer MEDICARE, SELFPAY ==
[2024-01-26 19:35] LABS: Abs Immature Grans 0.01 10^3/uL (0.0-0.06); Absolute Basophil Count 0.06 10^3/uL (0.0-0.2); Absolute Eosinophil Count 0.09 10^3/uL (0.0-0.7); Absolute Lymphocyte Count 1.12 10^3/uL (1.2-3.4); Absolute Monocyte Count 0.58 10^3/uL (0.1-0.8); Absolute Neutrophil Count 4.28 10^3/uL (1.2-6.7); Eosinophils % 1.5; HCT 37.9 % (36.0-46.0); HGB 12.1 g/dL (11.2-15.7); Immature Grans % 0.2; Lymphocytes % 18.2; MCH 28.9 pg (27.0-33.0); MCHC 31.9 % (32.0-36.0); MCV 91 fL (80-95); MPV 10.7 fL (8.0-11.0); Monocytes % 9.4; Neutrophils % 69.7; Platelet Count 300 10^3/uL (130-400); RBC 4.19 10^6/uL (3.93-5.22); RDW 14.3 % (11.7-14.6); RDW-SD 47.7 fL; WBC 6.14 10^3/uL (4.4-10.8)
[2024-01-26 19:45] LABS: ALT 30 U/L (14-59); AST 33 U/L (15-37); Albumin 3.7 g/dL (3.4-5.0); Alkaline Phosphatase 78 U/L (46-116); Anion Gap 11.5 mmol/L (3-11); BUN 20 mg/dL (7-18); Bilirubin, Total 0.4 mg/dL (0.2-1.0); CO2 22.5 mmol/L (21.0-32.0); CREATININE 1.2 mg/dL (0.55-1.02); Calcium 9.2 mg/dL (8.5-10.1); Chloride 105 mmol/L (98-107); Estimated GFR 44.08 (mL/min/1.73m2); Glucose 94 mg/dL (74-106); Lipase 113 U/L (16-77); Potassium 4.8 mmol/L (3.5-5.1); Sodium 139 mmol/L (136-145); Total Protein 7.1 g/dL (6.4-8.2)
== END 2024-01-26 16:50 | disposition home or self-care (01) ==
LOC: NCHCN 16:49
PROVIDERS: PCP Family Medicine; Visit Provider Family Medicine
DX: R10.32 Left lower quadrant pain (principal); R79.89 Other specified abnormal findings of blood chemistry; R82.998 Other abnormal findings in urine
CPT/HCPCS: 80053; 83690; 85025; 87086

== ENCOUNTER → 2024-02-01 09:29 | Outpatient (CLI) | payer MEDICARE, SELFPAY ==
--- NOTE | 2024-02-01 | DI.RAD_ITS ---
Exam(s) XR LUMBAR SPINE COMPLETE EXAM: XR LUMBAR SPINE COMPLETE CLINICAL HISTORY: Low back pain, M54.50, acute onset, lumbar point tenderness. TECHNIQUE: 2D digital imaging was performed of the lumbar spine. Five images were obtained. AP, la teral, right oblique, left oblique and L5-S1 spot views were obtained. COMPARISON: CR XR LUMBAR SPINE COMPLETE from 10/26/2023 FINDINGS: BONES: There is a compression fracture deformity of the inferior endplate of L1 which was not present on the prior examination. There is loss of approximately 20 percent of the height of the vertebral body. No significant retropulsion is seen. There is an old depression of the superior endplate of L 2. There are endplate osteophytes at several levels of the lumbar spine particularly at L1-L2. There are degenerative changes of the facets seen in the lower lumbar spine. The bones are osteopenic. DISKS: There is disc space narrowing at L1-L2, L4-L5 and L5-S1. ALIGNMENT: Lumbar spinal alignment is within normal limits. There is a mild left convex curvature of the lumbar spine. No spondylolysis or spondylolisthesis. SOFT TISSUE: There are surgical clips in the right upper quadrant of the abdomen which may reflect pr ior cholecystectomy. Vascular calcifications are present. There is a moderate amount of stool in th e colon which may reflect constipation. IMPRESSION: 1. Mild compression fracture deformity of the inferior endplate of L1 which was new since the prior e xamination from 10/26/2023. 2. Multilevel degenerative changes in the lumbar spine as described above. 3. Osteopenia. 4. Atherosclerotic calcification of the abdominal aorta. DATA REPOSITORY: RADIATION DOSE DELIVERED:
== END ==
PROVIDERS: PCP Family Medicine; Visit Provider Family Medicine
DX: M51.36 Other intervertebral disc degeneration, lumbar region (principal)
CPT/HCPCS: 72110

== ENCOUNTER 2024-02-28 09:59 | Emergency (ER) | payer MEDICARE, SELFPAY ==
[2024-02-28] VITALS (22 sets, daily range): BP systolic 167–209; BP diastolic 59–126; PULSE 60–69; RESP 9–22; TEMP 36.5; O2SAT 99–100
--- NOTE | 2024-02-28 12:30 | DI.RAD_ITS ---
Exam(s) XR CERVICAL SP LY TRAUMA 2-3V EXAM: XR CERVICAL SP LY TRAUMA 2-3V CLINICAL HISTORY: pain. TECHNIQUE: 2D digital imaging was performed. COMPARISON: CR XR SCAPULA LT from 02/28/2024 FINDINGS: 3 views No evidence of fracture or offset of the spinal laminar line. All the disc spaces exhibit normal hei ght in this elderly patient. There is mild anterolisthesis of C4 upon C5 this related to facet arthr opathy. There is multilevel moderate degenerative change in the facet joints. No facet fusion ident ified. No osseous lesions. Shoulder prosthesis noted on the left side. IMPRESSION: Mild degenerative changes as described above. No disc space narrowing evident. DATA REPOSITORY: RADIATION DOSE DELIVERED:
[2024-02-28] MEDS: Acetaminophen 325 MG TAB 650 MG PO (12:49)
[2024-02-28] MEDS: Gabapentin 300 MG CAP PO (12:50)
[2024-02-28] MEDS: Lidocaine 5% Patch 1 PATCH TP (12:51)
--- NOTE | 2024-02-28 13:25 | DI.RAD_ITS ---
Exam(s) XR SCAPULA LT EXAM: XR SCAPULA LT CLINICAL HISTORY: pain. TECHNIQUE: 2D digital imaging was performed. COMPARISON: CR XR SHOULDER LT COMPLETE 2+V from 11/23/2023 FINDINGS: Two dedicated views of the left scapula: No evidence of left scapular fracture. There is a left shoulder prosthesis noted. The humeral head component appears to be slightly high riding relative to the glenoid fossa component.. IMPRESSION: As above. DATA REPOSITORY: RADIATION DOSE DELIVERED:
--- NOTE | 2024-02-28 13:25 | DI.RAD_ITS ---
Exam(s) XR THORACIC SPINE COMPLETE EXAM: XR THORACIC SPINE COMPLETE CLINICAL HISTORY: pain t1 t2. TECHNIQUE: 2D digital imaging was performed. COMPARISON: CR XR LUMBAR SPINE COMPLETE from 02/01/2024 FINDINGS: 3 views There is age-related osteopenia. There are no compression fractures seen in the thoracic vertebral b odies. Degenerative disc disease is noted at L1-2 level. This was previously evident on lumbar spin e images of 02/01/2024. The previously described indentation of the superior endplate of L2 is again noted as is indentation of inferior endplate of L1. The minimal scoliosis convex left. No abnormal widening of the paraspinal lines. No obvious osseous lesions. Left shoulder prosthesis noted IMPRESSION: Age-appropriate appearance of the thoracic spinal column. Partially included upper lumbosacral spine reveals some recently described abnormalities at L1-2 leve l. This appears slightly different from the previous study of 02/01/2024 in that the inferior half o f the L1 vertebral body exhibits increased density when compared to the prior images. Correlation wi th site of tenderness is recommended. If clinically indicated can proceed with MRI. DATA REPOSITORY: RADIATION DOSE DELIVERED:
--- NOTE | 2024-02-28 13:52 | ED.GENADUL_ITS ---
Discharge Plan Disposition Patient Disposition: Home Condition: Stable Discharge Details Clinical Impression: Neck muscle spasm, Pain of left scapula, Elevated blood pressure reading Primary Care Provider: Jarrod Becerra ED Provider: Shubham Bolivar Home Meds and New Rx's Prescriptions: New gabapentin [Neurontin] 300 mg capsule 300 mg PO TID Qty: 90 0RF lisinopril 10 mg tablet 10 mg PO DAILY Qty: 30 0RF Continued atorvastatin [Lipitor] 20 mg tablet 20 mg PO DAILY ascorbic acid (vitamin C) 500 mg capsule, extended release 500 mg PO DAILY acetaminophen [Acetaminophen Extra Strength] 500 mg Tablet 1,000 mg PO PRN PRN magnesium oxide 400 mg (241.3 mg magnesium) Tablet 400 mg PO DAILY Qty: 7 0RF Discharge Instructions Instructions: Hypertension (ED), Back Pain (ED) Additional Instructions: Your blood pressure was elevated today. Please be sure to to monitor your blood pressure daily and keep a log. Be sure to discuss this with your doctor. You have been started on lisinopril 10 mg daily to treat elevated blood pressure. Please use lidocaine patches. These are available [id number]. Dose according to label. Please take acetaminophen (tylenol) - 650mg every 6 hours by mouth as needed for pain. Use Neurontin as prescribed. Please contact your primary care physician to arrange follow-up. Return to the ER immediately for any worsening or new concerning symptoms. Referrals: Jarrod Becerra [Primary Care Provider] - [facility] General Mode of arrival: ambulatory . Date/Time Provider Initiated Documentation: 02/28/24 10:34 . Limitations to Documentation: no limitations . Information obtained by: patient and family . HPI Narrative: 89-year-old female with history of remote left shoulder replacement, here with pain in her left posterior neck and scapular area over the past 5 days. Pain improves at night while she is lying down and worsens after being up and about. Patient notes pain with certain movements of her shoulder including when externally rotating. She has no associated numbness or tingling. She has been using acetaminophen intermittently without relief. She is concerned that there is associated swelling in her posterior neck. Patient denies recent trauma. No chest pain or abdominal pain. Related Data Home Medications Medication Instructions Recorded Confirmed acetaminophen 500 mg tablet 1,000 mg PO PRN PRN 01/26/19 02/28/24 (Acetaminophen Extra Strength) magnesium oxide 400 mg (241.3 mg 400 mg PO DAILY #7 tabs 01/27/19 02/28/24 magnesium) tablet ascorbic acid (vitamin C) 500 mg 500 mg PO DAILY 03/20/19 02/28/24 capsule,extended release atorvastatin 20 mg tablet (Lipitor) 20 mg PO DAILY 11/10/21 02/28/24 gabapentin 300 mg capsule 300 mg PO TID #90 caps 02/28/24 (Neurontin) lisinopril 10 mg tablet 10 mg PO DAILY #30 tabs 02/28/24 Previous Rx's Medication Instructions Recorded magnesium oxide 400 mg (241.3 mg 400 mg PO DAILY #7 tabs 01/27/19 magnesium) tablet gabapentin 300 mg capsule 300 mg PO TID #90 caps 02/28/24 (Neurontin) lisinopril 10 mg tablet 10 mg PO DAILY #30 tabs 02/28/24 Allergies Allergy/AdvReac Type Severity Reaction Status Date / Time ropinirole Allergy Severe blacked out Verified 02/28/24 12:53 mometasone furoate Allergy Intermediate Swelling/Ed Verified 02/28/24 12:53 [From Nasonex] cinda gluten AdvReac Intermediate Abdominal Verified 02/28/24 12:53 pain, diarrhea General Stated Complaint: Orthopedic JONA: 4 Review of Systems All systems reviewed & are unremarkable except as noted in HPI and below Constitutional Constitutional: Denies fever(s) Musculoskeletal Musculoskeletal: Reports as per HPI Exam Const General: cooperative and no acute distress [facility] Head: normocephalic and atraumatic Mouth: moist mucous membranes Neck Neck: trachea midline Resp Auscultation: clear to auscultation bilaterally, no rales, no rhonchi and no wheezes Cardio Rate: regular rate and not tachycardic Rhythm: regular rhythm Back/Spine/Pelvis Cervical Spine: cervical ROM normal, cervical muscular tenderness (left), cervical spinal tenderness (c6-7) and No step off deformity Thoracic/Lumbar Spine: paraspinal tenderness (left upper back) Skin General skin exam: no rashes or lesions noted Neuro General: patient alert, patient awake and tone normal Cognition: normal cognition Sensory Exam: no sensory deficits noted (LUE) Extrem General: no edema Course Vital Signs Vital signs: Vital Signs Pulse 66 02/28/24 10:11 Respiratory Rate 16 02/28/24 10:11 Blood Pressure 168/59 H 02/28/24 10:11 Pulse Oximetry 100 02/28/24 10:11 Pulse 66 02/28/24 12:16 Respiratory Rate 16 02/28/24 10:11 Respiratory Effort Normal, Non-Labored 02/28/24 12:11 Blood Pressure 174/81 H 02/28/24 12:16 Blood Pressure Mean 116 02/28/24 12:16 Blood Pressure Position Sitting 02/28/24 10:11 Pulse Oximetry 100 02/28/24 10:11 Oxygen Delivery Method Room Air 02/28/24 10:11 Oxygen Flow Rate 0 02/28/24 10:11 Pain Level 12 02/28/24 12:11 Medical Decision Making 89-year-old female with history of remote left shoulder replacement, here with pain in her left posterior neck and scapular area over the past 5 days. Pain is positional. Focally tender over left cervical paraspinal and trapezius. No rash. No chest pain. Surgery has been recommended by orthopedics for left shoulder joint revision and declined by patient. 1355 --x-ray of the cervical spine interpreted by radiology: No evidence of fracture or offset of the spinal laminar line. All the disc spaces exhibit normal height in this elderly patient. There is mild anterolisthesis of C4 upon C5 this related to facet arthropathy. There is multilevel moderate degenerative change in the facet joints. No facet fusion identified. No osseous lesions. Shoulder prosthesis noted on the left side. X-ray of the lr scapula interpreted by radiology: No evidence of left scapular fracture. There is a left shoulder prosthesis noted. The humeral head component appears to be slightly high riding relative to the glenoid fossa component. X-ray of the thoracic spine interpreted by radiology: Age-appropriate appearance of the thoracic spinal column. Partially included upper lumbosacral spine reveals some recently described abnormalities at L1-2 level. This appears slightly different from the previous study of 02/01/2024 in that the inferior half of the L1 vertebral body exhibits increased density when compared to the prior images. Correlation with site of tenderness is recommended. If clinically indicated can proceed with MRI. Neurontin, lidocaine patch and acetaminophen was given for discomfort. Patient reassessed. She is resting comfortably in bed. She notes no significant improvement yet with medications. Plan to prescribe course of Neurontin. 1430 --patient was hypertensive on arrival. Patient remains hypertensive. Patient notes no history of prior hypertension. Consider aortic etiology given persistent hypertension and pain although I think this is less likely given focal tenderness. Will obtain CTA of the chest to rule out. 1653 -- I spoke with Dr. Noble who notes no dissection. Dr. Faith interpreted as no acute findings. I spoke with benjy Hubbard for PCP, discussed ED presentation and course - she recommends initiating lisinopril 10mg. Will ask care management to assist in arranging timely followup in the next couple weeks. Lab Data Lab results reviewed: Yes I reviewed the patient's lab results. Labs: Laboratory Tests Range/Units 02/28/24 14:40 WBC (4.4-10.8) 10^3/uL 7.71 RBC (3.93-5.22) 10^6/uL 4.40 Hgb (11.2-15.7) g/dL 12.7 Hct (36.0-46.0) % 40.5 MCV (80-95) fL 92 MCH (27.0-33.0) pg 28.9 MCHC (32.0-36.0) % 31.4 L RDW (11.7-14.6) % 14.3 Plt Count (130-400) 10^3/uL 293 MPV (8.0-11.0) fL 10.0 Immature Gran % 0.3 Neutrophils % 71.4 Lymphocytes % 19.1 Monocytes % 7.4 Eosinophils % 1.2 Basophils % 0.6 Nucleated RBC % (0.0-0.3) % 0.0 Absolute Neutrophils (1.2-6.7) 10^3/uL 5.51 Absolute Lymphocytes (1.2-3.4) 10^3/uL 1.47 Absolute Monocytes (0.1-0.8) 10^3/uL 0.57 Absolute Eosinophils (0.0-0.7) 10^3/uL 0.09 Absolute Basophils (0.0-0.2) 10^3/uL 0.05 Sodium (136-145) mmol/L 141 Potassium (3.5-5.1) mmol/L 4.2 Chloride (98-107) mmol/L 105 Carbon Dioxide (21.0-32.0) mmol/L 27.1 Anion Gap (3-11) mmol/L 8.9 BUN (7-18) mg/dL 21 H Creatinine (0.55-1.02) mg/dL 1.1 H Est GFR (CKD-EPI 2020) (mL/min/1.73m2) 48.63 Glucose (74-106) mg/dL 91 Calcium (8.5-10.1) mg/dL 9.1 Magnesium (1.8-2.4) mg/dL 2.3 Total Bilirubin (0.2-1.0) mg/dL 0.4 AST (15-37) U/L 30 ALT (14-59) U/L 32 Alkaline Phosphatase (46-116) U/L 75 Troponin I (< or =60) ng/L < 50 Total Protein (6.4-8.2) g/dL 7.6 Albumin (3.4-5.0) g/dL 3.8 Quality:SDOH Health Related Social Needs: No Data to Display PFSH All Active Problems (Updated 02/28/24 @ 16:58 by Shubham Bolivar MD) Elevated blood pressure reading (Acute) Pain of left scapula (Acute) Neck muscle spasm (Acute) Localized osteoarthritis of right knee (Acute) Trochanteric bursitis, right hip (Acute) Pes anserinus bursitis of right knee (Acute) Chest pain (Acute) Rotator cuff insufficiency of left shoulder (Acute) Left shoulder pain (Acute) Urothelial carcinoma (Acute) Iliotibial band syndrome affecting right lower leg (Acute) knee Advance directive discussed with patient (Acute) DVT prophylaxis (Acute) Pancreatitis (Chronic) Osteoarthritis (Chronic) POLINA (obstructive sleep apnea) (Chronic) RLS (restless legs syndrome) (Acute) History of cholecystectomy (Chronic) IBS (irritable bowel syndrome) (Chronic) CVID (common variable immunodeficiency) (Acute) Superficial foreign body, left knee, sequela (Acute) Removal of foreign body DOS: 11/16/18 Dr. Anaya Painful total knee replacement, left (Acute) Transient global amnesia (Acute 12/10/14) Pes anserinus bursitis of left knee (Acute 02/16/18) Patellar tendinitis, left knee (Acute 01/19/18) Medical History Hyperlipidemia Osteoarthritis Other chronic pain Left shoulder Overactive bladder Surgical History Abdominal hysterectomy Appendectomy Arthroscopy, Shoulder Cholecystectomy Colonoscopy - IV Sedation Extraction of cataract Bilateral History of nephroureterectomy Open Carpal Tunnel release Tonsillectomy Family History Mother No problems noted. Father No problems noted. Social History Smoking/Tobacco Use Status: Former Tobacco Use Smoking risk assessment performed?: Yes Alcohol Intake: former Drug use: Never Substance use type: does not use Current gender identity: female Do you feel safe at home: Yes Do you feel safe in your relationship?: Yes Additional Social history: . 4 children. No current alcohol use, and remote history of tobacco use.
--- NOTE | 2024-02-28 14:15 | DI.CT_ITS ---
Exam(s) CT THORAX ABD/PEL CTA EXAM: CT THORAX ABD/PEL CTA CLINICAL HISTORY: left scapular pain. TECHNIQUE: Imaging Protocol: Axial CT angiography was performed with multi-slice acquisition and mu lti-planar and/or 3D reconstructions. CONTRAST MATERIAL: Intravenous: Omnipaque 350 Contrast volume:100 ml COMPARISON: CT CT ABDOMEN PELVIS WO from 05/02/2023 CR XR LUMBAR SPINE COMPLETE from 02/01/2024 CR XR THORACIC SPINE COMPLETE from 02/28/2024 FINDINGS: CHEST: Streak artifact on upper images related to left shoulder prosthesis and patient arm positioning. Pulmonary Arteries: No evidence of filling defects to suggest pulmonary emboli. Tracheobronchial tree: No bronchiectasis or mucus plugging. Mediastinum and Ashley: No dominant adenopathy or fluid collection. Pulmonary parenchyma: No consolidation or dominant measurable mass. Stable 4 millimeter nodule perip evelyn right lower lobe. Pleura: No effusion. No pneumothorax. Heart: The heart is notdilated. Minimal coronary artery calcifications are seen. Aorta: Thoracic aorta non-dilated. Minimal atherosclerotic changes. No evidence of dissection. Bones: Stable minimal T9 compression fracture. Old right rib fractures. No acute fractures identifi ed. Left shoulder prosthesis, partially included on the exam. Mild scoliosis. Tubes, Catheters, and Lines: None. Soft tissues: Unremarkable. ABDOMEN and PELVIS: Liver: Normal size. Normal density. No suspicious measurable mass. Portal, Superior Mesenteric, and Splenic Veins: Unremarkable. Gallbladder and Biliary Tract: Status post cholecystectomy. No biliary dilatation. Pancreas: Normal density, no abnormal calcifications or inflammatory process. Spleen: Normal. Adrenals: No masses seen. Kidneys: Status post right nephrectomy. No radiodense stones. No obstructive uropathy. No masses see n. Vasculature: Abdominal aorta non-dilated. Moderate atherosclerotic changes. Branch vessels are pa tent without significant stenosis. Bowel: Sigmoid diverticulosis. No evidence of diverticulitis. Moderate to increased quantity of sto ol. No obstruction or bowel wall thickening. Appendix is unremarkable. Peritoneal Cavity: No ascites, collection or mesenteric inflammatory response. Lymph Nodes: Within normal limits. Soft Tissues: Unremarkable. Bladder: Nearly empty. No gross wall thickening. Reproductive Organs: Status post hysterectomy. Bones: Stable mild compression of the inferior endplate of L1. Stable mild compression fracture of s uperior endplate of L2. IMPRESSION: 1. No evidence of pulmonary embolism. No evidence of aortic dissection. 2. No acute abdominal or pelvic process. No significant vascular stenosis or evidence of occlusion. RADIATION DOSE DELIVERED: Total DLP DATA REPOSITORY: All CT scans at this facility are submitted to the National Radiology Data Registry (NRDR) Dose Index Registry (DIR) with the [employer] (ACR). RADIATION OPTIMIZATION: All CT scans at this facility use at least one of these dose optimization te chniques: automated exposure control; mA and/or kV adjustment per patient size (includes targeted exa ms where dose is matched to clinical indication); or iterative reconstruction.
[2024-02-28 14:46] LABS: Abs Immature Grans 0.02 10^3/uL (0.0-0.06); Absolute Basophil Count 0.05 10^3/uL (0.0-0.2); Absolute Eosinophil Count 0.09 10^3/uL (0.0-0.7); Absolute Lymphocyte Count 1.47 10^3/uL (1.2-3.4); Absolute Monocyte Count 0.57 10^3/uL (0.1-0.8); Absolute Neutrophil Count 5.51 10^3/uL (1.2-6.7); Basophils % 0.6; Eosinophils % 1.2; HCT 40.5 % (36.0-46.0); HGB 12.7 g/dL (11.2-15.7); Immature Grans % 0.3; Lymphocytes % 19.1; MCH 28.9 pg (27.0-33.0); MCHC 31.4 % (32.0-36.0); MCV 92 fL (80-95); Monocytes % 7.4; Neutrophils % 71.4; Platelet Count 293 10^3/uL (130-400); RDW 14.3 % (11.7-14.6); RDW-SD 48.4 fL; WBC 7.71 10^3/uL (4.4-10.8)
[2024-02-28 15:08] LABS: ALT 32 U/L (14-59); AST 30 U/L (15-37); Albumin 3.8 g/dL (3.4-5.0); Alkaline Phosphatase 75 U/L (46-116); Anion Gap 8.9 mmol/L (3-11); BUN 21 mg/dL (7-18); Bilirubin, Total 0.4 mg/dL (0.2-1.0); CO2 27.1 mmol/L (21.0-32.0); CREATININE 1.1 mg/dL (0.55-1.02); Calcium 9.1 mg/dL (8.5-10.1); Chloride 105 mmol/L (98-107); Estimated GFR 48.63 (mL/min/1.73m2); Glucose 91 mg/dL (74-106); Magnesium 2.3 mg/dL (1.8-2.4); Potassium 4.2 mmol/L (3.5-5.1); Sodium 141 mmol/L (136-145); Total Protein 7.6 g/dL (6.4-8.2); Troponin I < 50 ng/L (< or =60)
[2024-02-28] MEDS: Omnipaque 350 MG/ML 100 ML BTL IJ (16:21)
[2024-02-28] MEDS: Normal Saline - Diluent 50 ML VIAL IJ (16:22)
[2024-02-28] MEDS: Lisinopril 10 MG TAB PO (17:00)
--- NOTE | 2024-02-28 17:32 | NUR.NOTE ---
Referral faxed to PCP for new dx HTN/back pain, within 2 weeks, consulted with Dr Levi,Nursing Note:
== END 2024-02-28 17:24 | disposition home or self-care (01) ==
PROVIDERS: Emergency Provider Student in an Organized Health Care Education/Training Program; PCP Family Medicine
DX: M25.512 Pain in left shoulder (principal); E78.5 Hyperlipidemia, unspecified; M62.838 Other muscle spasm; R03.0 Elevated blood-pressure reading, without diagnosis of hypertension; Z90.49 Acquired absence of other specified parts of digestive tract; Z90.5 Acquired absence of kidney
CPT/HCPCS: 71275; 80053; 99285; 72040; 72072; 73010; 74174; 83735; 84484; 85025; 99284; J3490

== ENCOUNTER 2024-03-06 18:41 | Outpatient (REF) | payer MEDICARE, SELFPAY ==
[2024-03-06 15:54] LABS: Bilirubin Negative (Negative); Blood Large (Negative); Clarity Cloudy (Clear); Glucose Negative (Negative); Ketones Negative (Negative); Leukocyte Esterase Moderate (Negative); Nitrite Negative (Negative); Urobilinogen 0.2 mg/dL (Up to 0.2)
[2024-03-06 16:02] LABS: Bacteria Moderate HPF (Negative); C & S Indicated? C&S Done As Ordered; Casts Negative LPF (Negative); Crystals Negative HPF (Negative); Epithelial Cells Few HPF (Negative); Mucus Negative (Negative); Other Cells Few Transitional (Negative); RBC >50 HPF (0-2)
== END 2024-03-06 18:42 | disposition home or self-care (01) ==
LOC: LBN 18:41
PROVIDERS: PCP Family Medicine; Visit Provider Urology
DX: R35.0 Frequency of micturition (principal); R32 Unspecified urinary incontinence
CPT/HCPCS: 87077; 81003; 81015; 87086; 87186

== ENCOUNTER 2024-03-10 16:53 | Outpatient (REF) | payer MEDICARE, SELFPAY ==
[2024-03-10 18:46] LABS: Anion Gap 11.9 mmol/L (3-11); BUN 38 mg/dL (7-18); CO2 21.1 mmol/L (21.0-32.0); CREATININE 1.1 mg/dL (0.55-1.02); Chloride 109 mmol/L (98-107); Estimated GFR 48.63 (mL/min/1.73m2); Glucose 95 mg/dL (74-106); Potassium 5.2 mmol/L (3.5-5.1); Sodium 142 mmol/L (136-145)
== END 2024-03-10 16:54 | disposition home or self-care (01) ==
LOC: NCHCN 16:53
PROVIDERS: PCP Family Medicine; Visit Provider Student in an Organized Health Care Education/Training Program
DX: I10 Essential (primary) hypertension (principal)
CPT/HCPCS: 80048

== ENCOUNTER → 2024-03-20 13:42 | Outpatient (BNVA) | payer MEDICARE, SELFPAY | PROVIDERS: PCP Student in an Organized Health Care Education/Training Program; Referring Provider Family Medicine; Visit Provider Urology | DX: C68.9 Malignant neoplasm of urinary organ, unspecified (principal) | CPT/HCPCS: 52000; 81003 ==

== ENCOUNTER 2024-03-20 14:50 | Outpatient (REF) | payer MEDICARE, SELFPAY ==
--- NOTE | 2024-03-20 14:00 | PAPNONF_PTH ---
PATIENT: Moira Copeland LOC: [facility] U#:[id number] AGE/SX: 89/F ROOM: RE03/20/[address]: Reynaldo Hackett MD : [id number] BED: DIS: 03/20/2024 SPEC #: [id number] RECD: 03/20/24 18:08 STATUS: THIERNO FLOR #: [id number] JORGE: 03/20/24 14:[address]: Reynaldo Hackett DEPT: [facility] Cytology RECD BY: Marta Lowe ENTERED: 03/20/24 18:09 SP TYPE: CHRIS GUEVARA DR: Vinnie Mosquera Tissues: 1 - BODY FLUID CYTO(SPUTUM/URINE)[facility] Procedures: BODY FLUID CYTO(URINE/SPUTUM) Comments: [id number] (TV = 50 ml, 30 ml CYTOLYT ADDED) (REFRIGERATED)
== END 2024-03-20 14:51 | disposition home or self-care (01) ==
LOC: LBN 14:50
PROVIDERS: PCP Student in an Organized Health Care Education/Training Program; Visit Provider Urology
DX: C68.9 Malignant neoplasm of urinary organ, unspecified (principal)
CPT/HCPCS: 88104

== ENCOUNTER 2024-05-19 07:36 | Emergency (ER) | payer MEDICARE, SELFPAY ==
--- NOTE | 2024-05-19 07:40 | ED.GENADUL_ITS ---
Discharge Plan Disposition Patient Disposition: Home Discharge Details Clinical Impression: Acute UTI Primary Care Provider: Vinnie Mosquera ED Provider: Jarrod Fraser Home Meds and New Rx's Prescriptions: New cephalexin 250 mg capsule 250 mg PO QID 5 Days Qty: 20 0RF Continued atorvastatin [Lipitor] 20 mg tablet 20 mg PO DAILY ascorbic acid (vitamin C) 500 mg capsule, extended release 500 mg PO DAILY acetaminophen [Acetaminophen Extra Strength] 500 mg Tablet 1,000 mg PO PRN PRN magnesium oxide 400 mg (241.3 mg magnesium) Tablet 400 mg PO DAILY Qty: 7 0RF Discharge Instructions Instructions: Urinary Tract Infection, Adult ED Additional Instructions: You are seen in the emergency department for your urinary frequency. You are found to have a urinary tract infection. Please return to the emergency department if you develop fevers cannot eat or drink or if you have any other concerns. Please take these antibiotics as directed. Discharge Data Discharge Date/Time-TO BE ENTERED AT DEPARTURE: 05/19/24 09:36 HPI General Date/Time Provider Initiated Documentation: 05/19/24 07:40 . HPI Narrative: MDM This is an overall well-appearing normothermic and not tachycardic 89-year-old female with urinary frequency and hematuria concerning for the possibility of UTI. I considered ureterolithiasis however the patient is not having any significant flank pain and has no history of ureterolithiasis. I considered ruptured AAA however the patient has no history of AAA and has a nontender abdomen and is not hypotensive so I did not feel that the patient requires a CT scan. I considered sepsis however the patient is nontachycardic nor febrile and has a mildly elevated blood pressure. No left lower quadrant tenderness to suggest diverticulitis and no diarrhea. No right lower quadrant tenderness to suggest appendicitis. No falls to suggest increased risk for intra-abdominal trauma. No chest pain to suggest ACS. No shortness of breath to suggest PE. No back pain to suggest metastatic disease. No epigastric pain to suggest pancreatitis. No history of vomiting so doubt small bowel obstruction. No rash to abdomen to suggest zoster. 8:48 AM CBC lacks anemia thrombocytopenia and leukocytosis. Urinalysis nitrite positive with large leuk esterase concerning for possibility of infection. Microscopy showing hematuria. Microscopy reviewed from 2 9 months ago showing the patient has grown pansensitive E. coli in the past. Will treat with cephalexin. Basic metabolic panel showing CKD but no superimposed MAXIMINO. No acute electrolyte abnormalities. Patient and her daughter and I discussed return indications including any fevers inability tolerate p.o. or any increasing discomfort. Patient understood her return indications and was discharged with empiric trial of expectant outpatient management. She reports symptoms are reminiscent of prior UTIs. Chronic conditions affecting the care of the patient: Urothelial cancer History obtained from an outside historian: Patient's daughter External record review: N/A Medications: Cephalexin Social determinants of health affecting disposition: N/A Management discussed with: N/A Treatment/interventions considered: N/A Response to therapies provided: N/A HPI This is 89-year-old female with a history of nephrectomy arrived to the emergency department via private vehicle with her daughter in the setting of left lower quadrant abdominal pain increased urinary frequency and hematuria. Patient reports prior history of urinary tract infections. She began yesterday developing some left lower quadrant discomfort overnight she developed urinary frequency. She denies dysuria. She denies any falls. No syncope. No nausea vomiting nor diarrhea. She has no history of ureterolithiasis. Exam General: Well-appearing in no acute distress speaking in complete sentences. Head: Normocephalic, atraumatic. Eye: Extraocular eye movements intact. No conjunctival injection. No scleral icterus. Ear, nose, mouth, throat: Grossly normal inspection. Normal voice, handling secretions normally. Neck: Trachea midline. Cardiovascular: Well-perfused distal extremities. Respiratory: Nonlabored respiration. Gastrointestinal: Nondistended abdomen. Soft nontender abdomen. No rebound. No guarding. Musculoskeletal: No edema. Moving all 4 extremities spontaneously. Skin: Normal for age and race, grossly normal temperature and turgor. No acute rash. Neurologic: Alert and appropriate, no apparent acute deficits. Psychiatric: Mood and manner are appropriate. Grooming and personal hygiene are appropriate. Related Data Home Medications Medication Instructions Recorded Confirmed acetaminophen 500 mg tablet 1,000 mg PO PRN PRN 01/26/19 05/19/24 (Acetaminophen Extra Strength) magnesium oxide 400 mg (241.3 mg 400 mg PO DAILY #7 tabs 01/27/19 05/19/24 magnesium) tablet ascorbic acid (vitamin C) 500 mg 500 mg PO DAILY 03/20/19 05/19/24 capsule,extended release atorvastatin 20 mg tablet (Lipitor) 20 mg PO DAILY 11/10/21 05/19/24 cephalexin 250 mg capsule 250 mg PO QID 5 days #20 caps 05/19/24 Previous Rx's Medication Instructions Recorded magnesium oxide 400 mg (241.3 mg 400 mg PO DAILY #7 tabs 01/27/19 magnesium) tablet cephalexin 250 mg capsule 250 mg PO QID 5 days #20 caps 05/19/24 Allergies Allergy/AdvReac Type Severity Reaction Status Date / Time ropinirole Allergy Severe blacked out Verified 05/19/24 08:35 mometasone furoate Allergy Intermediate Swelling/Ed Verified 05/19/24 08:35 [From Nasonex] cinda gluten AdvReac Intermediate Abdominal Verified 05/19/24 08:35 pain, diarrhea General JONA: 4 Medical Decision Making Quality:SDOH Health Related Social Needs: No Data to Display PFSH All Active Problems (Updated 05/19/24 @ 09:06 by Jarrod Fraser MD) Acute UTI (Acute) Localized osteoarthritis of right knee (Acute) Trochanteric bursitis, right hip (Acute) Pes anserinus bursitis of right knee (Acute) Chest pain (Acute) Rotator cuff insufficiency of left shoulder (Acute) Left shoulder pain (Acute) Urothelial carcinoma (Acute) Iliotibial band syndrome affecting right lower leg (Acute) knee Advance directive discussed with patient (Acute) DVT prophylaxis (Acute) Pancreatitis (Chronic) Osteoarthritis (Chronic) POLINA (obstructive sleep apnea) (Chronic) RLS (restless legs syndrome) (Acute) History of cholecystectomy (Chronic) IBS (irritable bowel syndrome) (Chronic) CVID (common variable immunodeficiency) (Acute) Superficial foreign body, left knee, sequela (Acute) Removal of foreign body DOS: 11/16/18 Dr. Anaya Painful total knee replacement, left (Acute) Transient global amnesia (Acute 12/10/14) Pes anserinus bursitis of left knee (Acute 02/16/18) Patellar tendinitis, left knee (Acute 01/19/18) Medical History Hyperlipidemia Osteoarthritis Other chronic pain Left shoulder Overactive bladder Surgical History Abdominal hysterectomy Appendectomy Arthroscopy, Shoulder Cholecystectomy Colonoscopy - IV Sedation Extraction of cataract Bilateral History of nephroureterectomy Open Carpal Tunnel release Tonsillectomy Family History Mother No problems noted. Father No problems noted. Social History Smoking/Tobacco Use Status: Former Tobacco Use Smoking risk assessment performed?: Yes Alcohol Intake: former Drug use: Never Substance use type: does not use Housing: house Current gender identity: female Do you feel safe at home: Yes Do you feel safe in your relationship?: Yes Additional Social history: . 4 children. No current alcohol use, and remote history of tobacco use.
[2024-05-19 07:42] VITALS: BP 166/90; PULSE 76; RESP 16; TEMP 37.2; O2SAT 100
[2024-05-19 08:01] VITALS: BP 166/90; PULSE 72; RESP 16; O2SAT 100
[2024-05-19 08:25] LABS: Bilirubin Small (Negative); Blood Large (Negative); Clarity Cloudy (Clear); Glucose Negative (Negative); Ketones Trace mg/dL (Negative); Leukocyte Esterase Large (Negative); Nitrite Positive (Negative); Specific Gravity 1.025 (1.005-1.025); pH 5.5 (5-8)
[2024-05-19 08:41] LABS: C & S Indicated? Yes; RBC >50 HPF (0-2)
[2024-05-19 08:41] LABS: Abs Immature Grans 0.05 10^3/uL (0.0-0.06); Absolute Basophil Count 0.08 10^3/uL (0.0-0.2); Absolute Eosinophil Count 0.13 10^3/uL (0.0-0.7); Absolute Lymphocyte Count 0.95 10^3/uL (1.2-3.4); Absolute Monocyte Count 0.95 10^3/uL (0.1-0.8); Absolute Neutrophil Count 8.41 10^3/uL (1.2-6.7); Basophils % 0.8 %; Eosinophils % 1.2 %; HCT 37.3 % (36.0-46.0); HGB 11.9 g/dL (11.2-15.7); Immature Grans % 0.5 %; MCH 29.3 pg (27.0-33.0); MCHC 31.9 % (32.0-36.0); MCV 92 fL (80-95); MPV 9.8 fL (8.0-11.0); Neutrophils % 79.5 %; Platelet Count 311 10^3/uL (130-400); RBC 4.06 10^6/uL (3.93-5.22); RDW 14.6 % (11.7-14.6); RDW-SD 49.5 fL; WBC 10.57 10^3/uL (4.4-10.8)
[2024-05-19 08:42] LABS: WBC >50 HPF (0-5)
[2024-05-19 08:53] LABS: Anion Gap 8.8 mmol/L (3-11); BUN 23 mg/dL (7-18); CO2 27.2 mmol/L (21.0-32.0); CREATININE 1.2 mg/dL (0.55-1.02); Calcium 9.1 mg/dL (8.5-10.1); Chloride 105 mmol/L (98-107); Estimated GFR 43.81 (mL/min/1.73m2); Glucose 97 mg/dL (74-106); Potassium 4.1 mmol/L (3.5-5.1); Sodium 141 mmol/L (136-145)
[2024-05-19 09:20] VITALS: BP 158/63; PULSE 68; RESP 18; O2SAT 100
[2024-05-19] MEDS: Cephalexin 250 MG CAP PO (09:24)
--- NOTE | 2024-05-20 07:55 | NUR.NOTE ---
Nursing Note:Pt was here for a UTI yesterday and called because she does not feel like the antibiotics she was started on are working fast enough. I told her that typically antibiotics take a few days before you really start to notice the effects and recommend that she continues taking them as prescribed. She reported that last time the antibiotics seemed to work faster and was concerned. The symptoms have not gotten worse, they just are not better. I also informed her that if the provider sent the urine out for a culture and sensitivity that would also tell the provider if she is on the right antibiotic for the bacteria in her urine and they will change it if she needs a different one once it is back, in a few days. I asked that she continue to take the antibiotics and monitor her symptoms. If they gets worse, she develops any fevers, or the symptoms do not subside with the full course of antibiotics, then she should be seen again to be re-evaluated. She was happy with that plan.
== END 2024-05-19 09:36 | disposition home or self-care (01) ==
PROVIDERS: Emergency Provider Emergency Medicine; PCP Student in an Organized Health Care Education/Training Program
DX: R10.30 Lower abdominal pain, unspecified (principal); R35.0 Frequency of micturition; N39.0 Urinary tract infection, site not specified
CPT/HCPCS: 80048; 87077; 99283; 81003; 81015; 85025; 87086; 87186

== ENCOUNTER 2024-07-27 09:09 | Emergency (ER) | payer MEDICARE, SELFPAY ==
[2024-07-27 09:18] VITALS: BP 160/78; PULSE 87; RESP 18; TEMP 36.4; O2SAT 99
--- NOTE | 2024-07-27 10:16 | DI.CT_ITS ---
Exam(s) CT CERVICAL SPINE WO EXAM: CT CERVICAL SPINE WO CLINICAL HISTORY: neck pain rad to lt arm, prior urothelial cancer. TECHNIQUE: Imaging Protocol: Axial computed tomography images with coronal and sagittal reformatted images were created and reviewed COMPARISON: CR XR CERVICAL SP LY TRAUMA 2-3V from 02/28/2024 FINDINGS: Bones: No fracture or dislocations are seen. The alignment of the cervical spine is normal including the craniocervical junction and cervicothoracic junction. There is mild disc space narrowing and in o steophytes at C6-C7. C2-3: No focal disc herniation, central spinal canal or neural foraminal stenosis. C3-4: There are degenerative changes of the facets on the left. No significant central spinal canal or right neural foraminal stenosis. [id number] left neural foraminal stenosis is present. C4-5: There are degenerative changes of the facets bilaterally, left greater than right. No signific ant central spinal canal stenosis. No significant neural foraminal stenosis is present. C5-6: There are degenerative changes seen in the facets particularly on the left. There is mild narr owing of the left neural foramen. No significant central spinal canal or right neural foraminal sten osis is seen. C6-7: No focal disc herniation, central spinal canal or neural foraminal stenosis. C7-T1: No focal disc herniation, central spinal canal or neural foraminal stenosis. Soft Tissues: The visualized lung apices are clear. No evidence of an apical pneumothorax. Atherosc lerotic calcification is present. IMPRESSION: 1. Multilevel degenerative changes in the cervical spine as described above. No foraminal narrowing is seen predominantly on the left as described above at C3-4 and C5-C6. 2. No acute fracture or subluxation. RADIATION DOSE DELIVERED: 281.07mGy.cm Total DLP 281.07mGy.cm Total DLP DATA REPOSITORY: All CT scans at this facility are submitted to the National Radiology Data Registry (NRDR) Dose Index Registry (DIR) with the [employer] (ACR). RADIATION OPTIMIZATION: All CT scans at this facility use at least one of these dose optimization te chniques: automated exposure control; mA and/or kV adjustment per patient size (includes targeted exa ms where dose is matched to clinical indication); or iterative reconstruction.
[2024-07-27] MEDS: ACETAMINOPHEN 1,000 MG/100 ML BTL 400 MG IVPB (10:41)
[2024-07-27] MEDS: Lidocaine 5% Patch 1 PATCH TP (10:42)
[2024-07-27 10:54] LABS: Abs Immature Grans 0.03 10^3/uL (0.0-0.06); Absolute Basophil Count 0.07 10^3/uL (0.0-0.2); Absolute Eosinophil Count 0.14 10^3/uL (0.0-0.7); Absolute Lymphocyte Count 1.05 10^3/uL (1.2-3.4); Absolute Monocyte Count 0.61 10^3/uL (0.1-0.8); Absolute Neutrophil Count 5.92 10^3/uL (1.2-6.7); Basophils % 0.9 %; Eosinophils % 1.8 %; HCT 39.6 % (36.0-46.0); HGB 12.4 g/dL (11.2-15.7); Immature Grans % 0.4 %; Lymphocytes % 13.4 %; MCH 28.9 pg (27.0-33.0); MCHC 31.3 % (32.0-36.0); MCV 92 fL (80-95); MPV 9.6 fL (8.0-11.0); Monocytes % 7.8 %; Neutrophils % 75.7 %; Platelet Count 335 10^3/uL (130-400); RBC 4.29 10^6/uL (3.93-5.22); RDW 14.3 % (11.7-14.6); RDW-SD 48.5 fL; WBC 7.82 10^3/uL (4.4-10.8)
[2024-07-27 11:15] LABS: ALT 20 U/L (14-59); AST 29 U/L (15-37); Albumin 3.7 g/dL (3.4-5.0); Alkaline Phosphatase 64 U/L (46-116); Anion Gap 9.1 mmol/L (3-11); BUN 24 mg/dL (7-18); Bilirubin, Total 0.28 mg/dL (0.2-1.0); CO2 24.9 mmol/L (21.0-32.0); CREATININE 1.3 mg/dL (0.55-1.02); Calcium 9.7 mg/dL (8.5-10.1); Chloride 105 mmol/L (98-107); Glucose 92 mg/dL (74-106); Magnesium 2.5 mg/dL (1.8-2.4); Potassium 4.1 mmol/L (3.5-5.1); Sodium 139 mmol/L (136-145); Total Protein 7.2 g/dL (6.4-8.2); Troponin I < 50 ng/L (< or =60)
--- NOTE | 2024-07-27 11:19 | ED.GENADUL_ITS ---
Discharge Plan Disposition Patient Disposition: Home Condition: Stable Discharge Details Clinical Impression: Left upper arm pain, Chronic left shoulder pain, Foraminal stenosis of cervical region, Elevated blood pressure reading Primary Care Provider: Vinnie Mosquera ED Provider: Shubham Bolivar Home Meds and New Rx's Prescriptions: New tramadol 100 mg tablet 100 mg PO BID PRN (Reason: severe pain (scale score 7-10)) Qty: 20 0RF diclofenac sodium [Voltaren Arthritis Pain] 1 % gel 4 g topical QID Qty: 100 0RF Rx Instructions: apply to left posterior shoulder Continued ascorbic acid (vitamin C) 500 mg capsule, extended release 500 mg PO DAILY acetaminophen [Acetaminophen Extra Strength] 500 mg Tablet 1,000 mg PO PRN PRN magnesium oxide 400 mg (241.3 mg magnesium) Tablet 400 mg PO DAILY Qty: 7 0RF Discharge Instructions Instructions: Shoulder Pain ED Additional Instructions: Please use lidocaine patches for discomfort. These are available [id number]. Take Tylenol as prescribed. Use voltaren gel as prescribed. Use sling for discomfort. Please take Ultram as prescribed for severe pain. Please check your blood pressure at home regularly and keep a log of this to discuss with your primary care physician Please contact your primary care physician to arrange follow-up. Given appointment scheduled for July 31 at 940. Please arrive by 930. If you cannot make this appointment, please contact the practice to reschedule. Return to the ER immediately for any worsening or new concerning symptoms. Referrals: Vinnie Mosquera [Primary Care Provider] - [facility] General Mode of arrival: ambulatory . Date/Time Provider Initiated Documentation: 07/27/24 09:34 . Limitations to Documentation: no limitations . Information obtained by: patient . HPI Narrative: 89-year-old female with history of chronic left shoulder pain, followed by orthopedics, presents with left upper arm pain. Patient notes over the past few days her chronic left shoulder pain has progressed and now involves the upper arm down to her elbow. She also notes chronic left-sided neck pain. No associated numbness or tingling. No chest pain or shortness of breath. Patient does not recall any specific injury. Related Data Home Medications ?Medication ?Instructions ?Recorded ?Confirmed acetaminophen 500 mg tablet 1,000 mg PO PRN PRN 01/26/19 07/27/24 (Acetaminophen Extra Strength) magnesium oxide 400 mg (241.3 mg 400 mg PO DAILY #7 tabs 01/27/19 07/27/24 magnesium) tablet ascorbic acid (vitamin C) 500 mg 500 mg PO DAILY 03/20/19 07/27/24 capsule,extended release diclofenac sodium 1 % topical gel 4 g topical QID #100 grams 07/27/24 (Voltaren Arthritis Pain) tramadol 100 mg tablet 100 mg PO BID PRN severe pain 07/27/24 (scale score 7-10) #20 tabs Previous Rx's ?Medication ?Instructions ?Recorded magnesium oxide 400 mg (241.3 mg 400 mg PO DAILY #7 tabs 01/27/19 magnesium) tablet diclofenac sodium 1 % topical gel 4 g topical QID #100 grams 07/27/24 (Voltaren Arthritis Pain) tramadol 100 mg tablet 100 mg PO BID PRN severe pain 07/27/24 (scale score 7-10) #20 tabs Allergies Allergy/AdvReac Type Severity Reaction Status Date / Time ropinirole Allergy Severe blacked out Verified 07/27/24 09:24 mometasone furoate (From Allergy Intermediate Swelling/Ed Verified 07/27/24 09:24 Nasonex) cinda gluten AdvReac Intermediate Abdominal Verified 07/27/24 09:24 pain, diarrhea General Stated Complaint: Orthopedic JONA: 4 Review of Systems All systems reviewed & are unremarkable except as noted in HPI and below Constitutional Constitutional: Denies fever(s) Integumentary/Breasts Skin/Breast: Denies rash Exam Const General: cooperative and no acute distress [facility] Mouth: moist mucous membranes Eyes Conjunctivae: normal conjunctivae Sclera: normal sclerae Resp Auscultation: clear to auscultation bilaterally, no rales, no rhonchi and no wheezes Cardio Rate: regular rate and not tachycardic Rhythm: regular rhythm GI Palpation: soft, not firm, no guarding, no masses, not rigid and nontender Skin General skin exam: no rashes or lesions noted Neuro General: patient alert, patient awake and tone normal Extrem General: no joint enlargement and no edema Left upper extremity: shoulder/upper arm Details: tenderness Location: of the proximal humerus, axillary nerve sensory function normal and abnormal ROM Details: pain with active ROM Details: in ABduction and in extension; no swelling and elbow/forearm Details: normal to inspection Psych Appearance: grossly normal Mental Status: mental status grossly normal Course Vital Signs Vital signs: Vital Signs Temperature 36.4 C 07/27/24 09:18 Pulse 87 07/27/24 09:18 Respiratory Rate 18 07/27/24 09:18 Blood Pressure 160/78 H 07/27/24 09:18 Pulse Oximetry 99 07/27/24 09:18 Temperature 36.4 C 07/27/24 09:18 Temperature Source Temporal Artery Scan 07/27/24 09:18 Pulse 87 07/27/24 09:18 Respiratory Rate 18 07/27/24 09:18 Respiratory Effort Normal 07/27/24 09:23 Blood Pressure 160/78 H 07/27/24 09:18 Pulse Oximetry 99 07/27/24 09:18 Pain Level 10 07/27/24 09:25 Lab/Test Results Lab/Test Results: Laboratory Tests Range/Units 07/27/24 10:35 WBC (4.4-10.8) 10^3/uL 7.82 RBC (3.93-5.22) 10^6/uL 4.29 Hgb (11.2-15.7) g/dL 12.4 Hct (36.0-46.0) % 39.6 MCV (80-95) fL 92 MCH (27.0-33.0) pg 28.9 MCHC (32.0-36.0) % 31.3 L RDW (11.7-14.6) % 14.3 Plt Count (130-400) 10^3/uL 335 MPV (8.0-11.0) fL 9.6 Immature Gran % % 0.4 Neutrophils % % 75.7 Lymphocytes % % 13.4 Monocytes % % 7.8 Eosinophils % % 1.8 Basophils % % 0.9 Nucleated RBC % (0.0-0.3) % 0.0 Absolute Neutrophils (1.2-6.7) 10^3/uL 5.92 Absolute Lymphocytes (1.2-3.4) 10^3/uL 1.05 L Absolute Monocytes (0.1-0.8) 10^3/uL 0.61 Absolute Eosinophils (0.0-0.7) 10^3/uL 0.14 Absolute Basophils (0.0-0.2) 10^3/uL 0.07 Sodium (136-145) mmol/L 139 Potassium (3.5-5.1) mmol/L 4.1 Chloride (98-107) mmol/L 105 Carbon Dioxide (21.0-32.0) mmol/L 24.9 Anion Gap (3-11) mmol/L 9.1 BUN (7-18) mg/dL 24 H Creatinine (0.55-1.02) mg/dL 1.3 H Est GFR (CKD-EPI 2020) (mL/min/1.73m2) 39.80 Glucose (74-106) mg/dL 92 Calcium (8.5-10.1) mg/dL 9.7 Magnesium (1.8-2.4) mg/dL 2.5 H Total Bilirubin (0.2-1.0) mg/dL 0.28 AST (15-37) U/L 29 ALT (14-59) U/L 20 Alkaline Phosphatase (46-116) U/L 64 Troponin I High Sens (< or =60) ng/L < 50 Total Protein (6.4-8.2) g/dL 7.2 Albumin (3.4-5.0) g/dL 3.7 Medical Decision Making 89-year-old female with multiple medical problems including chronic left shoulder pain status post replacement, here with worsening left upper arm pain. Patient is hypertensive. Concern for potential neuropathic pain from cervical lesion versus worsening os teoarthritis of the shoulder versus less likely atypical presentation of ACS. Screening EKG was reviewed and interpreted by me: Labs reviewed: Troponin negative. CT of the cervical spine interpreted by radiology: 1. Multilevel degenerative changes in the cervical spine as described above. No foraminal narrowing is seen predominantly on the left as described above at C3-4 and C5-C6. 2. No acute fracture or subluxation. X-ray of the shoulder was interpreted by radiology: Stable left total shoulder replacement. Consider nerve root impingement. Pain distribution does correlate to C5-C6 foraminal narrowing seen on CT imaging. Plan for discharge with outpatient follow-up with orthopedics. Patient is already followed by orthopedic surgery at [facility] [place]. I have placed a lidocaine patch and will recommend she continue acetaminophen. I will prescribe Ultram for severe pain. Lab Data Lab results reviewed: Yes I reviewed the patient's lab results. Labs: Laboratory Tests Range/Units 07/27/24 10:35 WBC (4.4-10.8) 10^3/uL 7.82 RBC (3.93-5.22) 10^6/uL 4.29 Hgb (11.2-15.7) g/dL 12.4 Hct (36.0-46.0) % 39.6 MCV (80-95) fL 92 MCH (27.0-33.0) pg 28.9 MCHC (32.0-36.0) % 31.3 L RDW (11.7-14.6) % 14.3 Plt Count (130-400) 10^3/uL 335 MPV (8.0-11.0) fL 9.6 Immature Gran % % 0.4 Neutrophils % % 75.7 Lymphocytes % % 13.4 Monocytes % % 7.8 Eosinophils % % 1.8 Basophils % % 0.9 Nucleated RBC % (0.0-0.3) % 0.0 Absolute Neutrophils (1.2-6.7) 10^3/uL 5.92 Absolute Lymphocytes (1.2-3.4) 10^3/uL 1.05 L Absolute Monocytes (0.1-0.8) 10^3/uL 0.61 Absolute Eosinophils (0.0-0.7) 10^3/uL 0.14 Absolute Basophils (0.0-0.2) 10^3/uL 0.07 Sodium (136-145) mmol/L 139 Potassium (3.5-5.1) mmol/L 4.1 Chloride (98-107) mmol/L 105 Carbon Dioxide (21.0-32.0) mmol/L 24.9 Anion Gap (3-11) mmol/L 9.1 BUN (7-18) mg/dL 24 H Creatinine (0.55-1.02) mg/dL 1.3 H Est GFR (CKD-EPI 2020) (mL/min/1.73m2) 39.80 Glucose (74-106) mg/dL 92 Calcium (8.5-10.1) mg/dL 9.7 Magnesium (1.8-2.4) mg/dL 2.5 H Total Bilirubin (0.2-1.0) mg/dL 0.28 AST (15-37) U/L 29 ALT (14-59) U/L 20 Alkaline Phosphatase (46-116) U/L 64 Troponin I High Sens (< or =60) ng/L < 50 Total Protein (6.4-8.2) g/dL 7.2 Albumin (3.4-5.0) g/dL 3.7 Quality:SDOH Health Related Social Needs: No Data to Display PFSH All Active Problems (Updated 07/27/24 @ 12:58 by Shubham Bolivar MD) Elevated blood pressure reading (Acute) Foraminal stenosis of cervical region (Acute) Chronic left shoulder pain (Acute) Left upper arm pain (Acute) Localized osteoarthritis of right knee (Acute) Trochanteric bursitis, right hip (Acute) Pes anserinus bursitis of right knee (Acute) Chest pain (Acute) Rotator cuff insufficiency of left shoulder (Acute) Left shoulder pain (Acute) Urothelial carcinoma (Acute) Iliotibial band syndrome affecting right lower leg (Acute) knee Advance directive discussed with patient (Acute) DVT prophylaxis (Acute) Pancreatitis (Chronic) Osteoarthritis (Chronic) POLINA (obstructive sleep apnea) (Chronic) RLS (restless legs syndrome) (Acute) History of cholecystectomy (Chronic) IBS (irritable bowel syndrome) (Chronic) CVID (common variable immunodeficiency) (Acute) Superficial foreign body, left knee, sequela (Acute) Removal of foreign body DOS: 11/16/18 Dr. Anaya Painful total knee replacement, left (Acute) Transient global amnesia (Acute 12/10/14) Pes anserinus bursitis of left knee (Acute 02/16/18) Patellar tendinitis, left knee (Acute 01/19/18) Medical History Other chronic pain Left shoulder Osteoarthritis Hyperlipidemia Overactive bladder Surgical History History of nephroureterectomy Tonsillectomy Open Carpal Tunnel release Abdominal hysterectomy Colonoscopy - IV Sedation Cholecystectomy Extraction of cataract Bilateral Arthroscopy, Shoulder Appendectomy Family History Mother No problems noted. Father No problems noted. Social History Smoking/Tobacco Use Status: Former Tobacco Use Smoking risk assessment performed?: Yes Alcohol Intake: former Drug use: Never Substance use type: does not use Housing: house Current gender identity: female Do you feel safe at home: Yes Do you feel safe in your relationship?: Yes Additional Social history: . 4 children. No current alcohol use, and remote history of tobacco use.
--- NOTE | 2024-07-27 11:38 | DI.RAD_ITS ---
Exam(s) XR SHOULDER LT COMPLETE 2+V EXAM: XR SHOULDER LT COMPLETE 2+V CLINICAL HISTORY: pain. TECHNIQUE: 2D digital imaging was performed. Five images were obtained. AP, y and axillary views we re obtained. COMPARISON: CR XR SHOULDER LT COMPLETE 2+V from 11/23/2023 FINDINGS: BONES: There are stable post operative changes of a left total shoulder replacement present. No frac ture or dislocation. The bones are osteopenic. JOINTS: The orthopedic hardware is in stable position. No evidence of hardware loosening. SOFT TISSUE: Normal. IMPRESSION: Stable left total shoulder replacement. DATA REPOSITORY: RADIATION DOSE DELIVERED:
--- NOTE | 2024-07-27 12:30 | RT.EKG_ITS ---
APPROVED REPORT Exam: Resting ECG Reason for Exam: left shoulder pain Patient Location: E HR:61 bpm ECG Measurements Heart Rate 61 AXIS [place] 177 P 54 QRSd 95 QRS -59 QT 411 T 33 QTc 414 Conclusion Sinus rhythm...normal P axis, V-rate 60- 99 Left anterior fascicular block...axis(240,-40), init forces inf Low voltage, precordial leads...precordial leads <1.0mV
[2024-07-27 13:02] VITALS: BP 150/51; PULSE 65; RESP 16; TEMP 36.2; O2SAT 97
== END 2024-07-27 13:39 | disposition home or self-care (01) ==
PROVIDERS: Emergency Provider Student in an Organized Health Care Education/Training Program; PCP Student in an Organized Health Care Education/Training Program
DX: M25.512 Pain in left shoulder (principal); M25.622 Stiffness of left elbow, not elsewhere classified; M48.02 Spinal stenosis, cervical region; R03.0 Elevated blood-pressure reading, without diagnosis of hypertension
CPT/HCPCS: 36415; 80053; 93005; 96365; 99284; 72125; 73030; 83735; 84484; 85025; 93010; 99283; J0131

== ENCOUNTER 2024-08-29 02:28 | Outpatient (CLI) | payer MEDICARE, SELFPAY ==
--- NOTE | 2024-08-29 | DI.MRI_ITS ---
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 COMPARISON: No exams were available for comparison FINDINGS: CERVICOMEDULLARY JUNCTION: Intact with no evidence of cerebellar tonsillar ectopia. No obvious abnor mality of the odontoid process. No evidence of Chiari 1 malformation. CERVICAL SPINAL CORD: There is no abnormal signal in the cervical spinal cord and no evidence of foca l cord atrophy nor focal cord swelling. OSSEOUS:There are no cervical fractures evident. No significant osseous lesions in the cervical vert ebrae. Cervical curvature is maintained. INDIVIDUAL LEVELS: C2-3: No disc herniation nor central canal stenosis. There is some degenerative change in the left f acet joint without degenerative change in the right facet joint. There is no obvious foraminal steno sis either side. C3-4: No disc herniation nor central canal stenosis.There is significant asymmetric facet arthropathy on the left side. Mild foraminal stenosis evident on the left side. No significant facet arthropat hy on the right side and there is no foraminal stenosis on the right side. C4-5: Normal disc height. No disc herniation or central canal stenosis. There is significant bilate ral facet arthropathy, slightly more so on the left side. There is mild foraminal stenosis on the ri ght side. No foraminal stenosis on the left side. C5-6: Normal disc height. Small central subligamentous disc bulge without a prominent disc herniatio n or central canal stenosis. Bilateral facet arthropathy, more prominent on the left side. There is , however, no significant foraminal stenosis on either side at this level. C6-7: Preserved disc height. However, there is a central subligamentous disc herniation which is bes t evident on the sagittal and oblique views and extends posteriorly 4 mm and effaces the thecal sac b ut not the spinal cord. There is no obvious abnormal signal in the cord at this level. There are no prominent facet joint degenerative changes at this level. For findings extends no foraminal stenosi s evident on either side at this level. C7-T1: No disc herniation nor central canal stenosis. No facet arthropathy.No foraminal stenosis. IMPRESSION: 1. There is a central subligamentous disc protrusion at C6-7 level as above. This effaces the thecal sac but not the spinal cord. This disc protrusion is best evident on the sagittal oblique images; l ess so on the axial images which are slightly blurred due to motion. 2. There is no prominent central canal stenosis at any level in the cervical spine 3. There is multilevel asymmetric facet joint arthropathy, more prominent on the left side at multipl e levels. There is some mild foraminal stenosis as described individually above. DATA REPOSITORY:
== END 2024-08-29 02:48 ==
LOC: DI 02:28
PROVIDERS: PCP Student in an Organized Health Care Education/Training Program; Visit Provider Student in an Organized Health Care Education/Training Program
DX: M47.812 Spondylosis without myelopathy or radiculopathy, cervical region (principal)
CPT/HCPCS: 72141

== ENCOUNTER 2024-08-29 11:08 | Outpatient (CLI) | payer MEDICARE, SELFPAY ==
[2024-08-30 10:22] LABS: IgG 459 mg/dL (610-1616)
== END 2024-08-29 11:09 | disposition home or self-care (01) ==
LOC: LBO 11:08
PROVIDERS: PCP Student in an Organized Health Care Education/Training Program; Visit Provider Allergy & Immunology
DX: D80.1 Nonfamilial hypogammaglobulinemia (principal)
CPT/HCPCS: 36415; 82784

== ENCOUNTER 2024-11-10 11:23 | Emergency (ER) | payer MEDICARE, SELFPAY ==
[2024-11-10] VITALS (8 sets, daily range): BP systolic 156–185; BP diastolic 63–76; PULSE 60–82; RESP 12–18; TEMP 36.4; O2SAT 98–100
--- NOTE | 2024-11-10 11:15 | RT.EKG_ITS ---
APPROVED REPORT Exam: Resting ECG Reason for Exam: stroke symptoms Patient Location: E HR:71 bpm ECG Measurements Heart Rate 71 AXIS [place] 87 P 84 QRSd 191 QRS 87 QT 674 T 74 QTc 734 Conclusion Sinus rhythm...normal P axis, V-rate 60- 99 LVH with secondary repolarization abnormality...multi-LVH criteria, abnrm ST-T ST elevation secondary to LVH...Multiple VCG criteria Prolonged QT interval...QTc >500mS Physician: notable artifact with no evidence of stemi
--- NOTE | 2024-11-10 11:45 | DI.CT_ITS ---
Exam(s) CT ABDOMEN PELVIS WO EXAM: CT ABDOMEN PELVIS WO CLINICAL HISTORY: right sided abdominal pain. TECHNIQUE: Imaging Protocol: Axial computed tomography images with coronal and sagittal reformatted images were created and reviewed. CT CT ABDOMEN PELVIS WO from 05/02/[address] THORAX ABD/PEL CTA from 02/28/2024 FINDINGS: Lack of IV contrast does limit evaluation of the abdominal and pelvic organs. ABDOMEN: Lung Bases: Normal where visualized. Liver: Normal density. No measurable mass. Gallbladder and biliary tract: Status post cholecystectomy. There is stable mild prominence of the e xtrahepatic bile duct likely reflecting the post cholecystectomy state. Pancreas: Normal density, no abnormal calcifications or inflammatory process. Spleen: Normal. Kidneys: The right kidney is surgically absent.No radiodense stones or obstructive uropathy. No john s seen. Adrenal glands: No mass is seen. Lymph nodes: Within normal limits. Abdominal Aorta: Abdominal portion non-dilated. Atherosclerotic calcification is present. PELVIS: Bladder:Urinary bladder is incompletely distended but grossly unremarkable. Bowel: There is extensive diverticulosis of the colon without evidence of acute diverticulitis. No e vidence of appendicitis. No bowel wall thickening or obstruction. Peritoneal cavity: No ascites, collection or mesenteric inflammatory response. No free air. Reproductive organs: Status post hysterectomy. There is a 2.2 x 2.0 cm right adnexal cyst likely ova mayito. (Series 2, image 288). This is been present on prior examinations and shows slight decrease i n size compared to the examination from 2019. Bones: Within normal limits. The bones are osteopenic. Old L1 and L2 fracture deformities are seen. Soft Tissues: Within normal limits. IMPRESSION: 1. No acute abdominal pelvic process. 2. Incidental findings in the abdomen and pelvis as described above. 3. Lack of IV contrast limits examination of the abdominal and pelvic organs. RADIATION DOSE DELIVERED: 461.37mGy.cm Total DLP DATA REPOSITORY: All CT scans at this facility are submitted to the National Radiology Data Registry (NRDR) Dose Index Registry (DIR) with the [employer] (ACR). RADIATION OPTIMIZATION: All CT scans at this facility use at least one of these dose optimization te chniques: automated exposure control; mA and/or kV adjustment per patient size (includes targeted exa ms where dose is matched to clinical indication); or iterative reconstruction.
--- NOTE | 2024-11-10 11:56 | ED.GENADUL_ITS ---
Discharge Plan Disposition Patient Disposition: Home Condition: Good Discharge Details Clinical Impression: Malaise Primary Care Provider: Vinnie Mosquera ED Provider: Itz Smith Home Meds and New Rx's Prescriptions: No Action ascorbic acid (vitamin C) 500 mg capsule, extended release 500 mg PO DAILY acetaminophen [Acetaminophen Extra Strength] 500 mg Tablet 1,000 mg PO PRN PRN magnesium oxide 400 mg (241.3 mg magnesium) Tablet 400 mg PO DAILY Qty: 7 0RF tramadol 100 mg tablet 100 mg PO BID PRN (Reason: severe pain (scale score 7-10)) Qty: 20 0RF diclofenac sodium [Voltaren Arthritis Pain] 1 % gel 4 g topical QID Qty: 100 0RF Rx Instructions: apply to left posterior shoulder Discharge Instructions Instructions: Fatigue Additional Instructions: At this time your workup is returned and shows no evidence of stroke, infection, or significant abnormality in your abdomen. I do suspect there is a component of mild dehydration that may have caused some of your mild weakness. However at this time there is no evidence to suggest current stroke or other significant abnormality. Please drink plenty fluids and stay well-hydrated. If you notice any worsening of your symptoms, or any new symptoms such as vomiting, diarrhea, fever, chills, shortness of breath, chest pain, numbness, weakness, or fainting , please return immediately to the emergency department for reevaluation. Please follow up with your primary care provider as soon as possible for reassessment and reevaluation. As always, it was a pleasure participating in your medical care today. Referrals: Vinnie Mosquera [Primary Care Provider] - [facility] General Date/Time Provider Initiated Documentation: 11/10/24 11:26 . HPI Narrative: This is an 89-year-old female with past medical history of obstructive sleep apnea, restless leg syndrome, irritable bowel syndrome questionable TIA in the past, previous cholecystectomy, who presents today for evaluation of confusion. Patient states that last night she developed some mild right low or right sided abdominal pain, and then this morning when she woke up she felt slightly confused, and slightly unsteady with ambulation. Patient's daughter who is at bedside states that she does not note any significant confusion, mental status change, speech change or other abnormality but does confirm the mild subjective unsteadiness. She also states that she has been dealing with intermittent unsteadiness quite often over the last few months. Patient denies any headache or chest pain. She denies any vomiting or diarrhea. No recent falls or trauma. No other complaints at this time. She is not on any blood thinners. Related Data Home Medications ?Medication ?Instructions ?Recorded ?Confirmed acetaminophen 500 mg tablet 1,000 mg PO PRN PRN 01/26/19 11/10/24 (Acetaminophen Extra Strength) magnesium oxide 400 mg (241.3 mg 400 mg PO DAILY #7 tabs 01/27/19 11/10/24 magnesium) tablet ascorbic acid (vitamin C) 500 mg 500 mg PO DAILY 03/20/19 11/10/24 capsule,extended release diclofenac sodium 1 % topical gel 4 g topical QID #100 grams 07/27/24 11/10/24 (Voltaren Arthritis Pain) tramadol 100 mg tablet 100 mg PO BID PRN severe pain 07/27/24 11/10/24 (scale score 7-10) #20 tabs Previous Rx's ?Medication ?Instructions ?Recorded magnesium oxide 400 mg (241.3 mg 400 mg PO DAILY #7 tabs 01/27/19 magnesium) tablet diclofenac sodium 1 % topical gel 4 g topical QID #100 grams 07/27/24 (Voltaren Arthritis Pain) tramadol 100 mg tablet 100 mg PO BID PRN severe pain 07/27/24 (scale score 7-10) #20 tabs Allergies Allergy/AdvReac Type Severity Reaction Status Date / Time ropinirole Allergy Severe blacked out Verified 11/10/24 11:44 mometasone furoate (From Allergy Intermediate Swelling/Ed Verified 11/10/24 11:44 Nasonex) cinda gluten AdvReac Intermediate Abdominal Verified 11/10/24 11:44 pain, diarrhea General Stated Complaint: CVA/TIA JONA: 3 Exam Narrative Exam Narrative: 1.Const: Well-nourished, Well-developed, appearing stated age 2.Eyes: PERRL, no conjunctival injection, and symmetrical lids. 3.ENT: Atraumatic external nose and ears. Dry MM. Neck: Symmetric, trachea midline, No thyromegaly. 4.CVS: +S1/S2, Peripheral pulses 2+ and equal in all extremities. Brisk capillary refill in all extremities. 5.RESP: Unlabored respiratory effort. Clear to auscultation bilaterally. No wheezes rales or rhonchi 6.GI: Soft, nondistended, no guarding or rebound. Mild right-sided abdominal achiness. No evidence of an acute surgical abdomen. 7.MSK: Normocephalic/Atraumatic, Extremities w/o deformity or ttp No cyanosis or clubbing, Normal movement of all extremities 8.Skin: Warm, Dry. No rashes or lesions. 9.Neuro: business affairs manager II-XII grossly intact. Sensation grossly intact, no focal neurologic deficits. All 6 cardinal planes of vision are fully intact. No evidence of rotatory or vertical nystagmus. The patient demonstrated a normal [id number]-[id number], good dexterity. There was no evidence of dysdiadochokinesia. Patient was able to ambulate without difficulty. There was no wide-based gait. Romberg testing was normal. Tewa-kt-sjcw testing was normal. Sensation was intact bilaterally as well as muscle strength bilaterally for all extremities. Patient was able to verbalize butter cup with no slurring, or miss pronu nciation. 10.Psych: (AAO) x3. Appropriate mood and affect Course Vital Signs Vital signs: Vital Signs Temperature 36.4 C 11/10/24 11:41 Pulse 82 11/10/24 11:41 Respiratory Rate 12 11/10/24 11:41 Blood Pressure 185/76 H 11/10/24 11:41 Pulse Oximetry 99 11/10/24 11:41 Temperature 36.4 C 11/10/24 11:41 Temperature Source Oral 11/10/24 11:41 Pulse 82 11/10/24 11:41 Respiratory Rate 12 11/10/24 11:41 Blood Pressure 185/76 H 11/10/24 11:41 Blood Pressure Position Sitting 11/10/24 11:41 Pulse Oximetry 99 11/10/24 11:41 Oxygen Delivery Method Room Air 11/10/24 11:41 Oxygen Flow Rate 0 11/10/24 11:41 Medical Decision Making This is an 89-year-old female with past medical history of obstructive sleep apnea, restless leg syndrome, irritable bowel syndrome questionable TIA in the past, previous cholecystectomy, who presents today for evaluation of confusion. Patient states that last night she developed some mild right low or right sided abdominal pain, and then this morning when she woke up she felt slightly confused, and slightly unsteady with ambulation. Patient's daughter who is at bedside states that she does not note any significant confusion, mental status change, speech change or other abnormality but does confirm the mild subjective unsteadiness. She also states that she has been dealing with intermittent unsteadiness quite often over the last few months. Patient denies any headache or chest pain. She denies any vomiting or diarrhea. No recent falls or trauma. No other complaints at this time. She is not on any blood thinners. Physical exam demonstrates well-appearing female, no neurologic deficits, no limb asymmetry for strength and movement. No dysdiadochokinesia or dysmetria. No nystagmus. No ataxia. Dry mucous membranes are present. Differential includes urinary tract infection, dehydration, electrolyte abnormality. Stroke notably less likely given symptomatology however with her age and risk factors it is on the differential. We will gently rehydrate with 500 cc of normal saline, evaluate for concerning potential etiologies, monitor closely and reassess. [address] imaging has returned, no evidence of acute process intracranially. No evidence of acute process intra-abdominal process. Patient has been rehydrated with a liter of fluid and she feels much better. On a few occasions we did get her up and ambulate her throughout the emergency department she showed no signs of ataxia, focal weakness or other abnormality. Mentation still remains notably normal. Laboratory workup shows no white count bandemia or left shift. Renal function stable except BUN slightly high at 27 suggesting potential mild dehydration. No hypercarbia or acidosis. Anion gap is normal. Electrolytes normal, thyroid function normal, serial troponins normal. Urinalysis shows no evidence of UTI or infection. Patient feels notably well. Symptoms appear clinically inconsistent with stroke, cerebellar infarct, UTI or infection, significant neurologic abnormality, or other concerning deficit. With a reassuring abdominal exam and imaging and physical exam, I do feel that dis charge is appropriate. Based on the history that was described, symptoms do not appear overly consistent with TIA as it was more of a generalized malaise rather than a focal component per daughter and patient. Patient will be discharged home. Recommend continued hydration at home. I have extensively reviewed the treatment plan and discharge instructions with the patient and their family. I have addressed all patient concerns at this time. The patient and family was made aware of what symptoms to monitor for that would warrant a return to the emergency department. Discussed the plan with the patient and family, they demonstrate verbal understanding and agreement with our assessment and plan at this time. The documentation in this chart was dictated using [employer] dictation software. Please excuse any dictation errors. FINDINGS: Lack of IV contrast does limit evaluation of the abdominal and pelvic organs. ABDOMEN: Lung Bases: Normal where visualized. Liver: Normal density. No measurable mass. Gallbladder and biliary tract: Status post cholecystectomy. There is stable mild prominence of the extrahepatic bile duct likely reflecting the post cholecystectomy state. Pancreas: Normal density, no abnormal calcifications or inflammatory process. Spleen: Normal. Kidneys: The right kidney is surgically absent.No radiodense stones or obstructive uropathy. No masses seen. Adrenal glands: No mass is seen. Lymph nodes: Within normal limits. Abdominal Aorta: Abdominal portion non-dilated. Atherosclerotic calcification is present. PELVIS: Bladder:Urinary bladder is incompletely distended but grossly unremarkable. Bowel: There is extensive diverticulosis of the colon without evidence of acute diverticulitis. No evidence of appendicitis. No bowel wall thickening or obstruction. Peritoneal cavity: No ascites, collection or mesenteric inflammatory response. No free air. Reproductive organs: Status post hysterectomy. There is a 2.2 x 2.0 cm right adnexal cyst likely ovarian. (Series 2, image 288). This is been present on prior examinations and shows slight decrease in size compared to the examination from 2019. Bones: Within normal limits. The bones are osteopenic. Old L1 and L2 fracture deformities are seen. Soft Tissues: Within normal limits. IMPRESSION: 1. No acute abdominal pelvic process. 2. Incidental findings in the abdomen and pelvis as described above. 3. Lack of IV contrast limits examination of the abdominal and pelvic organs. FINDINGS: Ventricles and Extra axial spaces: Normal in size and morphology for the patient's age. Hemorrhage: None. Cerebral parenchyma: There are areas of decreased attenuation in the white matter consistent with chronic microvascular ischemic disease. No evidence of an acute territorial infarct. No mass effect. Midline shift: None. Brainstem/Cerebellum: Normal. Calvarium: Normal. Visualized Paranasal sinuses/Mastoids: Clear. Soft Tissues: Unremarkable. IMPRESSION: No acute intracranial process. Quality:SDOH Health Related Social Needs: No Data to Display PFSH All Active Problems (Updated 11/10/24 @ 15:03 by Itz Smith DO) Malaise (Acute) Localized osteoarthritis of right knee (Acute) Trochanteric bursitis, right hip (Acute) Pes anserinus bursitis of right knee (Acute) Chest pain (Acute) Rotator cuff insufficiency of left shoulder (Acute) Left shoulder pain (Acute) Urothelial carcinoma (Acute) Iliotibial band syndrome affecting right lower leg (Acute) knee Advance directive discussed with patient (Acute) DVT prophylaxis (Acute) Pancreatitis (Chronic) Osteoarthritis (Chronic) POLINA (obstructive sleep apnea) (Chronic) RLS (restless legs syndrome) (Acute) History of cholecystectomy (Chronic) IBS (irritable bowel syndrome) (Chronic) CVID (common variable immunodeficiency) (Acute) Superficial foreign body, left knee, sequela (Acute) Removal of foreign body DOS: 11/16/18 Dr. Anaya Painful total knee replacement, left (Acute) Transient global amnesia (Acute 12/10/14) Pes anserinus bursitis of left knee (Acute 02/16/18) Patellar tendinitis, left knee (Acute 01/19/18) Medical History Other chronic pain Left shoulder Osteoarthritis Hyperlipidemia Overactive bladder Surgical History History of nephroureterectomy Tonsillectomy Open Carpal Tunnel release Abdominal hysterectomy Colonoscopy - IV Sedation Cholecystectomy Extraction of cataract Bilateral Arthroscopy, Shoulder Appendectomy Family History Mother No problems noted. Father No problems noted. Social History Smoking/Tobacco Use Status: Former Tobacco Use Smoking risk assessment performed?: Yes Alcohol Intake: former Drug use: Never Substance use type: does not use Housing: house Current gender identity: female Do you feel safe at home: Yes Do you feel safe in your relationship?: Yes Additional Social history: . 4 children. No current alcohol use, and remote history of tobacco use.
[2024-11-10 12:04] LABS: Abs Immature Grans 0.02 10^3/uL (0.0-0.06); Absolute Basophil Count 0.05 10^3/uL (0.0-0.2); Absolute Eosinophil Count 0.13 10^3/uL (0.0-0.7); Absolute Lymphocyte Count 1.17 10^3/uL (1.2-3.4); Absolute Monocyte Count 0.76 10^3/uL (0.1-0.8); Absolute Neutrophil Count 4.67 10^3/uL (1.2-6.7); Basophils % 0.7 %; Eosinophils % 1.9 %; HCT 36.5 % (36.0-46.0); HGB 11.5 g/dL (11.2-15.7); Immature Grans % 0.3 %; Lymphocytes % 17.2 %; MCH 28.8 pg (27.0-33.0); MCHC 31.5 % (32.0-36.0); MCV 92 fL (80-95); Monocytes % 11.2 %; Neutrophils % 68.7 %; RBC 3.99 10^6/uL (3.93-5.22); RDW 14.7 % (11.7-14.6); RDW-SD 49.9 fL
--- NOTE | 2024-11-10 12:07 | DI.CT_ITS ---
Exam(s) CT HEAD WO EXAM: CT HEAD WO CLINICAL HISTORY: confusion, eval for stroke. TECHNIQUE: Imaging Protocol: Axial computed tomography images with coronal and sagittal reformatted images were created and reviewed COMPARISON: CT HEAD WITH/WITHOUT CONTRAST from 10/05/2014 FINDINGS: Ventricles and Extra axial spaces: Normal in size and morphology for the patient's age. Hemorrhage: None. Cerebral parenchyma: There are areas of decreased attenuation in the white matter consistent with chr onic microvascular ischemic disease. No evidence of an acute territorial infarct. No mass effect. Midline shift: None. Brainstem/Cerebellum: Normal. Calvarium: Normal. Visualized Paranasal sinuses/Mastoids: Clear. Soft Tissues: Unremarkable. IMPRESSION: No acute intracranial process. RADIATION DOSE DELIVERED: 876.62mGy.cm Total DLP DATA REPOSITORY: All CT scans at this facility are submitted to the National Radiology Data Registry (NRDR) Dose Index Registry (DIR) with the [employer] (ACR). RADIATION OPTIMIZATION: All CT scans at this facility use at least one of these dose optimization te chniques: automated exposure control; mA and/or kV adjustment per patient size (includes targeted exa ms where dose is matched to clinical indication); or iterative reconstruction.
[2024-11-10 12:10] LABS: Diff Comment PLT Morph Reviewed; RBC Morphology Normal
[2024-11-10 12:33] LABS: ALT 17 U/L (14-59); AST 23 U/L (15-37); Albumin 3.4 g/dL (3.4-5.0); Alkaline Phosphatase 66 U/L (46-116); Anion Gap 8.2 mmol/L (3-11); BUN 27 mg/dL (7-18); Bilirubin, Total 0.27 mg/dL (0.2-1.0); CO2 26.8 mmol/L (21.0-32.0); CREATININE 1.3 mg/dL (0.55-1.02); Calcium 9.1 mg/dL (8.5-10.1); Chloride 108 mmol/L (98-107); Glucose 89 mg/dL (74-106); Potassium 4.7 mmol/L (3.5-5.1); Sodium 143 mmol/L (136-145); TSH (W/Ref FT4) 1.74 uIU/mL (0.36-3.74); Total Protein 6.5 g/dL (6.4-8.2); Troponin I 6 ng/L (<or=51)
[2024-11-10] MEDS: Normal Saline 500 ML IV (12:48)
[2024-11-10 13:02] LABS: BE (Venous) -3 mmol/L (-2-3); HCO3 (Venous) 23 mmol/L (23-28); O2 Sat (Venous) 64 %; TCO2 (Venous) 21 mmol/L (24-29); pCO2 (Venous) 41 mmHg (41-51); pH (Venous) 7.35 (7.31-7.41); pO2 (Venous) 33 mmHg
[2024-11-10 13:19] LABS: Bilirubin Negative (Negative); Blood Negative (Negative); Clarity Sl Cloudy (Clear); Glucose Negative (Negative); Ketones Negative (Negative); Leukocyte Esterase Negative (Negative); Nitrite Negative (Negative); Urobilinogen 0.2 mg/dL (Up to 0.2); pH 5.5 (5-8)
[2024-11-10 13:38] LABS: Troponin I 7 ng/L (<or=51)
== END 2024-11-10 15:14 | disposition home or self-care (01) ==
PROVIDERS: Emergency Provider Student in an Organized Health Care Education/Training Program; PCP Student in an Organized Health Care Education/Training Program
DX: R53.81 Other malaise (principal); R41.0 Disorientation, unspecified; G25.81 Restless legs syndrome; E78.5 Hyperlipidemia, unspecified
CPT/HCPCS: 80053; 82805; 93005; 96360; 96361; 99285; 70450; 74176; 81003; 84443; 84484; 85025; 93010; 99284

== ENCOUNTER 2024-12-14 12:57 | Outpatient (CLI) | payer MEDICARE, SELFPAY ==
[2024-12-14 12:54] LABS: Abs Immature Grans 0.02 10^3/uL (0.0-0.06); Absolute Basophil Count 0.04 10^3/uL (0.0-0.2); Absolute Eosinophil Count 0.12 10^3/uL (0.0-0.7); Absolute Lymphocyte Count 1.15 10^3/uL (1.2-3.4); Absolute Monocyte Count 0.78 10^3/uL (0.1-0.8); Absolute Neutrophil Count 5.23 10^3/uL (1.2-6.7); Basophils % 0.5 %; Eosinophils % 1.6 %; HCT 38.3 % (36.0-46.0); Immature Grans % 0.3 %; Lymphocytes % 15.7 %; MCHC 31.3 % (32.0-36.0); MCV 93 fL (80-95); MPV 9.7 fL (8.0-11.0); Monocytes % 10.6 %; Neutrophils % 71.3 %; Platelet Count 328 10^3/uL (130-400); RBC 4.14 10^6/uL (3.93-5.22); RDW 14.6 % (11.7-14.6); RDW-SD 50.3 fL; WBC 7.34 10^3/uL (4.4-10.8)
[2024-12-14 13:09] LABS: ALT 30 U/L (14-59); AST 31 U/L (15-37); Albumin 3.8 g/dL (3.4-5.0); Alkaline Phosphatase 61 U/L (46-116); Anion Gap 7.4 mmol/L (3-11); BUN 28 mg/dL (7-18); Bilirubin, Total 0.36 mg/dL (0.2-1.0); CO2 27.6 mmol/L (21.0-32.0); CREATININE 1.4 mg/dL (0.55-1.02); Calcium 9.6 mg/dL (8.5-10.1); Chloride 107 mmol/L (98-107); Estimated GFR 36.41 (mL/min/1.73m2); Glucose 100 mg/dL (74-106); Potassium 4.9 mmol/L (3.5-5.1); Sodium 142 mmol/L (136-145); Total Protein 6.8 g/dL (6.4-8.2)
== END 2024-12-14 12:58 | disposition home or self-care (01) ==
PROVIDERS: PCP Student in an Organized Health Care Education/Training Program; Visit Provider Student in an Organized Health Care Education/Training Program
DX: R07.9 Chest pain, unspecified (principal); R10.9 Unspecified abdominal pain
CPT/HCPCS: 36415; 80053; 85025

== ENCOUNTER 2024-12-14 13:16 | Outpatient (CLI) | payer MEDICARE, SELFPAY ==
--- NOTE | 2024-12-14 | DI.CT_ITS ---
Exam(s) CT ABDOMEN PELVIS W EXAM: CT ABDOMEN PELVIS W CLINICAL HISTORY: INC LOWER ABD PAIN, R10.9, HX URETER MALIGNANCY LT SIDE. TECHNIQUE: Imaging Protocol: Axial computed tomography images with coronal and sagittal reformatted images were created and reviewed CONTRAST MATERIAL: Intravenous: Omnipaque-350 100cc Oral: Oral contrast was also administered for bowel opacification COMPARISON: CT CT ABDOMEN PELVIS WO from 11/10/2024 FINDINGS: VISUALIZED LUNG BASES: There is a pleural based noncalcified 4 mm nodule in the lateral basal segment of the right lower lobe, unchanged. No pleural effusions.. ABDOMEN: There is no ascites. LIVER: There are no focal hepatic lesions evident. GALLBLADDER/BILIARY: The gallbladder is again noted to be surgically absent. CBD diameter is upper n ormal. There is minimal dilatation of intrahepatic ducts, commensurate with advanced age and post ch olecystectomy status. PANCREAS: No evidence of pancreatic mass nor dilatation of the pancreatic duct. SPLEEN: Spleen is not enlarged. No obvious intrasplenic lesions. Splenic and portal veins are paten t. ADRENALS: There are no significant adrenal masses. KIDNEYS:The right kidney is again noted be surgically absent and there is no abnormal tissue density in the right renal fossa. No regional lymphadenopathy in this region. The left kidney exhibits extr a renal pelvis. There are no radiopaque calculi in the left kidney. No significant masses in left k idney. Small sub cm cyst is noted in the medial cortex. In the diameter of the left ureter is darci l. URINARY BLADDER: Not distended. No obvious abnormal wall thickening. ABDOMINAL AORTA: The abdominal aorta is calcified but not significantly enlarged. Common iliac arter ies are also calcified but not enlarged. LYMPH NODES:There is no retroperitoneal nor paraaortic adenopathy. ABDOMINAL WALL: No evidence of significant anterior abdominal wall nor inguinal hernia. GI: There is no evidence of bowel obstruction, free air, nor abscess. PELVIS: GI: No evidence of appendicitis.There is extensive sigmoid diverticulosis. No obvious acute divertic ulitis. LYMPH NODES: There is no intrapelvic nor inguinal adenopathy. REPRODUCTIVE: Uterus is atrophic or surgically absent. There is a cyst in the right adnexa measuring 2.4 x 1.8 cm, similar to previous. Probably ovarian. No findings in the opposite-left adnexa. The re is no free fluid in the pelvis. URINARY BLADDER: See above OSSEOUS: No acute fractures. Significant indentations of superior endplate of L2 and inferior endpla te L1 again noted. No lytic nor blastic osseous lesions evident. IMPRESSION: 1. Compared to the prior CT scan of 11/10/2024 there is again noted evidence of right nephrectomy, ch olecystectomy and hysterectomy. There is no abnormal tissue in the right renal fossa. 2. There are no significant findings in the left renal cortex. There is slight dilatation of the lef t renal pelvis versus developmental extrarenal pelvis. The remainder of the left ureter is not dilat ed. 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 Unfortunately, this study wa s not performed as CT urogram and therefore there is no contrast in the ureter nor in the renal pelvi s. There is also no contrast in the urinary bladder lumen 3. Sigmoid diverticulosis without evidence of obvious acute diverticulitis. 4. Cyst in the right adnexa/presumably right ovary again noted.. No free fluid in the pelvis. RADIATION DOSE DELIVERED: 360.94mGy.cm Total DLP DATA REPOSITORY: All CT scans at this facility are submitted to the National Radiology Data Registry (NRDR) Dose Index Registry (DIR) with the [employer] (ACR). RADIATION OPTIMIZATION: All CT scans at this facility use at least one of these dose optimization te chniques: automated exposure control; mA and/or kV adjustment per patient size (includes targeted exa ms where dose is matched to clinical indication); or iterative reconstruction.
[2024-12-14] MEDS: Normal Saline - Diluent 50 ML VIAL IJ (15:16)
[2024-12-14] MEDS: Omnipaque 350 MG/ML 100 ML BTL 75 ML IJ (15:18)
[2024-12-14] MEDS: Barium Sulfate 2% W/V-Berry Smoothie 450 ML BTL PO ×2 (15:19→15:20)
== END 2024-12-14 13:36 ==
LOC: DI 13:19
PROVIDERS: PCP Student in an Organized Health Care Education/Training Program; Visit Provider Student in an Organized Health Care Education/Training Program
DX: K57.30 Diverticulosis of large intestine without perforation or abscess without bleeding (principal)
CPT/HCPCS: 74177; J3490

== ENCOUNTER 2025-01-15 01:31 | Outpatient (CLI) | payer MEDICARE, SELFPAY ==
[2025-01-15 09:46] LABS: BUN 24 mg/dL (7-18); CREATININE 1.2 mg/dL (0.55-1.02); Estimated GFR 43.81 (mL/min/1.73m2)
[2025-01-15] MEDS: Omnipaque 350 MG/ML 100 ML BTL IJ (09:57)
[2025-01-15] MEDS: Normal Saline - Diluent 50 ML VIAL IJ (09:58)
--- NOTE | 2025-01-15 10:15 | DI.CT_ITS ---
Exam(s) CT ABDOMEN PELVIS WO/W EXAM: CT ABDOMEN PELVIS WO/W CLINICAL HISTORY: R10.30 Lower abd pain, unspecified, hx of left ureter CA requesting urogram. TECHNIQUE: Imaging Protocol: Axial computed tomography images with coronal and sagittal reformatted images were created and reviewed. Images were performed from the lung bases through the ischial tuberosities before IV contrast and fol lowing IV contrast using a 70 second delay, followed by 7 minutes delayed images. CONTRAST MATERIAL: Intravenous: Omnipaque 350 Contrast volume:100 cc Oral: no COMPARISON: CT CT ABDOMEN PELVIS WO from 11/10/[address] ABDOMEN PELVIS W from 12/14/2024 FINDINGS: Lung Bases: Normal where visualized. Liver: Normal density. No measurable mass. Gallbladder and biliary tract: Status post cholecystectomy. No biliary dilation. Pancreas: Normal density, no abnormal calcifications or inflammatory process. Spleen: Normal. Kidneys: Status post right nephrectomy. Left kidney shows normal size, contour and axis. No radioden se stones . No suspicious masses seen. Left renal pelvis is mildly dilated to the ureteropelvic mitchel ction, similar to prior.. The ureter is not dilated. No filling defects. Adrenal glands: No masses seen. Lymph nodes: Within normal limits. Abdominal Aorta: Abdominal portion non-dilated. Atherosclerotic calcification. Soft tissues: Unremarkable. Bladder: Not well distended. No gross wall thickening. No evidence of a mass.No evidence of calculi. Bowel: Stomach unremarkable. No obstruction or bowel wall thickening. Appendix normal. Prominent si gmoid diverticulosis. No evidence of diverticulitis. Normal quantity of stool. Peritoneal cavity: No ascites, collection or mesenteric inflammatory response. Bones: Stable L1 and L2 compression fractures. Reproductive organs: Status post hysterectomy. IMPRESSION: Status post right nephrectomy. No suspicious renal or ureteral mass. No evidence of urinary tract c alculi. RADIATION DOSE DELIVERED: 1,240.75mGy.cm Total DLP DATA REPOSITORY: All CT scans at this facility are submitted to the National Radiology Data Registry (NRDR) Dose Index Registry (DIR) with the [employer] (ACR). RADIATION OPTIMIZATION: All CT scans at this facility use at least one of these dose optimization te chniques: automated exposure control; mA and/or kV adjustment per patient size (includes targeted exa ms where dose is matched to clinical indication); or iterative reconstruction.
== END 2025-01-15 01:51 ==
LOC: DI 01:31
PROVIDERS: PCP Student in an Organized Health Care Education/Training Program; Visit Provider Student in an Organized Health Care Education/Training Program
DX: R10.30 Lower abdominal pain, unspecified (principal); Z98.890 Other specified postprocedural states; Z90.5 Acquired absence of kidney
CPT/HCPCS: 84520; 74178; 82565; J3490

== ENCOUNTER → 2025-03-20 10:17 | Outpatient (BNVA) | payer MEDICARE, SELFPAY | PROVIDERS: PCP Student in an Organized Health Care Education/Training Program; Referring Provider Student in an Organized Health Care Education/Training Program; Visit Provider Urology | DX: C68.9 Malignant neoplasm of urinary organ, unspecified (principal); Z87.440 Personal history of urinary (tract) infections | CPT/HCPCS: 81003; 99213 ==

== ENCOUNTER 2025-03-20 11:19 | Outpatient (REF) | payer MEDICARE, SELFPAY ==
--- NOTE | 2025-03-20 10:45 | PAPNONF_PTH ---
PATIENT: Moira Copeland LOC: [facility] U#:[id number] AGE/SX: 89/F ROOM: RE03/20/[address]: Reynaldo Hackett MD : [id number] BED: DIS: 03/20/2025 SPEC #: [id number] RECD: 03/20/25 12:59 STATUS: THIERNO REQ #: [id number] JORGE: 03/20/25 10:[address]: Reynaldo Hackett DEPT: [facility] Cytology RECD BY: Marta Lowe ENTERED: 03/20/25 13:00 SP TYPE: CHRIS GUEVARA DR: Vinnie Mosquera Tissues: 1 - BODY FLUID CYTO(SPUTUM/URINE)[facility] Procedures: BODY FLUID CYTO(URINE/SPUTUM) Comments: [id number] (TV = 35 ml, 30 ml CYTOLYT ADDED) (REFRIGERATED)
== END 2025-03-20 11:20 | disposition home or self-care (01) ==
LOC: LBN 11:19
PROVIDERS: PCP Student in an Organized Health Care Education/Training Program; Visit Provider Urology
DX: C68.9 Malignant neoplasm of urinary organ, unspecified (principal)
CPT/HCPCS: 88104

== ENCOUNTER 2025-05-07 09:11 | Emergency (ER) | payer MEDICARE, SELFPAY ==
[2025-05-07] VITALS (33 sets, daily range): BP systolic 126–179; BP diastolic 45–128; PULSE 58–76; RESP 9–21; TEMP 36.4–36.6; O2SAT 97–100
--- NOTE | 2025-05-07 09:12 | W.ED.GENAD ---
Discharge Plan Disposition Patient Disposition: Home Discharge Details Clinical Impression: Nausea Primary Care Provider: Vinnie Mosquera ED Provider: Jarrod Fraser Home Meds and New Rx's Prescriptions: Continued ascorbic acid (vitamin C) 500 mg capsule, extended release 500 mg PO DAILY Patient Comments: Pt reports I am not very good about taking this acetaminophen [Acetaminophen Extra Strength] 500 mg Tablet 1,000 mg PO PRN PRN magnesium oxide 400 mg (241.3 mg magnesium) Tablet 400 mg PO DAILY Qty: 7 0RF tramadol 100 mg tablet 100 mg PO BID PRN (Reason: severe pain (scale score 7-10)) Qty: 20 0RF diclofenac sodium [Voltaren Arthritis Pain] 1 % gel 4 g topical QID Qty: 100 0RF Rx Instructions: apply to left posterior shoulder Discharge Instructions Additional Instructions: You were seen in the emergency department for your episode of nausea and feeling off. You were offered a CT scan of your head and consultation with neurology which you declined. Your blood work showed that you are not having a heart attack. Your kidneys are working well. Your shoulder has no acute changes. As we discussed if you develop the symptoms again began feeling nauseous or vomiting or develop a headache please return to the emergency department. Otherwise follow-up with your primary care provider. Discharge Data Discharge Date/Time-TO BE ENTERED AT DEPARTURE: 05/07/25 12:44 HPI General Date/Time Provider Initiated Documentation: 05/07/25 09:12. HPI Narrative: MDM This is a very well-appearing hypertensive but normothermic and not tachycardic 89-year-old female with symptoms of nauseousness and malaise that resolved spontaneously at home prior to arrival concerning for the possibility of myocardial injury for which undergo troponin testing in the setting of her nonischemic ECG. Patient , her daughter and I discussed at length whether or not her symptoms could have represented a TIA. In the absence of any focal areas of weakness nad in the absence of any headache, discoordination or falls my suspicion was low for TIA. Nonetheless patient certainly has risk factors for TIA based on her age and prior history of TIA. Patient is low risk. The ABCD 2 score is 3 points. She has seen a neurosurgeon in the past, in the setting of neck and trapezius pain which was diagnosis as most likely myofascial pain. Nonetheless given her risk factors I explained that an evaluation for TIA included a CT angiogram of her head neck prior to a neurological consultation. I advised that neurology might recommend an MRI which patient did not want at this point in time. Given that she was neurologically intact I did not feel that this was inappropriate. I did caution the patient and her daughter that foregoing CT angiogram of her head and neck neurological consultation could mean that we may miss the possibility of catching a stroke or a TIA as neurology would likely recommend an MRI. Patient understood this risk. I do not feel the patient would be a tPA candidate based on her reassuring normal neurological exam. Will continue to monitor the patient. Concerning her left shoulder pain she has no signs of erythema to suggest cellulitis. No fluctuance to suggest abscess. No fevers nor swelling to suggest septic joint. Shoulder so I am not suspicious for dislocation. She does have somewhat limited range of motion which she reports is chronic. Will obtain x-ray to assess for any osseous changes that may be acute. I considered referred pain source given nausea but the patient denied abdominal pain and has a soft nontender abdomen. She had had no diarrhea nor fevers to suggest diverticulitis and no left lower quadrant tenderness. No right upper quadrant tenderness to suggest acute cholecystitis. No dysuria or frequency to suggest UTI. No right lower quadrant tenderness to suggest appendicitis. 12:27 PM I met with the patient and her daughter again. She continues to feel well in the emergency department. She had no recurrent symptoms. Her x-ray was reassuring against any acute cardiopulmonary process. Shoulder x-ray was stable. She had 2 troponins within normal limits. She also had an unremarkable delta troponin. She had no MAXIMINO and no acute electrolyte abnormalities. No anemia leukocytosis nor thrombocytopenia. We discussed that I did not have a clear sense of what had happened to the patient this morning. I again offered neurological assessment following CT angiogram patient's head. Patient declined. I advised that if her symptoms she should return to the emergency department. Otherwise, we discussed as needed follow-up with her PCP. Patient was discharged with an empiric trial of expectant outpatient management. HPI This is a patient with a history of ischemic attacks many years ago presenting with symptoms suggestive of feeling strange with nausea and a sense of warmth approximately 1 hour ago. The patient arrived by car. Patient is accompanied by her daughter. The patient reports an unusual sensation that began around 8 AM today, following her awakening at approximately 7:30 AM. Initially, she felt normal but experienced generalized weakness while showering. This was accompanied by a sudden wave of heat, nausea, and an urge for bowel movement. These symptoms were transient and resolved spontaneously. She does not experience headaches, unilateral hand weakness, falls, or speech difficulties. She had to cancel a dental appointment scheduled for today due to these symptoms. Currently, she feels largely back to normal, except for significant pain in her left shoulder blade when mobile. The patient also reports significant pain in her left shoulder blade, a symptom she has been dealing with recently. She has undergone total shoulder replacement surgery in the past and has noticed some changes in her shoulder. The patient reports no chest pain, fevers, or difficulty breathing. She experienced nausea this morning and has chronic abdominal pain, but no new or different stomach pain today. She also reports no burning sensation during urination. Exam General: Well-appearing in no acute distress speaking in complete sentences. Head: Normocephalic, atraumatic. Eye:[Pupils equal, round reactive to light.] Extraocular eye movements intact. No conjunctival injection. No scleral icterus. Ear, nose, mouth, throat: Grossly normal inspection. Normal voice, handling secretions normally. Neck: Trachea midline. Cardiovascular: Well-perfused distal extremities. Regular rate and rhythm. Respiratory: Nonlabored respiration. Clear lungs bilaterally Gastrointestinal: Nondistended abdomen. Soft nontender. Musculoskeletal: No edema. Moving all 4 extremities spontaneously. Left shoulder with no obvious swelling erythema rash no fluctuance. Patient cannot flex her right shoulder approximately 90 degrees. She can raise. She can abduct her right shoulder approximately 90 degrees. She has no tenderness in her right biceps elbow or forearm. Sensation motor function intact in the left distributions. Skin: Normal for age and race, grossly normal temperature and turgor. No acute rash. Neurologic: Alert and appropriate, no apparent acute deficits. Cranial nerves II through XII intact grossly. 5 out of 5 bilateral upper and lower extremity strength. No pronator drift. Negative Romberg. No dysmetria. No dysdiadochokinesia. Psychiatric: Mood and manner are appropriate. Grooming and personal hygiene are appropriate. Related Data Home Medications ?Medication ?Instructions ?Recorded ?Confirmed acetaminophen 500 mg tablet 1,000 mg PO PRN PRN 01/26/19 05/07/25 (Acetaminophen Extra Strength) magnesium oxide 400 mg (241.3 mg 400 mg PO DAILY #7 tabs 01/27/19 05/07/25 magnesium) tablet ascorbic acid (vitamin C) 500 mg 500 mg PO DAILY 03/20/19 05/07/25 capsule,extended release diclofenac sodium 1 % topical gel 4 g topical QID #100 grams 07/27/24 05/07/25 (Voltaren Arthritis Pain) tramadol 100 mg tablet 100 mg PO BID PRN severe pain 07/27/24 05/07/25 (scale score 7-10) #20 tabs Previous Rx's ?Medication ?Instructions ?Recorded magnesium oxide 400 mg (241.3 mg 400 mg PO DAILY #7 tabs 01/27/19 magnesium) tablet diclofenac sodium 1 % topical gel 4 g topical QID #100 grams 07/27/24 (Voltaren Arthritis Pain) tramadol 100 mg tablet 100 mg PO BID PRN severe pain 07/27/24 (scale score 7-10) #20 tabs Allergies Allergy/AdvReac Type Severity Reaction Status Date / Time ropinirole Allergy Severe blacked out Verified 05/07/25 09:18 mometasone furoate (From Allergy Intermediate Swelling/Ed Verified 05/07/25 09:18 Nasonex) cinda gluten AdvReac Intermediate Abdominal Verified 05/07/25 09:18 pain, diarrhea General JONA: 3 PFSH All Active Problems (Updated 05/07/25 @ 12:30 by Jarrod Fraser MD) Nausea (Acute) Localized osteoarthritis of right knee (Acute) Trochanteric bursitis, right hip (Acute) Pes anserinus bursitis of right knee (Acute) Chest pain (Acute) Rotator cuff insufficiency of left shoulder (Acute) Left shoulder pain (Acute) Urothelial carcinoma (Acute) Iliotibial band syndrome affecting right lower leg (Acute) knee Advance directive discussed with patient (Acute) DVT prophylaxis (Acute) Pancreatitis (Chronic) Osteoarthritis (Chronic) POLINA (obstructive sleep apnea) (Chronic) RLS (restless legs syndrome) (Acute) History of cholecystectomy (Chronic) IBS (irritable bowel syndrome) (Chronic) CVID (common variable immunodeficiency) (Acute) Superficial foreign body, left knee, sequela (Acute) Removal of foreign body DOS: 11/16/18 Dr. Anaya Painful total knee replacement, left (Acute) Transient global amnesia (Acute 12/10/14) Pes anserinus bursitis of left knee (Acute 02/16/18) Patellar tendinitis, left knee (Acute 01/19/18) Medical History Other chronic pain Left shoulder Osteoarthritis Hyperlipidemia Overactive bladder Surgical History History of nephroureterectomy Tonsillectomy Open Carpal Tunnel release Abdominal hysterectomy Colonoscopy - IV Sedation Cholecystectomy Extraction of cataract Bilateral Arthroscopy, Shoulder Appendectomy Family History Mother No problems noted. Father No problems noted. Social History Smoking/Tobacco Use Status: Former Tobacco Use Smoking risk assessment performed?: Yes Alcohol Intake: former Drug use: Never Substance use type: does not use Housing: house Current gender identity: female Do you feel safe at home: Yes Do you feel safe in your relationship?: Yes Additional Social history: . 4 children. No current alcohol use, and remote history of tobacco use.
--- NOTE | 2025-05-07 09:15 | RT.EKG_ITS ---
APPROVED REPORT Exam: Resting ECG Reason for Exam: Chest pain Patient Location: E HR:70 bpm ECG Measurements Heart Rate 70 AXIS GA 152 P 33 QRSd 97 QRS -59 QT 408 T 21 QTc 441 Conclusion Sinus rhythm...normal P axis, V-rate 60- 99 Left anterior fascicular block...axis(240,-40), init forces inf No Occlusion WA
--- NOTE | 2025-05-07 10:00 | DI.RAD_ITS ---
Exam(s) XR CHEST 2V PA LATERAL EXAM: XR CHEST 2V PA LATERAL CLINICAL HISTORY: Nausea TECHNIQUE: 2D digital imaging was performed of the chest. Two images were obtained. PA and lateral views were obtained. COMPARISON: CR XR CHEST 2V PA LATERAL from 04/06/2019 FINDINGS: MEDIASTINUM: Normal. HEART: Normal. PULMONARY VASCULATURE: Normal. LUNGS: No focal consolidating infiltrates are present. PLEURAL SPACE: No pleural effusion or pneumothorax. BONE:Within normal limits for the patient's age. Old healed right rib fractures are present. There is a left shoulder replacement again seen. There are old stable thoracic and lumbar compression deformities. OTHER FINDINGS:Normal. IMPRESSION: No acute pulmonary findings. DATA REPOSITORY: RADIATION DOSE DELIVERED:
--- NOTE | 2025-05-07 10:00 | DI.RAD_ITS ---
Exam(s) XR SHOULDER LT COMPLETE 2+V EXAM: XR SHOULDER LT COMPLETE 2+V CLINICAL HISTORY: Left shoulder pain. TECHNIQUE: 2D digital imaging was performed. Five images were obtained. AP, lateral and oblique views were obtained. COMPARISON: CR XR SCAPULA LT from 02/28/2024 CR XR SHOULDER LT COMPLETE 2+V from 07/27/2024 FINDINGS: BONES: There are stable post operative changes of a left total shoulder arthroplasty present. Dystrophic calcification is seen adjacent to the proximal humerus. No fracture or dislocation. JOINTS: The orthopedic hardware is in good position. No evidence of hardware loosening. Alignment of the glenohumeral joint is unchanged compared to the prior examination. SOFT TISSUE: Normal. IMPRESSION: Stable left total shoulder replacement.. DATA REPOSITORY: RADIATION DOSE DELIVERED:
[2025-05-07 10:41] LABS: Abs Immature Grans 0.02 10^3/uL (0.0-0.06); Absolute Basophil Count 0.05 10^3/uL (0.0-0.2); Absolute Eosinophil Count 0.11 10^3/uL (0.0-0.7); Absolute Neutrophil Count 5.47 10^3/uL (1.2-6.7); Basophils % 0.7 %; Eosinophils % 1.5 %; HCT 39.7 % (36.0-46.0); HGB 12.5 g/dL (11.2-15.7); Immature Grans % 0.3 %; Lymphocytes % 13.8 %; MCH 29.1 pg (27.0-33.0); MCHC 31.5 % (32.0-36.0); MCV 93 fL (80-95); MPV 9.7 fL (8.0-11.0); Monocytes % 8.3 %; Neutrophils % 75.4 %; Platelet Count 320 10^3/uL (130-400); RBC 4.29 10^6/uL (3.93-5.22); RDW 14.4 % (11.7-14.6); RDW-SD 49.5 fL; WBC 7.25 10^3/uL (4.4-10.8)
[2025-05-07 11:14] LABS: Anion Gap 8.9 mmol/L (3-11); BUN 29 mg/dL (7-18); CO2 27.1 mmol/L (21.0-32.0); CREATININE 1.2 mg/dL (0.55-1.02); Calcium 9.1 mg/dL (8.5-10.1); Chloride 107 mmol/L (98-107); Estimated GFR 43.54 (mL/min/1.73m2); Glucose 96 mg/dL (74-106); Potassium 4.8 mmol/L (3.5-5.1); Sodium 143 mmol/L (136-145); Troponin I 7 ng/L (<or=51)
[2025-05-07 11:59] LABS: Troponin I 7 ng/L (<or=51)
== END 2025-05-07 12:44 | disposition home or self-care (01) ==
PROVIDERS: Emergency Provider Emergency Medicine; PCP Student in an Organized Health Care Education/Training Program
DX: R11.0 Nausea (principal); I44.4 Left anterior fascicular block; E78.5 Hyperlipidemia, unspecified; Z86.73 Personal history of transient ischemic attack (TIA), and cerebral infarction without residual deficits; Z96.612 Presence of left artificial shoulder joint; Z87.891 Personal history of nicotine dependence
CPT/HCPCS: 36415; 80048; 93005; 99285; 71046; 73030; 84484; 85025; 93010; 99284

== ENCOUNTER 2025-08-06 16:46 | Outpatient (REF) | payer MEDICARE, SELFPAY ==
--- NOTE | 2025-08-06 11:45 | PAPNONF_PTH ---
PATIENT: Moira Copeland LOC: NCN #:[id number] AGE/SX: 89/F ROOM: RE08/06/[address]: Vinnei Mosquera : 1935 BED: DIS: 08/06/2025 SPEC #: [id number] RECD: 08/07/25 12:50 STATUS: THIERNO REHoward #: [id number] JORGE: 08/06/25 11:[address]: Vinnie Mosquera DEPT: [facility] Cytology RECD BY: Marta Lowe Tissues: 1 - BODY FLUID CYTO(SPUTUM/URINE)[facility] Procedures: BODY FLUID CYTO(URINE/SPUTUM) Comments: [id number] (TV = 15 ml, 30 ml CYTOLYT ADDED) (REFRIGERATED)
== END 2025-08-06 16:47 | disposition home or self-care (01) ==
LOC: NCHCN 16:46
PROVIDERS: PCP Student in an Organized Health Care Education/Training Program; Visit Provider Student in an Organized Health Care Education/Training Program
DX: C66.9 Malignant neoplasm of unspecified ureter (principal)
CPT/HCPCS: 88104

== ENCOUNTER → 2025-09-24 07:59 | Outpatient (BNVA) | payer MEDICARE, SELFPAY | PROVIDERS: PCP Student in an Organized Health Care Education/Training Program; Referring Provider Student in an Organized Health Care Education/Training Program; Visit Provider Nurse Practitioner Gerontology | DX: Z85.528 Personal history of other malignant neoplasm of kidney (principal); K58.9 Irritable bowel syndrome, unspecified; R35.0 Frequency of micturition; R10.A2 Flank pain, left side; R39.9 Unspecified symptoms and signs involving the genitourinary system | CPT/HCPCS: 99213; 81002; 51798 ==

== ENCOUNTER 2025-09-24 10:26 | Outpatient (REF) | payer MEDICARE, SELFPAY ==
[2025-09-24 16:14] LABS: Glucose Negative (Negative)
[2025-09-24 16:25] LABS: C & S Indicated? No; RBC 0-2 HPF (0-2); WBC 0-2 HPF (0-5)
== END 2025-09-24 10:27 | disposition home or self-care (01) ==
LOC: LBN 10:26
PROVIDERS: PCP Student in an Organized Health Care Education/Training Program; Visit Provider Nurse Practitioner Gerontology
DX: C68.9 Malignant neoplasm of urinary organ, unspecified (principal); R10.9 Unspecified abdominal pain
CPT/HCPCS: 81003; 81015